=== PATIENT | female | born 1945 | race Caucasian/White ===

== ENCOUNTER 2019-06-17 14:27 | Outpatient (CLI) | payer MEDICARE, OTHER, SELFPAY ==
--- NOTE | 2019-06-17 14:38 | XR_ITS ---
WS: [id number] DEXA (DUAL ENERGY X-RAY ABSORPTIOMETRY) Bone mineral density was performed using a [employer] machine. HISTORY: POST MENOPAUSAL COMPARISON: None available. Lumbar spine BMD (L1-L4): 1.351 g/cm2 T score: 1.4 Z score: 2.5 Total hip BMD: Left: 0.869 g/cm2. T score: -1.1 Z score: 0.2 Right: 0.853 g/cm2. T score: -1.2 Z score: 0.1 10 year probability of a major osteoporotic fracture is 26%. XR/XR DEXA axial skeleton* 77702 IMPRESSION: OSTEOPENIA based upon the WHO classification for females. Patient is at increas ed risk for fracture.
== END 2019-06-17 14:28 | disposition home or self-care (01) ==
LOC: RADWPI 14:37
PROVIDERS: Family Provider Family Medicine; PCP Family Medicine; Visit Provider Nurse Practitioner Family
DX: Z78.0 Asymptomatic menopausal state (principal)
CPT/HCPCS: 77080

== ENCOUNTER 2019-11-08 08:41 | Outpatient (CLI) | payer MEDICARE, OTHER, SELFPAY ==
[2019-11-08 09:18] LABS: Basophils # 0.1 10^3/uL (0.0-0.1); Basophils % 0.5 %; Eosinophils # 0.3 10^3/uL (0.0-0.8); Eosinophils % 1.9 %; Hematocrit 34.4 % (37.0-47.0); Hemoglobin 10.4 g/dL (11.5-15.3); Lymphocytes # 9.3 10^3/uL (0.8-4.8); Lymphocytes % 53.8 %; Mean Corpuscular HGB Conc 30.2 g/dL (30.0-36.0); Mean Corpuscular Volume 92.7 fL (81-99); Mean Platelet Volume 10.5 fL (7.4-10.4); Monocytes # 1.1 10^3/uL (0.2-0.9); Monocytes % 6.3 %; Neutrophils # 6.4 10^3/uL (1.8-7.7); Neutrophils % 36.9 %; Nucleated Red Blood Cells % 0 %; Platelet Count 298 10^3/cmm (130-400); Red Blood Count 3.71 10^6/uL (4.1-5.3); Red Cell Distribution Width 13.9 % (12.1-15.1); White Blood Count 17.3 10^3/uL (4.0-10.0)
[2019-11-08 09:24] LABS: Alanine Aminotransferase < 5 U/L (0-33); Albumin Level 4.1 g/dL (3.5-5.2); Alkaline Phosphatase 60 IU/L (35-105); Aspartate Amino Transferase 11 U/L (0-32); Blood Urea Nitrogen 27 mg/dL (8-23); Carbon Dioxide 18 mmol/L (22-29); Chloride 111 mmol/L (98-107); Globulin 2.1 g/dL (1.3-4.6); Glucose 173 mg/dL (65-115); Lactate Dehydrogenase 173 U/L (135-214); Osmolality Calculated 291 mOsm/kg (285-295); Sodium 140 mmol/L (136-145); Total Bilirubin 0.2 mg/dL (0.15-1.2); Total Protein 6.2 g/dL (6.6-8.7)
[2019-11-08 10:08] LABS: Slide Review Slide Review Perform
--- NOTE | 2019-11-08 11:02 | ONC FU_ITS ---
Dr. Zayas follow up note Patient: Yanira Gao Unit #: [id number]: 1945 Dicatated By: Nuha Zayas M.D.Date of Visit:Nov 08, 2019 Onc Med Follow-up/Prog Note History of Present Illness: This is a 74-year-old woman with chronic leukocytic leukemia, Lawler stage 0. She was noted to have asymptomatic leukocytosis in September of 2011. Her WBC was 18.6 with diff showing predominantly lymphocytes at 65%. She had no evidence of anemia or thrombocytopenia. She had no fevers chills or night sweats. She was first evaluated on 01/25/12 and was found to have an iron deficiency and B12 deficiency. There was no organomegaly by examination. Peripheral blood flow cytometry revealed CD20, CD23, CD5 lambda restricted lymphocytes consistent with chronic lymphocytic leukemia. CD38 was not detected, indicating good prognosis. She was established on routine surveillance with expectant management alone. Her other medical illnesses include hypertension, hyperlipidemia, type II diabetes, and discoid lupus. She also has known left subclavian artery stenosis. Screening colonoscopy in June 2012 showed diverticulosis and melanosis coli. There was no evidence of malignancy. She continued on iron and B12 supplements. In March 2015 she was admitted with left pyelonephritis and left proximal ureter dilation. The illness resolved with antibiotics. She is a nonsmoker Came for follow-up, denies any specific complaints, no fever or chills, no nausea or vomiting, no night sweats, no weight loss, no peripheral lymphadenopathy, no recurrent fever, no abdominal fullness, no palpitation no shortness of breath, no jaundice Medications: Aspirin 1 Tablet (of 81 mg) Oral daily, DilTIAZem CD 1 Cartridge (of 240 mg) Capsule SR 24 HR Oral daily, GlipiZIDE 1 Tablet (of 5 mg) Oral daily, Labetalol HCl 1 (200 mg) Tablet Oral b.i.d., Ocuvite 1 Tablet Oral daily, PriLOSEC OTC 1 (20 mg) Tablet, enteric coated Oral daily PRN Allergies: No Known Allergies. Review of Systems: Constitutional - Appetite is good and weight is stable. No fever, chills, hot flashes, or night sweats. Energy level is poor, ENMT - No sinus congestion/drainage. No mouth sores. No sore throat or difficulty swallowing, Hematologic/Lymphatic - No abnormal bruising or bleeding, Respiratory - Shortness of breath with exertion. No cough. No pleuritic pain or hemoptysis, Cardiovascular - No angina pain. No palpitations, Gastrointestinal - No nausea or vomiting. No heartburn or acid reflux. Frequent diarrhea or constipation. No blood in the stool or black stools, Genitourinary (F) - No dysuria or hematuria. Patient reports urinary frequency. No urgency or incontinence, Musculoskeletal - No joint or bone pain, Neurologic - No headache or dizziness. No numbness/paresthesias or other focal neurologic symptoms, Psychiatric - No anxiety or depression. No insomnia. Vital Signs: Performed on Nov 08, 2019 10:31 Height - 66.00 in Weight - 195.2 lbs (HIGH) BSA - 1.98 sq.m BMI - 31.51 (HIGH) Temperature - 97.8 F (LOW) Pulse - 60 /min Respiration - 24 /min BP - 202/98 mm(hg) (HIGH) O2 Sat - 98 % Pain - 0 Performance Status: 0 - Fully active, able to carry on all predisease activities without restrictions. (ECOG) Physical Examination: ENMT - No mouth sores, no thrush, no lymphadenopathy, Respiratory - Lungs are clear to auscultation, Cardiovascular - Regular rate and rhythm of heart, Abdomen - Soft, bowel sounds present, nontender, Extremities - No visible edema or rash. Lab/Imaging: Most recent lab results are not available for this patient. Impression: 1. Patient with chronic lymphocytic leukemia, Lawler stage 0, initially diagnosed in December 2011. She has been followed on observation. Her other medical illnesses include: 3. Hypertension. 4. Hyperlipidemia. 5. Type II diabetes. 6. Discoid lupus. 7. Left subclavian artery stenosis .Anemia Etiology appears multifactoria lBasic anemia workup remained inconclusive,Could be due to underlying myelodysplasia or chronic renal insufficiency or bone marrow infiltration with CLL. . Plan: Discussed with patient regarding her labs white blood count 17.3 hemoglobin 10.4 hematocrit 34.4 platelets 298,000 CMP within normal limit except creatinine 1.5 and LDH is also within normal range Clinically, patient is doing well with no signs symptoms suggestive of disease progression, no B symptoms, no peripheral lymphadenopathy, no abdominal fullness. And her lab work-up is also stable with mild anemia and mild leukocytosis/lymphocytosis. Normal LDH. We will continue to monitor and she will return to clinic in 6 months with CBC CMP and LDH, patient was advised in case she has any B symptoms e.g. night sweats, recurrent fever, or unexplained weight loss or peripheral lymphadenopathy, she need to call us. Signed By: Nuha Zayas M.D. <<Signature on File>>
== END 2019-11-08 08:42 | disposition home or self-care (01) ==
LOC: ONCMED 08:45
PROVIDERS: PCP Family Medicine; Visit Provider Internal Medicine Hematology & Oncology
DX: C91.10 Chronic lymphocytic leukemia of B-cell type not having achieved remission (principal); E11.9 Type 2 diabetes mellitus without complications; L93.0 Discoid lupus erythematosus; E78.5 Hyperlipidemia, unspecified; I10 Essential (primary) hypertension; D50.9 Iron deficiency anemia, unspecified; I70.8 Atherosclerosis of other arteries
CPT/HCPCS: 36415; 80053; 83615; 85025; 99214; G0463

== ENCOUNTER 2019-11-08 13:11 | Outpatient (CLI) | payer MEDICARE, OTHER, SELFPAY ==
--- NOTE | 2019-11-08 15:00 | USCV_ITS ---
Yaniar Gao Age: 74 Gender: F : 1945 Exam Date: 11/08/2019 14:11 Ordering Phys: Kaushal Alonzo MD ([email or web address]) Technologist: Nadine Craig Exam Location: [facility] [place] Indication: CAROTID STENOSIS Risk Factors: Previous Vascular Surgery: None Right Brachial BP: / Left Brachial BP: / Right Left Velocity (cm/s) Spectral Plaque Velocity (cm/s) Spectral Plaque Syst/Diast Broadening Syst/Diast Broadening 76.20/ 13.60 Prox CCA 77.50 / 5.70 73.80/ 12.00 Mid CCA 91.50 / 11.00 79.80/ 10.30 Distal CCA 90.40 / 11.00 178.80/20.00 Prox ICA 107.80/ 14.50 178.80/21.70 Mid ICA 115.70/ 13.80 166.50/19.70 Distal ICA 129.50/ 17.20 52.50 ECA 118.10 2.42 ICA/CCA 1.42 Antegrade Vertebral Antegrade 46.90/ 5.70 cm/s 79.10/ 11.50 cm/s Bi Subclavian Bi 167.1 161.5 0 0 FINDINGS Moderate to heavy heterogeneous plaques at the right bifurcation and internal carotid artery. Moderate heterogeneous plaques at the left bifurcation and internal carotid artery. Mild diffuse plaques in the common carotid arteries bilaterally Antegrade flow in the vertebral arteries bilaterally CONCLUSIONS Moderate to heavy heterogeneous plaques at the right bifurcation and internal carotid artery with velocity elevation consistent with 50-79% stenosis. Moderate heterogeneous plaques at the left bifurcation and internal carotid arterywith velocity elevation consistent with 16-49% stenosis. Compared to the study from 12/06/2018, there may not be a significant change Dr Darlene Jones MD [facility] (Electronically Signed) Final Date: 08 November 2019 18:48 S
== END 2019-11-08 13:12 | disposition home or self-care (01) ==
LOC: RAD 13:15
PROVIDERS: PCP Family Medicine; Visit Provider Internal Medicine Cardiovascular Disease
DX: I65.23 Occlusion and stenosis of bilateral carotid arteries (principal)
CPT/HCPCS: 93880

== ENCOUNTER 2020-05-12 11:47 | Outpatient (CLI) | payer MEDICARE, OTHER, SELFPAY ==
[2020-05-12 12:10] LABS: Basophils # 0.1 10^3/uL (0.0-0.1); Basophils % 0.6 %; Eosinophils # 0.3 10^3/uL (0.0-0.8); Eosinophils % 2.1 %; Hematocrit 33.3 % (37.0-47.0); Hemoglobin 9.9 g/dL (11.5-15.3); Lymphocytes % 55.3 %; Mean Corpuscular HGB Conc 29.7 g/dL (30.0-36.0); Mean Corpuscular Volume 97.7 fL (81-99); Mean Platelet Volume 10.6 fL (7.4-10.4); Monocytes % 6.2 %; Neutrophils # 5.68 10^3/uL (1.8-7.7); Neutrophils % 35.1 %; Nucleated Red Blood Cells % 0 %; Platelet Count 229 10^3/cmm (130-400); Red Blood Count 3.41 10^6/uL (4.1-5.3); Red Cell Distribution Width 13.7 % (12.1-15.1); White Blood Count 16.2 10^3/uL (4.0-10.0)
[2020-05-12 14:10] LABS: Alanine Aminotransferase 10 U/L (0-33); Albumin Level 3.8 g/dL (3.5-5.2); Alkaline Phosphatase 59 IU/L (35-105); Anion Gap 15.9 (5-19); Aspartate Amino Transferase 12 U/L (0-32); Blood Urea Nitrogen 28 mg/dL (8-23); Calcium 8.5 mg/dL (8.5-10.5); Carbon Dioxide 17 mmol/L (22-29); Chloride 113 mmol/L (98-107); Globulin 2.2 g/dL (1.3-4.6); Glucose 131 mg/dL (65-115); Lactate Dehydrogenase 176 U/L (135-214); Osmolality Calculated 299 mOsm/kg (285-295); Potassium 4.9 mmol/L (3.5-5.1); Sodium 141 mmol/L (136-145); Total Bilirubin 0.2 mg/dL (0.15-1.2)
--- NOTE | 2020-05-12 16:33 | ONC FU_ITS ---
Dr. Zayas follow up note Patient: Yanira Gao Unit #: [id number]: 1945 Dicatated By: Nuha Zayas M.D.Date of Visit:May 12, 2020 Onc Med Follow-up/Prog Note History of Present Illness: This is a 75-year-old woman with chronic leukocytic leukemia, Lawler stage 0. She was noted to have asymptomatic leukocytosis in September of 2011. Her WBC was 18.6 with diff showing predominantly lymphocytes at 65%. She had no evidence of anemia or thrombocytopenia. She had no fevers chills or night sweats. She was first evaluated on 01/25/12 and was found to have an iron deficiency and B12 deficiency. There was no organomegaly by examination. Peripheral blood flow cytometry revealed CD20, CD23, CD5 lambda restricted lymphocytes consistent with chronic lymphocytic leukemia. CD38 was not detected, indicating good prognosis. She was established on routine surveillance with expectant management alone. Her other medical illnesses include hypertension, hyperlipidemia, type II diabetes, and discoid lupus. She also has known left subclavian artery stenosis. Screening colonoscopy in June 2012 showed diverticulosis and melanosis coli. There was no evidence of malignancy. She continued on iron and B12 supplements. In March 2015 she was admitted with left pyelonephritis and left proximal ureter dilation. The illness resolved with antibiotics. She is a nonsmoker Came for follow-up, denies any specific complaint except mild dyspnea on exertion but no shortness of breath or palpitation at rest, no melena or hematochezia, no jaundice, no nausea or vomiting, no hemoptysis or hematemesis, no night sweats, no weight loss, no recurrent fever, no peripheral lymphadenopathy or abdominal fullness Medications: Aspirin 1 Tablet (of 81 mg) Oral daily, DilTIAZem CD 1 Cartridge (of 240 mg) Capsule SR 24 HR Oral daily, GlipiZIDE 1 Tablet (of 5 mg) Oral daily, Labetalol HCl 1 (200 mg) Tablet Oral b.i.d., Ocuvite 1 Tablet Oral daily, PriLOSEC OTC 1 (20 mg) Tablet, enteric coated Oral daily PRN Allergies: No Known Allergies. Review of Systems: Constitutional - Appetite is good and weight is stable. No fever, chills, hot flashes, or night sweats. Energy level is poor, ENMT - No sinus congestion/drainage. No mouth sores. No sore throat or difficulty swallowing, Hematologic/Lymphatic - No abnormal bruising or bleeding, Respiratory - Shortness of breath with exertion. No cough. No pleuritic pain or hemoptysis, Cardiovascular - No angina pain. No palpitations, Gastrointestinal - No nausea or vomiting. No heartburn or acid reflux. No diarrhea or constipation. No blood in the stool or black stools, Genitourinary (F) - No dysuria or hematuria. Patient reports urinary frequency. No urgency or incontinence, Musculoskeletal - No joint or bone pain, Integumentary - , Neurologic - No headache or dizziness. No numbness/paresthesias or other focal neurologic symptoms, Psychiatric - No anxiety or depression. Positive for insomnia. Vital Signs: Performed on May 12, 2020 13:50 Height - 66.00 in Weight - 203.6 lbs (HIGH) BSA - 2.02 sq.m BMI - 32.86 (HIGH) Temperature - 97.2 F (LOW) Pulse - 73 /min Respiration - 20 /min BP - 200/63 mm(hg) (HIGH) O2 Sat - 96 % Pain - 0 Performance Status: 1 - No physically strenuous activity, but ambulatory and able to carry out light or sedentary work (e.g. office work, light house work). (ECOG) Physical Examination: ENMT - No mouth sores, no thrush, no jaundice, no peripheral lymphadenopathy, Respiratory - Lungs are clear to auscultation, Cardiovascular - Regular rate and rhythm of heart, Abdomen - Soft, bowel sounds present, Extremities - No visible edema or rash. Lab/Imaging: Most recent lab results are not available for this patient. Impression: 1. Patient with chronic lymphocytic leukemia, Lawler stage 0, initially diagnosed in December 2011. She has been followed on observation. Her other medical illnesses include: 3. Hypertension. 4. Hyperlipidemia. 5. Type II diabetes. 6. Discoid lupus. 7. Left subclavian artery stenosis .Anemia Etiology appears multifactoria lBasic anemia workup remained inconclusive,Could be due to underlying myelodysplasia or chronic renal insufficiency or bone marrow infiltration with CLL. . Plan: Discussed with patient regarding her labs white blood count 16.2 hemoglobin 9.9 hematocrit 33.3 platelets 229,000 MCV 97.7 and CMP within normal limits LDH 176 Clinically, patient doing well with no new signs symptoms except now with mild/moderate dyspnea on exertion and follow-up CBC shows progressive anemia, no evidence of hemolysis, no evidence of gross bleeding. At this point will consider anemia work-up iron studies B12 folic acid reticulocyte count and then she will return to clinic in 2 weeks if her anemia work-up remains inconclusive then will consider bone marrow evaluation to rule out underlying myelodysplasia versus bone infiltration with monotypic B lymphocytes. Signed By: Nuha Zayas M.D. <<Signature on File>>
[2020-05-12 18:29] LABS: Ferritin 99 ng/mL (15-150); Iron 60 ug/dL (37-145); Percent Saturation 22.9 % (20-50); Total Iron Binding Capacity 262 mcg/dl; Unsaturated Iron Binding 202 ug/dL (112-347)
[2020-05-12 18:46] LABS: Vitamin B12 199 pg/mL (232-1245)
== END 2020-05-12 11:48 | disposition home or self-care (01) ==
LOC: ONCMED 11:49
PROVIDERS: PCP Family Medicine; Visit Provider Internal Medicine Hematology & Oncology
DX: C91.10 Chronic lymphocytic leukemia of B-cell type not having achieved remission (principal); I10 Essential (primary) hypertension; E78.5 Hyperlipidemia, unspecified; E11.9 Type 2 diabetes mellitus without complications; L93.0 Discoid lupus erythematosus; I70.8 Atherosclerosis of other arteries; D50.9 Iron deficiency anemia, unspecified; D51.9 Vitamin B12 deficiency anemia, unspecified; Z79.899 Other long term (current) drug therapy
CPT/HCPCS: 80053; 82607; 82728; 83540; 83550; 83615; 85025; 99214

== ENCOUNTER 2020-05-14 10:01 | Outpatient (CLI) | payer MEDICARE, OTHER, SELFPAY ==
--- NOTE | 2020-05-14 10:15 | USCV_ITS ---
Dereckstepan Yanira Age: 75 Gender: F : 1945 Exam Date: 05/14/2020 10:17 Ordering Phys: Kaushal Alonzo MD ([email or web address]) Technologist: Camila Jeffries Exam Location: [facility] [place] Indication: STENOSIS Risk Factors: Previous Vascular Surgery: Right Brachial BP: / Left Brachial BP: / Right Left Velocity (cm/s) Spectral Plaque Velocity (cm/s) Spectral Plaque Syst/Diast Broadening Syst/Diast Broadening 90.40/ 13.20 Prox CCA 82.50 / 14.70 91.50/ 15.40 Mid CCA 94.30 / 20.60 83.80/ 11.00 Distal CCA 89.90 / 16.20 139.40/18.35 Prox ICA 106.60/ 22.10 139.80/20.70 Mid ICA 116.60/ 18.10 82.90/ 14.20 Distal ICA 118.60/ 16.10 159.10 ECA 144.80 2.04 ICA/CCA 1.26 Antegrade Vertebral Antegrade 29.10/ 1.10 cm/s 114.6/ 24.10 cm/s 0 Tri Subclavian Tri FINDINGS Moderate to heavy heterogeneous plaques at the right bifurcation and proximal right carotid artery Moderate plaques of the left bifurcation and proximal internal carotid artery Antegrade flow in the vertebral arteries bilaterally Elevated velocity in the left vertebral artery, may suggest hemodynamically significant stenosis CONCLUSIONS Moderate to heavy heterogeneous plaques at the right bifurcation and proximal right carotid arterywith velocity elevation consistent with 50-79% stenosis. Moderate plaques at the left bifurcation and proximal internal carotid arterywith velocity elevation consistent with 16 to 49% stenosis Compared to the study from 11/08/2019, there may not be a significant change Dr Darlene Jones MD [facility] (Electronically Signed) Final Date: 14 May 2020 19:15 Amended: 14 May 2020 19:21 C
== END 2020-05-14 10:02 | disposition home or self-care (01) ==
LOC: US 10:01
PROVIDERS: PCP Family Medicine; Visit Provider Internal Medicine Cardiovascular Disease
DX: I65.23 Occlusion and stenosis of bilateral carotid arteries (principal)
CPT/HCPCS: 93880

== ENCOUNTER 2020-06-01 08:10 | Outpatient (CLI) | payer MEDICARE, OTHER, SELFPAY ==
[2020-06-01] MEDS: cyanocobalamin 1,000 mcg/mL SDV 1000 MCG SUBCUT (08:33)
[2020-06-01 08:54] LABS: Basophils # 0.1 10^3/uL (0.0-0.1); Basophils % 0.7 %; Eosinophils # 0.3 10^3/uL (0.0-0.8); Eosinophils % 2.3 %; Hematocrit 33.9 % (37.0-47.0); Hemoglobin 10.3 g/dL (11.5-15.3); Lymphocytes # 7.4 10^3/uL (0.8-4.8); Lymphocytes % 49.8 %; Mean Corpuscular HGB Conc 30.4 g/dL (30.0-36.0); Mean Corpuscular Hemoglobin 29.8 pg (28.0-34.0); Mean Platelet Volume 10.4 fL (7.4-10.4); Monocytes # 1.2 10^3/uL (0.2-0.9); Monocytes % 7.8 %; Neutrophils # 5.75 10^3/uL (1.8-7.7); Neutrophils % 38.8 %; Nucleated Red Blood Cells % 0 %; Platelet Count 228 10^3/cmm (130-400); Red Blood Count 3.46 10^6/uL (4.1-5.3); Red Cell Distribution Width 13.5 % (12.1-15.1); White Blood Count 14.8 10^3/uL (4.0-10.0)
--- NOTE | 2020-06-02 10:40 | ONC FU_ITS ---
Dr. Zayas follow up note Patient: Yanira Gao Unit #: [id number]: 1945 Dicatated By: Nuha Zayas M.D.Date of Visit:Jun 01, 2020 Onc Med Follow-up/Prog Note History of Present Illness: This is a 75-year-old woman with chronic leukocytic leukemia, Lawler stage 0. She was noted to have asymptomatic leukocytosis in September of 2011. Her WBC was 18.6 with diff showing predominantly lymphocytes at 65%. She had no evidence of anemia or thrombocytopenia. She had no fevers chills or night sweats. She was first evaluated on 01/25/12 and was found to have an iron deficiency and B12 deficiency. There was no organomegaly by examination. Peripheral blood flow cytometry revealed CD20, CD23, CD5 lambda restricted lymphocytes consistent with chronic lymphocytic leukemia. CD38 was not detected, indicating good prognosis. She was established on routine surveillance with expectant management alone. Her other medical illnesses include hypertension, hyperlipidemia, type II diabetes, and discoid lupus. She also has known left subclavian artery stenosis. Screening colonoscopy in June 2012 showed diverticulosis and melanosis coli. There was no evidence of malignancy. She continued on iron and B12 supplements. In March 2015 she was admitted with left pyelonephritis and left proximal ureter dilation. The illness resolved with antibiotics. She is a nonsmoker Came for follow-up, denies any specific complaints except generalized weakness and fatigue but no nausea vomiting or diarrhea constipation, no melena or hematochezia, no peripheral numbness Medications: Aspirin 1 Tablet (of 81 mg) Oral daily, DilTIAZem CD 1 Cartridge (of 240 mg) Capsule SR 24 HR Oral daily, GlipiZIDE 1 Tablet (of 5 mg) Oral daily, hydrALAZINE HCl 1.5 Tablet (of 50 mg) Oral t.i.d., Labetalol HCl 1 (200 mg) Tablet Oral b.i.d., Ocuvite 1 Tablet Oral daily, PriLOSEC OTC 1 (20 mg) Tablet, enteric coated Oral daily PRN Allergies: No Known Allergies. Review of Systems: Constitutional - Appetite is good and weight is stable. No fever, chills, hot flashes, or night sweats. Energy level is poor, ENMT - No sinus congestion/drainage. No mouth sores. No sore throat or difficulty swallowing, Hematologic/Lymphatic - No abnormal bruising or bleeding, Respiratory - Shortness of breath with exertion. No cough. No pleuritic pain or hemoptysis, Cardiovascular - No angina pain. No palpitations, Gastrointestinal - No nausea or vomiting. No heartburn or acid reflux. No diarrhea or constipation. No blood in the stool or black stools, Genitourinary (F) - No dysuria or hematuria. Patient reports urinary frequency. No urgency or incontinence, Musculoskeletal - No joint or bone pain, Neurologic - No headache or dizziness. No numbness/paresthesias or other focal neurologic symptoms, Psychiatric - No anxiety or depression. Positive for insomnia. Vital Signs: Vitals are not available for this patient. Performance Status: 1 - No physically strenuous activity, but ambulatory and able to carry out light or sedentary work (e.g. office work, light house work). (ECOG) Physical Examination: ENMT - No mouth sores, no thrush, no jaundice, Respiratory - Poor air entry otherwise clear, Cardiovascular - Regular rate and rhythm of heart, Abdomen - Soft, bowel sounds present, Extremities - No visible edema. Lab/Imaging: Test performed on May 12, 2020 11:57 Ferritin 99 ng/mL Iron 60 mcg/dL LDH (Total) 176 U/L Sodium 141 mmol/L Vitamin B12 199 pg/mL Iron Binding Capacity (TIBC) 262 mcg/dl Potassium 4.9 mmol/L % Iron Saturation 22.9 % Chloride 113 mmol/L CO2 17 mmol/L UIBC 202 mcg/dL Anion Gap 15.9 BUN 28 mg/dL Creatinine 1.6 mg/dL Cr Clearance (Est) 42.9300 mL/min Glucose 131 mg/dL Osmolality - Calculated 299 mOsm/kg Calcium 8.5 mg/dL Protein, Total 6.0 g/dL Albumin 3.8 g/dL Globulin 2.2 g/dL Bilirubin, Total 0.2 mg/dL ALT (SGPT) 10 U/L AST (SGOT) 12 U/L Alkaline Phosphatase 59 IU/L WBC 16.2 10 3/uL RBC 3.41 10 6/uL HGB 9.9 g/dL HCT 33.3 % MCV 97.7 fL MCH 29.0 pg MCHC 29.7 g/dL RDW 13.7 % Platelet Count 229 10 3/cmm MPV 10.6 fL Neutrophils 5.68 10 3/uL Lymphocytes 9.0 10 3/uL Monocytes 1.0 10 3/uL Eosinophils 0.3 10 3/uL Basophils 0.1 10 3/uL Neutrophil % 35.1 % Lymphocyte % 55.3 % Monocyte % 6.2 % Eosinophil % 2.1 % Basophils % 0.6 % NRBC % 0 % Test performed on May 12, 2020 00:00 Manual Diff Cancelled via OM: Cancelled in Connected System Impression: 1. Patient with chronic lymphocytic leukemia, Lawler stage 0, initially diagnosed in December 2011. She has been followed on observation. Her other medical illnesses include: 3. Hypertension. 4. Hyperlipidemia. 5. Type II diabetes. 6. Discoid lupus. 7. Left subclavian artery stenosis .Anemia Etiology appears multifactoria lBasic anemia workup remained inconclusive,Could be due to underlying myelodysplasia or chronic renal insufficiency or bone marrow infiltration with CLL.Lab work done on May 12, 2020 confirmed severe B12 deficiency, started on B12 supplement on June 01, 2020 . Plan: Discussed with patient regarding her labs white blood count 14.8 hemoglobin 10.3 hematocrit 33.9 platelets 228,000 and her anemia work-up showed iron stores on the low side of normal range but B12 deficiency as B12 was 199, normal being 232-1245 Clinically, patient is doing reasonably well now symptomatic due to mild/moderate anemia and anemia work-up confirmed B12 deficiency, which could be solely reason for anemia but considering her age and with history of CLL other entities like myelodysplasia or overcrowding of bone marrow with lymphoproliferative disorder cannot be ruled out at this point, we will consider B12 supplements and she will start taking B12 1000 mcg IM weekly x4 loading dose then every month as maintenance therapy and if there is no improvement in her anemia with normalization of B12 supplement,, will consider further evaluation - Signed By: Nuha Zayas M.D. <<Signature on File>>
== END 2020-06-01 08:11 | disposition home or self-care (01) ==
LOC: ONCMED 08:13
PROVIDERS: PCP Family Medicine; Visit Provider Internal Medicine Hematology & Oncology
DX: C91.10 Chronic lymphocytic leukemia of B-cell type not having achieved remission (principal); D51.9 Vitamin B12 deficiency anemia, unspecified; I10 Essential (primary) hypertension; E78.5 Hyperlipidemia, unspecified; E11.9 Type 2 diabetes mellitus without complications; L93.0 Discoid lupus erythematosus; I70.8 Atherosclerosis of other arteries; Z79.899 Other long term (current) drug therapy
CPT/HCPCS: 36415; 85025; 96372; 99214; J3420

== ENCOUNTER 2020-06-08 05:59 | Outpatient (CLI) | payer MEDICARE, OTHER, SELFPAY ==
[2020-06-08] MEDS: cyanocobalamin 1,000 mcg/mL SDV 1000 MCG SUBCUT (10:45)
== END 2020-06-08 06:00 | disposition home or self-care (01) ==
LOC: ONCMED 06:03
PROVIDERS: PCP Family Medicine; Visit Provider Internal Medicine Medical Oncology
DX: C91.10 Chronic lymphocytic leukemia of B-cell type not having achieved remission (principal); D51.8 Other vitamin B12 deficiency anemias
CPT/HCPCS: 96372; J3420

== ENCOUNTER 2020-06-15 06:05 | Outpatient (CLI) | payer MEDICARE, OTHER, SELFPAY ==
[2020-06-15] MEDS: cyanocobalamin 1,000 mcg/mL SDV 1000 MCG SUBCUT (10:35)
== END 2020-06-15 06:06 | disposition home or self-care (01) ==
PROVIDERS: PCP Family Medicine; Visit Provider Internal Medicine Medical Oncology
DX: C91.10 Chronic lymphocytic leukemia of B-cell type not having achieved remission (principal); D51.9 Vitamin B12 deficiency anemia, unspecified
CPT/HCPCS: 96372; J3420

== ENCOUNTER 2020-06-22 06:14 | Outpatient (CLI) | payer MEDICARE, OTHER, SELFPAY ==
[2020-06-22] MEDS: cyanocobalamin 1,000 mcg/mL SDV 1000 MCG SUBCUT (09:50)
== END 2020-06-22 06:15 | disposition home or self-care (01) ==
LOC: ONCMED 06:16
PROVIDERS: PCP Family Medicine; Visit Provider Internal Medicine Medical Oncology
DX: D51.8 Other vitamin B12 deficiency anemias (principal); C91.10 Chronic lymphocytic leukemia of B-cell type not having achieved remission; E11.9 Type 2 diabetes mellitus without complications; E78.5 Hyperlipidemia, unspecified; L93.0 Discoid lupus erythematosus; I10 Essential (primary) hypertension
CPT/HCPCS: 96372; J3420

== ENCOUNTER 2020-07-02 05:59 | Outpatient (CLI) | payer MEDICARE, OTHER, SELFPAY ==
[2020-07-02 13:54] LABS: Basophils # 0.1 10^3/uL (0.0-0.1); Basophils % 0.5 %; Eosinophils # 0.4 10^3/uL (0.0-0.8); Hematocrit 33.5 % (37.0-47.0); Hemoglobin 10.3 g/dL (11.5-15.3); Lymphocytes # 10.3 10^3/uL (0.8-4.8); Lymphocytes % 55.3 %; Mean Corpuscular HGB Conc 30.7 g/dL (30.0-36.0); Mean Corpuscular Hemoglobin 29.2 pg (28.0-34.0); Mean Corpuscular Volume 94.9 fL (81-99); Mean Platelet Volume 10.9 fL (7.4-10.4); Monocytes # 1.1 10^3/uL (0.2-0.9); Monocytes % 5.7 %; Neutrophils # 6.68 10^3/uL (1.8-7.7); Neutrophils % 35.8 %; Nucleated Red Blood Cells % 0 %; Platelet Count 296 10^3/cmm (130-400); Red Blood Count 3.53 10^6/uL (4.1-5.3); Red Cell Distribution Width 13.6 % (12.1-15.1); White Blood Count 18.7 10^3/uL (4.0-10.0)
[2020-07-02 14:24] LABS: Vitamin B12 718 pg/mL (232-1245)
[2020-07-02 14:50] LABS: Slide Review Slide Review Perform
--- NOTE | 2020-07-02 16:14 | ONC FU_ITS ---
Dr. Zayas follow up note Patient: Yanira Gao Unit #: [id number]: 1945 Dicatated By: Nuha Zayas M.D.Date of Visit:Jul 02, 2020 Onc Med Follow-up/Prog Note History of Present Illness: This is a 75-year-old woman with chronic leukocytic leukemia, Lawler stage 0. She was noted to have asymptomatic leukocytosis in September of 2011. Her WBC was 18.6 with diff showing predominantly lymphocytes at 65%. She had no evidence of anemia or thrombocytopenia. She had no fevers chills or night sweats. She was first evaluated on 01/25/12 and was found to have an iron deficiency and B12 deficiency. There was no organomegaly by examination. Peripheral blood flow cytometry revealed CD20, CD23, CD5 lambda restricted lymphocytes consistent with chronic lymphocytic leukemia. CD38 was not detected, indicating good prognosis. She was established on routine surveillance with expectant management alone. Her other medical illnesses include hypertension, hyperlipidemia, type II diabetes, and discoid lupus. She also has known left subclavian artery stenosis. Screening colonoscopy in June 2012 showed diverticulosis and melanosis coli. There was no evidence of malignancy. She continued on iron and B12 supplements. In March 2015 she was admitted with left pyelonephritis and left proximal ureter dilation. The illness resolved with antibiotics. She is a nonsmoker Started on parenteral B12 weekly x4 on June 01, 2020,for hemoglobin 9.9 g and B12 level 199, Ferritin 99, iron saturation 22.9, iron 60, TIBC 262, LDH 176 followed by maintenance monthly Came for follow-up, denies any specific complaint except generalized weakness and fatigue but no nausea or vomiting no diarrhea constipation, no night sweats, no recurrent fever, no weight loss, no peripheral lymphadenopathy, no jaundice, no melena or hematochezia, no hemoptysis hematemesis, no dysuria or hematuria. No shortness of breath or palpitation at rest but mild dyspnea on exertion. Tolerating parenteral B12 supplement well Medications: Aspirin 1 Tablet (of 81 mg) Oral daily, DilTIAZem CD 1 Cartridge (of 240 mg) Capsule SR 24 HR Oral daily, GlipiZIDE 1 Tablet (of 5 mg) Oral daily, hydrALAZINE HCl 1.5 Tablet (of 50 mg) Oral t.i.d., Labetalol HCl 1 (200 mg) Tablet Oral b.i.d., Ocuvite 1 Tablet Oral daily, PriLOSEC OTC 1 (20 mg) Tablet, enteric coated Oral daily PRN Allergies: No Known Allergies. Review of Systems: Review of Systems is not available for this patient. Vital Signs: Performed on Jul 02, 2020 15:20 Height - 66.00 in Weight - 203.2 lbs (LOW) BSA - 2.01 sq.m BMI - 32.80 (HIGH) Temperature - 97.1 F (LOW) Pulse - 74 /min Respiration - 18 /min BP - 168/60 mm(hg) (HIGH) O2 Sat - 94 % (LOW) Pain - 0 Fatigue - 5 Performance Status: 1 - No physically strenuous activity, but ambulatory and able to carry out light or sedentary work (e.g. office work, light house work). (ECOG) Physical Examination: ENMT - No mouth sores, no thrush, no jaundice, No cervical or axillary lymphadenopathy, Respiratory - Lungs are clear to auscultation, Cardiovascular - Regular rate and rhythm of heart, Abdomen - Soft, bowel sounds present, Extremities - No visible edema. Lab/Imaging: Test performed on Jun 01, 2020 08:33 WBC 14.8 10 3/uL RBC 3.46 10 6/uL HGB 10.3 g/dL HCT 33.9 % MCV 98.0 fL MCH 29.8 pg MCHC 30.4 g/dL RDW 13.5 % Platelet Count 228 10 3/cmm MPV 10.4 fL Neutrophils 5.75 10 3/uL Lymphocytes 7.4 10 3/uL Monocytes 1.2 10 3/uL Eosinophils 0.3 10 3/uL Basophils 0.1 10 3/uL Neutrophil % 38.8 % Lymphocyte % 49.8 % Monocyte % 7.8 % Eosinophil % 2.3 % Basophils % 0.7 % NRBC % 0 % Test performed on May 12, 2020 11:57 Ferritin 99 ng/mL Iron 60 mcg/dL LDH (Total) 176 U/L Sodium 141 mmol/L Vitamin B12 199 pg/mL Iron Binding Capacity (TIBC) 262 mcg/dl Potassium 4.9 mmol/L % Iron Saturation 22.9 % Chloride 113 mmol/L CO2 17 mmol/L UIBC 202 mcg/dL Anion Gap 15.9 BUN 28 mg/dL Creatinine 1.6 mg/dL Cr Clearance (Est) 42.9300 mL/min Glucose 131 mg/dL Osmolality - Calculated 299 mOsm/kg Calcium 8.5 mg/dL Protein, Total 6.0 g/dL Albumin 3.8 g/dL Globulin 2.2 g/dL Bilirubin, Total 0.2 mg/dL ALT (SGPT) 10 U/L AST (SGOT) 12 U/L Alkaline Phosphatase 59 IU/L Test performed on May 12, 2020 00:00 Manual Diff Cancelled via OM: Cancelled in Connected System Impression: 1. Patient with chronic lymphocytic leukemia, Lawler stage 0, initially diagnosed in December 2011. She has been followed on observation. Her other medical illnesses include: 3. Hypertension. 4. Hyperlipidemia. 5. Type II diabetes. 6. Discoid lupus. 7. Left subclavian artery stenosis .Anemia Etiology appears multifactoria lBasic anemia workup remained inconclusive,Could be due to underlying myelodysplasia or chronic renal insufficiency or bone marrow infiltration with CLL. Lab work done on May 12, 2020 confirmed severe B12 deficiency, 199, ferritin 99, started on B12 supplement on June 01, 2020 . Plan: -Discussed with patient regarding her labs white blood count 18.7 hemoglobin 10.3 hematocrit 33.5 platelets 296,000 B12 718 Clinically, patient is doing well with no new signs symptom, follow-up labs shows mild lymphocytosis/leukocytosis and persistent mild/moderate anemia, her lab work-up done recently shows B12 deficiency so she was started on B12 supplement, patient received 4 weekly doses of parenteral B12 as a loading dose with that her B12 level has gone up to 718 from 199 prior to supplement but her hemoglobin remained same, etiology could be multifactorial including, considering her age underlying myelodysplasia cannot be ruled out other possibility could be due to CLL. At this point, will consider bone marrow evaluation. Patient return to clinic 2 weeks after bone marrow evaluation with CBC and B12 level in the meantime continue with maintenance B12 supplement Signed By: Nuha Zayas M.D. <<Signature on File>>
== END 2020-07-02 06:00 | disposition home or self-care (01) ==
LOC: ONCMED 06:00
PROVIDERS: PCP Family Medicine; Visit Provider Internal Medicine Hematology & Oncology
DX: Z08 Encounter for follow-up examination after completed treatment for malignant neoplasm (principal); Z85.6 Personal history of leukemia; I10 Essential (primary) hypertension; E78.5 Hyperlipidemia, unspecified; E11.9 Type 2 diabetes mellitus without complications; L93.0 Discoid lupus erythematosus; I70.8 Atherosclerosis of other arteries; D51.9 Vitamin B12 deficiency anemia, unspecified; Z79.899 Other long term (current) drug therapy
CPT/HCPCS: 36415; 82607; 85025; 99214

== ENCOUNTER → 2020-07-04 09:04 | Outpatient (BNVA) | payer MEDICARE, OTHER, SELFPAY | PROVIDERS: PCP Family Medicine; Visit Provider Internal Medicine Hematology & Oncology | DX: Z20.822 Contact with and (suspected) exposure to COVID-19 (principal) | CPT/HCPCS: 87635 ==

== ENCOUNTER 2020-07-09 10:54 | Day surgery (SDC) | payer MEDICARE, OTHER, SELFPAY ==
[2020-07-08 10:46] VITALS: BMI 33.7
[2020-07-09 11:57] LABS: Glucose Point of Care 109 mg/dL (70-110)
[2020-07-09] MEDS: sodium chloride 0.9% 1,000 ML 30 ML IV (12:07)
[2020-07-09 12:38] VITALS: RESP 18
[2020-07-09 12:42] VITALS: BP 155/53; PULSE 69; RESP 18; O2SAT 93
[2020-07-09 12:47] VITALS: BP 153/57; RESP 16; O2SAT 96
[2020-07-09 12:52] VITALS: BP 143/57; PULSE 67; RESP 14; TEMP 36.6; O2SAT 92
--- NOTE | 2020-07-09 12:59 | P.PCN_ITS ---
Bone Marrow Biopsy Bone Marrow Biopsy: I was consulted by [] office regarding bone marrow biopsy on [nuno soto]. Briefly, the patient is a [75] year old [female] with [chronic lymphocytic leukemia now with progressive anemia]. In the Outpatient Services Department, with nursing staff and laboratory technologists in attendance, the procedure was discussed with the patient. Appropriate consent form had been signed. Appropriate alternatives, benefits and risks of procedure were discussed with the patient and she was pre- operatively assessed with a history and physical by myself and cleared for the biopsy procedure. The patient did request IV sedation and that was provided by the Anesthesia Department. Under aseptic condition right posterior iliac area was cleaned and prepped, local anesthesia was given, about 15 cc of bone marrow aspirate and core biopsy was obtained, patient tolerated procedure well, hemostasis obtained, specimen was sent for routine histopathology, flow cytometry/cytogenetics and FISH for MDS. Postprocedure instructions were given to the nurses. Thank you for allowing me to participate in this patient's care and diagnosis. Coding Level of Care Code Acute Insurance Job Titles for Karthikeyan Peters
[2020-07-09 13:10] VITALS: BP 149/97; PULSE 65; RESP 16; O2SAT 95
--- NOTE | 2020-07-09 16:55 | ANE.PACU2 ---
Inpatient post-anesthesia follow up: Airway intact: Yes Vital signs: Temperature 97.9 F Pulse Rate 65 Respiratory Rate 16 Blood Pressure 149/97 Pulse Oximetry 95 Oxygen Delivery Me thod Room Air Oxygen Flow Rate Fraction of Inspir ed Oxygen Hydration adequate: Yes Nausea and vomiting: No Pain level: 1 Mental status: Baseline
[2020-07-13 08:52] LABS: Miscellaneous Test See Scanned Lab Rpt
[2020-07-20 06:21] LABS: Miscellaneous Test See Scanned Lab Rpt
== END 2020-07-09 14:00 | disposition home or self-care (01) ==
PROVIDERS: PCP Family Medicine; Visit Provider Internal Medicine Hematology & Oncology
PROC: 07DT3ZX Extraction of Bone Marrow, Percutaneous Approach, Diagnostic (ICD-10-PCS; CPT 38222; principal; 2020-07-09 12:30)
DX: C91.90 Lymphoid leukemia, unspecified not having achieved remission (principal); D64.9 Anemia, unspecified
CPT/HCPCS: 12345; 36416; 38222; 82962; 88184; 88185; 88237; 88264; 88305; J7030

== ENCOUNTER 2020-07-27 09:14 | Outpatient (CLI) | payer MEDICARE, OTHER, SELFPAY ==
[2020-07-27 10:01] LABS: Hematocrit 34.8 % (37.0-47.0); Hemoglobin 10.6 g/dL (11.5-15.3); Mean Corpuscular HGB Conc 30.5 g/dL (30.0-36.0); Mean Corpuscular Hemoglobin 28.5 pg (28.0-34.0); Mean Corpuscular Volume 93.5 fL (81-99); Mean Platelet Volume 10.6 fL (7.4-10.4); Platelet Count 264 10^3/cmm (130-400); Red Blood Count 3.72 10^6/uL (4.1-5.3); Red Cell Distribution Width 14.1 % (12.1-15.1); White Blood Count 13.7 10^3/uL (4.0-10.0)
[2020-07-27 11:07] LABS: Absolute Segmented Neutrophil 5.2 10/cmm (1.6-7.1); Segmented Neutrophils 38 %; Total Cells Counted 100 (0-100)
[2020-07-27 11:08] LABS: Absolute Eosinophils 0.2 10^3/cmm (0.0-0.7); Absolute Neutrophil 5.2 10^3/cmm (1.4-6.5); Eosinophils 2 %; Lymphocytes 54 %; Monocytes Absolute 0.5 10^3/cmm (0.1-0.6); Platelet Estimate Normal (Normal)
== END 2020-07-27 09:15 | disposition home or self-care (01) ==
PROVIDERS: PCP Family Medicine; Visit Provider Internal Medicine Hematology & Oncology
DX: C91.10 Chronic lymphocytic leukemia of B-cell type not having achieved remission (principal)
CPT/HCPCS: 85007; 85025

== ENCOUNTER 2020-07-28 05:31 | Outpatient (CLI) | payer MEDICARE, OTHER, SELFPAY ==
--- NOTE | 2020-07-29 17:12 | ONC FU_ITS ---
Dr. Zayas follow up note Patient: Yanira Gao Unit #: [id number]: 1945 Dicatated By: Nuha Zayas M.D.Date of Visit:Jul 28, 2020 Onc Med Follow-up/Prog Note History of Present Illness: This is a 75-year-old woman with chronic leukocytic leukemia, Lawler stage 0. She was noted to have asymptomatic leukocytosis in September of 2011. Her WBC was 18.6 with diff showing predominantly lymphocytes at 65%. She had no evidence of anemia or thrombocytopenia. She had no fevers chills or night sweats. She was first evaluated on 01/25/12 and was found to have an iron deficiency and B12 deficiency. There was no organomegaly by examination. Peripheral blood flow cytometry revealed CD20, CD23, CD5 lambda restricted lymphocytes consistent with chronic lymphocytic leukemia. CD38 was not detected, indicating good prognosis. She was established on routine surveillance with expectant management alone. Her other medical illnesses include hypertension, hyperlipidemia, type II diabetes, and discoid lupus. She also has known left subclavian artery stenosis. Screening colonoscopy in June 2012 showed diverticulosis and melanosis coli. There was no evidence of malignancy. She continued on iron and B12 supplements. In March 2015 she was admitted with left pyelonephritis and left proximal ureter dilation. The illness resolved with antibiotics. She is a nonsmoker Started on parenteral B12 weekly x4 on June 01, 2020,for hemoglobin 9.9 g and B12 level 199, Ferritin 99, iron saturation 22.9, iron 60, TIBC 262, LDH 176 followed by maintenance monthly Bone marrow evaluation done on July 09, 2020 showed FISH negative for myeloid neoplasm and MDS bone marrow shows approximately 60% bone marrow replacement by a small B-cell neoplasm and, very subtle dyspoietic features are noted in the form of binucleated erythroid precursors, very rare and hypolobated megakaryocytes forms. Iron stain shows decreased iron stores Came for follow-up, denies any specific complaint except persistent generalized weakness and fatigue but no nausea or vomiting no diarrhea constipation no fever or chills, no night sweats, no weight loss. Tolerated bone marrow procedure well, she is here to discuss about the findings.. Medications: Aspirin 1 Tablet (of 81 mg) Oral daily, DilTIAZem CD 1 Cartridge (of 240 mg) Capsule SR 24 HR Oral daily, Ferrous Sulfate 1 (325 (65 Fe) mg) Tablet Oral daily, GlipiZIDE 1 Tablet (of 5 mg) Oral daily, hydrALAZINE HCl 1.5 Tablet (of 50 mg) Oral t.i.d., Labetalol HCl 1 (200 mg) Tablet Oral b.i.d., Ocuvite 1 Tablet Oral daily, PriLOSEC OTC 1 (20 mg) Tablet, enteric coated Oral daily PRN Allergies: No Known Allergies. Review of Systems: Review of Systems is not available for this patient. Vital Signs: Performed on Jul 28, 2020 09:29 Height - 66.00 in Weight - 197.2 lbs (LOW) BSA - 1.99 sq.m BMI - 31.83 (HIGH) Temperature - 97.8 F (LOW) Pulse - 88 /min Respiration - 18 /min BP - 140/51 mm(hg) O2 Sat - 94 % (LOW) Pain - 0 Fatigue - 8 Performance Status: 2 - Ambulatory/capable of all self-care, unable to perform any work activities. Up and about more than 50% of waking hours. (ECOG) Physical Examination: ENMT - No mouth sores, no thrush, no jaundice no cervical lymphadenopathy, Respiratory - Lungs are clear to auscultation, Cardiovascular - Regular rate and rhythm of heart, Abdomen - Soft, bowel sounds present, Extremities - No visible edema. Lab/Imaging: Test performed on Jul 02, 2020 13:26 Vitamin B12 718 pg/mL WBC 18.7 10 3/uL RBC 3.53 10 6/uL HGB 10.3 g/dL HCT 33.5 % MCV 94.9 fL MCH 29.2 pg MCHC 30.7 g/dL RDW 13.6 % Platelet Count 296 10 3/cmm MPV 10.9 fL Neutrophils 6.68 10 3/uL Lymphocytes 10.3 10 3/uL Monocytes 1.1 10 3/uL Eosinophils 0.4 10 3/uL Basophils 0.1 10 3/uL Neutrophil % 35.8 % Lymphocyte % 55.3 % Monocyte % 5.7 % Eosinophil % 2.0 % Basophils % 0.5 % NRBC % 0 % CBC Slide Review Slide Review Perform SLIDE REVIEW AGREES WITH AUTOMATED RESULTS DKM Test performed on May 12, 2020 11:57 Ferritin 99 ng/mL Iron 60 mcg/dL LDH (Total) 176 U/L Sodium 141 mmol/L Iron Binding Capacity (TIBC) 262 mcg/dl Potassium 4.9 mmol/L % Iron Saturation 22.9 % Chloride 113 mmol/L CO2 17 mmol/L UIBC 202 mcg/dL Anion Gap 15.9 BUN 28 mg/dL Creatinine 1.6 mg/dL Cr Clearance (Est) 42.9300 mL/min Glucose 131 mg/dL Osmolality - Calculated 299 mOsm/kg Calcium 8.5 mg/dL Protein, Total 6.0 g/dL Albumin 3.8 g/dL Globulin 2.2 g/dL Bilirubin, Total 0.2 mg/dL ALT (SGPT) 10 U/L AST (SGOT) 12 U/L Alkaline Phosphatase 59 IU/L Test performed on May 12, 2020 00:00 Manual Diff Cancelled via OM: Cancelled in Connected System Impression: 1. Patient with chronic lymphocytic leukemia, Lawler stage 0, initially diagnosed in December 2011. She has been followed on observation. Her other medical illnesses include: 3. Hypertension. 4. Hyperlipidemia. 5. Type II diabetes. 6. Discoid lupus. 7. Left subclavian artery stenosis .Anemia Etiology appears multifactoria lBasic anemia workup remained inconclusive,Could be due to underlying myelodysplasia or chronic renal insufficiency or bone marrow infiltration with CLL. Lab work done on May 12, 2020 confirmed severe B12 deficiency, 199, ferritin 99, started on B12 supplement on June 01, 2020 . Plan: Guarding her labs white blood count 13.7 hemoglobin 10.6 g compared to 10.3 g on July 02, 2020 hematocrit 34.8 platelets 264,000 and bone marrow evaluation showed no evidence of MDS but low iron stores and about 60% of bone marrow replaced by mature B cells Clinically, patient is doing well with no B symptoms or peripheral lymphadenopathy but complaining of persistent generalized weakness and fatigue, at this point will consider CT scan of chest abdomen pelvis to rule out central lymphadenopathy or organomegaly due to CLL and then return to clinic in 1 month with CBC CMP and LDH, as bone marrow showed low iron stores, will try oral iron for 1 month and continue B12 every month and also do CLL prognostic molecular testing. Signed By: Nuha Zayas M.D. <<Signature on File>>
== END 2020-07-28 05:32 | disposition home or self-care (01) ==
LOC: ONCMED 05:36
PROVIDERS: PCP Family Medicine; Visit Provider Internal Medicine Hematology & Oncology
DX: C91.10 Chronic lymphocytic leukemia of B-cell type not having achieved remission (principal); I10 Essential (primary) hypertension; E78.5 Hyperlipidemia, unspecified; E11.9 Type 2 diabetes mellitus without complications; L93.0 Discoid lupus erythematosus; I70.8 Atherosclerosis of other arteries; D64.9 Anemia, unspecified
CPT/HCPCS: 99214

== ENCOUNTER 2020-07-30 13:13 | Outpatient (CLI) | payer MEDICARE, OTHER, SELFPAY ==
--- NOTE | 2020-07-30 13:30 | USCV_ITS ---
Yanira Gao Age: 75 Gender: F : 1945 Exam Date: 07/30/2020 13:42 Ordering Phys: Edilberto Baer M.D ([email or web address]) Technologist: Jovanna Garcia Exam Location: [facility] Indication: SHORTNESS OF BREATH BP: 137 / 46 HR: 59 Rhythm: Sinus Technical Quality: Adequate MEASUREMENTS (Male / Female) Normal Values 2D ECHO LV Diastolic Diameter PLAX 3.8 cm 4.2 - 5.9 / 3.9 - 5.3 cm LV Systolic Diameter PLAX 2.0 cm LV Chamber Size 3.7 cm IVS Diastolic Thickness 1.2 cm 0.6 - 1.0 / 0.6 - 0.9 cm IVS Systolic Thickness 2.4 cm LVPW Diastolic Thickness 2.2 cm 0.6 - 1.0 / 0.6 - 0.9 cm LVPW Systolic Thickness 2.0 cm RV Chamber Size 2.3 cm LVOT Diameter 2.0 cm LV Ejection Fraction 2D Teich 80.0 % LV Ejection Fraction MOD 2C 60.5 % LV Ejection Fraction 2C AL 60.2 % LA Diameter 4.2 cm LA Width 2.9 cm LA Height 4.7 cm RA Width 3.1 cm RA Height 3.7 cm Aorta at Sinotubular Diameter 1.8 cm M-MODE LV Diastolic Diameter MM 4.9 cm 4.2 - 5.9 / 3.9 - 5.3 cm LV Systolic Diameter MM 2.6 cm LV Ejection Fraction MM Teich 77.6 % IVS Diastolic Thickness MM 1.1 cm 0.6 - 1.0 / 0.6 - 0.9 cm IVS Systolic Thickness MM 1.4 cm LVPW Diastolic Thickness MM 1.3 cm 0.6 - 1.0 / 0.6 - 0.9 cm LVPW Systolic Thickness MM 1.7 cm Aortic Annulus Diameter 2.5 cm LA Ao Ratio MM 1.7 MV E Point Septal Separation 0.7 cm DOPPLER AV Peak Velocity 185.0 cm/s LVOT Peak Velocity 135.3 cm/s AV Area Cont Eq vti 2.3 cm squared AV Area Cont Eq pk 2.4 cm squared MV Area PHT 3.7 cm squared Mitral E to A Ratio 2.0 MV E' Velocity 80.5 cm/s Mitral E to MV E' Ratio 12.8 Mitral E to LV E' Lateral Ratio 14.5 Mitral E to LV E' Septal Ratio 11.4 TR Peak Velocity 308.7 cm/s TR Peak Gradient 38.1 mmHg TV Peak E Velocity 63.0 cm/s Right Atrial Pressure 3.0 mmHg Pulmonary Artery Systolic Pressu 41.1 mmHg PV Peak Velocity 100.0 cm/s RV Acceleration Time 0.1 s RV Ejection Time 0.4 s RV AcT/ET 0.2 FINDINGS Left Ventricle Normal left ventricular size. LV systolic function is normal with EF of 55-60%. No regional wall motion abnormalities.Diastolic function is abnormal Right Ventricle The right ventricle is normal in size and function. Right Atrium The right atrium is normal in size. Left Atrium The left atrium is enlarged Mitral Valve Structurally normal mitral valve without significant stenosis or prolapse. There is mild to moderate mitral regurgitation. Aortic Valve Structurally normal aortic valve without significant sclerosis or stenosis. There is trace aortic regurgitation. Tricuspid Valve Structurally normal tricuspid valve without significant stenosis or regurgitation. Insufficient TR jet to calculate RVSP Pulmonic Valve Not well visualized Pericardium Normal pericardium without effusion. Aorta Normal ascending aorta dimension. CONCLUSIONS LV systolic function is normal with EF of 55-60% Diastolic function is abnormal Mild to moderate mitral regurgitation Compared to prior echocardiogram from 04/30/2019, mild to moderate mitral regurgitation is now present Edilberto Baer MD (Electronically Signed) Final Date: 04 August 2020 19:40 S
== END 2020-07-30 13:14 | disposition home or self-care (01) ==
LOC: US 13:13
PROVIDERS: PCP Family Medicine; Visit Provider Internal Medicine
DX: R06.02 Shortness of breath (principal); I34.0 Nonrheumatic mitral (valve) insufficiency
CPT/HCPCS: 93306

== ENCOUNTER 2020-08-03 12:40 | Outpatient (CLI) | payer MEDICARE, OTHER, SELFPAY ==
--- NOTE | 2020-08-03 13:02 | MM_ITS ---
WS: [id number] BILATERAL DIGITAL SCREENING MAMMOGRAPHY WITH CAD CLINICAL INFORMATION: SCREENING HISTORY: Screening mammogram. No current complaints. COMPARISON: TECHNIQUE: Bilateral CC and MLO views. FINDINGS: Scattered fibroglandular densities bilaterally. No suspicious focal mass, asymmetry, calcifications, or architectural distortion. No evidence of malignancy. Punctate and lucent centered calcifications. Vascular calcifications. MM/[id number] IMPRESSION: BI-RADS: 2-Benign FOLLOW UP: 1 Year Follow-up Recommend return to annual screening mammography.
== END 2020-08-03 12:41 | disposition home or self-care (01) ==
PROVIDERS: PCP Family Medicine; Visit Provider Family Medicine
DX: Z12.31 Encounter for screening mammogram for malignant neoplasm of breast (principal)
CPT/HCPCS: 77067

== ENCOUNTER 2020-09-07 08:24 | Outpatient (CLI) | payer MEDICARE, OTHER, SELFPAY ==
--- NOTE | 2020-09-07 09:08 | CT_ITS ---
WS: [id number] CT CHEST, ABDOMEN AND PELVIS WITH CONTRAST. HISTORY: CLL/LOW GRADE LYMPHOMA TECHNIQUE: Contiguous 5 mm axial imaging performed through the chest, abdomen and pelvis with IV cont rast, oral contrast has been provided. Coronal and sagittal reformats chest. Coronal and sagittal ref ormats through the abdomen and pelvis. All CT scans at [facility] use at least one of the se dose optimization techniques: automated exposure control; mA and/or kV adjustment per patient size (includes targeted exams where dose is matched to clinical indication); or iterative reconstruction. CONTRAST: Omnipaque 300; 95 mL IV. DLP: 2161.13 mGy.cm COMPARISON: 03/30/[address]: Small bilateral pleural effusions. There is diffuse interstitial thickening probably from e lizzette superimposed on centrilobular emphysema. There are numerous small subcentimeter lymph nodes in t he lower lung marsh bilaterally. The largest measures 6 mm. One of these nodules was present on the prior study from 2014 and the RIGHT lower lung field. Heart is moderately enlarged. No pericardial ef fusion. Numerous but small bilateral axillary lymph nodes. Largest lymph node is 8 mm on the RIGHT. No suprac lavicular lymph node identified. Small bilateral hilar lymph nodes. Largest RIGHT hilar lymph node 10 mm. Subcarinal lymph node measures 11 mm. Moderate atherosclerosis of aorta and proximal great vesse ls. Small hiatal hernia. Abdomen CT: Normal size liver. No bile duct dilatation or mass. The spleen is normal size and contain s 11 mm area of decreased density. This area was also present in 2014 but decreased in size from 26 m m. Negative gallbladder and pancreas. No adrenal mass. Mild cortical thinning of each kidney. There i s no obstruction or mass. Moderate to severe atherosclerosis within the aorta. Extensive atherosclero sis continues into the mesenteric arteries. Mid to distal aorta demonstrates is at least moderate carlo nosis. Calcifications continue into the common iliac arteries. There are small retrocrural lymph nodes at the level of the GE junction. Largest measures 8 mm. Chichi c axis and portacaval lymph nodes are subcentimeter. Numerous small mesenteric and retroperitoneal ly mph nodes. The largest lymph node in the retroperitoneum measures 10 mm on the LEFT. There are rachana us lymph nodes which are subcentimeter scattered throughout the mesentery greatest extending into the RIGHT lower quadrant. Small lymph nodes along the iliac chains. RIGHT obturator and inguinal lymph n odes measure up to 11 mm. No GI tract obstruction. Numerous diverticula in the descending and sigmoid colon. No acute diverticu litis. Pelvic CT: No free fluid in the pelvis. Urinary bladder contains air which may be from a recent jeanette terization, infection or fistula. Increase in thoracic kyphosis in the lumbar lordosis. T12 50% anterior compression fracture. Bones ar e osteopenic. CT/CT chest abd pel w con* IMPRESSION: 1. Lymphadenopathy throughout the chest, abdomen and pelvis. Numerous lymph no danny within multiple groups with only mild enlargement of the short axis diamete r. 2. Bilateral axillary , RIGHT hilar, RIGHT subcarinal, retrocrural, celiac axi s, mesenteric, retroperitoneal, obturator and iliac chain lymphadenopathy. Nume josafat lymph nodes at all groups. The largest lymph nodes near the 10 to 11 mm si ze. 3. Normal size spleen. Lesion in the spleen measures 11 mm but decreased from 26 mm seen on 03/30/2015. May be a cyst. 4. Small bilateral pleural effusions. 5. Numerous small, subcentimeter nodules at the lung bases are new since 2015. 6. Chronic emphysema and suspect mild interstitial fluid overload. 7. Moderate cardiomegaly. 8. Sigmoid diverticulosis without acute diverticulitis. 9. Significant atherosclerosis within the aorta with at least a moderate steno sis in the mid to distal abdominal aorta. 10. Air within urinary bladder. May be from recent catheterization. Other etio logies to consider are infection or fistula.
[2020-09-07 09:23] LABS: Basophils # 0.1 10^3/uL (0.0-0.1); Basophils % 0.6 %; Eosinophils # 0.3 10^3/uL (0.0-0.8); Eosinophils % 1.9 %; Hematocrit 35.9 % (37.0-47.0); Hemoglobin 10.9 g/dL (11.5-15.3); Lymphocytes # 8.6 10^3/uL (0.8-4.8); Lymphocytes % 53.7 %; Mean Corpuscular HGB Conc 30.4 g/dL (30.0-36.0); Mean Corpuscular Hemoglobin 28.2 pg (28.0-34.0); Mean Corpuscular Volume 92.8 fL (81-99); Mean Platelet Volume 10.9 fL (7.4-10.4); Monocytes # 1.2 10^3/uL (0.2-0.9); Monocytes % 7.2 %; Neutrophils # 5.75 10^3/uL (1.8-7.7); Neutrophils % 36.1 %; Nucleated Red Blood Cells % 0 %; Platelet Count 258 10^3/cmm (130-400); Red Blood Count 3.87 10^6/uL (4.1-5.3); Red Cell Distribution Width 14.2 % (12.1-15.1); White Blood Count 15.9 10^3/uL (4.0-10.0)
[2020-09-07 09:48] LABS: Alanine Aminotransferase 8 U/L (0-33); Albumin Level 3.5 g/dL (3.5-5.2); Alkaline Phosphatase 64 IU/L (35-105); Anion Gap 14.6 (5-19); Aspartate Amino Transferase 14 U/L (0-32); Blood Urea Nitrogen 17 mg/dL (8-23); Calcium 7.8 mg/dL (8.5-10.5); Carbon Dioxide 21 mmol/L (22-29); Chloride 110 mmol/L (98-107); Globulin 2.1 g/dL (1.3-4.6); Glucose 171 mg/dL (65-115); Lactate Dehydrogenase 211 U/L (135-214); Osmolality Calculated 300 mOsm/kg (285-295); Potassium 3.6 mmol/L (3.5-5.1); Sodium 142 mmol/L (136-145); Total Bilirubin 0.3 mg/dL (0.15-1.2); Total Protein 5.6 g/dL (6.6-8.7)
[2020-09-07] MEDS: iohexol 300 mg/mL 50 mL Btl IV (10:50)
[2020-09-07] MEDS: iohexol 300 mg/mL 100 mL Btl IV (10:55)
== END 2020-09-07 08:25 | disposition home or self-care (01) ==
PROVIDERS: PCP Family Medicine; Visit Provider Internal Medicine Hematology & Oncology
DX: C91.10 Chronic lymphocytic leukemia of B-cell type not having achieved remission (principal); C85.90 Non-Hodgkin lymphoma, unspecified, unspecified site; J90 Pleural effusion, not elsewhere classified; J43.9 Emphysema, unspecified; R91.8 Other nonspecific abnormal finding of lung field; I51.7 Cardiomegaly; K57.30 Diverticulosis of large intestine without perforation or abscess without bleeding; I70.0 Atherosclerosis of aorta
CPT/HCPCS: 71260; 74177; 80053; 83615; 85025; Q9967

== ENCOUNTER 2020-09-10 05:54 | Outpatient (CLI) | payer MEDICARE, OTHER, SELFPAY ==
--- NOTE | 2020-09-10 13:58 | ONC FU_ITS ---
Dr. Zayas follow up note Patient: Yanira Gao Unit #: [id number]: 1945 Dicatated By: Nuha Zayas M.D.Date of Visit:Sep 10, 2020 Onc Med Follow-up/Prog Note History of Present Illness: This is a 75-year-old woman with chronic leukocytic leukemia, Lawler stage 0. She was noted to have asymptomatic leukocytosis in September of 2011. Her WBC was 18.6 with diff showing predominantly lymphocytes at 65%. She had no evidence of anemia or thrombocytopenia. She had no fevers chills or night sweats. She was first evaluated on 01/25/12 and was found to have an iron deficiency and B12 deficiency. There was no organomegaly by examination. Peripheral blood flow cytometry revealed CD20, CD23, CD5 lambda restricted lymphocytes consistent with chronic lymphocytic leukemia. CD38 was not detected, indicating good prognosis. She was established on routine surveillance with expectant management alone. Her other medical illnesses include hypertension, hyperlipidemia, type II diabetes, and discoid lupus. She also has known left subclavian artery stenosis. Screening colonoscopy in June 2012 showed diverticulosis and melanosis coli. There was no evidence of malignancy. She continued on iron and B12 supplements. In March 2015 she was admitted with left pyelonephritis and left proximal ureter dilation. The illness resolved with antibiotics. She is a nonsmoker Started on parenteral B12 weekly x4 on June 01, 2020,for hemoglobin 9.9 g and B12 level 199, Ferritin 99, iron saturation 22.9, iron 60, TIBC 262, LDH 176 followed by maintenance monthly Bone marrow evaluation done on July 09, 2020 showed FISH negative for myeloid neoplasm and MDS bone marrow shows approximately 60% bone marrow replacement by a small B-cell neoplasm and, very subtle dyspoietic features are noted in the form of binucleated erythroid precursors, very rare and hypolobated megakaryocytes forms. Iron stain shows decreased iron stores f/u CT scan of chest abdomen pelvis done on September 07, 2020 showed subcentimeter lymphadenopathy throughout the chest abdomen pelvis, bilateral axillary, Normal-sized spleen, lesion in the spleen measured 11 mm but decreased from 26 mm seen previously in 2015. Small bilateral pleural effusion, numerous small, subcentimeter nodules at the lung bases are new since 2015, chronic emphysema, moderate cardiomegaly Came for follow-up, complaining of generalized weakness and fatigue but no night sweats, no recurrent fever, no weight loss also complaining of dyspnea on exertion which is a chronic problem now with mild worsening now being managed by PMD. No hemoptysis or hematemesis, no jaundice, no melena or hematochezia, on oral iron tolerating well Medications: Aspirin 1 Tablet (of 81 mg) Oral daily, DilTIAZem CD 1 Cartridge (of 240 mg) Capsule SR 24 HR Oral daily, Ferrous Sulfate 1 (325 (65 Fe) mg) Tablet Oral daily, GlipiZIDE 1 Tablet (of 5 mg) Oral daily, hydrALAZINE HCl 1.5 Tablet (of 50 mg) Oral t.i.d., Labetalol HCl 1 (200 mg) Tablet Oral b.i.d., Ocuvite 1 Tablet Oral daily, PriLOSEC OTC 1 (20 mg) Tablet, enteric coated Oral daily PRN Allergies: No Known Allergies. Review of Systems: Review of Systems is not available for this patient. Vital Signs: Performed on Sep 10, 2020 13:04 Height - 66.00 in Weight - 192.4 lbs (LOW) BSA - 1.97 sq.m BMI - 31.05 (HIGH) Temperature - 98.3 F (LOW) Pulse - 77 /min Respiration - 18 /min BP - 193/100 mm(hg) (HIGH) O2 Sat - 92 % (LOW) Pain - 0 Performance Status: 2 - Ambulatory/capable of all self-care, unable to perform any work activities. Up and about more than 50% of waking hours. (ECOG) Physical Examination: ENMT - No mouth sores, no thrush, no lymphadenopathy, Respiratory - Poor air entry with mild basilar rales, Cardiovascular - Regular rate and rhythm of heart, Abdomen - Soft, bowel sounds present, Extremities - Trace edema bilaterally. Lab/Imaging: Test performed on Jul 02, 2020 13:26 Vitamin B12 718 pg/mL WBC 18.7 10 3/uL RBC 3.53 10 6/uL HGB 10.3 g/dL HCT 33.5 % MCV 94.9 fL MCH 29.2 pg MCHC 30.7 g/dL RDW 13.6 % Platelet Count 296 10 3/cmm MPV 10.9 fL Neutrophils 6.68 10 3/uL Lymphocytes 10.3 10 3/uL Monocytes 1.1 10 3/uL Eosinophils 0.4 10 3/uL Basophils 0.1 10 3/uL Neutrophil % 35.8 % Lymphocyte % 55.3 % Monocyte % 5.7 % Eosinophil % 2.0 % Basophils % 0.5 % NRBC % 0 % CBC Slide Review Slide Review Perform SLIDE REVIEW AGREES WITH AUTOMATED RESULTS DKM Test performed on May 12, 2020 11:57 Ferritin 99 ng/mL Iron 60 mcg/dL LDH (Total) 176 U/L Sodium 141 mmol/L Iron Binding Capacity (TIBC) 262 mcg/dl Potassium 4.9 mmol/L % Iron Saturation 22.9 % Chloride 113 mmol/L CO2 17 mmol/L UIBC 202 mcg/dL Anion Gap 15.9 BUN 28 mg/dL Creatinine 1.6 mg/dL Cr Clearance (Est) 42.9300 mL/min Glucose 131 mg/dL Osmolality - Calculated 299 mOsm/kg Calcium 8.5 mg/dL Protein, Total 6.0 g/dL Albumin 3.8 g/dL Globulin 2.2 g/dL Bilirubin, Total 0.2 mg/dL ALT (SGPT) 10 U/L AST (SGOT) 12 U/L Alkaline Phosphatase 59 IU/L Test performed on May 12, 2020 00:00 Manual Diff Cancelled via OM: Cancelled in Connected System Impression: 1. Patient with chronic lymphocytic leukemia, Lawler stage 0, initially diagnosed in December 2011. She has been followed on observation. Her other medical illnesses include: 3. Hypertension. 4. Hyperlipidemia. 5. Type II diabetes. 6. Discoid lupus. 7. Left subclavian artery stenosis .Anemia Etiology appears multifactoria lBasic anemia workup remained inconclusive,Could be due to underlying myelodysplasia or chronic renal insufficiency or bone marrow infiltration with CLL., Bone marrow evaluation done on 07/09/2020, showed approximately 60% bone marrow replaced by mature bone small B cells, very subtle dyspoietic features are noted in the form of binucleated erythroid precursors, hypolobated megakaryocytes. Iron stain shows decreased storage iron and no ring sideroblasts. Follow-up CT scan of chest abdomen pelvis done on September 07, 2020 showed numerous but small bilateral axillary lymph nodes, largest being 8 mm on the right side. Subcentimeter lymphadenopathy in the chest abdomen pelvis. Spleen normal size, Bilateral small pleural effusion, diffuse interstitial thickening probably due to edema superimposed on centrilobular emphysema. Numerous small, subcentimeter nodules at the lung bases are new since 2015 Moderate cardiomegaly Lab work done on May 12, 2020 confirmed severe B12 deficiency, 199, ferritin 99, started on B12 supplement on June 01, 2020 . Plan: Discussed with patient regarding her labs white blood count 15.9, hemoglobin 10.9 hematocrit 35.9 platelets 258,000 absolute lymphocyte count 8600 CMP within normal limits except creatinine 1.3 compared to 1.6 in April 2020 LDH 211 Clinically, patient doing reasonably well with a persistent mild anemia which appears multifactorial including iron deficiency as bone marrow evaluation showed decreased iron stores and patient is on oral iron, she may have malabsorption or chronic blood loss, at this point we will stop oral iron and consider Injectafer 750 mg IV x1 to replenish iron stores in the bone marrow, may in the return improve her mild anemia. Other possibility for more mild anemia could be concurrent early myelodysplasia or bone marrow infiltration with mature small B lymphocytes. Patient return to clinic 1 month after Injectafer infusion with CBC. As far as dyspnea exertion,, could be due to congestive heart failure or emphysema, there is a concern but bilateral basilar subcentimeter nodules and mild pleural effusion which could be due to fluid overload, as per patient PMD is following her if there is no improvement in her symptoms, we may refer her to pulmonology for evaluation. Signed By: Nuha Zayas M.D. <<Signature on File>>
== END 2020-09-10 05:55 | disposition home or self-care (01) ==
LOC: ONCMED 05:56
PROVIDERS: PCP Family Medicine; Visit Provider Internal Medicine Hematology & Oncology
DX: C91.10 Chronic lymphocytic leukemia of B-cell type not having achieved remission (principal); D50.9 Iron deficiency anemia, unspecified; D63.0 Anemia in neoplastic disease; R06.00 Dyspnea, unspecified
CPT/HCPCS: 99214

== ENCOUNTER 2020-09-17 06:28 | Outpatient (CLI) | payer MEDICARE, OTHER, SELFPAY ==
[2020-09-17] MEDS: ferric carboxy (IVPB) 750 MG in sodium chloride 0.9% (100 ml) 100 ML 345 MG IV (14:38)
[2020-09-17] MEDS: sodium chloride 0.9% (100 ml) 100 ML 400 ML (14:38)
== END 2020-09-17 06:29 | disposition home or self-care (01) ==
PROVIDERS: PCP Family Medicine; Visit Provider Internal Medicine Medical Oncology
DX: D50.9 Iron deficiency anemia, unspecified (principal)
CPT/HCPCS: 96365; J1439

== ENCOUNTER 2020-10-28 12:47 | Outpatient (CLI) | payer MEDICARE, OTHER, SELFPAY ==
[2020-10-28 13:39] LABS: Basophils # 0.1 10^3/uL (0.0-0.1); Basophils % 0.5 %; Eosinophils # 0.3 10^3/uL (0.0-0.8); Eosinophils % 1.8 %; Hematocrit 37.9 % (37.0-47.0); Lymphocytes # 7.9 10^3/uL (0.8-4.8); Lymphocytes % 51.7 %; Mean Corpuscular HGB Conc 31.7 g/dL (30.0-36.0); Mean Corpuscular Hemoglobin 29.6 pg (28.0-34.0); Mean Corpuscular Volume 93.6 fL (81-99); Mean Platelet Volume 11.1 fL (7.4-10.4); Monocytes # 1.1 10^3/uL (0.2-0.9); Neutrophils # 5.79 10^3/uL (1.8-7.7); Neutrophils % 38.1 %; Nucleated Red Blood Cells % 0 %; Platelet Count 241 10^3/cmm (130-400); Red Blood Count 4.05 10^6/uL (4.1-5.3); Red Cell Distribution Width 14.5 % (12.1-15.1); White Blood Count 15.2 10^3/uL (4.0-10.0)
[2020-10-28 14:02] LABS: Iron 61 ug/dL (37-145); Total Iron Binding Capacity 210 mcg/dl; Unsaturated Iron Binding 149 ug/dL (112-347)
[2020-10-28 14:09] LABS: Slide Review Slide Review Perform
== END 2020-10-28 12:48 | disposition home or self-care (01) ==
PROVIDERS: PCP Family Medicine; Visit Provider Internal Medicine Hematology & Oncology
DX: C91.10 Chronic lymphocytic leukemia of B-cell type not having achieved remission (principal); D50.9 Iron deficiency anemia, unspecified; Z79.899 Other long term (current) drug therapy
CPT/HCPCS: 36415; 83540; 83550; 85025

== ENCOUNTER 2020-10-30 05:51 | Outpatient (CLI) | payer MEDICARE, OTHER, SELFPAY ==
--- NOTE | 2020-10-30 10:22 | ONC FU_ITS ---
Dr. Zayas follow up note Patient: Yanira Gao Unit #: [id number]: 1945 Dicatated By: Nuha Zayas M.D.Date of Visit:Oct 30, 2020 Onc Med Follow-up/Prog Note History of Present Illness: This is a 75-year-old woman with chronic leukocytic leukemia, Lawler stage 0. She was noted to have asymptomatic leukocytosis in September of 2011. Her WBC was 18.6 with diff showing predominantly lymphocytes at 65%. She had no evidence of anemia or thrombocytopenia. She had no fevers chills or night sweats. She was first evaluated on 01/25/12 and was found to have an iron deficiency and B12 deficiency. There was no organomegaly by examination. Peripheral blood flow cytometry revealed CD20, CD23, CD5 lambda restricted lymphocytes consistent with chronic lymphocytic leukemia. CD38 was not detected, indicating good prognosis. She was established on routine surveillance with expectant management alone. Her other medical illnesses include hypertension, hyperlipidemia, type II diabetes, and discoid lupus. She also has known left subclavian artery stenosis. Screening colonoscopy in June 2012 showed diverticulosis and melanosis coli. There was no evidence of malignancy. She continued on iron and B12 supplements. In March 2015 she was admitted with left pyelonephritis and left proximal ureter dilation. The illness resolved with antibiotics. She is a nonsmoker Started on parenteral B12 weekly x4 on June 01, 2020,for hemoglobin 9.9 g and B12 level 199, Ferritin 99, iron saturation 22.9, iron 60, TIBC 262, LDH 176 followed by maintenance monthly Bone marrow evaluation done on July 09, 2020 showed FISH negative for myeloid neoplasm and MDS bone marrow shows approximately 60% bone marrow replacement by a small B-cell neoplasm and, very subtle dyspoietic features are noted in the form of binucleated erythroid precursors, very rare and hypolobated megakaryocytes forms. Iron stain shows decreased iron stores f/u CT scan of chest abdomen pelvis done on September 07, 2020 showed subcentimeter lymphadenopathy throughout the chest abdomen pelvis, bilateral axillary, Normal-sized spleen, lesion in the spleen measured 11 mm but decreased from 26 mm seen previously in 2015. Small bilateral pleural effusion, numerous small, subcentimeter nodules at the lung bases are new since 2015, chronic emphysema, moderate cardiomegaly Came for follow-up, denies any specific complaints of generalized weakness and fatigue, no fever chills, no nausea or vomiting, no diarrhea constipation, no night sweats, no weight loss, no recurrent fever, no peripheral lymphadenopathy, no abdominal fullness, patient is used 2 pillows and sleep on her side, most of the time do not get restful sleep and feels sleepy during daytime. Denies any melena or hematochezia denies any jaundice denies any hemoptysis hematemesis denies any chest pain or shortness of breath. Medications: Aspirin 1 Tablet (of 81 mg) Oral daily, Bumetanide (1 mg) Tablet Oral b.i.d., DilTIAZem CD 1 Cartridge (of 240 mg) Capsule SR 24 HR Oral daily, Ferrous Sulfate 1 (325 (65 Fe) mg) Tablet Oral daily, GlipiZIDE 1 Tablet (of 5 mg) Oral daily, hydrALAZINE HCl 1.5 Tablet (of 50 mg) Oral t.i.d., Labetalol HCl 1 (200 mg) Tablet Oral b.i.d., Ocuvite 1 Tablet Oral daily, PriLOSEC OTC 1 (20 mg) Tablet, enteric coated Oral daily PRN Allergies: No Known Allergies. Review of Systems: Review of Systems is not available for this patient. Vital Signs: Performed on Oct 30, 2020 08:56 Height - 66.00 in Weight - 189.4 lbs (LOW) BSA - 1.95 sq.m BMI - 30.57 (HIGH) Temperature - 97.6 F (LOW) Pulse - 62 /min Respiration - 18 /min BP - 167/62 mm(hg) (HIGH) O2 Sat - 96 % Pain - 0 Fatigue - 6 Performance Status: 0 - Fully active, able to carry on all predisease activities without restrictions. (ECOG) Physical Examination: ENMT - No mouth sores, no thrush, no jaundice, no obvious cervical lymphadenopathy, Respiratory - Lungs are clear to auscultation, Cardiovascular - Regular rate and rhythm of heart, Abdomen - Soft, bowel sounds present, Extremities - No visible edema or rash. Lab/Imaging: Test performed on Jul 02, 2020 13:26 Vitamin B12 718 pg/mL WBC 18.7 10 3/uL RBC 3.53 10 6/uL HGB 10.3 g/dL HCT 33.5 % MCV 94.9 fL MCH 29.2 pg MCHC 30.7 g/dL RDW 13.6 % Platelet Count 296 10 3/cmm MPV 10.9 fL Neutrophils 6.68 10 3/uL Lymphocytes 10.3 10 3/uL Monocytes 1.1 10 3/uL Eosinophils 0.4 10 3/uL Basophils 0.1 10 3/uL Neutrophil % 35.8 % Lymphocyte % 55.3 % Monocyte % 5.7 % Eosinophil % 2.0 % Basophils % 0.5 % NRBC % 0 % CBC Slide Review Slide Review Perform SLIDE REVIEW AGREES WITH AUTOMATED RESULTS DKM Test performed on May 12, 2020 11:57 Ferritin 99 ng/mL Iron 60 mcg/dL LDH (Total) 176 U/L Sodium 141 mmol/L Iron Binding Capacity (TIBC) 262 mcg/dl Potassium 4.9 mmol/L % Iron Saturation 22.9 % Chloride 113 mmol/L CO2 17 mmol/L UIBC 202 mcg/dL Anion Gap 15.9 BUN 28 mg/dL Creatinine 1.6 mg/dL Cr Clearance (Est) 42.9300 mL/min Glucose 131 mg/dL Osmolality - Calculated 299 mOsm/kg Calcium 8.5 mg/dL Protein, Total 6.0 g/dL Albumin 3.8 g/dL Globulin 2.2 g/dL Bilirubin, Total 0.2 mg/dL ALT (SGPT) 10 U/L AST (SGOT) 12 U/L Alkaline Phosphatase 59 IU/L Test performed on May 12, 2020 00:00 Manual Diff Cancelled via OM: Cancelled in Connected System Impression: 1. Patient with chronic lymphocytic leukemia, Lawler stage 0, initially diagnosed in December 2011. She has been followed on observation. Her other medical illnesses include: 3. Hypertension. 4. Hyperlipidemia. 5. Type II diabetes. 6. Discoid lupus. 7. Left subclavian artery stenosis .Anemia Etiology appears multifactoria lBasic anemia workup remained inconclusive,Could be due to underlying myelodysplasia or chronic renal insufficiency or bone marrow infiltration with CLL., Bone marrow evaluation done on 07/09/2020, showed approximately 60% bone marrow replaced by mature bone small B cells, very subtle dyspoietic features are noted in the form of binucleated erythroid precursors, hypolobated megakaryocytes. Iron stain shows decreased storage iron and no ring sideroblasts. Follow-up CT scan of chest abdomen pelvis done on September 07, 2020 showed numerous but small bilateral axillary lymph nodes, largest being 8 mm on the right side. Subcentimeter lymphadenopathy in the chest abdomen pelvis. Spleen normal size, Bilateral small pleural effusion, diffuse interstitial thickening probably due to edema superimposed on centrilobular emphysema. Numerous small, subcentimeter nodules at the lung bases are new since 2015 Moderate cardiomegaly Lab work done on May 12, 2020 confirmed severe B12 deficiency, 199, ferritin 99, started on B12 supplement on June 01, 2020 Iron deficiency, responded well to Injectafer given on September 17, 2020, with normalization of hemoglobin . Plan: Discussed with patient regarding her labs white blood count 15.2 hemoglobin 12 hematocrit 37.9 compared to 10.9 previously, prior to Injectafer infusion, platelets 241,000, absolute lymphocyte count 7900 Clinically, patient doing well with no B symptoms or new symptoms except persistent generalized weakness and fatigue, her follow-up labs shows hemoglobin is normalized after dose of Injectafer which was given on September 17, 2020, iron studies within normal range. But patient still complaining of generalized weakness and fatigue, considering her weight and abdominal girth, there is a possibility she may have underlying sleep apnea, we will suggest PMD to consider sleep study to confirm it and if it does, CPAP may improve her symptoms. She will return to clinic in 3 months with CBC CMP and LDH Signed By: Nuha Zayas M.D. <<Signature on File>>
== END 2020-10-30 05:52 | disposition home or self-care (01) ==
LOC: ONCMED 05:54
PROVIDERS: PCP Family Medicine; Visit Provider Internal Medicine Hematology & Oncology
DX: C91.10 Chronic lymphocytic leukemia of B-cell type not having achieved remission (principal); E78.5 Hyperlipidemia, unspecified; I10 Essential (primary) hypertension; E11.9 Type 2 diabetes mellitus without complications; L93.0 Discoid lupus erythematosus; I77.1 Stricture of artery; Z79.899 Other long term (current) drug therapy; E53.8 Deficiency of other specified B group vitamins; E61.1 Iron deficiency
CPT/HCPCS: 99214

== ENCOUNTER 2020-10-30 12:34 | Outpatient (CLI) | payer MEDICARE, OTHER, SELFPAY ==
--- NOTE | 2020-10-30 13:00 | MR_ITS ---
WS: [id number] MRI LUMBAR SPINE NONCONTRAST HISTORY: SPINAL STENOSIS, LUMBAR W/OUT NEUROGENIC CLAUDICATION COMPARISON: CT lumbar spine 03/17/2014. 09/07/2020. TECHNIQUE: Sagittal and axial multisequence imaging is submitted. T12 compression fracture by 50% with minimal posterior bulging of the posterior superior endplate. No marrow edema to suggest this is acute or subacute fracture. Retropulsion by 2 mm. Moderate increase in the lumbar lordosis with L1-L4 retrolisthesis by 2 mm. No acute fractures or mar row edema. Mild disc space narrowing and desiccation throughout the lumbar spine. Conus terminates normally at L1. T11-12: 2 mm retropulsion of the posterior endplate of T12 with mild contact on the ventral thecal sa c. There is no significant central stenosis or contact on the conus. Mild facet joint arthritis. L1-L2: Mild annular disc bulging. Mild bilateral facet joint arthritis and ligamentum flavum arthriti s. L2-L3: Mild annular disc bulging with moderate ligamentum flavum arthritis and facet arthritis. No si gnificant stenosis. There is very mild narrowing of the subarticular recesses LEFT greater than RIGHT . L3-L4: Diffuse annular disc bulging with mild ligamentum flavum hypertrophy and facet arthritis. Mode rate encroachment into the subarticular recesses bilaterally. L4-L5: Diffuse annular disc bulging with moderate ligamentum flavum hypertrophy. Hypertrophy is asymm etric to the LEFT. Moderate central and bilateral subarticular recess stenosis and mild foraminal carlo nosis. L5-S1: Shallow central disc protrusion and annular disc bulging. Bilateral facet joint arthritis with fluid in the facet joints. Mild narrowing of the lateral recesses. Mild atherosclerotic changes within the aorta. MR/MR lumbar spine wo con* [id number] IMPRESSION: 1. Chronic T12 compression fracture by 50%. 2 mm retropulsion posterior superi or endplate without contact on the conus. 2. Moderate central with bilateral subarticular recess and foraminal stenosis at L4-5. 3. Mild narrowing of the subarticular recesses at L2-3, LEFT greater than RIGH T. 4. Mild foraminal narrowing at L5-S1. 5. Moderate increase in the lumbar lordosis.
== END 2020-10-30 12:35 | disposition home or self-care (01) ==
LOC: RADWPI 12:36
PROVIDERS: PCP Family Medicine; Visit Provider Family Medicine
DX: M48.061 Spinal stenosis, lumbar region without neurogenic claudication (principal); M54.5 Low back pain; S22.080A Wedge compression fracture of T11-T12 vertebra, initial encounter for closed fracture; X58.XXXA Exposure to other specified factors, initial encounter; M40.56 Lordosis, unspecified, lumbar region
CPT/HCPCS: 72148

== ENCOUNTER → 2020-11-11 08:39 | Outpatient (BNVA) | payer MEDICARE, OTHER, SELFPAY | PROVIDERS: PCP Family Medicine; Referring Provider Family Medicine; Visit Provider Anesthesiology Pain Medicine | DX: M51.17 Intervertebral disc disorders with radiculopathy, lumbosacral region (principal); M54.9 Dorsalgia, unspecified; M47.816 Spondylosis without myelopathy or radiculopathy, lumbar region; M46.00 Spinal enthesopathy, site unspecified; M51.36 Other intervertebral disc degeneration, lumbar region; Z79.899 Other long term (current) drug therapy; Z87.891 Personal history of nicotine dependence | CPT/HCPCS: 99205 ==

== ENCOUNTER → 2020-11-23 13:39 | Outpatient (BNVA) | payer MEDICARE, OTHER, SELFPAY | PROVIDERS: PCP Family Medicine; Visit Provider Anesthesiology Pain Medicine | DX: Z01.812 Encounter for preprocedural laboratory examination (principal); E11.9 Type 2 diabetes mellitus without complications; M54.16 Radiculopathy, lumbar region; M54.9 Dorsalgia, unspecified | CPT/HCPCS: 64483; 64484; J1100; J3490 ==

== ENCOUNTER 2020-12-01 16:40 | Inpatient (IN) | payer MEDICARE, OTHER, SELFPAY ==
--- NOTE | 2020-12-01 16:53 | ECG_ITS ---
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1945 Requested By: Mike Romero Order Number: [id number] Reading MD: AR AL Measurements Intervals [place] Rate: 76 P: 56 GA: 181 QRS: 79 QRSD: 93 T: -7 QT: 400 QTc: 450 Interpretive Statements SINUS RHYTHM WITH OCCASIONAL SUPRAVENTRICULAR PREMATURE COMPLEXES ANTEROSEPTAL MYOCARDIAL INFARCTION [40+ ms Q WAVE IN V1-V4], PROBABLY OLD WARNING: DATA QUALITY MAY AFFECT INTERPRETATION No previous ECG available for comparison Electronically Signed On 12-01-2020 20:11:03 CDT by AR AL [id number]
--- NOTE | 2020-12-01 16:53 | XRR_ITS ---
PROCEDURE INFORMATION: Exam: XR Chest Exam date and time: 12/01/2020 4:53 PM Age: 75 years old Clinical indication: Cough and shortness of breath TECHNIQUE: Imaging protocol: XR of the chest. Views: 1 view. COMPARISON: CT chest abd pel w con* 09/07/2020 11:06 AM FINDINGS: Lungs: There is partial atelectasis or infiltrate at both lung bases. There is mild pulmonary venous congestion. Pleural spaces: There are small to moderate bilateral pleural effusions. Heart/Mediastinum: Heart is upper limits normal in size. Bones/joints: Unremarkable. XR/XR chest 1V portable [id number] IMPRESSION: 1. Mild congestive failure. 2. Bilateral pleural effusions. 3. Basilar atelectasis or infiltrates.
[2020-12-01 17:24] VITALS: BP 182/82; PULSE 79; RESP 22; TEMP 36.9; O2SAT 93; BMI 32.9
[2020-12-01 18:22] LABS: Add Urine Microscopic? YES; Bilirubin Urine Neg (Negative); Blood Urine 2+ (Negative); Glucose Urine UA Norm (Normal); Ketones Urine Negative (Negative); Leukocyte Esterase Urine 2+ (Negative); Nitrate Urine Negative (Negative); Protein Urine 3+ (Negative); Specific Gravity, Urine 1.015 (1.005-1.030); Urine Appearance Hazy (CLEAR); Urine Color Yellow (Yellow); Urobilinogen Urine Norm (Negative); pH Urine 5 (5-7)
[2020-12-01 18:23] LABS: Add Urine Culture? Yes; Bacteria Urine 2+ /hpf; Mucus Urine 1+ /hpf; RBC Urine 0-4 /hpf (0-2); Squamous Epithelial Cell Urine 0-4 /hpf (0-5)
--- NOTE | 2020-12-01 18:53 | ECG_ITS ---
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1945 Requested By: Mike Romero Order Number: [id number] Reading MD: AR AL Measurements Intervals [place] Rate: 77 P: 41 IL: 188 QRS: 61 QRSD: 85 T: -11 QT: 383 QTc: 433 Interpretive Statements SINUS RHYTHM WITH OCCASIONAL SUPRAVENTRICULAR PREMATURE COMPLEXES ANTEROSEPTAL MYOCARDIAL INFARCTION [40+ ms Q WAVE IN V1-V4], OF INDETERMINATE AGE Compared to ECG 12/01/2020 17:33:11 No significant changes Electronically Signed On 12-01-2020 20:13:25 CDT by AR AL [id number]
[2020-12-01 19:54] LABS: Basophils # 0.1 10^3/uL (0.0-0.1); Basophils % 0.4 %; Eosinophils # 0.3 10^3/uL (0.0-0.8); Eosinophils % 1.5 %; Hematocrit 38.7 % (37.0-47.0); Hemoglobin 12.2 g/dL (11.5-15.3); Lymphocytes % 54.7 %; Mean Corpuscular HGB Conc 31.5 g/dL (30.0-36.0); Mean Corpuscular Hemoglobin 29.8 pg (28.0-34.0); Mean Corpuscular Volume 94.4 fL (81-99); Mean Platelet Volume 10.5 fL (7.4-10.4); Monocytes # 1.5 10^3/uL (0.2-0.9); Monocytes % 7.3 %; Neutrophils # 7.05 10^3/uL (1.8-7.7); Neutrophils % 35.3 %; Nucleated Red Blood Cells % 0 %; Platelet Count 254 10^3/cmm (130-400); Red Cell Distribution Width 14.6 % (12.1-15.1); White Blood Count 20.1 10^3/uL (4.0-10.0)
--- NOTE | 2020-12-01 20:04 | ED_ITS ---
HPI - SOB/Dyspnea General: Chief Complaint: Shortness of Breath/Dyspnea Stated Complaint: SENT BY CARDIOLOGY/BRISSA HTN Time Seen by Provider: 12/01/20 20:03 History of Present Illness: HPI Narrative: This patient is a 75-year-old female with a long history of congestive heart failure presents to the emergency department for shortness of breath and weight gain of 4 to 5 pounds since Monday for the past 3 days. Patient states that she just increasing shortness of breath especially at night laying flat. Patient was seen by Dr. Jay her systems management consultant. Who sent her to the emergency department for concerns of exacerbation of CHF. Patient states she is prescribed Lasix but admits she has not taken it today. We will do medical evaluation treat as needed MD elicited complaint: shortness of breath Pertinent past history: congestive heart failure Timing: progressively worsening Severity: moderate Exacerbating factors: lying flat Relieving factors: nothing Associated symptoms: Deny abdominal pain, chest pain, extremity pain, fever(s), lightheadedness, nausea, palpitations or vomiting Review of Systems General: Reports: 10 or more systems reviewed and unremarkable except in HPI and below Const: Denies: fever(s), chills, body aches or fatigue Eyes: Denies: change in vision or blurry vision ENMT: Denies: throat pain, hoarseness or mouth pain Card: Denies: chest pain, palpitations, irregular heart rhythm, edema, swelling of feet/ankles or lightheadedness Resp: Reports: dyspnea; Denies: productive cough, non-productive cough, wheezing or pain on inspiration GI: Denies: abdominal pain, nausea or vomiting : Denies: flank pain, difficulty voiding, dysuria, urinary frequency, urinary urgency or urinary hesitancy Musc: Denies: neck pain, back pain, extremity pain, extremity swelling, joint pain, joint swelling, joint redness, joint warmth or limited range of motion Skin/Breast: Denies: rash, pruritus, erythema or skin tenderness Neuro: Denies: headache(s), numbness in extremities or weakness in extremities Psych: Denies: anxiety or depression PFS ED PFSH: Medical History Aortic stenosis Carotid stenosis, bilateral CKD (chronic kidney disease) CLL (chronic lymphocytic leukemia) Diabetes Discoid lupus Dyslipidemia Family History Mother , AGE 89 Diabetes Stroke CAD (coronary artery disease) Dementia Father , AGE 92 Stroke CAD (coronary artery disease) Dementia Sister CAD (coronary artery disease) Lung disease Myocardial infarction Cancer Brother CAD (coronary artery disease) Family/Other Cancer Denies family history of Clotting disorder Chronic kidney disease (CKD) Suicide Anesthesia complication Bleeding disorder Social History Smoking and tobacco status: former smoker Quit status (tobacco): has quit using tobacco Alcohol intake: never Lives independently: Yes Marital status: / Current occupational status: retired Physical Exam Const: COMMON NORMALS: no acute distress, average body habitus, patient oriented x3, no limitations, healthy appearing, alert and well nourished HENMT: COMMON NORMALS: normocephalic, atraumatic, hearing grossly normal bilaterally, external ears normal, EAC's normal, TM's normal bilaterally, Normal external nose present, Normal nasal mucous membranes and turbinates present, moist oral mucous membranes, oropharynx normal, dentition normal and gingiva normal HEAD & SCALP: normocephalic and atraumatic NOSE: Normal external nose present and Normal nasal mucous membranes and turbinates present EXTERNAL EAR: Yes external ears normal EXTERNAL AUDITORY CANAL: EAC's normal TYMPANIC MEMBRANE: TM's normal bilaterally Neck/C-Spine: COMMON NORMALS: full ROM, no lymphadenopathy, supple, no meningeal signs, no JVD, Thyroid normal and No carotid bruits THYROID: Thyroid normal Chest: COMMONS NORMALS: normal inspection of the chest, normal palpation of entire chest wall, normal inspection of the breasts and normal palpation of the breasts Breast/axilla inspection: Yes normal inspection of the breasts BREAST/AXILLA PALPATION: Yes normal palpation of the breasts Resp: COMMON NORMALS: normal respiratory effort, No retractions, No use of accessory muscles, clear to auscultation bilaterally and percussion normal AUSCULTATION: clear to auscultation bilaterally PERCUSSION: percussion normal Cardio: COMMON NORMALS: no JVD, regular rate, regular rhythm, S1 normal heart sound present, S2 normal heart sound present, No gallops present (Cardio), No clicks present (Cardio), No murmurs present (Cardio), No rub (Cardio) and Peripheral pulses 2+ throughout RATE: regular rate RHYTHM: regular rhythm HEART SOUNDS: S1 normal heart sound present and S2 normal heart sound present PERIPHERAL PULSES: Peripheral pulses 2+ throughout GI: COMMON NORMALS: Normal to inspection, nondistended, normoactive bowel sounds present, Soft to palpation, non-tender, No hepatosplenomegaly present, no masses and no bruits PALPATION: Yes Soft to palpation and Yes No hepatosplenomegaly present : COMMON NORMALS: Yes no CVA tenderness, Yes normal external appearance, Yes normal appearance of the vagina, Yes normal appearance of the cervix, Yes normal bimanual exam, Yes No adnexal tenderness and Yes no masses BLADDER/KIDNEY EXAM: Yes no CVA tenderness BIMANUAL EXAM - VAGINA & UTERUS: Yes normal bimanual exam Back/Pelvis: COMMON NORMALS: no CVA tenderness, thoracic and lumbar spine normal to inspection, no thoracic nor lumbar tenderness, thoraco-lumbar ROM normal and straight leg raise negative bilaterally Extremity: COMMON NORMALS: normal to inspection, full ROM, capillary refill normal, no joint enlargement, no clubbing, cyanosis or edema, no calf tenderness and no pedal edema Neuro: COMMON NORMALS: patient oriented x3 SENSORIUM/ORIENTATION: Yes alert MENINGEAL SIGNS: Yes no meningeal signs Course Reevaluation(s): Reevaluation #1: Discussed at length with patient about findings. Patient has acute congestive heart failure. This is a new diagnosis. Patient is agreeable to be admitted to the hospital. Patient has received 80 of Lasix IV. Patient requiring 2 to 3 L by nasal cannula with pulse ox of 92% at this time. Time: 21:58 Consultations: Consultation #1: I discussed at length with Dr. Nuñez hospitalist. She is agreed to send the patient to [facility] she was right see patient write additional orders Time: 21:59 Vital Signs: Vital signs: Vital Signs Temperature 98.5 F 12/01/20 17:24 Pulse Rate 94 12/01/20 21:00 Respiratory Rate 22 H 12/01/20 21:00 Blood Pressure 171/54 12/01/20 21:00 Pulse Oximetry 89 L 12/01/20 21:00 MDM - SOB/Dyspnea MDM Narrative: Medical decision making narrative: This patient is a 75-year-old female with a long history of congestive heart failure presents to the emergency department for shortness of breath and weight gain of 4 to 5 pounds since Monday for the past 3 days. Patient states that she just increasing shortness of breath especially at night laying flat. Patient was seen by Dr. Jay her systems management consultant. Who sent her to the emergency department for concerns of exacerbation of CHF. Patient states she is prescribed Lasix but admits she has not taken it today. Discussed at length with patient about findings. Patient has acute congestive h eart failure. This is a new diagnosis. Patient is agreeable to be admitted to the hospital. Patient has received 80 of Lasix IV. Patient requiring 2 to 3 L by nasal cannula with pulse ox of 92% at this time. I discussed at length with Dr. Nuñez hospitalist. She is agreed to send the patient to [facility] she was right see patient write additional orders Medical Records: Attestation: I reviewed the patient's medical records. Lab Data: Attestation: I reviewed the patient's lab results. Labs: Lab Results 12/01/20 12/01/20 12/01/20 Range/Units 17:49 19:45 19:45 WBC 20.1 H (4.0-10.0) 10^3/ uL RBC 4.10 (4.1-5.3) 10^6/u L Hgb 12.2 (11.5-15.3) g/dL Hct 38.7 (37.0-47.0) % MCV 94.4 (81-99) fL MCH 29.8 (28.0-34.0) pg MCHC 31.5 (30.0-36.0) g/dL RDW 14.6 (12.1-15.1) % Plt Count 254 (130-400) 10^3/c mm MPV 10.5 H (7.4-10.4) fL Neut % (Auto) 35.3 % Lymph % (Auto) 54.7 % Ross % (Auto) 7.3 % Eos % (Auto) 1.5 % Baso % (Auto) 0.4 % Neut # (Auto) 7.05 (1.8-7.7) 10^3/u L Lymph # (Auto) 11.0 H (0.8-4.8) 10^3/u L Ross # (Auto) 1.5 H (0.2-0.9) 10^3/u L Eos # (Auto) 0.3 (0.0-0.8) 10^3/u L Baso # (Auto) 0.1 (0.0-0.1) 10^3/u L Nucleated RBC % (a uto) 0 % Nucleated RBCs # 0.0 /100WBC PT 14.00 (12.1-14.9) SECO NDS INR 1.04 (0.8-1.2) APTT 27.2 (23.9-36.7) SECO NDS Sodium (136-145) mmol/L Potassium (3.5-5.1) mmol/L Chloride (98-107) mmol/L Carbon Dioxide (22-29) mmol/L Anion Gap (5-19) BUN (8-23) mg/dL Creatinine (0.5-0.9) mg/dL GFR Calculation Glucose (65-115) mg/dL Calculated Osmolal ity (285-295) mOsm/k g Calcium (8.5-10.5) mg/dL Total Bilirubin (0.15-1.2) mg/dL AST (0-32) U/L ALT (0-33) U/L Alkaline Phosphata se (35-105) IU/L Troponin T Baselin e (0-10) ng/L NT-Pro-B Natriuret Pep (0-450) pg/mL Total Protein (6.6-8.7) g/dL Albumin (3.5-5.2) g/dL Globulin (1.3-4.6) g/dL Urine Color Yellow (Yellow) Urine Appearance Hazy A (CLEAR) Urine pH 5 (5-7) Ur Specific Gravit y 1.015 (1.005-1.030) Urine Protein 3+ H (Negative) Urine Glucose (UA) Norm (Normal) Urine Ketones Negative (Negative) Urine Blood 2+ H (Negative) Urine Nitrate Negative (Negative) Urine Bilirubin Neg (Negative) Urine Urobilinogen Norm (Negative) mg/dL Ur Leukocyte Geena ase 2+ H (Negative) Urine RBC 0-4 H (0-2) /hpf Urine WBC 5-10 H (0-5) /hpf Ur Squamous Epith Cells 0-4 H (0-5) /hpf Amorphous Sediment Not Reportable Urine Bacteria 2+ H (NONE) /hpf Urine Mucus 1+ /hpf SARS-CoV-2 Ag (Rap id) (Negative) 12/01/20 12/01/20 12/01/20 Range/Units 19:45 19:45 21:15 WBC (4.0-10.0) 10^3/ uL RBC (4.1-5.3) 10^6/u L Hgb (11.5-15.3) g/dL Hct (37.0-47.0) % MCV (81-99) fL MCH (28.0-34.0) pg MCHC (30.0-36.0) g/dL RDW (12.1-15.1) % Plt Count (130-400) 10^3/c mm MPV (7.4-10.4) fL Neut % (Auto) % Lymph % (Auto) % Ross % (Auto) % Eos % (Auto) % Baso % (Auto) % Neut # (Auto) (1.8-7.7) 10^3/u L Lymph # (Auto) (0.8-4.8) 10^3/u L Ross # (Auto) (0.2-0.9) 10^3/u L Eos # (Auto) (0.0-0.8) 10^3/u L Baso # (Auto) (0.0-0.1) 10^3/u L Nucleated RBC % (a uto) % Nucleated RBCs # /100WBC PT (12.1-14.9) SECO NDS INR (0.8-1.2) APTT (23.9-36.7) SECO NDS Sodium 143 (136-145) mmol/L Potassium 4.0 (3.5-5.1) mmol/L Chloride 111 H (98-107) mmol/L Carbon Dioxide 18 L (22-29) mmol/L Anion Gap 18.0 (5-19) BUN 15 (8-23) mg/dL Creatinine 1.2 H (0.5-0.9) mg/dL GFR Calculation Not Reportable Glucose 105 (65-115) mg/dL Calculated Osmolal ity 297 H (285-295) mOsm/k g Calcium 8.0 L (8.5-10.5) mg/dL Total Bilirubin 0.5 (0.15-1.2) mg/dL AST 10 (0-32) U/L ALT 8 (0-33) U/L Alkaline Phosphata se 79 (35-105) IU/L Troponin T Baselin e 28 H (0-10) ng/L NT-Pro-B Natriuret Pep 3872 H (0-450) pg/mL Total Protein 5.7 L (6.6-8.7) g/dL Albumin 3.8 (3.5-5.2) g/dL Globulin 1.9 (1.3-4.6) g/dL Urine Color (Yellow) Urine Appearance (CLEAR) Urine pH (5-7) Ur Specific Gravit y (1.005-1.030) Urine Protein (Negative) Urine Glucose (UA) (Normal) Urine Ketones (Negative) Urine Blood (Negative) Urine Nitrate (Negative) Urine Bilirubin (Negative) Urine Urobilinogen (Negative) mg/dL Ur Leukocyte Geena ase (Negative) Urine RBC (0-2) /hpf Urine WBC (0-5) /hpf Ur Squamous Epith Cells (0-5) /hpf Amorphous Sediment Urine Bacteria (NONE) /hpf Urine Mucus /hpf SARS-CoV-2 Ag (Rap id) Negative (Negative) Imaging Data^: CXR: Attestation: I personally reviewed and interpreted this imaging study as follows: Radiologist's impression: IMPRESSION: 1. Mild congestive failure. 2. Bilateral pleural effusions. 3. Basilar atelectasis or infiltrates. EKG Data^: EKG 1: Attestation: I personally reviewed and interpreted this EKG as follows: EKG Interpretation Date: 12/01/20 EKG interpretation time: 17:33 Prior EKG tracings: available for review Interpretation: Sinus rhythm with occasional PVC. Nonspecific EKG changes heart rate 77 EKG 2: Attestation: I personally reviewed and interpreted this EKG as follows: EKG Interpretation Date: 12/01/20 EKG interpretation time: 20:35 Prior EKG tracings: available for review Interpretation: Sinus rhythm heart rate 76 nonspecific EKG changes. Discharge Plan Discharge Patient Disposition: Admitted As Inpatient Clinical Impression: Acute congestive heart failure, Breath shortness, Urinary tract infection Condition: Stable Coding Level of Care Code ED Mortgage Loan Reviewer for Chg Fwd Exam Comprehensive
[2020-12-01 20:13] LABS: INR 1.04 (0.8-1.2)
[2020-12-01 20:14] LABS: Partial Thromboplastin Time 27.2 SECONDS (23.9-36.7)
[2020-12-01 20:19] LABS: Troponin(5th) Baseline 28 ng/L (0-10)
[2020-12-01 20:28] LABS: Alanine Aminotransferase 8 U/L (0-33); Albumin Level 3.8 g/dL (3.5-5.2); Alkaline Phosphatase 79 IU/L (35-105); Aspartate Amino Transferase 10 U/L (0-32); Blood Urea Nitrogen 15 mg/dL (8-23); Carbon Dioxide 18 mmol/L (22-29); Chloride 111 mmol/L (98-107); Globulin 1.9 g/dL (1.3-4.6); Glucose 105 mg/dL (65-115); NT Pro B Type Natriuretic Pept 3872 pg/mL (0-450); Osmolality Calculated 297 mOsm/kg (285-295); Sodium 143 mmol/L (136-145); Total Bilirubin 0.5 mg/dL (0.15-1.2); Total Protein 5.7 g/dL (6.6-8.7)
[2020-12-01 21:00] VITALS: BP 171/54; PULSE 94; RESP 22; O2SAT 89
[2020-12-01] MEDS: cefTRIAXone 1,000 MG in sodium chloride 0.9% (plus) 50 ML 100 MG IV (21:35)
[2020-12-01] MEDS: FUROsemide 10 mg/mL SDV 10mL 80 MG IVP (21:36)
[2020-12-01 21:56] LABS: SARS Covid-2 Antigen Negative (Negative)
[2020-12-01 22:19] LABS: Troponin 5 2HR 25.48 ng/L (0-10)
[2020-12-01 22:20] LABS: Troponin 5 2HR Delta -2.52 ABS# (0-10)
--- NOTE | 2020-12-01 22:53 | ECG_ITS ---
[facility] Test Date: 2020-12-01 Pat Name: Yanira Gao Department: Room: Gender: Female Digester Hand: : 1945 Requested By: Mike Romero Order Number: [id number] Anabella MD: Darlene Jones M.D. Measurements Intervals [place] Rate: 76 P: 53 NH: 177 QRS: 74 QRSD: 90 T: -22 QT: 403 QTc: 454 Interpretive Statements SINUS RHYTHM ANTEROSEPTAL MYOCARDIAL INFARCTION [40+ ms Q WAVE IN V1-V4], OF INDETERMINATE AGE Nonspecific ST-T changes in inferolateral Compared to ECG 12/01/2020 17:33:59 No significant changes Electronically Signed On 12-02-2020 22:56:48 CDT by Dalrene Jones M.D. [email or web address] Groupgreene county [email or web address] Islands Technologiesgreen [email or web address]/[id number] f
--- NOTE | 2020-12-01 23:06 | P.HP_ITS ---
Providers/Chief Complaint Admitting Physician: Brigitte Nuñez MD Primary Care Provider: Teena Connelly MD Chief Complaint: SENT BY CARDIOLOGY/SOB, HTN History of Present Illness Yanira Gao is a 75 year old female who presented to the emergency room with chief complaint of increasing shortness of breath. She has a history of aortic stenosis and mitral regurgitation, hypertension and is followed by cardiology on an outpatient basis. She was seen today at the clinic and sent to the emergency room for evaluation due to worsening symptoms. In talking with her her increa sing difficulty breathing has been progressing over the last few months. This past weekend it became acutely worse to the point on Monday night that she was unable to lie flat and had to sit up on the edge of the bed. She is not been able to sleep well since then due to orthopnea. She has had increased swelling in her feet and ankles as well as lower legs and a weight gain of several pounds over the last week or 2. She is chronically on bumetanide 1 mg twice daily in addition to multiple antihypertensive agents. She admits that she did not take them at least once over the past couple of days. On arrival to the emergency room she was hypoxic with oxygen saturation is in the upper 80s. She is not normally on oxygen. Saturations improved with 2 L by nasal cannula. X-ray showed mild congestive heart failure with some bilateral pleural effusions and bibasilar atelectasis versus infiltrates on radiology interpretation. BNP was greater than 3000. She received 80 mg of IV Lasix and is being admitted for further evaluation and treatment. She herself denies a history of heart isiah lure. She does have chronic kidney disease stage III for which she follows with Dr. Gonzalez. She also has CLL and is followed at oncology. She received a dose of antibiotics in the emergency room I am assuming for empiric coverage she denies any fever or chills. Has not really had much in the way of a cough. No GI or urinary symptoms to speak of. She does have chronic back pain with a lumbar radiculopathy including some paresthesias in her lower extremities. She did receive her first steroid injection at the pain clinic recently. No other new medications reported. No complaints of chest pain. Denies change in dietary sodium intake. She follows with Dr. Dash Maria for back pain, Dr. Zayas for CLL, Dr. Gonzalez for CKD and Dr. Gilbert for cardiac issues in addition to following with her primary care provider Dr. Teena Connelly. Review of Systems Const: Denies: fever(s), chills or change in weight Eyes: Denies: change in vision ENMT: Denies: throat pain or nasal congestion Card: Denies: chest pain, palpitations or edema Resp: Denies: dyspnea, productive cough or non-productive cough GI: Denies: abdominal pain, nausea, vomiting, diarrhea, constipation, hematochezia or melena : Denies: difficulty voiding or hematuria Musc: Reports: back pain and extremity pain Skin/Breast: Denies: rash, pruritus or sores Neuro: Reports: numbness in extremities (and tingling in legs from back issues, not new); Denies: headache(s), weakness in extremities or difficulty walking Psych: Denies: anxiety or depression Marcio/Lymph: Denies: easy bruising or easy bleeding Medications/Allergies Home Medications Medication Instructions Recorded Confirmed Last Taken Type diltiazem HCl 240 mg 240 mg PO DAILY 10/22/19 12/01/20 11/30/20 History capsule,extended release 24 hr glipizide 5 mg tablet 5 mg PO DAILY 10/22/19 12/01/20 11/30/20 History atorvastatin 10 mg tablet 5 mg PO DAILY tab 10/23/19 12/01/20 11/30/20 History amlodipine 10 mg tablet 10 mg PO DAILY #90 tab 06/16/20 12/01/20 11/30/20 Rx labetalol 200 mg PO BID 07/08/20 12/01/20 11/30/20 History acetaminophen 650 mg 650 mg PO Q12H 11/11/20 12/01/20 11/30/20 History tablet,extended release vit C,E,zinc,copper-gruce3p 250 1 cap PO DAILY 11/11/20 12/01/20 11/30/20 History mg-lutein 5 mg-zeaxanthin 1 mg capsule Aspir-81 81 mg PO DAILY 12/01/20 12/01/20 11/30/20 History bumetanide 2 mg tablet 1 mg PO BID tab 12/01/20 12/01/20 Unknown History hydralazine 50 mg tablet 75 mg PO BID tab 12/01/20 12/01/20 11/30/20 History Allergies Allergy/AdvReac Type Severity Reaction Status Date / Time No Known Allergies Allergy Verified 11/23/20 14:12 PFSH Acute PFSH: Medical History (Updated 12/02/20 @ 03:02 by Brigitte Nuñez MD) Aortic stenosis Not apparent on echocardiogram 08/04/2020 Carotid stenosis, bilateral CKD (chronic kidney disease) CLL (chronic lymphocytic leukemia) Compression fracture COVID-19 vaccine administered Degenerative lumbar disc Diabetes Discoid lupus Dyslipidemia Hypertension Lumbar radiculopathy Mitral regurgitation Surgical History No significant past surgical history Family History Mother , AGE 89 Diabetes Stroke CAD (coronary artery disease) Dementia Father , AGE 92 Stroke CAD (coronary artery disease) Dementia Sister CAD (coronary artery disease) Lung disease Myocardial infarction Cancer Brother CAD (coronary artery disease) Family/Other Cancer Denies family history of Clotting disorder Chronic kidney disease (CKD) Suicide Anesthesia complication Bleeding disorder Social History Smoking and tobacco status: former smoker Quit status (tobacco): has quit using tobacco Alcohol intake: never Lives independently: Yes Marital status: / Current occupational status: retired Vitals/I&O/Wt Last Vital Signs Temp 98.5 F 12/01/20 17:24 Pulse 94 12/01/20 21:00 Resp 22 H 12/01/20 21:00 BP 171/54 12/01/20 21:00 Pulse Ox 89 L 12/01/20 21:00 Weight last 48 hrs Weight 87.09 kg Physical Exam Narrative: EXAM NARRATIVE: Constitutional: Awake and alert, cooperative HEENT: Pupils are equal reactive, oropharynx is clear with moist mucous membranes, normocephalic Neck: Supple Respiratory: Bibasilar rales, no wheezes, no accessory muscle use Cardiovascular: Regular rate and rhythm, heart sounds are distant, unable to position appropriately for JVD evaluation at the moment, no audible murmurs on my examination Abdomen: Soft, nontender, positive bowel sounds Extremities: 2-3+ edema Skin: Chronic skin changes, stasis Neuro: Speech clear, face symmetric, moves all extremities, handgrip equal, gait normal Psych: Normal affect Data : 12/01/20 19:45 12/01/20 19:45 A&P Assessment and plan (1) Acute congestive heart failure: Most likely diastolic. Patient herself denies a history of heart failure. Echocardiogram from earlier this year revealed normal systolic function with ejection fraction at 55 to 60%. Was noted to have abnormal diastolic dysfunction with mild mitral regurgitation. Status: Acute Qualifiers: Heart failure type: unspecified Qualified Code(s): I50.9 - Heart failure, unspecified (2) Hypertension: Difficult to control on multiple medications chronically Status: Chronic Qualifiers: Hypertension type: renovascular hypertension Qualified Code(s): I15.0 - Renovascular hypertension (3) Aortic stenosis: Historical diagnosis although last echocardiogram in July of this year did not indicate significant sclerosis or stenosis Status: Chronic Qualifiers: Cardiac valve disease etiology: etiology unspecified Qualified Code(s): I35.0 - Nonrheumatic aortic (valve) stenosis (4) Diabetes: Status: Chronic Qualifiers: Diabetes mellitus type: type 2 Diabetes mellitus skilled nursing insulin use: without termite renewal inspector use Diabetes mellitus complication status: with kidney complications Diabetes mellitus complication detail: with chronic kidney disease Chronic kidney disease stage: stage 3 (moderate) Chronic kidney disease stage 3 subtype: stage 3a (GFR 45-59) Qualified Code(s): E11.22 - Type 2 diabetes mellitus with diabetic chronic kidney disease; N18.31 - Chronic kidney disease, stage 3a (5) CKD (chronic kidney disease): Status: Chronic Qualifiers: Chronic kidney disease stage: stage 3 (moderate) Chronic kidney disease stage 3 subtype: stage 3a (GFR 45-59) Qualified Code(s): N18.31 - Chronic kidney disease, stage 3a (6) CLL (chronic lymphocytic leukemia): White count near baseline Status: Chronic (7) Lumbar radiculopathy: with recent steroid injection Status: Chronic Additional A&P Information Abnormal urinalysis without any urinary symptoms reported Inpatient admission IV diuresis Monitor I's and O's closely Fluid restriction Monitor renal function closely Serial laboratory studies Replace electrolytes as needed Limited echocardiogram to reevaluate ejection fraction compared to echo from July of this year Continue home amlodipine, diltiazem, hydralazine and labetalol monitoring blood pressures closely Continue home statin therapy Status post 1 dose of Rocephin in the emergency room for believe empiric treatment of abnormal urinalysis. Patient denied any urinary symptoms and was not entirely clean specimen. I have not continued further antibiotics Check TSH Hold glipizide, sliding scale insulin presently for diabetes Serial cardiac enzymes Wean oxygen therapy as able Supportive care otherwise Lovenox for DVT prophylaxis Anticipate discharge home with outpatient follow-up, lives alone Findings, concerns and plans discussed with patient and she was given an opportunity to ask questions Full code Attestations Medical Necessity Statement*: Anticipated stay greater than two midnights in this patient with progressively worsening shortness of breath every time that is acutely worsened in the last few days prompting visit to the emergency room. She received IV diuresis with good response. Denies any history of CHF though has historically difficult to control blood pressure, diabetes and chronic kidney disease. Plans are as indicated. She lives alone and at high risk of rapid clinical decline without appropriate intervention. Coding Level of Care Code Acute Stick Welder for [facility] Fwd Diagnoses Acute congestive heart failure I50.9 Heart failure type: unspecified Hypertension I15.0 Hypertension type: renovascular hypertension Aortic stenosis I35.0 Cardiac valve disease etiology: etiology unspecified Diabetes E11.22; N18.31 Diabetes mellitus type: type 2 Diabetes mellitus termite renewal inspector insulin use: without termite renewal inspector use Diabetes mellitus complication status: with kidney complications Diabetes mellitus complication detail: with chronic kidney disease Chronic kidney disease stage: stage 3 (moderate) Chronic kidney disease stage 3 subtype: stage 3a (GFR 45-59) CKD (chronic kidney disease) N18.31 Chronic kidney disease stage: stage 3 (moderate) Chronic kidney disease stage 3 subtype: stage 3a (GFR 45-59) CLL (chronic lymphocytic leukemia) C91.10 Lumbar radiculopathy M54.16
[2020-12-02] VITALS (10 sets, daily range): BP systolic 155–186; BP diastolic 50–84; PULSE 77–90; RESP 16–20; TEMP 36.7–37.1; O2SAT 90–97
[2020-12-02 02:15] LABS: Troponin 5 6HR 29.19 ng/L (0-10); Troponin 5 6HR Delta 1.19 ng/L (0-12)
[2020-12-02 04:08] LABS: Basophils # 0.1 10^3/uL (0.0-0.1); Basophils % 0.5 %; Eosinophils # 0.2 10^3/uL (0.0-0.8); Eosinophils % 1.5 %; Hematocrit 37.8 % (37.0-47.0); Hemoglobin 11.7 g/dL (11.5-15.3); Lymphocytes # 7.9 10^3/uL (0.8-4.8); Lymphocytes % 50.2 %; Mean Corpuscular Hemoglobin 29.5 pg (28.0-34.0); Mean Corpuscular Volume 95.2 fL (81-99); Mean Platelet Volume 11.1 fL (7.4-10.4); Monocytes # 1.2 10^3/uL (0.2-0.9); Monocytes % 7.7 %; Neutrophils # 6.19 10^3/uL (1.8-7.7); Neutrophils % 39.4 %; Nucleated Red Blood Cells % 0 %; Platelet Count 240 10^3/cmm (130-400); Red Blood Count 3.97 10^6/uL (4.1-5.3); Red Cell Distribution Width 14.4 % (12.1-15.1); White Blood Count 15.7 10^3/uL (4.0-10.0)
[2020-12-02] MEDS: potassium chloride ER 20 mEq Tablet PO ×2 (04:11→16:37)
[2020-12-02] MEDS: FUROsemide 10 mg/mL SDV 10mL 60 MG IVP ×2 (04:12→16:37)
[2020-12-02 04:18] LABS: Anion Gap 16.6 (5-19); Blood Urea Nitrogen 15 mg/dL (8-23); Calcium 8.3 mg/dL (8.5-10.5); Carbon Dioxide 20 mmol/L (22-29); Chloride 111 mmol/L (98-107); Glucose 119 mg/dL (65-115); Magnesium 2.2 mg/dL (1.7-2.3); Osmolality Calculated 300 mOsm/kg (285-295); Potassium 3.6 mmol/L (3.5-5.1); Sodium 144 mmol/L (136-145)
[2020-12-02 04:25] LABS: Thyroid Stimulating Hormone 3.19 uIU/mL (0.27-4.20)
[2020-12-02 04:33] LABS: Slide Review Slide Review Perform
--- NOTE | 2020-12-02 06:39 | USCV_ITS ---
Yanira Gao Age: 75 Gender: F : 1945 Exam Date: 12/02/2020 09:01 Ordering Phys: Brigitte Nuñez MD Technologist: Exam [place] [facility] [place]ication: Assess left ventricular function BP: 186 / 56 HR: 77 Rhythm: Sinus Technical Quality: Adequate MEASUREMENTS (Male / Female) Normal Values 2D ECHO LV Diastolic Diameter PLAX 4.4 cm 4.2 - 5.9 / 3.9 - 5.3 cm LV Systolic Diameter PLAX 3.0 cm IVS Diastolic Thickness 1.6 cm 0.6 - 1.0 / 0.6 - 0.9 cm IVS Systolic Thickness 1.8 cm LVPW Diastolic Thickness 1.8 cm 0.6 - 1.0 / 0.6 - 0.9 cm LVPW Systolic Thickness 1.5 cm LVOT Diameter 2.1 cm LV Ejection Fraction 2D Teich 61.6 % LV Ejection Fraction MOD 2C 75.7 % LV Ejection Fraction 2C AL 75.5 % LA Diameter 4.9 cm LA Width 5.2 cm LA Height 7.2 cm RA Width 3.6 cm RA Height 5.0 cm DOPPLER MV Area PHT 5.0 cm squared Mitral E to A Ratio 1.2 MV E' Velocity 78.5 cm/s Mitral E to MV E' Ratio 17.8 Mitral E to LV E' Lateral Ratio 18.0 Mitral E to LV E' Septal Ratio 17.6 FINDINGS Left Ventricle Normal left ventricular cavity size. Increased left ventricular wall thickness. Normal left ventricular systolic function. Left ventricular ejection fraction is estimated at 75 %. Grade 2 diastolic dysfunction with elevated left atrial pressure. Right Ventricle Normal right ventricular size and systolic function. Right Atrium Normal right atrial size. Left Atrium Mildly to moderately increased left atrial size. Mitral Valve Moderate mitral annular calcification. Thickened mitral valve. No mitral valve stenosis. Trace mitral valve regurgitation. Aortic Valve Structurally normal trileaflet aortic valve. Tricuspid Valve Structurally normal tricuspid valve. Trace to mild tricuspid valve regurgitation. Pulmonic Valve Structurally normal pulmonic valve. Pericardium No pericardial effusion. Aorta Normal-sized aortic root. CONCLUSIONS 1. This is a limited echocardiogram. 2. Normal left ventricular cavity size. Increased left ventricular wall thickness. Normal left ventricular systolic function. Left ventricular ejection fraction is estimated at 75 %. Grade 2 diastolic dysfunction with elevated left atrial pressure. 3. There may not have been any significant change when compared to echocardiogram dated 07/30/2020. Debbi Quiroga MD (Electronically Signed) Final Date: 02 December 2020 17:03 S
[2020-12-02 07:13] LABS: Glucose Point of Care 120 mg/dL (70-110)
[2020-12-02] MEDS: dilTIAZem ER (24HR) 240 mg Capsule PO (09:13)
[2020-12-02] MEDS: hyDRALAzine 50 mg Tablet 75 MG PO ×2 (09:13→16:37)
[2020-12-02] MEDS: docusate sodium 100 mg Capsule PO (09:14)
[2020-12-02] MEDS: enoxaparin 40 mg/0.4 mL Syringe SUBCUT (09:14)
[2020-12-02] MEDS: labetalol 200 mg Tablet PO ×2 (09:14→16:36)
[2020-12-02] MEDS: atorvastatin 40 mg Tablet 10 MG PO (09:14)
[2020-12-02] MEDS: pantoprazole DR 40 mg Tablet PO (09:14)
[2020-12-02] MEDS: aspirin 81 mg EC Tablet PO (09:14)
[2020-12-02] MEDS: amlodipine 10 mg Tablet PO (09:14)
--- NOTE | 2020-12-02 10:43 | PC.CHAP ---
Pastoral Care Encounter/Spiritual Assessment Type of Contact [] Declined senior ecologist visit [] Patient/Family/Request visit [] Outpatient visit [] Follow-up visit [] Physician referral [] Code/Alert [x] Routine visit [] Staff referral [] Actively dying [] Patient sleeping [] Family support [] [] Out of room [] Palliative care [] [] Receiving care in room [] Pre-surgical visit [] Trauma [] Long length of stay [] ICU visit [] Other: Relational/Emotional Strength [x] Patient feels connected with others/family/visitors/staff [] Distress [] Loneliness/isolation [] Abandonment Spirituality of Patient [x] Person of Priscilla [] Attends Restorationism of their Priscilla [x] Believes in Prayer [] Reads Bible or Islam materials [] There are Spiritual issues to be addressed Promotions Producer Interventions [x] Prayer [] Active listening [] Non-anxious presence [] Spiritual/emotional support [] Crisis/trauma care [] Spiritual counseling [] Bereavement support [] Provided bereavement packet [] Provided Bible/devotional materials [] Provided toy/stuffed animal, coloring book to patient or family member [] Provided Communion [] Anointing/[place] [] Salvation [x] Completed spiritual assessment [] Other: Impact on Illness or Injury [] Angry [] Fearful [] Anxious [] Often cries [] Exhaustion [] Unable to work [] Unable to attend restoration [] Unable to walk/stand [] Unable to read [] Unable to drive [] Unable to eat/drink [] Unable to sleep [] Unable to be with family [] Patient intubated [] Other: Summary Time spent with patient 10 min
[2020-12-02 10:51] LABS: Glucose Point of Care 97 mg/dL (70-110)
[2020-12-02 17:37] LABS: Glucose Point of Care 118 mg/dL (70-110)
--- NOTE | 2020-12-02 17:56 | PM.DCS ---
Discharge Providers Date of Admission: 12/02/20 05:01 Date of Discharge: December 02, 2020 Attending Provider at Admission: Brigitte Nuñez MD Attending Provider at Discharge: Luis Miguel Harris Primary Care Provider: Teena Connelly MD Diagnoses at Discharge Discharge Diagnosis (1) Acute congestive heart failure: Status: Acute Qualifiers: Heart failure type: unspecified Qualified Code(s): I50.9 - Heart failure, unspecified (2) Hypertension: Status: Chronic Qualifiers: Hypertension type: renovascular hypertension Qualified Code(s): I15.0 - Renovascular hypertension (3) Aortic stenosis: Status: Chronic Permanent problem details: Not apparent on echocardiogram 08/04/2020 Qualifiers: Cardiac valve disease etiology: etiology unspecified Qualified Code(s): I35.0 - Nonrheumatic aortic (valve) stenosis (4) Diabetes: Status: Chronic Qualifiers: Diabetes mellitus type: type 2 Diabetes mellitus nursing home insulin use: without keno terminal operator use Diabetes mellitus complication status: with kidney complications Diabetes mellitus complication detail: with chronic kidney disease Chronic kidney disease stage: stage 3 (moderate) Chronic kidney disease stage 3 subtype: stage 3a (GFR 45-59) Qualified Code(s): E11.22 - Type 2 diabetes mellitus with diabetic chronic kidney disease; N18.31 - Chronic kidney disease, stage 3a (5) CKD (chronic kidney disease): Status: Chronic Qualifiers: Chronic kidney disease stage: stage 3 (moderate) Chronic kidney disease stage 3 subtype: stage 3a (GFR 45-59) Qualified Code(s): N18.31 - Chronic kidney disease, stage 3a (6) CLL (chronic lymphocytic leukemia): Status: Chronic (7) Lumbar radiculopathy: Status: Chronic Reason for Visit Reason for Visit: SENT BY CARDIOLOGY/SOB, HTN Hospital Course Hospital Course Very pleasant 75-year-old lady with history of chronic kidney disease, DM 2, HTN, HLD, carotid stenosis, prior tobacco abuse, mild aortic stenosis was referred to emergency department by her space systems operations craftsman for assessment due to worsening shortness of breath while walking, orthopnea with shortness of breath while lying down, lower extremity edema, with noted acute diastolic congestive heart failure on presentation, was treated with IV diuresis with Lasix in lieu of of the usual chronic oral 1 mg twice daily bumetanide. Chest x-ray on presentation with mild congestive failure, bilateral pleural effusions, small to moderate, bibasilar atelectasis or infiltrates. Noted leukocytosis, but with CLL appears to be at her baseline. Lymphocytic predominance as usual, no neutrophilia. Limited echocardiogram with assessed, with finding of normal ejection fraction, grade 2 diastolic dysfunction. Troponin series with moderate elevation, in the setting of acute congestive heart failure, but also with chronic kidney disease. Not suggestive of acute ischemia 28-25.48-29.19. She remained chest pain-free. NT proBNP 3872. Q waves noted in anteroseptal distribution, possibility of prior VT could not be excluded. No acute ischemic changes. Her symptoms improved/resolved quite rapidly with IV diuresis. She weaned off nasal cannula, and doing well on room air. She is wanting to return home. She is continued on usual diuretic dose. She is asked to maintain fluid restriction of 1000 mill per day. Please follow-up regarding volume status, congestive heart failure. She is asked to follow-up with cardiology. Consider additional follow-up with stress testing. She lives alone, but son reports she has had some snoring at night, with congestive heart failure, hypertension, discussed with her LAURA can on occasion trigger acute pulmonary edema/CHF. She is agreeable to follow-up with sleep study. Please follow results. Due to noted hypertension in the hospital, blood pressure as high as 194/50 on presentation, ranging between 150s and 170s systolic, with underlying diabetes she is started on ARB. Please follow-up blood pressure control and metabolic panel/renal function. UA in ER with mild abnormality, 5-10 WBC, 2+ leukocyte esterase, 0-4 RBC, 0-4 squamous epithelial cells, negative nitrate, 2+ bacteria. Received 1 dose of Rocephin. Antibiotics were not continued due to lack of urinary symptoms. Urine culture was sent out, however, and is pending. Will need follow-up in case of significant growth. Physical Exam Const: COMMON NORMALS: no acute distress and patient oriented x3 NUTRITIONAL APPEARANCE: overweight OTHER: Awake, alert, pleasant, conversant. In good spirits. Visited both both sons. She is feeling much better. Orthopnea resolved. Shortness of breath resolved. Not requiring oxygen. HENMT: COMMON NORMALS: oropharynx normal Neck/C-Spine: COMMON NORMALS: no JVD Resp: COMMON NORMALS: normal respiratory effort and clear to auscultation bilaterally AUSCULTATION: clear to auscultation bilaterally Cardio: COMMON NORMALS: no JVD, regular rhythm, S1 normal heart sound present, S2 normal heart sound present and No murmurs present (Cardio) RHYTHM: regular rhythm HEART SOUNDS: S1 normal heart sound present and S2 normal heart sound present GI: COMMON NORMALS: Normal to inspection, nondistended, normoactive bowel sounds present, Soft to palpation and non-tender PALPATION: Yes Soft to palpation Extremity: COMMON NORMALS: no joint enlargement GENERAL: Yes edema (trace pitting) Neuro: COMMON NORMALS: patient oriented x3 and moves all extremities Skin: COMMON NORMALS: no rashes or lesions noted GENERAL SKIN EXAM: no rashes or lesions noted Discharge Data Data Completed and Pending: Completed Studies During Hospitalization Category Date Time Status XR chest 1V yogesh ble [id number] Stat Exams 12/01/20 16:53 Completed CV. echo limited [id number] Routine Ultrasound 12/02/20 06:39 Completed Pending at discharge Category Date Time Status Urine Culture Sta t Lab 12/01/20 17:49 Received Labs from last 24 hours 12/02/20 12/02/20 12/02/20 17:31 10:39 07:07 WBC RBC Hgb Hct MCV MCH MCHC RDW Plt Count MPV Neut % (Auto) Lymph % (Auto) Esmeralda % (Auto) Eos % (Auto) Baso % (Auto) Neut # (Auto) Lymph # (Auto) Esmeralda # (Auto) Eos # (Auto) Baso # (Auto) Nucleated RBC % (a uto) Nucleated RBCs # PT INR APTT Sodium Potassium Chloride Carbon Dioxide Anion Gap BUN Creatinine GFR Calculation Glucose POC Glucose 118 H 97 120 H Calculated Osmolal ity Calcium Phosphorus Magnesium Total Bilirubin AST ALT Alkaline Phosphata se Troponin T Baselin e Troponin T 120 Min nightmute Delta Troponin T Troponin T Hi Sens 6Hr Troponin T Hi Sens 6Hr Delta NT-Pro-B Natriuret Pep Total Protein Albumin Globulin TSH Urine Color Urine Appearance Urine pH Ur Specific Gravit y Urine Protein Urine Glucose (UA) Urine Ketones Urine Blood Urine Nitrate Urine Bilirubin Urine Urobilinogen Ur Leukocyte Geena ase Urine RBC Urine WBC Ur Squamous Epith Cells Amorphous Sediment Urine Bacteria Urine Mucus SARS-CoV-2 Ag (Rap id) 12/02/20 12/02/20 12/02/20 01:47 01:47 01:47 WBC 15.7 H RBC 3.97 L Hgb 11.7 Hct 37.8 MCV 95.2 MCH 29.5 MCHC 31.0 RDW 14.4 Plt Count 240 MPV 11.1 H Neut % (Auto) 39.4 Lymph % (Auto) 50.2 Esmeralda % (Auto) 7.7 Eos % (Auto) 1.5 Baso % (Auto) 0.5 Neut # (Auto) 6.19 Lymph # (Auto) 7.9 H Esmeralda # (Auto) 1.2 H Eos # (Auto) 0.2 Baso # (Auto) 0.1 Nucleated RBC % (a uto) 0 Nucleated RBCs # 0.0 PT INR APTT Sodium 144 Potassium 3.6 Chloride 111 H Carbon Dioxide 20 L Anion Gap 16.6 BUN 15 Creatinine 1.2 H GFR Calculation Not Reportable Glucose 119 H POC Glucose Calculated Osmolal ity 300 H Calcium 8.3 L Phosphorus 3.0 Magnesium 2.2 Total Bilirubin AST ALT Alkaline Phosphata se Troponin T Baselin e Troponin T 120 Min [place] Delta Troponin T Troponin T Hi Sens 6Hr Troponin T Hi Sens 6Hr Delta NT-Pro-B Natriuret Pep Total Protein Albumin Globulin TSH 3.19 Urine Color Urine Appearance Urine pH Ur Specific Gravit y Urine Protein Urine Glucose (UA) Urine Ketones Urine Blood Urine Nitrate Urine Bilirubin Urine Urobilinogen Ur Leukocyte Geena ase Urine RBC Urine WBC Ur Squamous Epith Cells Amorphous Sediment Urine Bacteria Urine Mucus SARS-CoV-2 Ag (Rap id) 12/02/20 12/01/20 12/01/20 01:47 21:56 21:15 WBC RBC Hgb Hct MCV MCH MCHC RDW Plt Count MPV Neut % (Auto) Lymph % (Auto) Esmeralda % (Auto) Eos % (Auto) Baso % (Auto) Neut # (Auto) Lymph # (Auto) Esmeralda # (Auto) Eos # (Auto) Baso # (Auto) Nucleated RBC % (a uto) Nucleated RBCs # PT INR APTT Sodium Potassium Chloride Carbon Dioxide Anion Gap BUN Creatinine GFR Calculation Glucose POC Glucose Calculated Osmolal ity Calcium Phosphorus Magnesium Total Bilirubin AST ALT Alkaline Phosphata se Troponin T Baselin e Troponin T 120 Min [place] 25.48 H Delta Troponin T -2.52 L Troponin T Hi Sens 6Hr 29.19 H Troponin T Hi Sens 6Hr Delta 1.19 NT-Pro-B Natriuret Pep Total Protein Albumin Globulin TSH Urine Color Urine Appearance Urine pH Ur Specific Gravit y Urine Protein Urine Glucose (UA) Urine Ketones Urine Blood Urine Nitrate Urine Bilirubin Urine Urobilinogen Ur Leukocyte Geena ase Urine RBC Urine WBC Ur Squamous Epith Cells Amorphous Sediment Urine Bacteria Urine Mucus SARS-CoV-2 Ag (Rap id) Negative 12/01/20 12/01/20 12/01/20 19:45 19:45 19:45 WBC RBC Hgb Hct MCV MCH MCHC RDW Plt Count MPV Neut % (Auto) Lymph % (Auto) Esmeralda % (Auto) Eos % (Auto) Baso % (Auto) Neut # (Auto) Lymph # (Auto) Esmeralda # (Auto) Eos # (Auto) Baso # (Auto) Nucleated RBC % (a uto) Nucleated RBCs # PT 14.00 INR 1.04 APTT 27.2 Sodium 143 Potassium 4.0 Chloride 111 H Carbon Dioxide 18 L Anion Gap 18.0 BUN 15 Creatinine 1.2 H GFR Calculation Not Reportable Glucose 105 POC Glucose Calculated Osmolal ity 297 H Calcium 8.0 L Phosphorus Magnesium Total Bilirubin 0.5 AST 10 ALT 8 Alkaline Phosphata se 79 Troponin T Baselin e 28 H Troponin T 120 Min [place] Delta Troponin T Troponin T Hi Sens 6Hr Troponin T Hi Sens 6Hr Delta NT-Pro-B Natriuret Pep 3872 H Total Protein 5.7 L Albumin 3.8 Globulin 1.9 TSH Urine Color Urine Appearance Urine pH Ur Specific Gravit y Urine Protein Urine Glucose (UA) Urine Ketones Urine Blood Urine Nitrate Urine Bilirubin Urine Urobilinogen Ur Leukocyte Geena ase Urine RBC Urine WBC Ur Squamous Epith Cells Amorphous Sediment Urine Bacteria Urine Mucus SARS-CoV-2 Ag (Rap id) 12/01/20 12/01/20 19:45 17:49 WBC 20.1 H RBC 4.10 Hgb 12.2 Hct 38.7 MCV 94.4 MCH 29.8 MCHC 31.5 RDW 14.6 Plt Count 254 MPV 10.5 H Neut % (Auto) 35.3 Lymph % (Auto) 54.7 Esmeralda % (Auto) 7.3 Eos % (Auto) 1.5 Baso % (Auto) 0.4 Neut # (Auto) 7.05 Lymph # (Auto) 11.0 H Esmeralda # (Auto) 1.5 H Eos # (Auto) 0.3 Baso # (Auto) 0.1 Nucleated RBC % (a uto) 0 Nucleated RBCs # 0.0 PT INR APTT Sodium Potassium Chloride Carbon Dioxide Anion Gap BUN Creatinine GFR Calculation Glucose POC Glucose Calculated Osmolal ity Calcium Phosphorus Magnesium Total Bilirubin AST ALT Alkaline Phosphata se Troponin T Baselin e Troponin T 120 Min [place] Delta Troponin T Troponin T Hi Sens 6Hr Troponin T Hi Sens 6Hr Delta NT-Pro-B Natriuret Pep Total Protein Albumin Globulin TSH Urine Color Yellow Urine Appearance Hazy A Urine pH 5 Ur Specific Gravit y 1.015 Urine Protein 3+ H Urine Glucose (UA) Norm Urine Ketones Negative Urine Blood 2+ H Urine Nitrate Negative Urine Bilirubin Neg Urine Urobilinogen Norm Ur Leukocyte Geena ase 2+ H Urine RBC 0-4 H Urine WBC 5-10 H Ur Squamous Epith Cells 0-4 H Amorphous Sediment Not Reportable Urine Bacteria 2+ H Urine Mucus 1+ SARS-CoV-2 Ag (Rap id) Vitals: Last Vital Signs Temp 98.7 F 12/02/20 15:46 Pulse 77 12/02/20 15:46 Resp 18 12/02/20 15:46 BP 174/50 12/02/20 15:46 Pulse Ox 90 12/02/20 15:46 Discharge Plan Discharge Patient Disposition: Home Condition: Stable Prescriptions: New losartan 25 mg tablet 25 mg PO DAILY Qty: 30 RF: 0 Continued atorvastatin 10 mg tablet 5 mg PO DAILY RF: 0 diltiazem HCl [Cardizem CD] 240 mg capsule,extended release 24hr 240 mg PO DAILY RF: 0 glipizide 5 mg tablet 5 mg PO DAILY RF: 0 amlodipine 10 mg tablet 10 mg PO DAILY Qty: 90 RF: 3 acetaminophen 650 mg tablet extended release 650 mg PO Q12H RF: 0 Ocuvite Adult 50 Plus 250-5-1 mg capsule 1 cap PO DAILY RF: 0 bumetanide 2 mg tablet 1 mg PO BID RF: 0 sodium chloride 0.9 % Solution 7 ml epidural ONCE Qty: 1 RF: 0 bupivacaine (PF) 0.25 % (2.5 mg/mL) solution 2 ml epidural ONCE Qty: 1 RF: 0 lidocaine (PF) 10 mg/mL (1 %) solution 10 mg SUBCUT ONCE Qty: 1 RF: 0 dexamethasone sodium phos (PF) 10 mg/mL solution 8 mg Infiltration ONCE Qty: 2 RF: 0 Aspir-81 81 mg PO DAILY RF: 0 labetalol 200 mg tablet 200 mg PO BID RF: 0 hydralazine 50 mg tablet 75 mg PO BID RF: 0 Discharge Orders: Discharge Order (Routine); Ordered 12/02/20 Ordered By: Luis Miguel Harris Other Ambulatory Orders: Sleep Study/Titration (Routine) Timeframe: 1 Week Location: None Selected Ordered By: Luis Miguel Harris Referrals: Teena Connelly MD [Primary Care Provider] - 4-7 days (Please call to schedule a follow up appointment. ) Edilberto Baer M.D [Physician] - (Please call to schedule a follow up appointment.) Discharge Diet: Cardiac and Diabetic Patient Instructions: Losartan (By mouth), Heart Failure (DC), Diabetes Mellitus Type 2 in Adults (DC), Chronic Hypertension (GEN), Low Sodium Diet (GEN), CHF Stoplight, Opioid Safety Activity Restrictions/Additional Instructions: Please continue diuretics as prescribed. Please restrict fluid intake to 1000 mill per day (slightly more than a quart). Limited echocardiogram is showing normal ejection fraction, grade 2 diastolic dysfunction. Please discuss with your primary provider and space systems operations craftsman. Please continue to monitor for worsening swelling, worsening shortness of breath when laying flat. Contact your heart doctors office or primary care doctor's office immediately in case you notice changes in symptoms so they may adjust your medications proactively. Please follow-up with sleep study, as sleep apnea in some cases may cause episodes of pulmonary edema/heart failure. Please note that urinalysis was noted abnormal, as you did not have urinary symptoms antibiotics were not continued, however, in case there is significant bacterial growth on urine culture which is pending and may take several days, he may be contacted in case antibiotic treatment may be recommended. Please continue to monitor blood pressure at home closely, measure at least 3 times a day, write down values since your blood pressure could benefit from better control. Losartan is added to help you manage blood pressure better and protect your kidneys in the setting of diabetes. Please have your primary provider follow-up your kidney function to make sure this medication is not affecting your kidneys adversely. Continue to work with your primary provider and space systems operations craftsman with regards to optimization of chronic conditions including hypertension, diabetes, chronic kidney disease and CLL. Discharge Attestations Time Spent in Discharge Care*: greater than 30 min Quality Metrics Clinical Quality Measures During this hospital stay, did patient experience: None Coding Level of Care Code Acute Chg FW DC note Diagnoses Acute congestive heart failure I50.9 Heart failure type: unspecified Hypertension I15.0 Hypertension type: renovascular hypertension Aortic stenosis I35.0 Cardiac valve disease etiology: etiology unspecified Diabetes E11.22; N18.31 Diabetes mellitus type: type 2 Diabetes mellitus nursing home insulin use: without nursing home use Diabetes mellitus complication status: with kidney complications Diabetes mellitus complication detail: with chronic kidney disease Chronic kidney disease stage: stage 3 (moderate) Chronic kidney disease stage 3 subtype: stage 3a (GFR 45-59) CKD (chronic kidney disease) N18.31 Chronic kidney disease stage: stage 3 (moderate) Chronic kidney disease stage 3 subtype: stage 3a (GFR 45-59) CLL (chronic lymphocytic leukemia) C91.10 Lumbar radiculopathy M54.16
--- NOTE | 2020-12-02 18:18 | PC.NURSE ---
Pt educated on CHF stoplight, weight gain, sodium intake, edema and restricting fluids. All questions were answered, information was provided upon discharge. Patient verbalized understanding.
== END 2020-12-02 18:20 | disposition home or self-care (01) | DRG 291 ==
LOC: ER 22:00 → MEDSURG 12-02 05:04
PROVIDERS: Admitting Provider Hospitalist; Emergency Provider Emergency Medicine; PCP Family Medicine; Visit Provider Internal Medicine
DX: I13.0 Hypertensive heart and chronic kidney disease with heart failure and stage 1 through stage 4 chronic kidney disease, or unspecified chronic kidney disease (principal); I50.31 Acute diastolic (congestive) heart failure; C91.10 Chronic lymphocytic leukemia of B-cell type not having achieved remission; J98.11 Atelectasis; N18.31 Chronic kidney disease, stage 3a; E11.22 Type 2 diabetes mellitus with diabetic chronic kidney disease; I08.0 Rheumatic disorders of both mitral and aortic valves; I15.0 Renovascular hypertension; G89.29 Other chronic pain; M51.16 Intervertebral disc disorders with radiculopathy, lumbar region; I65.23 Occlusion and stenosis of bilateral carotid arteries; H01.129 Discoid lupus erythematosus of unspecified eye, unspecified eyelid; E78.5 Hyperlipidemia, unspecified; Z87.891 Personal history of nicotine dependence; Z79.84 Long term (current) use of oral hypoglycemic drugs; Z79.82 Long term (current) use of aspirin
CPT/HCPCS: 36415; 36416; 71045; 80048; 80053; 81001; 82962; 83735; 83880; 84100; 84443; 84484; 85025; 85610; 85730; 87077; 87086; 87186; 87426; 93005; 93308; 96365; 96372; 96375; 96376; 99285; J0696; J1650; J1940

== ENCOUNTER → 2020-12-07 12:46 | Outpatient (BNVA) | payer MEDICARE, OTHER, SELFPAY | PROVIDERS: PCP Family Medicine; Visit Provider Anesthesiology Pain Medicine | DX: M54.16 Radiculopathy, lumbar region (principal); M54.9 Dorsalgia, unspecified; E11.9 Type 2 diabetes mellitus without complications | CPT/HCPCS: 64483; 64484; J1100; J3490 ==

== ENCOUNTER → 2020-12-21 10:14 | Outpatient (BNVA) | payer MEDICARE, OTHER, SELFPAY | PROVIDERS: PCP Family Medicine; Visit Provider Anesthesiology Pain Medicine | DX: M47.816 Spondylosis without myelopathy or radiculopathy, lumbar region (principal); M54.16 Radiculopathy, lumbar region; M51.36 Other intervertebral disc degeneration, lumbar region; M46.00 Spinal enthesopathy, site unspecified; M79.604 Pain in right leg; M79.605 Pain in left leg; Z87.891 Personal history of nicotine dependence | CPT/HCPCS: 99214 ==

== ENCOUNTER → 2021-01-05 14:14 | Outpatient (BNVA) | payer MEDICARE, OTHER, SELFPAY | PROVIDERS: PCP Family Medicine; Visit Provider Anesthesiology Pain Medicine | DX: M47.816 Spondylosis without myelopathy or radiculopathy, lumbar region (principal) | CPT/HCPCS: 64493; 64494; 64495; J3490 ==

== ENCOUNTER → 2021-01-20 10:52 | Outpatient (BNVA) | payer MEDICARE, OTHER, SELFPAY | PROVIDERS: PCP Family Medicine; Visit Provider Anesthesiology Pain Medicine | DX: M47.816 Spondylosis without myelopathy or radiculopathy, lumbar region (principal); M54.16 Radiculopathy, lumbar region; M51.36 Other intervertebral disc degeneration, lumbar region; M46.00 Spinal enthesopathy, site unspecified | CPT/HCPCS: 99214 ==

== ENCOUNTER 2021-02-02 11:29 | Outpatient (CLI) | payer MEDICARE, OTHER, SELFPAY ==
[2021-02-02 12:38] LABS: Basophils # 0.1 10^3/uL (0.0-0.1); Basophils % 0.6 %; Eosinophils # 0.3 10^3/uL (0.0-0.8); Eosinophils % 1.7 %; Hematocrit 33.3 % (37.0-47.0); Hemoglobin 10.7 g/dL (11.5-15.3); Lymphocytes # 7.5 10^3/uL (0.8-4.8); Lymphocytes % 51.6 %; Mean Corpuscular HGB Conc 32.1 g/dL (30.0-36.0); Mean Corpuscular Hemoglobin 30.2 pg (28.0-34.0); Mean Corpuscular Volume 94.1 fl (81-99); Mean Platelet Volume 11.4 fL (7.4-10.4); Monocytes # 0.9 10^3/uL (0.2-0.9); Monocytes % 6.2 %; Neutrophils # 5.71 10^3/uL (1.8-7.7); Neutrophils % 39.6 %; Nucleated Red Blood Cells % 0 %; Platelet Count 194 10^3/cmm (130-400); Red Blood Count 3.54 10^6/uL (4.1-5.3); Red Cell Distribution Width 13.1 % (12.1-15.1); White Blood Count 14.4 10^3/uL (4.0-10.0)
[2021-02-02 13:10] LABS: Alanine Aminotransferase 7 U/L (0-33); Albumin Level 3.9 g/dL (3.5-5.2); Alkaline Phosphatase 63 IU/L (35-105); Aspartate Amino Transferase 10 U/L (0-32); Blood Urea Nitrogen 42 mg/dL (8-23); Calcium 8.5 mg/dL (8.5-10.5); Carbon Dioxide 16 mmol/L (22-29); Chloride 109 mmol/L (98-107); Globulin 2.3 g/dL (1.3-4.6); Glucose 112 mg/dL (65-115); Lactate Dehydrogenase 160 U/L (135-214); Osmolality Calculated 303 mOsm/kg (285-295); Sodium 141 mmol/L (136-145); Total Bilirubin 0.2 mg/dL (0.15-1.2); Total Protein 6.2 g/dL (6.6-8.7)
[2021-02-02 13:43] LABS: Slide Review Slide Review Perform
--- NOTE | 2021-02-02 15:52 | ONC FU_ITS ---
Dr. Zayas follow up note Patient: Yanira Gao Unit #: [id number]: 1945 Dicatated By: Nuha Zayas M.D.Date of Visit:Feb 02, 2021 Onc Med Follow-up/Prog Note History of Present Illness: This is a 76-year-old woman with chronic leukocytic leukemia, Lawler stage 0. She was noted to have asymptomatic leukocytosis in September of 2011. Her WBC was 18.6 with diff showing predominantly lymphocytes at 65%. She had no evidence of anemia or thrombocytopenia. She had no fevers chills or night sweats. She was first evaluated on 01/25/12 and was found to have an iron deficiency and B12 deficiency. There was no organomegaly by examination. Peripheral blood flow cytometry revealed CD20, CD23, CD5 lambda restricted lymphocytes consistent with chronic lymphocytic leukemia. CD38 was not detected, indicating good prognosis. She was established on routine surveillance with expectant management alone. Her other medical illnesses include hypertension, hyperlipidemia, type II diabetes, and discoid lupus. She also has known left subclavian artery stenosis. Screening colonoscopy in June 2012 showed diverticulosis and melanosis coli. There was no evidence of malignancy. She continued on iron and B12 supplements. In March 2015 she was admitted with left pyelonephritis and left proximal ureter dilation. The illness resolved with antibiotics. She is a nonsmoker Started on parenteral B12 weekly x4 on June 01, 2020,for hemoglobin 9.9 g and B12 level 199, Ferritin 99, iron saturation 22.9, iron 60, TIBC 262, LDH 176 followed by maintenance monthly Bone marrow evaluation done on July 09, 2020 showed FISH negative for myeloid neoplasm and MDS bone marrow shows approximately 60% bone marrow replacement by a small B-cell neoplasm and, very subtle dyspoietic features are noted in the form of binucleated erythroid precursors, very rare and hypolobated megakaryocytes forms. Iron stain shows decreased iron stores f/u CT scan of chest abdomen pelvis done on September 07, 2020 showed subcentimeter lymphadenopathy throughout the chest abdomen pelvis, bilateral axillary, Normal-sized spleen, lesion in the spleen measured 11 mm but decreased from 26 mm seen previously in 2014. Small bilateral pleural effusion, numerous small, subcentimeter nodules at the lung bases are new since 2015, chronic emphysema, moderate cardiomegaly Came for follow-up, as per patient since her last admission, on December 01, 2020 she was admitted to hospital with progressive shortness of breath and was diagnosed with CHF when she was treated with diuretics and was discharged home on diuretics which now, is taking diligently. Denies any melena or hematochezia denies any hemoptysis or hematemesis denies any night sweats denies any peripheral lymphadenopathy denies any recurrent fever, denies any jaundice denies any hematuria or dysuria. Medications: Aspirin 1 Tablet (of 81 mg) Oral daily, Bumetanide (1 mg) Tablet Oral b.i.d., DilTIAZem CD 1 Cartridge (of 240 mg) Capsule SR 24 HR Oral daily, Ferrous Sulfate 1 (325 (65 Fe) mg) Tablet Oral daily, GlipiZIDE 1 Tablet (of 5 mg) Oral daily, hydrALAZINE HCl 1.5 Tablet (of 50 mg) Oral t.i.d., Labetalol HCl 1 (200 mg) Tablet Oral b.i.d., Ocuvite 1 Tablet Oral daily, PriLOSEC OTC 1 (20 mg) Tablet, enteric coated Oral daily PRN Allergies: No Known Allergies. Review of Systems: Review of Systems is not available for this patient. Vital Signs: Performed on Feb 02, 2021 15:22 Height - 66.00 in Temperature - 97.0 F (LOW) Pulse - 64 /min Respiration - 18 /min BP - 141/67 mm(hg) (HIGH) O2 Sat - 97 % Pain - 4 Performance Status: 0 - Fully active, able to carry on all predisease activities without restrictions. (ECOG) Physical Examination: ENMT - No mouth sores, no thrush, no jaundice, Respiratory - Lungs are clear to auscultation, Cardiovascular - Regular rate and rhythm of heart, Abdomen - Soft, bowel sounds present, Extremities - No visible edema. Lab/Imaging: Most recent lab results are not available for this patient. Impression: 1. Patient with chronic lymphocytic leukemia, Lawler stage 0, initially diagnosed in December 2011. She has been followed on observation. Her other medical illnesses include: 3. Hypertension. 4. Hyperlipidemia. 5. Type II diabetes. 6. Discoid lupus. 7. Left subclavian artery stenosis .Anemia Etiology appears multifactoria lBasic anemia workup remained inconclusive,Could be due to underlying myelodysplasia or chronic renal insufficiency or bone marrow infiltration with CLL., Bone marrow evaluation done on 07/09/2020, showed approximately 60% bone marrow replaced by mature bone small B cells, very subtle dyspoietic features are noted in the form of binucleated erythroid precursors, hypolobated megakaryocytes. Iron stain shows decreased storage iron and no ring sideroblasts. Follow-up CT scan of chest abdomen pelvis done on September 07, 2020 showed numerous but small bilateral axillary lymph nodes, largest being 8 mm on the right side. Subcentimeter lymphadenopathy in the chest abdomen pelvis. Spleen normal size, Bilateral small pleural effusion, diffuse interstitial thickening probably due to edema superimposed on centrilobular emphysema. Numerous small, subcentimeter nodules at the lung bases are new since 2015 Moderate cardiomegaly Lab work done on May 12, 2020 confirmed severe B12 deficiency, 199, ferritin 99, started on B12 supplement on June 01, 2020 Iron deficiency, responded well to Injectafer given on September 17, 2020, with normalization of hemoglobin . Plan: Discussed with patient regarding her labs white blood count 14.4 hemoglobin 10.7 g compared to 12 g in October 2020 hematocrit 33.3 platelets 194,000 absolute lymphocyte count 7500 Clinically, patient doing well with no new signs symptoms or follow-up lab work-up shows progressive anemia, etiology unclear could be iron deficiency, will check her iron studies today if it shows iron deficiency, will consider repeating parenteral iron, as, she was given Injectafer in August 2020 with excellent response. On the other hand if iron studies shows normal iron, will monitor and have her come back in a month with CBC. As far as CLL is concerned, it is stable, her absolute lymphocyte count/total white blood cell is stable and LDH is within normal range and no evidence of peripheral lymphadenopathy or organomegaly.. We will continue to monitor Signed By: Nuha Zayas M.D. <<Signature on File>>
[2021-02-02 20:05] LABS: Ferritin 191 ng/mL (15-150); Iron 74 ug/dL (37-145); Percent Saturation 30.7 % (20-50); Total Iron Binding Capacity 241 mcg/dl; Unsaturated Iron Binding 167 ug/dL (112-347)
== END 2021-02-02 11:30 | disposition home or self-care (01) ==
LOC: ONCMED 11:33
PROVIDERS: PCP Family Medicine; Visit Provider Internal Medicine Hematology & Oncology
DX: Z08 Encounter for follow-up examination after completed treatment for malignant neoplasm (principal); Z85.6 Personal history of leukemia; I10 Essential (primary) hypertension; E78.5 Hyperlipidemia, unspecified; E11.9 Type 2 diabetes mellitus without complications; L93.0 Discoid lupus erythematosus; I70.8 Atherosclerosis of other arteries; D50.9 Iron deficiency anemia, unspecified; J90 Pleural effusion, not elsewhere classified; I51.7 Cardiomegaly; M47.816 Spondylosis without myelopathy or radiculopathy, lumbar region; Z01.812 Encounter for preprocedural laboratory examination; Z79.899 Other long term (current) drug therapy
CPT/HCPCS: 36415; 36416; 64635; 64636; 80053; 82728; 82962; 83540; 83550; 83615; 85025; 99214; J1030

== ENCOUNTER 2021-02-14 16:57 | Inpatient (IN) | payer MEDICARE, OTHER, SELFPAY ==
[2021-02-14] VITALS (25 sets, daily range): BP systolic 121–175; BP diastolic 45–84; PULSE 63–75; RESP 14–28; TEMP 36.6–37; O2SAT 87–96; BMI 30.4
--- NOTE | 2021-02-14 17:07 | XRR_ITS ---
PROCEDURE INFORMATION: Exam: XR Chest Exam date and time: 02/14/2021 5:07 PM Age: 76 years old Clinical indication: Cough TECHNIQUE: Imaging protocol: XR of the chest. Views: 1 view. COMPARISON: CR XR chest 1V portable [id number] 12/01/2020 5:00 PM FINDINGS: Lungs: There are scattered bilateral pulmonary opacities most prominent at the left lung base. Left costophrenic angle is obscured and a pleural effusion cannot be excluded. Pleural spaces: See Lungs finding. Heart/Mediastinum: Unremarkable. No cardiomegaly. Vasculature: There is calcified plaque in the aorta. Bones/joints: Unremarkable. XR/XR chest 1V portable [id number] IMPRESSION: Scattered bilateral pulmonary opacities most prominent at the left lung base raise concern for pneumonia. Consider CT scan of the thorax for further evaluation as clinically warranted.
--- NOTE | 2021-02-14 17:08 | ECG_ITS ---
[facility] Test Date: 2021-02-14 Pat Name: Yanira Gao Department: Room: Gender: Female Advanced Practice Professional: : 1945 Requested By: Mike Romero Order Number: [id number] Anabella MD: Darlene Jones M.D. Measurements Intervals [place] Rate: 69 P: 61 AR: 145 QRS: 68 QRSD: 94 T: 90 QT: 406 QTc: 436 Interpretive Statements SINUS RHYTHM POSSIBLE LEFT ATRIAL ENLARGEMENT [-0.1mV P-WAVE IN V1/V2] ANTEROSEPTAL MYOCARDIAL INFARCTION , OF INDETERMINATE AGE [40+ ms Q WAVE IN V1-V4] Compared to ECG 12/01/2020 20:35:32 ST (T wave) deviation no longer present Myocardial infarct finding still present Electronically Signed On 02-14-2021 18:08:02 CDT by Darlene Jones M.D. [id number]
--- NOTE | 2021-02-14 17:11 | W.ED.SOB ---
HPI - SOB/Dyspnea General: Chief Complaint: COVID symptoms Stated Complaint: COVID +; RESP DISTRESS Time Seen by Provider: 02/14/21 17:07 History of Present Illness: HPI Narrative: This patient is a 76-year-old female who presents to the emergency department for acute shortness of breath. Patient states that she was diagnosed on with Covid pneumonia and started having symptoms 1 week ago on Monday. Patient states she is gradually getting worse. Patient states she did get the vaccine back in the spring and figure that this would not be much of an infection. Patient presented with O2 sat of 70% with a respiratory rate of 28. Patient is now on a 13 L high flow simple mask. O2 sat is 92%. Will do medical evaluation treat as needed MD elicited complaint: shortness of breath Pertinent past history: pneumonia Onset (ago): day(s) Timing: constant Severity: severe Exacerbating factors: nothing Relieving factors: nothing and oxygen Associated symptoms: Deny abdominal pain, chest pain, extremity pain, fever(s), lightheadedness, nausea, palpitations or vomiting Review of Systems General: Reports: 10 or more systems reviewed and unremarkable except in HPI and below Const: Denies: fever(s), chills, body aches or fatigue Eyes: Denies: change in vision or blurry vision ENMT: Denies: throat pain, hoarseness or mouth pain Card: Denies: chest pain, palpitations, irregular heart rhythm, edema, swelling of feet/ankles or lightheadedness Resp: Reports: dyspnea; Denies: productive cough, non-productive cough, wheezing or pain on inspiration GI: Denies: abdominal pain, nausea or vomiting : Denies: flank pain, difficulty voiding, dysuria, urinary frequency, urinary urgency or urinary hesitancy Musc: Denies: neck pain, back pain, extremity pain, extremity swelling, joint pain, joint swelling, joint redness, joint warmth or limited range of motion Skin/Breast: Denies: rash, pruritus, erythema or skin tenderness Neuro: Denies: headache(s), numbness in extremities or weakness in extremities Psych: Denies: anxiety or depression PFS ED PFSH: Medical History Aortic stenosis Not apparent on echocardiogram 08/04/2020 Carotid stenosis, bilateral CKD (chronic kidney disease) CLL (chronic lymphocytic leukemia) Compression fracture COVID-19 vaccine administered Degenerative lumbar disc Diabetes Discoid lupus Dyslipidemia Hypertension Lumbar radiculopathy Mitral regurgitation Surgical History No significant past surgical history Family History Mother , AGE 89 Diabetes Stroke CAD (coronary artery disease) Dementia Father , AGE 92 Stroke CAD (coronary artery disease) Dementia Sister CAD (coronary artery disease) Lung disease Myocardial infarction Cancer Brother CAD (coronary artery disease) Family/Other Cancer Denies family history of Clotting disorder Chronic kidney disease (CKD) Suicide Anesthesia complication Bleeding disorder Social History Second hand smoke exposure: No Alcohol intake: never Lives independently: Yes Marital status: / Current occupational status: retired History of recent travel: No Physical Exam Const: COMMON NORMALS: no acute distress, average body habitus, patient oriented x3, no limitations, healthy appearing, alert and well nourished HENMT: COMMON NORMALS: normocephalic, atraumatic, hearing grossly normal bilaterally, external ears normal, EAC's normal, TM's normal bilaterally, Normal external nose present, Normal nasal mucous membranes and turbinates present, moist oral mucous membranes, oropharynx normal, dentition normal and gingiva normal HEAD & SCALP: normocephalic and atraumatic NOSE: Normal external nose present and Normal nasal mucous membranes and turbinates present EXTERNAL EAR: Yes external ears normal EXTERNAL AUDITORY CANAL: EAC's normal TYMPANIC MEMBRANE: TM's normal bilaterally Neck/C-Spine: COMMON NORMALS: full ROM, no lymphadenopathy, supple, no meningeal signs, no JVD, Thyroid normal and No carotid bruits THYROID: Thyroid normal Chest: COMMONS NORMALS: normal inspection of the chest, normal palpation of entire chest wall, normal inspection of the breasts and normal palpation of the breasts Breast/axilla inspection: Yes normal inspection of the breasts BREAST/AXILLA PALPATION: Yes normal palpation of the breasts Resp: COMMON NORMALS: clear to auscultation bilaterally and percussion normal EFFORT & INSPECTION: Yes tachypneic and Yes respiratory distress AUSCULTATION: clear to auscultation bilaterally PERCUSSION: percussion normal Cardio: COMMON NORMALS: no JVD, regular rate, regular rhythm, S1 normal heart sound present, S2 normal heart sound present, No gallops present (Cardio), No clicks present (Cardio), No murmurs present (Cardio), No rub (Cardio) and Peripheral pulses 2+ throughout RATE: regular rate RHYTHM: regular rhythm HEART SOUNDS: S1 normal heart sound present and S2 normal heart sound present PERIPHERAL PULSES: Peripheral pulses 2+ throughout GI: COMMON NORMALS: Normal to inspection, nondistended, normoactive bowel sounds present, Soft to palpation, non-tender, No hepatosplenomegaly present, no masses and no bruits PALPATION: Yes Soft to palpation and Yes No hepatosplenomegaly present Back/Pelvis: COMMON NORMALS: thoracic and lumbar spine normal to inspection, no thoracic nor lumbar tenderness, thoraco-lumbar ROM normal and straight leg raise negative bilaterally Extremity: COMMON NORMALS: normal to inspection, full ROM, capillary refill normal, no joint enlargement, no clubbing, cyanosis or edema, no calf tenderness and no pedal edema Neuro: COMMON NORMALS: patient oriented x3 SENSORIUM/ORIENTATION: Yes alert MENINGEAL SIGNS: Yes no meningeal signs Course Reevaluation(s): Reevaluation #1: I did discuss at length with patient about findings. Patient is agreeable to admission to the hospital. Patient is much improved. O2 sat 93%. Time: 19:45 Consultations: Consultation #1: Patient be seen and evaluated by Dr. Evans for admission Time: 19:43 Vital Signs: Vital signs: Vital Signs Temperature 98.6 F 02/14/21 17:47 Pulse Rate 68 02/14/21 19:47 Respiratory Rate 22 H 02/14/21 19:47 Blood Pressure 140/53 02/14/21 19:47 Pulse Oximetry 96 02/14/21 19:47 MDM - SOB/Dyspnea Medical Records: Attestation: I reviewed the patient's medical records. Lab Data: Attestation: I reviewed the patient's lab results. Labs: Lab Results 02/14/21 02/14/21 02/14/21 Range/Units 17:07 18:06 18:08 WBC 9.0 (4.0-10.0) 10^3/ uL RBC 4.04 L (4.1-5.3) 10^6/u L Hgb 12.1 (11.5-15.3) g/dL Hct 38.2 (37.0-47.0) % MCV 94.6 (81-99) fl MCH 30.0 (28.0-34.0) pg MCHC 31.7 (30.0-36.0) g/dL RDW 14.0 (12.1-15.1) % Plt Count 130 (130-400) 10^3/c mm MPV 11.9 H (7.4-10.4) fL Neut % (Auto) 50.6 % Lymph % (Auto) 43.0 % [place] % (Auto) 5.9 % Eos % (Auto) 0.0 % Baso % (Auto) 0.1 % Neut # (Auto) 4.53 (1.8-7.7) 10^3/u L Lymph # (Auto) 3.9 (0.8-4.8) 10^3/u L [place] # (Auto) 0.5 (0.2-0.9) 10^3/u L Eos # (Auto) 0.0 (0.0-0.8) 10^3/u L Baso # (Auto) 0.0 (0.0-0.1) 10^3/u L Nucleated RBC % (a uto) 0 % Nucleated RBCs # 0.0 /100WBC PT (12.1-14.9) SECO NDS INR (0.8-1.2) APTT (23.9-36.7) SECO NDS D-Dimer (0-0.59) ug/mIFE U Specimen Type Arterial Sample Site Radial, right ABG pH 7.31 L (7.35-7.45) ABG pCO2 24.6 L (35-45) mmHg ABG pO2 65.7 L (80.0-100.0) mmH g ABG HCO3 12.3 L (22-26) mmol/L ABG O2 Saturation 92.2 ABG Base Excess -12.2 L (-2.0-2.0) mmol/ L Marlo Test Pos A-a O2 Gradient 6.8 (5-10) mmHg Hematocrit 40.1 (37-47) % Hgb O2 Saturation 90.6 L (95-100) % Carboxyhemoglobin 0.9 (0.4-20.1) %THgb Methemoglobin 0.8 (0.4-1.5) % Total Hemoglobin 13.1 (12-16) g/dL Sodium 144.0 H 144 (131-143) mmol/L Potassium 4.7 5.0 (3.5-5.0) mmol/L Glucose 181.0 H 164 H (70-115) mg/dL Ionized Calcium 1.1 (1.1-1.4) mmol/L O2 Delivery Device Oxy mask O2 Liters/Min 14.0 % Oil Well Pumper ID jmn Chloride 117 H (98-107) mmol/L Carbon Dioxide 15 L (22-29) mmol/L Anion Gap 17.0 (5-19) BUN 46 H (8-23) mg/dL Creatinine 2.1 H (0.5-0.9) mg/dL GFR Calculation Not Reportable Calculated Osmolal ity 314 H (285-295) mOsm/k g Lactic Acid (0.5-2.2) mmol/L Calcium 7.8 L (8.5-10.5) mg/dL Total Bilirubin 0.4 (0.15-1.2) mg/dL AST 26 (0-32) U/L ALT 26 (0-33) U/L Alkaline Phosphata se 71 (35-105) IU/L Troponin T Baselin e (0-10) ng/L NT-Pro-B Natriuret Pep 9498 H (0-450) pg/mL Total Protein 5.1 L (6.6-8.7) g/dL Albumin 3.2 L (3.5-5.2) g/dL Globulin 1.9 (1.3-4.6) g/dL 02/14/21 02/14/21 02/14/21 Range/Units 18:08 18:08 18:08 WBC (4.0-10.0) 10^3/ uL RBC (4.1-5.3) 10^6/u L Hgb (11.5-15.3) g/dL Hct (37.0-47.0) % MCV (81-99) fl MCH (28.0-34.0) pg MCHC (30.0-36.0) g/dL RDW (12.1-15.1) % Plt Count (130-400) 10^3/c mm MPV (7.4-10.4) fL Neut % (Auto) % Lymph % (Auto) % [place] % (Auto) % Eos % (Auto) % Baso % (Auto) % Neut # (Auto) (1.8-7.7) 10^3/u L Lymph # (Auto) (0.8-4.8) 10^3/u L [place] # (Auto) (0.2-0.9) 10^3/u L Eos # (Auto) (0.0-0.8) 10^3/u L Baso # (Auto) (0.0-0.1) 10^3/u L Nucleated RBC % (a uto) % Nucleated RBCs # /100WBC PT 14.30 (12.1-14.9) SECO NDS INR 1.08 (0.8-1.2) APTT 26.5 (23.9-36.7) SECO NDS D-Dimer 1.35 H (0-0.59) ug/mIFE U Specimen Type Sample Site ABG pH (7.35-7.45) ABG pCO2 (35-45) mmHg ABG pO2 (80.0-100.0) mmH g ABG HCO3 (22-26) mmol/L ABG O2 Saturation ABG Base Excess (-2.0-2.0) mmol/ L Marlo Test A-a O2 Gradient (5-10) mmHg Hematocrit (37-47) % Hgb O2 Saturation (95-100) % Carboxyhemoglobin (0.4-20.1) %THgb Methemoglobin (0.4-1.5) % Total Hemoglobin (12-16) g/dL Sodium (131-143) mmol/L Potassium (3.5-5.0) mmol/L Glucose (70-115) mg/dL Ionized Calcium (1.1-1.4) mmol/L O2 Delivery Device O2 Liters/Min % Oil Well Pumper ID Chloride (98-107) mmol/L Carbon Dioxide (22-29) mmol/L Anion Gap (5-19) BUN (8-23) mg/dL Creatinine (0.5-0.9) mg/dL GFR Calculation Calculated Osmolal ity (285-295) mOsm/k g Lactic Acid 1.2 (0.5-2.2) mmol/L Calcium (8.5-10.5) mg/dL Total Bilirubin (0.15-1.2) mg/dL AST (0-32) U/L ALT (0-33) U/L Alkaline Phosphata se (35-105) IU/L Troponin T Baselin e 36 H (0-10) ng/L NT-Pro-B Natriuret Pep (0-450) pg/mL Total Protein (6.6-8.7) g/dL Albumin (3.5-5.2) g/dL Globulin (1.3-4.6) g/dL Imaging Data^: CT Chest: Attestation: I personally reviewed and interpreted this imaging study as follows: Radiologist's impression: MPRESSION: 1. Multifocal patchy bilateral pulmonary ground-glass opacities are nonspecific. Differential includes pneumonia and/or pulmonary edema.Imaging features can be seen with COVID-19 pneumonia, though are nonspecific and can occur with a variety of infectious and noninfectious processes. (Reference: Todd) 2. There are centrilobular emphysematous changes in the bilateral lungs. 3. Multivessel atherosclerotic disease which involves the coronary arteries. 4. Multiple lymph nodes are visualized in the upper abdomen some of which appear to be abnormal in morphology/rounded. Consider CT scan of the abdomen/pelvis with IV contrast for further evaluation as clinically warranted. EKG Data^: EKG 1: Attestation: I personally reviewed and interpreted this EKG as follows: EKG Interpretation Date: 02/14/21 EKG interpretation time: 17:24 Prior EKG tracings: available for review Interpretation: Sinus rhythm possible left atrial enlargement. Heart rate 69 nonspecific EKG changes. ABG Data^: ABG Interpretation 1: ABG results: pH is 7.30 PCO2 24.6 PO2 65.7. This was taken with patient on high flow oxygen. Attestation: I personally reviewed and interpreted this ABG as follows: Interpretation: Hypoxia Discharge Plan Discharge Patient Disposition: Admitted As Inpatient Clinical Impression: Acute respiratory distress syndrome (ARDS) due to COVID-19 virus, Hypoxia, Acute on chronic renal failure, Elevated d-dimer, CHF (congestive heart failure) Condition: Stable Prescriptions: No Action atorvastatin 10 mg tablet 5 mg PO DAILY RF: 0 diltiazem HCl [Cardizem CD] 240 mg capsule,extended release 24hr 240 mg PO DAILY RF: 0 glipizide 5 mg tablet 5 mg PO DAILY RF: 0 amlodipine 10 mg tablet 10 mg PO DAILY Qty: 90 RF: 3 acetaminophen 650 mg tablet extended release 650 mg PO Q12H RF: 0 Ocuvite Adult 50 Plus 250-5-1 mg capsule 1 cap PO DAILY RF: 0 bumetanide 2 mg tablet 1 mg PO BID RF: 0 losartan 50 mg tablet 75 mg PO DAILY Qty: 135 RF: 3 Aspir-81 81 mg PO DAILY RF: 0 labetalol 200 mg tablet 200 mg PO BID RF: 0 hydralazine 50 mg tablet 75 mg PO BID RF: 0 Referrals: Teena Connelly MD [Primary Care Provider] - Coding Level of Care Code ED Rotational Moulding Operator for Chg Fwd Exam Comprehensive
[2021-02-14 17:19] LABS: ABG PCO2 24.6 mmHg (35-45); ABG PH Result 7.31 (7.35-7.45); Alveolar-Arterial Oxygen Gradi 6.8 mmHg (5-10); Arterial Blood Gas Hematocrit 40.1 % (37-47); Base Excess ABG -12.2 mmol/L (-2.0-2.0); Blood Gas Allen Test Pos; Blood Gas Sample Site Radial, right; Blood Gas Sample Type Arterial; Carboxyhemoglobin 0.9 %THgb (0.4-20.1); HCO3 ABG 12.3 mmol/L (22-26); HGB O2 Sat 90.6 % (95-100); Ionized Calcium Level - ABG 1.1 mmol/L (1.1-1.4); Methemoglobin 0.8 % (0.4-1.5); Oxygen Device OXY MASK; Oxygen Saturation ABG 92.2; PO2 ABG 65.7 mmHg (80.0-100.0); Potassium Level - ABG 4.7 mmol/L (3.5-5.0); Total Hemoglobin 13.1 g/dL (12-16)
[2021-02-14 18:18] LABS: Basophils % 0.1 %; Hematocrit 38.2 % (37.0-47.0); Hemoglobin 12.1 g/dL (11.5-15.3); Lymphocytes # 3.9 10^3/uL (0.8-4.8); Mean Corpuscular HGB Conc 31.7 g/dL (30.0-36.0); Mean Corpuscular Volume 94.6 fl (81-99); Mean Platelet Volume 11.9 fL (7.4-10.4); Monocytes # 0.5 10^3/uL (0.2-0.9); Monocytes % 5.9 %; Neutrophils # 4.53 10^3/uL (1.8-7.7); Neutrophils % 50.6 %; Nucleated Red Blood Cells % 0 %; Platelet Count 130 10^3/cmm (130-400); Red Blood Count 4.04 10^6/uL (4.1-5.3)
[2021-02-14 18:26] LABS: INR 1.08 (0.8-1.2)
[2021-02-14 18:27] LABS: Partial Thromboplastin Time 26.5 SECONDS (23.9-36.7)
[2021-02-14 18:29] LABS: D Dimer 1.35 ug/mIFEU (0-0.59)
[2021-02-14 18:31] LABS: Lactic Sepsis W/Reflex 1.2 mmol/L (0.5-2.2)
[2021-02-14] MEDS: dexamethasone 10 mg/mL INJ IV (18:33)
[2021-02-14 18:34] LABS: Troponin(5th) Baseline 36 ng/L (0-10)
--- NOTE | 2021-02-14 18:36 | CTR_ITS ---
PROCEDURE INFORMATION: Exam: CT Chest Without Contrast; Diagnostic Exam date and time: 02/14/2021 6:36 PM Age: 76 years old Clinical indication: Shortness of breath; Patient HX: HX of cll - covid + w worsening SOB; Additional info: SOB with elevated ddimer TECHNIQUE: Imaging protocol: Diagnostic computed tomography of the chest without contrast. Radiation optimization: All CT scans at this facility use at least one of these dose optimization techniques: automated exposure control; mA and/or kV adjustment per patient size (includes targeted exams where dose is matched to clinical indication); or iterative reconstruction. COMPARISON: CT chest abd pel w con* 09/07/2020 11:06 AM RADIATION DOSE METRICS: Total DLP (mGy-cm): 692.4 FINDINGS: Lungs: Multifocal patchy bilateral pulmonary ground-glass opacities. There are centrilobular emphysematous changes in the bilateral lungs. Prominent interstitial markings. Pleural spaces: Unremarkable. No pneumothorax. No pleural effusion. Heart: Mild cardiomegaly. Multivessel atherosclerotic disease which involves the coronary arteries. Aorta: Unremarkable. No aortic aneurysm. Lymph nodes: There are multiple lymph nodes in the upper abdomen some of which are partially visualized. Some of these lymph nodes appear to be abnormal in morphology/rounded. There are multiple perihilar and mediastinal lymph nodes not optimally visualized without IV contrast. Spleen: 9 mm cystic lesion in the spleen cannot be further evaluated without IV contrast. Bones/joints: Unremarkable. No acute fracture. Soft tissues: Unremarkable. CT/CT chest wo con [id number] IMPRESSION: 1. Multifocal patchy bilateral pulmonary ground-glass opacities are nonspecific. Differential includes pneumonia and/or pulmonary edema.Imaging features can be seen with COVID-19 pneumonia, though are nonspecific and can occur with a variety of infectious and noninfectious processes. (Reference: Todd) 2. There are centrilobular emphysematous changes in the bilateral lungs. 3. Multivessel atherosclerotic disease which involves the coronary arteries. 4. Multiple lymph nodes are visualized in the upper abdomen some of which appear to be abnormal in morphology/rounded. Consider CT scan of the abdomen/pelvis with IV contrast for further evaluation as clinically warranted. REFERENCES: Todd Dill et al., Radiological Society of [place] Expert Consensus Statement on Reporting Chest CT Findings Related to COVID-19. Endorsed by the Society of Thoracic Radiology, the [place] [employer], and RSNA. Published August 21, 2019. Radiation Dose CTDIVOL = (mGy): DLP = 692.4 (mGy-cm)
[2021-02-14 18:43] LABS: Alanine Aminotransferase 26 U/L (0-33); Albumin Level 3.2 g/dL (3.5-5.2); Alkaline Phosphatase 71 IU/L (35-105); Aspartate Amino Transferase 26 U/L (0-32); Blood Urea Nitrogen 46 mg/dL (8-23); Calcium 7.8 mg/dL (8.5-10.5); Carbon Dioxide 15 mmol/L (22-29); Chloride 117 mmol/L (98-107); Globulin 1.9 g/dL (1.3-4.6); Glucose 164 mg/dL (65-115); NT Pro B Type Natriuretic Pept 9498 pg/mL (0-450); Osmolality Calculated 314 mOsm/kg (285-295); Sodium 144 mmol/L (136-145); Total Bilirubin 0.4 mg/dL (0.15-1.2); Total Protein 5.1 g/dL (6.6-8.7)
--- NOTE | 2021-02-14 19:08 | ECG_ITS ---
[facility] Test Date: 2021-02-14 Pat Name: Yanira Gao Department: Room: Gender: Female Scow Derrick Operator: : 1945 Requested By: Mike Romero Order Number: [id number] Reading MD: Measurements Intervals [place] Rate: 66 P: 41 SD: 148 QRS: 39 QRSD: 94 T: 45 QT: 420 QTc: 443 Interpretive Statements SINUS RHYTHM ANTEROSEPTAL MYOCARDIAL INFARCTION , OF INDETERMINATE AGE [40+ ms Q WAVE IN V1-V4] Compared to ECG 02/14/2021 17:24:22 No significant changes [id number]
[2021-02-14] MEDS: FUROsemide 10 mg/mL SDV 10mL 40 MG IVP (19:17)
[2021-02-14] MEDS: enoxaparin 80 mg/0.8 mL Syringe SUBCUT (19:18)
--- NOTE | 2021-02-14 20:24 | PC.NURSE ---
tried to call report. nurse to call back
--- NOTE | 2021-02-14 20:45 | P.HP_ITS ---
Providers/Chief Complaint Admitting Physician: Oh Brennan MD Primary Care Provider: Teena Connelly MD Chief Complaint: COVID +; RESP DISTRESS History of Present Illness Yanira Gao is a 76 year old female with a past medical history of chronic lymphocytic leukemia, hypertension, noninsulin-dependent type 2 diabetes mellitus, discoid lupus, left subclavian artery stenosis, history of COVID-19 vaccination back in May 2019, aortic stenosis, CKD, diastolic CHF with hi story of bilateral pleural effusions, hypertension, who was diagnosed with COVID-19 positive on last week, who presents to [facility] due to complaints of fatigue, malaise, shortness of breath, fevers, chills, poor appetite. Patient tells me that she tested positive for Covid on , at that time she was having symptoms of fatigue, malaise, diarrhea, poor appetite, and fevers. Now she has developed increased shortness of breath, shortness of breath with exertion, no chest pain, no palpitations, no lightheadedness, no dizziness. She tells me that her bilateral extremity edema is very minimal. Denies any hemoptysis. No calf pain. No calf swelling. No recent travel. She has received both doses of COVID-19. In the emergency room she was found to have a creatinine of 2.1, was given 40 of Lasix, 15 L, saturating in the mid 90s, CT of the chest shows diffuse groundglass opacities, D-dimer elevated 1.35, was given Lovenox, given Decadron, ABG shows pH of 7.31, PCO2 65.7. Review of Systems Const: Reports: fever(s), chills, body aches, fatigue and malaise Eyes: Denies: change in vision or blurry vision ENMT: Denies: nasal congestion Card: Reports: dyspnea on exertion and orthopnea; Denies: chest pain, palpitations, edema or lightheadedness Resp: Reports: dyspnea and non-productive cough; Denies: productive cough or wheezing GI: Reports: diarrhea; Denies: abdominal pain, nausea, vomiting, hematemesis, constipation, hematochezia or melena : Denies: flank pain, dysuria or urinary frequency Musc: Denies: neck pain or back pain Skin/Breast: Denies: rash Neuro: Denies: headache(s), dizziness or vertigo Psych: Denies: anxiety or depression Endo: Denies: polyuria or polydipsia Medications/Allergies Home Medications Medication Instructions Recorded Confirmed Last Taken Type diltiazem HCl 240 mg 240 mg PO DAILY 10/22/19 02/02/21 11/30/20 History capsule,extended release 24 hr glipizide 5 mg tablet 5 mg PO DAILY 10/22/19 02/02/21 11/30/20 History atorvastatin 10 mg tablet 5 mg PO DAILY tab 10/23/19 02/02/21 11/30/20 History amlodipine 10 mg tablet 10 mg PO DAILY #90 tab 06/16/20 02/02/21 11/30/20 Rx labetalol 200 mg PO BID 07/08/20 02/02/21 11/30/20 History acetaminophen 650 mg 650 mg PO Q12H 11/11/20 02/02/21 11/30/20 History tablet,extended release vit C,E,zinc,copper-ypykf5d 250 1 cap PO DAILY 11/11/20 02/02/21 11/30/20 History mg-lutein 5 mg-zeaxanthin 1 mg capsule Aspir-81 81 mg PO DAILY 12/01/20 02/02/21 11/30/20 History bumetanide 2 mg tablet 1 mg PO BID tab 12/01/20 02/02/21 Unknown History hydralazine 50 mg tablet 75 mg PO BID tab 12/01/20 02/02/21 11/30/20 History losartan 50 mg tablet 75 mg PO DAILY #135 tab 12/14/20 02/02/21 Unknown Rx Allergies Allergy/AdvReac Type Severity Reaction Status Date / Time No Known Allergies Allergy Verified 02/02/21 14:23 PFSH Acute PFSH: Medical History (Updated 02/14/21 @ 20:59 by Oh Brennan MD) Aortic stenosis Not apparent on echocardiogram 08/04/2020 Carotid stenosis, bilateral CKD (chronic kidney disease) CLL (chronic lymphocytic leukemia) Compression fracture COVID-19 vaccine administered Degenerative lumbar disc Diabetes Discoid lupus Dyslipidemia Hypertension Lumbar radiculopathy Mitral regurgitation Surgical History No significant past surgical history Family History Mother , AGE 89 Diabetes Stroke CAD (coronary artery disease) Dementia Father , AGE 92 Stroke CAD (coronary artery disease) Dementia Sister CAD (coronary artery disease) Lung disease Myocardial infarction Cancer Brother CAD (coronary artery disease) Family/Other Cancer Denies family history of Clotting disorder Chronic kidney disease (CKD) Suicide Anesthesia complication Bleeding disorder Social History Second hand smoke exposure: No Alcohol intake: never Lives independently: Yes Marital status: / Current occupational status: retired History of recent travel: No Vitals/I&O/Wt Last Vital Signs Temp 98.1 F 02/14/21 20:35 Pulse 66 02/14/21 20:35 Resp 16 02/14/21 20:35 BP 153/64 02/14/21 20:35 Pulse Ox 94 02/14/21 20:35 Weight last 48 hrs Weight 80.286 kg Physical Exam Const: COMMON NORMALS: no acute distress and patient oriented x3 GENERAL APPEARANCE: cooperative and comfortable HENMT: COMMON NORMALS: normocephalic HEAD & SCALP: normocephalic Eye: COMMON NORMALS: Equal, round and reactive pupils present and EOMs intact bilaterally GENERAL EYE: appearance normal, both eyes and all related structures PUPIL: Yes Equal, round and reactive pupils present Neck/C-Spine: COMMON NORMALS: full ROM and Thyroid normal Resp: COMMON NORMALS: normal respiratory effort, No retractions and No use of accessory muscles AUSCULTATION: crackles and wheezes Cardio: COMMON NORMALS: regular rate, regular rhythm, S1 normal heart sound present, S2 normal heart sound present, No gallops present (Cardio), No clicks present (Cardio) and No murmurs present (Cardio) RATE: regular rate RHYTHM: regular rhythm HEART SOUNDS: S1 normal heart sound present and S2 normal heart sound present GI: COMMON NORMALS: Normal to inspection, nondistended, normoactive bowel sounds present, Soft to palpation and non-tender Extremity: COMMON NORMALS: normal to inspection, full ROM and no pedal edema Neuro: COMMON NORMALS: patient oriented x3, CN's II-XII intact bilaterally, moves all extremities and no focal motor deficits Psych: COMMON NORMALS: mental status grossly normal, Normal thought process present and cooperative THOUGHT PROCESS: Normal thought process present Urinary Catheter Management^: Ontiveros: Cath Placed During This Visit: yes Urinary Catheter Date of Insertion: 02/14/21 Urinary Catheter Time of Insertion: 19:48 Data : 02/14/21 18:08 02/14/21 18:06 Micro: Microbiology 02/14/21 18:08 Blood Culture - Preliminary Blood SPECIMEN COLLECTED A&P Assessment and plan (1) Acute respiratory failure with hypoxia: Acute hypoxic respiratory failure -secondary to COVID-19 pneumonia, breakthrough infection, has received both Covid vaccines in May 2019, no history of booster -Some component of acute on chronic diastolic CHF exacerbation Plan: -Admit to general medical floors -Obtain blood cultures, sputum cultures, urine bacterial antigens, stool cultures -Currently on high flow nasal cannula, wean oxygen as tolerated -Start Decadron 6 mg IV push daily -Start remdesivir, however we will have to monitor GFR closely, if creatinine continues to elevate we will have to possibly hold due to increased risk of side effects, in addition she has a history of CLL, might consider talking to hemato logy oncology -Start broad-spectrum antibiotic therapy Rocephin azithromycin -Vitamin C, zinc -Incentive spirometer, flutter valve -Albuterol, budesonide -Elevated D-dimer 1.35, and complaints of worsening shortness of breath, cannot perform a CT angiogram of the chest given elevated creatinine, will start on therapeutic Lovenox, for possible pulmonary emboli, bilateral extremity ultrasound for DVT, follow D-dimer -For CHF, patient does not look fluid overloaded, BNP is over 8000, reduce Bumex dose to 1 mg every 24 hours, monitor urine output, monitor creatinine, monitor potassium, cardiac echo ordered -Full code -Lovenox for DVT prophylaxis YENNY on CKD, secondary to COVID-19 pneumonia, possible cardiorenal syndrome, avoid nephrotoxic agents -Monitor creatinine, monitor urine output -We will obtain a UA Acute on chronic diastolic CHF exacerbation, as above Hypertension, continue Norvasc, continue labetalol Chronic lymphocytic leukemia, continue to monitor Elevated troponins, likely secondary respiratory failure, serial troponins, serial EKGs, continue aspirin, hold statin until CPK [id number] type 2 diabetes mellitus, low-dose sliding scale Status: Acute (2) Pneumonia due to COVID-19 virus: Status: Acute (3) Acute kidney injury superimposed on CKD: Status: Acute (4) CHF exacerbation: Status: Acute (5) Hypertension: Status: Chronic Qualifiers: Hypertension type: renovascular hypertension Qualified Code(s): I15.0 - Renovascular hypertension (6) Dyslipidemia: Status: Chronic (7) Carotid stenosis, bilateral: Status: Chronic (8) CLL (chronic lymphocytic leukemia): Status: Acute Attestations Medical Necessity Statement*: Patient requires hospitalization, inpatient, greater than 2 midnights, for acute respiratory failure with hypoxia secondary COVID-19 pneumonia Coding Level of Care Code 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
--- NOTE | 2021-02-14 21:10 | PC.NURSE ---
Arrival on unit Patient arrived in ICU at 2109 via stretcher. All belongings on patient put bedside. 20 gauge IV in left antecubital space. Patient on 30 L heated high flow at 50% FIO2. Patient tolerated bed transfer fair. Alert and oriented, vital signs stable.
[2021-02-14 21:24] LABS: Troponin 5 2HR 38.17 ng/L (0-10); Troponin 5 2HR Delta 2.17 ABS# (0-10)
[2021-02-14 21:27] LABS: Creatine Phosphokinase 87 U/L (26-192)
[2021-02-14] MEDS: remdesivir 200 MG in sodium chloride 0.9% (100 ml) 60 ML 100 MG IV (22:01)
[2021-02-14 22:29] LABS: Add Urine Microscopic? YES; Bilirubin Urine Neg (Negative); Blood Urine 2+ (Negative); Glucose Urine UA Norm (Normal); Ketones Urine Negative (Negative); Leukocyte Esterase Urine 2+ (Negative); Nitrate Urine Negative (Negative); Protein Urine 1+ (Negative); Urine Color Yellow (Yellow); Urobilinogen Urine Norm (Negative); pH Urine 5 (5-7)
[2021-02-14 22:31] LABS: Add Urine Culture? Yes; Bacteria Urine 4+ /hpf; Squamous Epithelial Cell Urine 0-4 /hpf (0-5); WBC Urine >100 /hpf (0-5)
--- NOTE | 2021-02-14 22:55 | PC.NURSE ---
MAR/IV IV Medications administered late due to lack of medication compatibility and IV access.
[2021-02-14] MEDS: bumetanide 0.25 mg/mL SDV 4 mL 1 MG IVP (23:00)
[2021-02-14] MEDS: cefTRIAXone 1,000 MG in sodium chloride 0.9% (plus) 50 ML 100 MG IV (23:02)
[2021-02-14] MEDS: azithromycin 500 MG in sodium chloride 0.9% 250 ML 250 MG IV (23:02)
[2021-02-14 23:34] LABS: SARS Covid-2 Antigen Positive (Negative)
[2021-02-14] MEDS: albuterol 8 gm MDI 1 PUFF INHALATION (23:34)
[2021-02-15] VITALS (55 sets, daily range): BP systolic 114–178; BP diastolic 36–107; PULSE 55–96; RESP 13–27; TEMP 36.4–36.7; O2SAT 85–97; BMI 29.0
[2021-02-15 01:21] LABS: Troponin 5 6HR 33.07 ng/L (0-10)
[2021-02-15 01:32] LABS: Troponin 5 6HR Delta -2.93 ng/L (0-12)
[2021-02-15] MEDS: albuterol 8 gm MDI 1 PUFF INHALATION ×6 (03:20→23:31)
[2021-02-15 03:30] LABS: ABG PCO2 31.1 mmHg (35-45); ABG PH Result 7.21 (7.35-7.45); Arterial Blood Gas Hematocrit 40.9 % (37-47); Base Excess ABG -14.1 mmol/L (-2.0-2.0); Blood Gas Allen Test Pos; Blood Gas Sample Site Radial, right; Blood Gas Sample Type Arterial; HCO3 ABG 12.5 mmol/L (22-26); Oxygen Device NC; PO2 ABG 65.8 mmHg (80.0-100.0)
[2021-02-15 05:02] LABS: Basophils % 0.1 %; Hematocrit 38.9 % (37.0-47.0); Lymphocytes # 4.2 10^3/uL (0.8-4.8); Lymphocytes % 54.9 %; Mean Corpuscular HGB Conc 30.8 g/dL (30.0-36.0); Mean Corpuscular Hemoglobin 30.2 pg (28.0-34.0); Mean Corpuscular Volume 97.7 fl (81-99); Mean Platelet Volume 11.7 fL (7.4-10.4); Monocytes # 0.3 10^3/uL (0.2-0.9); Monocytes % 4.3 %; Neutrophils # 3.04 10^3/uL (1.8-7.7); Neutrophils % 40.2 %; Nucleated Red Blood Cells % 0 %; Platelet Count 138 10^3/cmm (130-400); Red Blood Count 3.98 10^6/uL (4.1-5.3); White Blood Count 7.6 10^3/uL (4.0-10.0)
[2021-02-15 05:19] LABS: Lactic Sepsis W/Reflex 0.8 mmol/L (0.5-2.2)
[2021-02-15 05:34] LABS: NT Pro B Type Natriuretic Pept 6773 pg/mL (0-450); Procalcitonin 0.29 ng/mL (0-0.5)
[2021-02-15 05:35] LABS: Alkaline Phosphatase 74 IU/L (35-105); Sodium 145 mmol/L (136-145); Thyroid Stimulating Hormone 0.48 uIU/mL (0.27-4.20)
[2021-02-15 05:51] LABS: Slide Review Slide Review Perform
[2021-02-15 05:55] LABS: Total Bilirubin 0.2 mg/dL (0.15-1.2)
[2021-02-15 06:28] LABS: Alanine Aminotransferase 40 U/L (0-33); Albumin Level 3.3 g/dL (3.5-5.2); Aspartate Amino Transferase 42 U/L (0-32); Blood Urea Nitrogen 53 mg/dL (8-23); Calcium 7.7 mg/dL (8.5-10.5); Carbon Dioxide 11 mmol/L (22-29); Chloride 115 mmol/L (98-107); Glucose 178 mg/dL (65-115); Magnesium 2.9 mg/dL (1.7-2.3); Osmolality Calculated 317 mOsm/kg (285-295); Total Protein 5.1 g/dL (6.6-8.7)
[2021-02-15 07:01] LABS: Creatine Phosphokinase 73 U/L (26-192)
[2021-02-15] MEDS: sodium bicarbonate 8.4% 1 mEq/mL 50mL Syr 50 MEQ IVP (07:10)
--- NOTE | 2021-02-15 07:18 | PC.NURSE ---
Shift Note Frequent safety and comfort rounds continue. Orders and/or nursing care completed as indicated. Patient monitored for response to intervention and treatment(s). Education provided includes information about sodium bicarb/acidosis, SCD's, Remdesivir, and treatment goals. Patient verbalized understanding.
--- NOTE | 2021-02-15 07:34 | US_ITS ---
WS: [id number] ULTRASOUND RENAL TECHNIQUE: Ultrasound examination of both kidneys. CLINICAL INFORMATION: r/o pyelo, stone COMPARISON: None. FINDINGS: RIGHT: Cortical thinning right kidney. Echogenicity: Normal. Cortical thickness: 0.8 cm; Normal. Hydronephrosis: None. Perinephric fluid: None. Right kidney measures: 7.5 cm x 3.8 cm x 3.9 cm. LEFT: Left kidney is normal in size and appearance. Echogenicity: Normal. Cortical thickness: 1.5 cm; Normal. Hydronephrosis: None. Perinephric fluid: None. Left kidney measures: 10.4 cm x 4.9 cm x 5.1 cm. Normal visualized aorta. US/US renal BI* [id number] IMPRESSION: 1. No hydronephrosis in either kidney. 2. Cortical atrophy right kidney.
[2021-02-15 07:45] LABS: Glucose Point of Care 142 mg/dL (70-110)
[2021-02-15] MEDS: ascorbic acid 500 mg Tablet PO ×2 (07:50→18:00)
[2021-02-15] MEDS: aspirin 81 mg EC Tablet PO (07:50)
[2021-02-15] MEDS: zinc gluconate 50 mg Tablet PO (07:50)
[2021-02-15] MEDS: pantoprazole DR 40 mg Tablet PO ×2 (07:51→18:02)
[2021-02-15] MEDS: amlodipine 10 mg Tablet PO (07:51)
[2021-02-15] MEDS: cholecalciferol (vitamin D3) 1,000 unit Tablet 1000 UNIT PO (07:51)
[2021-02-15] MEDS: dilTIAZem ER (24HR) 240 mg Capsule PO (07:51)
[2021-02-15] MEDS: budesonide 0.5 mg/2 mL Neb INHALATION ×2 (08:02→20:18)
[2021-02-15 08:11] LABS: Ketone (Acetest) Serum Negative (Negative)
--- NOTE | 2021-02-15 08:22 | PM.PN ---
Subjective Subjective: Interval history: Patient was seen this morning, she tells me that she feels a bit better, currently she is on heated high flow 30 L, 50% FiO2, denies any chest pain, no nausea, vomiting, no lightheaded, dizziness Vitals/I&O/Wt Last Vital Signs Temp 97.6 F 02/15/21 07:44 Pulse 66 02/15/21 07:44 Resp 19 H 02/15/21 07:44 BP 174/57 02/15/21 07:44 Pulse Ox 89 L 02/15/21 07:44 02/14/21 02/15/21 02/15/21 22:59 06:59 14:59 Intake Total 360 / 360 Output Total 275 / 275 Balance 85 / 85 Weight last 48 hrs Weight 76.657 kg Weight 80.286 kg Physical Exam Const: COMMON NORMALS: no acute distress and patient oriented x3 Resp: COMMON NORMALS: normal respiratory effort, No retractions and No use of accessory muscles AUSCULTATION: wheezes Cardio: COMMON NORMALS: regular rate, regular rhythm, S1 normal heart sound present and S2 normal heart sound present RATE: regular rate RHYTHM: regular rhythm HEART SOUNDS: S1 normal heart sound present and S2 normal heart sound present GI: COMMON NORMALS: Normal to inspection, nondistended, normoactive bowel sounds present, Soft to palpation and non-tender PALPATION: Yes Soft to palpation Extremity: COMMON NORMALS: no pedal edema Neuro: COMMON NORMALS: patient oriented x3 Psych: COMMON NORMALS: mental status grossly normal Urinary Catheter Management^: Ontiveros: Cath Placed During This Visit: yes Reason for Continuing Indwelling Catheter: Accurate Measurement of Urinary Output in Critically Ill Patients Urinary Catheter Date of Insertion: 02/14/21 Urinary Catheter Time of Insertion: 19:48 Data : 02/15/21 04:45 02/15/21 04:45 Micro: Microbiology 02/14/21 20:30 Blood Culture - Preliminary Blood SPECIMEN COLLECTED 02/14/21 18:08 Blood Culture - Preliminary Blood SPECIMEN COLLECTED A&P Assessment and plan (1) Acute respiratory failure with hypoxia: Acute hypoxic respiratory failure -secondary to COVID-19 pneumonia, breakthrough infection, has received both Covid vaccines in May 2019, no history of booster -Some component of acute on chronic diastolic CHF exacerbation Plan: -Admit to general medical floors -Obtain blood cultures, sputum cultures, urine bacterial antigens, stool cultures -ABG shows pH 7.21, PCO2 31, PO2 65.8, bicarb 12.5, metabolic acidosis -Continue BiPAP during the night -Currently on heated high flow, 30 L 50% FiO2 -Start Decadron 6 mg IV push daily -Start remdesivir, GFR is reduced to 20, she is at increased risk of accumulation of metabolites, discussed risk and benefits of remdesivir, she voiced understanding, all questions answered, agreed to proceed with remdesivir, if creatinine continues to elevate we will have to possibly hold due to increased risk of side effects, in addition she has a history of CLL, might consider talking to hematology oncology -Continue Rocephin and azithromycin -Vitamin C, zinc, vitaimn D -Incentive spirometer, flutter valve -Albuterol, budesonide -Elevated D-dimer 1.35, and complaints of worsening shortness of breath, cannot perform a CT angiogram of the chest given elevated creatinine, on therapeutic Lovenox, for possible pulmonary emboli, bilateral extremity ultrasound for DVT, follow D-dimer -For CHF, patient does not look fluid overloaded, BNP is over 6733, hold Bumex dose to 1 mg every 24 hours, monitor urine output, monitor creatinine, monitor potassium, cardiac echo ordered -Full code -Lovenox for DVT prophylaxis Metabolic acidosis, normal lactic acid, normal serum ketones, likely secondary acute renal failure, will give 1 amp of bicarb YENNY on CKD, secondary to COVID-19 pneumonia, possible cardiorenal syndrome, avoid nephrotoxic agents -Creatinine elevated to 2.2 -UA with evidence of UTI, on Rocephin as above -We will do renal ultrasound to evaluate for possible nephrolithiasis Transaminitis secondary to COVID-19 Acute on chronic diastolic CHF exacerbation, as above Hypertension, continue Norvasc, continue labetalol Chronic lymphocytic leukemia, continue to monitor Elevated troponins, likely secondary respiratory failure, serial troponins, serial EKGs, continue aspirin, continue statin, normal CPK [id number] type 2 diabetes mellitus, low-dose sliding scale Status: Acute (2) Pneumonia due to COVID-19 virus: Status: Acute (3) Acute kidney injury superimposed on CKD: Status: Acute (4) CHF exacerbation: Status: Acute (5) Hypertension: Status: Chronic Qualifiers: Hypertension type: renovascular hypertension Qualified Code(s): I15.0 - Renovascular hypertension (6) Dyslipidemia: Status: Chronic (7) Carotid stenosis, bilateral: Status: Chronic (8) CLL (chronic lymphocytic leukemia): Status: Acute Attestations Medical Necessity Statement*: Patient requires hospitalization for acute respiratory failure with hypoxia secondary to COVID-19, pneumonia, acidosis, YENNY, Coding Level of Care Code 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
--- NOTE | 2021-02-15 08:57 | PC.PHAR ---
pt states she takes care of her own medications-pt states she takes hydralazine 50mg bid rx filled on 01/08/21 for 75mg tid-pt states she has a rx for alendronate 70mg 1 tab q7d pt states she hasnt taken for a month or so pt states she forgets to take it since its once a week-
--- NOTE | 2021-02-15 09:26 | PC.CHAP ---
Pastoral Care Encounter/Spiritual Assessment Type of Contact [] Declined configuration engineer visit [] Patient/Family/Request visit [] Outpatient visit [] Follow-up visit [] Physician referral [] Code/Alert [x] Routine visit [] Staff referral [] Actively dying [] Patient sleeping [] Family support [] [] Out of room [] Palliative care [] [] Receiving care in room [] Pre-surgical visit [] Trauma [] Long length of stay [x] ICU visit [] Other: Relational/Emotional Strength [] Patient feels connected with others/family/visitors/staff [] Distress [] Loneliness/isolation [] Abandonment Spirituality of Patient [] Person of Priscilla [] Attends Faith of their Priscilla [] Believes in Prayer [] Reads Bible or Jehovah'S Witness materials [] There are Spiritual issues to be addressed Client Sales And Service Officer Interventions [x] Prayer [] Active listening [] Non-anxious presence [] Spiritual/emotional support [] Crisis/trauma care [] Spiritual counseling [] Bereavement support [] Provided bereavement packet [] Provided Bible/devotional materials [] Provided toy/stuffed animal, coloring book to patient or family member [] Provided Communion [] Anointing/[place] [] Salvation [x] Completed spiritual assessment [] Other: Impact on Illness or Injury [] Angry [] Fearful [] Anxious [] Often cries [] Exhaustion [] Unable to work [] Unable to attend rastafarian [] Unable to walk/stand [] Unable to read [] Unable to drive [] Unable to eat/drink [] Unable to sleep [] Unable to be with family [] Patient intubated [] Other: Summary Time spent with patient
[2021-02-15] MEDS: labetalol 200 mg Tablet PO (09:35)
[2021-02-15 11:22] LABS: Glucose Point of Care 177 mg/dL (70-110)
[2021-02-15] MEDS: acetaminophen 325 mg Tablet 650 MG PO (12:12)
[2021-02-15 13:46] LABS: Coronavirus Test Green County Detected
--- NOTE | 2021-02-15 14:12 | PM.CONSULT ---
Providers/Reason For Consult Consulting Physician/Specialty*: Nephrology Reason for Consult*: Eval for YENNY on CKD Attending Physician: Oh Brennan MD Primary Care Provider: Teena Connelly MD History of Present Illness History of Present Illness Thank you for consultation, today had the pleasure reviewing this very pleasant 76-year-old female for evaluation of acute on chronic kidney disease. She developed symptoms of Covid last Monday and was formally diagnosed on , presenting to our facility for increasing shortness of breath with some associated diarrhea, feeling lousy etc. Following hospitalization she is received combination therapy with remdesivir and dexamethasone, with broad-spectrum antibiotic coverage to include Rocephin and azithromycin. She also received a dose of Bumex yesterday evening. Despite this, her oxygen needs are increasing, her FiO2 is now 70% and she is on 35 L of high flow oxygen via nasal cannula. She is well-known to Dr. Gonzalez in the outpatient clinic, has CKD stage III, on review of historic data serum creatinine tends to range between 1.2 and 1.6 mg/dL. On arrival yesterday creatinine 2.1 increasing to 2.2 mg/dL today. Of note she is overtly acidemic with a bicarb level down to 11 and an anion gap that is noted. She denies any extremity edema, she denies any other hypervolemic symptoms. Passing urine without obstruction or urinary incontinence and the urine is clear, nonbloody or cloudy. She denies any recent exposure to potentially nephrotoxic substances including anti-inflammatory medications IV contrast etc. Hemodynamics robust since hospitalization, blood pressure is high this morning responding to amlodipine. Review of Systems Narrative: 12 point review of systems completed per HPI and subjective assessment, this includes....Constitutional: Weakness, fatigue. Respiratory: No SOB on exertion, comfortable at rest. CardioVasc: No chest pain, palpitations. Gastrointestinal: No nausea, no vomiting. Neurological: No seizures, no AMS. Derm: No new rashes, lesions or wounds. Immunological: No seasonal and no food allergies Meds/Allergies Home Medications and Allergies Home Medications Medication Instructions Recorded Confirmed Last Taken Type diltiazem HCl 240 mg 240 mg PO BEDTIME 10/22/19 02/15/21 11/30/20 History capsule,extended release 24 hr atorvastatin 10 mg tablet 5 mg PO BEDTIME tab 0502/15/21 11/30/20 History labetalol 200 mg PO BID 07/08/20 02/15/21 11/30/20 History acetaminophen 650 mg 1,300 mg PO Q12H PRN 11/11/20 02/15/21 11/30/20 History tablet,extended release vit C,E,zinc,copper-qdglv2m 250 1 cap PO QAM 11/11/20 02/15/21 11/30/20 History mg-lutein 5 mg-zeaxanthin 1 mg capsule bumetanide 2 mg tablet 1 mg PO BID tab 12/01/20 02/15/21 Unknown History hydralazine 50 mg tablet 50 mg PO BID tab 12/01/20 02/15/21 11/30/20 History losartan 50 mg tablet 75 mg PO DAILY #135 tab 12/14/20 02/15/21 Unknown Rx amlodipine 10 mg PO BEDTIME 02/15/21 02/15/21 Unknown History aspirin [Aspir-81] 81 mg PO BEDTIME 02/15/21 02/15/21 Unknown History glipizide 5 mg PO BEDTIME 02/15/21 02/15/21 Unknown History Allergies Allergy/AdvReac Type Severity Reaction Status Date / Time No Known Allergies Allergy Verified 02/15/21 08:49 Current Medications Current Medications Generic Name Dose Route Start Last Admin Trade Name Muraliq PRN Reason Stop Dose Admin Acetaminophen 650 mg 02/14/21 21:16 02/15/21 12:12 Acetaminophen 325 Mg Tablet PO 650 mg Q6H PRN Administration Mild/Mod Pain Or Temp >/= 101 Albuterol Sulfate 1 puff 02/15/21 00:00 02/15/21 13:27 Albuterol 8 Gm Mdi INHALATION 1 puff Q4H.RESPIRATORY ALISSA Administration Amlodipine Besylate 10 mg 02/15/21 09:00 02/15/21 07:51 Amlodipine 10 Mg Tablet PO 10 mg DAILY ALISSA Administration Ascorbic Acid 500 mg 02/15/21 09:00 02/15/21 07:50 Ascorbic Acid 500 Mg Tablet PO 500 mg BID ALISSA Administration Aspirin 81 mg 02/15/21 09:00 02/15/21 07:50 Aspirin 81 Mg Ec Tablet PO 81 mg DAILY ALISSA Administration Budesonide 0.5 mg 02/15/21 08:00 02/15/21 08:02 Budesonide 0.5 Mg/2 Ml Neb INHALATION 0.5 mg BID.RESPIRATORY ALISSA Administration Bumetanide 1 mg 02/14/21 21:16 02/14/21 23:00 Bumetanide 0.25 Mg/Ml Sdv 4 Ml IVP 1 mg Q24H ALISSA Administration Diltiazem HCl 240 mg 02/15/21 09:00 02/15/21 07:51 Diltiazem Er (24hr) 240 Mg Capsule PO 240 mg DAILY ALISSA Administration Ceftriaxone Sodium 1,000 mg/ 50 mls @ 100 mls/hr 02/14/21 23:00 02/14/21 23:35 Sodium Chloride IV Infused Q24H ALISSA Infusion Protocol Azithromycin 500 mg/ Sodium 250 mls @ 250 mls/hr 02/14/21 22:00 02/15/21 00:38 Chloride IV Infused Q24H ALISSA Infusion Protocol Insulin Aspart 0 unit 02/15/21 08:00 02/15/21 11:46 Insulin Aspart 100 Unit/1 Ml SUBCUT 2 unit TIDWM ALISSA Administration Protocol Labetalol HCl 200 mg 02/15/21 09:00 02/15/21 09:35 Labetalol 200 Mg Tablet PO 200 mg BID ALISSA Administration Pantoprazole Sodium 40 mg 02/15/21 09:00 02/15/21 07:[address] 40 Mg Tablet PO 40 mg BID ALISSA Administration Vitamin D 1,000 unit 02/15/21 09:00 02/15/21 07:51 Cholecalciferol (Vitamin D3) 1,000 Unit Tablet PO 1,000 unit DAILY ALISSA Administration Zinc Gluconate 50 mg 02/15/21 09:00 02/15/21 07:50 Zinc Gluconate 50 Mg Tablet PO 50 mg DAILY ALISSA Administration PFSH Acute PFSH: Medical History (Updated 02/14/21 @ 20:59 by Oh Brennan MD) Aortic stenosis Not apparent on echocardiogram 08/04/2020 Carotid stenosis, bilateral CKD (chronic kidney disease) CLL (chronic lymphocytic leukemia) Compression fracture COVID-19 vaccine administered Degenerative lumbar disc Diabetes Discoid lupus Dyslipidemia Hypertension Lumbar radiculopathy Mitral regurgitation Surgical History No significant past surgical history Family History Mother , AGE 89 Diabetes Stroke CAD (coronary artery disease) Dementia Father , AGE 92 Stroke CAD (coronary artery disease) Dementia Sister CAD (coronary artery disease) Lung disease Myocardial infarction Cancer Brother CAD (coronary artery disease) Family/Other Cancer Denies family history of Clotting disorder Chronic kidney disease (CKD) Suicide Anesthesia complication Bleeding disorder Social History Second hand smoke exposure: No Alcohol intake: never Lives independently: Yes Marital status: / Current occupational status: retired History of recent travel: No Vitals/I&O/Wt Last Vital Signs Temp 97.7 F 02/15/21 12:00 Pulse 88 02/15/21 13:27 Resp 18 02/15/21 13:27 BP 124/47 02/15/21 13:00 Pulse Ox 92 02/15/21 13:27 02/14/21 02/15/21 02/15/21 22:59 06:59 14:59 Intake Total 360 / 360 Output Total 275 / 275 Balance 85 / 85 Weight last 48 hrs Weight 76.657 kg Weight 80.286 kg Physical Exam Narrative: EXAM NARRATIVE: Constitutional: Awake, comfortable HEENT: Wet mucosa, no jvp, non icteric Lungs: Bilaterally clear without discernible wheeze, rales in all lung zones CVS: S1 S2, no murmurs Abdo: Soft, BS ok Ext 4: Minimal edema, peripheral perfusion with no cyanosis Neurological: Grossly non-focal Urinary Catheter Management^: Ontiveros: Cath Placed During This Visit: yes Reason for Continuing Indwelling Catheter: Accurate Measurement of Urinary Output in Critically Ill Patients Urinary Catheter Date of Insertion: 02/14/21 Urinary Catheter Time of Insertion: 19:48 Data Micro: Micro: Microbiology 02/14/21 22:00 Bacterial Antigens - Final Urine,Clean Catch 02/14/21 20:30 Blood Culture - Pr eliminary Blood [facility] 02/14/21 18:08 Blood Culture - Pr eliminary Blood [facility] A&P Additional A&P Information 1. 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 Given increasing oxygen needs will defer IV fluid. Judicious use of diuretics. No indication for dialysis Limited evaluation to include urine sodium, creatinine, urinalysis, TSH, CPK, uric acid. Strict I's and O's Avoid usual nephrotoxic agents Dose medication for GFR less than 30 2. Covid pneumonitis On combination remdesivir, dexamethasone, antibiotic coverage, judicious use of diuretics. High flow nasal cannula being titrated. She did receive both vaccinations. 3. Chemistry Anion gap metabolic acidosis, likely secondary to uremia We will give some oral sodium bicarb for this. Thank you for consultation, it is a pleasure to be involved with these patients with you Jesus Omalley MD Nephrology [phone] Patient seen and examined via telemedicine, with the assistance of the bedside RN > 25 min spent in evaluation and mgmt of patient Consult Attestations Medical Necessity Statement: Eval for YENNY Coding Level of Care Code Acute Felt Dyeing Machine Tender for Karthikeyan Peters
[2021-02-15] MEDS: sodium bicarbonate 650 mg Tablet PO ×2 (14:30→20:43)
[2021-02-15 17:29] LABS: Glucose Point of Care 98 mg/dL (70-110)
[2021-02-15] MEDS: dexamethasone 10 mg/mL INJ 6 MG IVP (18:00)
[2021-02-15] MEDS: remdesivir 100 MG in sodium chloride 0.9% (100 ml) 80 ML IV (18:01)
[2021-02-15 19:22] LABS: Urine Creatinine 153 mg/dL (28-217); Urine Random Sodium 31 mmol/L
--- NOTE | 2021-02-15 19:56 | PC.NURSE ---
Family updated Son, Carrington Gao, called and received an update on patient. Son asked questions regarding COVID isolation, oxygen requirements, and nephrology consult. Son verbalized understanding after receiving answers from nurse about questions asked.
[2021-02-15] MEDS: enoxaparin 80 mg/0.8 mL Syringe SUBCUT (20:30)
[2021-02-15] MEDS: atorvastatin 40 mg Tablet 10 MG PO (20:43)
--- NOTE | 2021-02-15 21:16 | USCV_ITS ---
DereckYanira ying Age: 76 Gender: F : 1945 Exam Date: 02/15/2021 06:48 Ordering Phys: Oh Brennan MD Technologist: Harlan Roy [place] [facility] [place]: ? PE PROCEDURES: The venous duplex Doppler examination of both lower extremities was performed in the standard fashion. The following venous structures were evaluated: common femoral vein, profunda vein, proximal portion of the greater saphenous vein, superficial femoral vein, and the popliteal vein. In addition, the posterior tibial and peroneal trunk were evaluated. FINDINGS: Normal 2-D Doppler and augmentation and compressibility throughout the lower extremity venous structures. Additional imaging through the proximal calf veins also reveals no thrombus. Limited evaluation of the greater saphenous vein is patent with no thrombus.. CONCLUSIONS No evidence of DVT in the above-mentioned identifiable veins. Dr Darlene Jones MD [facility] (Electronically Signed) Final Date: 15 February 2021 20:41 S
--- NOTE | 2021-02-15 21:16 | USCV_ITS ---
Yanira Gao Age: 76 Gender: F : 1945 Exam Date: 02/15/2021 06:31 Ordering Phys: Oh Brennan MD Technologist: Harlan Roy [place] [facility] [place]: ? PE BP: 151 / 51 HR: 62 Rhythm: Sinus Technical Quality: Adequate MEASUREMENTS (Male / Female) Normal Values 2D ECHO LV Diastolic Diameter PLAX 3.6 cm 4.2 - 5.9 / 3.9 - 5.3 cm LV Systolic Diameter PLAX 2.3 cm IVS Diastolic Thickness 1.4 cm 0.6 - 1.0 / 0.6 - 0.9 cm IVS Systolic Thickness 1.6 cm LVPW Diastolic Thickness 1.5 cm 0.6 - 1.0 / 0.6 - 0.9 cm LVPW Systolic Thickness 1.8 cm LVOT Diameter 2.0 cm LV Ejection Fraction 2D Teich 67.2 % LV Ejection Fraction MOD 2C 58.4 % LV Ejection Fraction 2C AL 59.1 % LA Diameter 4.3 cm LA Width 3.3 cm LA Height 4.2 cm RA Width 3.3 cm RA Height 5.8 cm Aorta at Sinotubular Diameter 2.3 cm DOPPLER AV Peak Velocity 167.0 cm/s LVOT Peak Velocity 97.0 cm/s AV Area Cont Eq vti 1.7 cm squared AV Area Cont Eq pk 1.8 cm squared MV Area PHT 2.8 cm squared Mitral E to A Ratio 0.9 MV E' Velocity 47.4 cm/s Mitral E to MV E' Ratio 11.8 Mitral E to LV E' Lateral Ratio 12.4 Mitral E to LV E' Septal Ratio 11.5 TR Peak Velocity 203.0 cm/s TR Peak Gradient 16.5 mmHg TV Peak E Velocity 66.0 cm/s Right Atrial Pressure 3.0 mmHg Pulmonary Artery Systolic Pressu 19.5 mmHg FINDINGS Left Ventricle Normal left ventricular size and systolic function, EF 64 %. Moderate left ventricular hypertrophy. No regional wall motion abnormalities. Grade I/IV diastolic dysfunction (abnormal relaxation filling pattern), normal to mildly elevated filling pressures. Right Ventricle The right ventricle is normal in size and function. Right Atrium The right atrium is normal in size. Left Atrium Mildly increased left atrial size. Mitral Valve Thickened mitral valve. Mild mitral annular calcification. Aortic Valve Thickened aortic valve. Tricuspid Valve No gross abnormalities noted Pulmonic Valve Pulmonic valve not well visualized. Pericardium Normal pericardium without effusion. Aorta Normal ascending aorta dimension. CONCLUSIONS Normal left ventricular size and systolic function, EF 64 %. Moderate left ventricular hypertrophy. No regional wall motion abnormalities. Grade I/IV diastolic dysfunction (abnormal relaxation filling pattern), normal to mildly elevated filling pressures. Mildly increased left atrial size. Thickened mitral valve. Mild mitral annular calcification. Thickened aortic valve. There is no pericardial effusion. There are no intracardiac masses. Compared to the study from 12/02/2020, there may not be a significant change in the 2D findings Dr Darlene Jones MD [facility] (Electronically Signed) Final Date: 15 February 2021 20:37 S
[2021-02-15 21:18] LABS: Glucose Point of Care 182 mg/dL (70-110)
[2021-02-15] MEDS: azithromycin 500 MG in sodium chloride 0.9% 250 ML 250 MG IV (22:14)
[2021-02-15] MEDS: cefTRIAXone 1,000 MG in sodium chloride 0.9% (plus) 50 ML 100 MG IV (22:15)
[2021-02-16] VITALS (62 sets, daily range): BP systolic 129–172; BP diastolic 44–76; PULSE 54–72; RESP 14–30; TEMP 36.5–36.7; O2SAT 81–97; BMI 29.2
[2021-02-16] MEDS: albuterol 8 gm MDI 1 PUFF INHALATION ×6 (03:15→23:36)
[2021-02-16 04:47] LABS: Hematocrit 35.6 % (37.0-47.0); Hemoglobin 11.2 g/dL (11.5-15.3); Lymphocytes # 4.2 10^3/uL (0.8-4.8); Mean Corpuscular HGB Conc 31.5 g/dL (30.0-36.0); Mean Corpuscular Hemoglobin 29.9 pg (28.0-34.0); Mean Corpuscular Volume 95.2 fl (81-99); Mean Platelet Volume 11.9 fL (7.4-10.4); Monocytes # 0.3 10^3/uL (0.2-0.9); Monocytes % 2.7 %; Neutrophils # 4.87 10^3/uL (1.8-7.7); Neutrophils % 51.7 %; Nucleated Red Blood Cells % 0 %; Platelet Count 166 10^3/cmm (130-400); Red Blood Count 3.74 10^6/uL (4.1-5.3); Red Cell Distribution Width 14.1 % (12.1-15.1); White Blood Count 9.4 10^3/uL (4.0-10.0)
[2021-02-16 05:03] LABS: D Dimer 0.82 ug/mIFEU (0-0.59)
[2021-02-16 05:04] LABS: Creatine Phosphokinase 57 U/L (26-192)
[2021-02-16 05:09] LABS: Alanine Aminotransferase 28 U/L (0-33); Alkaline Phosphatase 69 IU/L (35-105); Anion Gap 20.8 (5-19); Aspartate Amino Transferase 21 U/L (0-32); Blood Urea Nitrogen 69 mg/dL (8-23); Calcium 7.4 mg/dL (8.5-10.5); Carbon Dioxide 14 mmol/L (22-29); Chloride 114 mmol/L (98-107); Globulin 2.2 g/dL (1.3-4.6); Glucose 193 mg/dL (65-115); Magnesium 2.9 mg/dL (1.7-2.3); Osmolality Calculated 323 mOsm/kg (285-295); Phosphorus 6.5 mg/dL (2.5-4.5); Potassium 4.8 mmol/L (3.5-5.1); Sodium 144 mmol/L (136-145); Total Bilirubin 0.2 mg/dL (0.15-1.2); Total Protein 5.2 g/dL (6.6-8.7)
[2021-02-16 05:10] LABS: Slide Review Slide Review Perform
[2021-02-16 05:40] LABS: ABG PH Result 7.32 (7.35-7.45); Arterial Blood Gas Hematocrit 35.1 % (37-47); Base Excess ABG -10.7 mmol/L (-2.0-2.0); Blood Gas Allen Test Pos; Blood Gas Operator Identificat JB; Blood Gas Sample Site Brachial, right; Blood Gas Sample Type Arterial; Oxygen Device HAG
--- NOTE | 2021-02-16 06:52 | PC.NURSE ---
Shift Note Frequent safety and comfort rounds continue. Orders and/or nursing care completed as indicated. Patient received bed bath, oral care, and hair care as requested. During hygiene measures, patient's oxygen saturation decreased to mid-low 80s with movement; upon rest, saturation recovered well. Patient monitored for response to intervention and treatment(s). Education provided includes information regarding lovenox, activity levels, and deep breathing. Patient verbalized understanding. Will continue to monitor.
[2021-02-16 08:04] LABS: Glucose Point of Care 211 mg/dL (70-110)
[2021-02-16] MEDS: ascorbic acid 500 mg Tablet PO ×2 (08:37→17:32)
[2021-02-16] MEDS: sodium bicarbonate 650 mg Tablet PO ×3 (08:37→20:41)
[2021-02-16] MEDS: amlodipine 10 mg Tablet PO (08:37)
[2021-02-16] MEDS: cholecalciferol (vitamin D3) 1,000 unit Tablet 1000 UNIT PO (08:37)
[2021-02-16] MEDS: pantoprazole DR 40 mg Tablet PO ×2 (08:37→17:32)
[2021-02-16] MEDS: zinc gluconate 50 mg Tablet PO (08:37)
[2021-02-16] MEDS: aspirin 81 mg EC Tablet PO (08:38)
[2021-02-16] MEDS: budesonide 0.5 mg/2 mL Neb INHALATION ×2 (08:49→19:44)
[2021-02-16 12:16] LABS: Glucose Point of Care 251 mg/dL (70-110)
--- NOTE | 2021-02-16 13:29 | PM.PN ---
Subjective Subjective: Interval history: She feels quite good, optimistic. Breathing comfortable on high flow O2 with slight decrease in high flow oxygen needs. Minimal edema and no other hypervol Sx. Passing urine. No uremic Sx. Vitals/I&O/Wt Last Vital Signs Temp 97.8 F 02/16/21 04:30 Pulse 59 L 02/16/21 11:39 Resp 18 02/16/21 11:39 BP 157/58 02/16/21 08:00 Pulse Ox 90 02/16/21 11:39 02/15/21 02/16/21 02/16/21 22:59 06:59 14:59 Intake Total 170 / 170 522 / 692 Output Total 275 / 275 375 / 650 Balance -105 / -105 147 / 42 Weight last 48 hrs Weight 77.111 kg Weight 76.657 kg Weight 80.286 kg Physical Exam Narrative: EXAM NARRATIVE: Constitutional: Awake, comfortable HEENT: Wet mucosa, no jvp, non icteric Lungs: Bilaterally clear without discernible wheeze, rales in all lung zones CVS: S1 S2, no murmurs Abdo: Soft, BS ok Ext 4: Minimal edema, peripheral perfusion with no cyanosis Neurological: Grossly non-focal Urinary Catheter Management^: Otniveros: Cath Placed During This Visit: yes Reason for Continuing Indwelling Catheter: Accurate Measurement of Urinary Output in Critically Ill Patients Urinary Catheter Date of Insertion: 02/14/21 Urinary Catheter Time of Insertion: 19:48 Data : 02/16/21 04:27 02/16/21 04:27 Micro: Microbiology 02/14/21 22:00 Urine Culture - Final Urine Catheterized 02/14/21 20:30 Blood Culture - Preliminary Blood 02/14/21 18:08 Blood Culture - Preliminary Blood NEGATIVE TO DATE 02/14/21 22:00 Bacterial Antigens - Final Urine,Clean Catch A&P Additional A&P Information 1. 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 Given increasing oxygen needs will defer IV fluid. Judicious use of diuretics. No indication for dialysis Strict I's and O's Avoid usual nephrotoxic agents Dose medication for GFR less than 30 2. Covid pneumonitis On combination remdesivir, dexamethasone, antibiotic coverage, judicious use of diuretics. High flow nasal cannula being titrated. She did receive both vaccinations. 3. Chemistry Anion gap metabolic acidosis, likely secondary to uremia Improving Continue oral sodium bicarb for this. Thank you for consultation, it is a pleasure to be involved with these patients with you Jesus Omalley MD Nephrology [phone] Patient seen and examined via telemedicine, with the assistance of the bedside RN > 25 min spent in evaluation and mgmt of patient Attestations Medical Necessity Statement*: Eval for YENNY on CKD Coding Level of Care Code Acute Guest Experience Representative for Karthikeyan Peters
--- NOTE | 2021-02-16 17:08 | P.PN_ITS ---
Subjective Subjective: Interval history: Patient was seen this morning, afebrile overnight, she complains of some shortness of breath and tiredness, she is on 35%, 60 L, she denies any chest pain, has a cough Vitals/I&O/Wt Last Vital Signs Temp 97.7 F 02/16/21 12:00 Pulse 69 02/16/21 15:29 Resp 16 02/16/21 15:28 BP 153/62 02/16/21 13:30 Pulse Ox 92 02/16/21 15:28 02/16/21 02/16/21 02/16/21 06:59 14:59 22:59 Intake Total 522 / 692 Output Total 375 / 650 Balance 147 / 42 Weight last 48 hrs Weight 77.111 kg Weight 76.657 kg Weight 80.286 kg Physical Exam Const: COMMON NORMALS: no acute distress and patient oriented x3 HENMT: COMMON NORMALS: normocephalic HEAD & SCALP: normocephalic Resp: COMMON NORMALS: normal respiratory effort, No retractions and No use of accessory muscles AUSCULTATION: diminished lung sounds diffuse Cardio: COMMON NORMALS: regular rate, regular rhythm, S1 normal heart sound present and S2 normal heart sound present RATE: regular rate RHYTHM: regular rhythm HEART SOUNDS: S1 normal heart sound present and S2 normal heart sound present GI: COMMON NORMALS: Normal to inspection, nondistended, normoactive bowel claudia nds present, Soft to palpation and non-tender PALPATION: Yes Soft to palpation Extremity: COMMON NORMALS: no pedal edema Neuro: COMMON NORMALS: patient oriented x3 Psych: COMMON NORMALS: mental status grossly normal Urinary Catheter Management^: Ontiveros: Cath Placed During This Visit: yes Reason for Continuing Indwelling Catheter: Accurate Measurement of Urinary Output in Critically Ill Patients Urinary Catheter Date of Insertion: 02/14/21 Urinary Catheter Time of Insertion: 19:48 Data : 02/16/21 04:27 02/16/21 04:27 Micro: Microbiology 02/14/21 22:00 MRSA Culture - Final Nose 02/14/21 22:00 Urine Culture - Final Urine Catheterized 02/14/21 20:30 Blood Culture - Preliminary Blood 02/14/21 18:08 Blood Culture - Preliminary Blood NEGATIVE TO DATE A&P Assessment and plan (1) Acute respiratory failure with hypoxia: Acute hypoxic respiratory failure -secondary to COVID-19 pneumonia, breakthrough infection, has received both Covid vaccines in May 2019, no history of booster -Some component of acute on chronic diastolic CHF exacerbation Plan: -Admit to general medical floors -Obtain blood cultures, sputum cultures, urine bacterial antigens, stool cultures all so far negative -ABG shows pH 7.32, PCO2 27, PO2 59, bicarb 14, 65%, 30 L -Continue BiPAP during the night -Currently on heated high flow, 30 L 65% -Start Decadron 6 mg IV push daily -Start remdesivir, GFR is reduced to 20, she is at increased risk of accumulation of metabolites, discussed risk and benefits of remdesivir, she voiced understanding, all questions answered, agreed to proceed with remdesivir, if creatinine continues to elevate we will have to possibly hold due to increased risk of side effect -As there are concerns for UTI hold for Actemra -Continue Rocephin and azithromycin -Vitamin C, zinc, vitaimn D -Incentive spirometer, flutter valve -Albuterol, budesonide -Elevated D-dimer 1.35, and complaints of worsening shortness of breath, cannot perform a CT angiogram of the chest given elevated creatinine, on therapeutic Lovenox, for possible pulmonary emboli, bilateral extremity ultrasound for DVT, follow D-dimer -For CHF, resume Bumex 1 mg IV every 24 hours -Echocardiogram shows EF of 65%, moderate LVH, grade 1 out of 4 diastolic dysfunction -Continue bicarb 650 mg 3 times daily-secondary to uremia -Full code -Lovenox for DVT prophylaxis Metabolic acidosis, normal lactic acid, normal serum ketones, likely secondary acute renal failure, uremia, on bicarb replacement YENNY on CKD, secondary to COVID-19 pneumonia, possible cardiorenal syndrome, avoid nephrotoxic agents -Creatinine elevated to 2.3 -UA with evidence of UTI, on Rocephin as above -Renal ultrasound no nephrolithiasis Transaminitis secondary to COVID-19 Acute on chronic diastolic CHF exacerbation, as above Hypertension, continue Norvasc, continue labetalol Chronic lymphocytic leukemia, continue to monitor Elevated troponins, likely secondary respiratory failure, serial troponins, serial EKGs, continue aspirin, continue statin, normal CPK [id number] type 2 diabetes mellitus, low-dose sliding scale Status: Acute (2) Pneumonia due to COVID-19 virus: Status: Acute (3) Acute kidney injury superimposed on CKD: Status: Acute (4) CHF exacerbation: Status: Acute (5) Hypertension: Status: Chronic Qualifiers: Hypertension type: renovascular hypertension Qualified Code(s): I15.0 - Renovascular hypertension (6) Dyslipidemia: Status: Chronic (7) Carotid stenosis, bilateral: Status: Chronic (8) CLL (chronic lymphocytic leukemia): Status: Acute Attestations Medical Necessity Statement*: Patient course hospitalization for acute respiratory failure sec to COVID-19 Coding Level of Care Code Acute Measuring Machine Operator for [facility] Fwd Diagnoses Acute respiratory failure with hypoxia J96.01 Pneumonia due to COVID-19 virus U07.1; J12.82 Acute kidney injury superimposed on CKD N17.9; N18.9 CHF exacerbation I50.9 Hypertension I15.0 Hypertension type: renovascular hypertension Dyslipidemia E78.5 Carotid stenosis, bilateral I65.23 CLL (chronic lymphocytic leukemia) C91.10
[2021-02-16] MEDS: dexamethasone 10 mg/mL INJ 6 MG IVP (17:32)
[2021-02-16] MEDS: remdesivir 100 MG in sodium chloride 0.9% (100 ml) 80 ML IV (17:33)
[2021-02-16 18:56] LABS: Glucose Point of Care 205 mg/dL (70-110)
[2021-02-16] MEDS: enoxaparin 80 mg/0.8 mL Syringe SUBCUT (20:41)
[2021-02-16] MEDS: atorvastatin 40 mg Tablet 10 MG PO (20:41)
[2021-02-16] MEDS: azithromycin 500 MG in sodium chloride 0.9% 250 ML 250 MG IV (23:07)
[2021-02-16] MEDS: cefTRIAXone 1,000 MG in sodium chloride 0.9% (plus) 50 ML 100 MG IV (23:08)
[2021-02-17] VITALS (58 sets, daily range): BP systolic 135–156; BP diastolic 42–88; PULSE 60–91; RESP 13–31; TEMP 36.6–37; O2SAT 82–96; BMI 31.1
[2021-02-17] MEDS: albuterol 8 gm MDI 1 PUFF INHALATION ×4 (02:59→15:29)
[2021-02-17 04:36] LABS: Basophils % 0.1 %; Hemoglobin 11.3 g/dL (11.5-15.3); Lymphocytes # 5.4 10^3/uL (0.8-4.8); Lymphocytes % 40.2 %; Mean Corpuscular HGB Conc 32.3 g/dL (30.0-36.0); Mean Corpuscular Hemoglobin 30.1 pg (28.0-34.0); Mean Corpuscular Volume 93.1 fl (81-99); Mean Platelet Volume 11.8 fL (7.4-10.4); Monocytes # 0.5 10^3/uL (0.2-0.9); Neutrophils # 7.38 10^3/uL (1.8-7.7); Neutrophils % 54.8 %; Nucleated Red Blood Cells % 0 %; Platelet Count 192 10^3/cmm (130-400); Red Blood Count 3.76 10^6/uL (4.1-5.3); Red Cell Distribution Width 13.8 % (12.1-15.1); White Blood Count 13.5 10^3/uL (4.0-10.0)
[2021-02-17 04:55] LABS: D Dimer 0.82 ug/mIFEU (0-0.59)
[2021-02-17 04:57] LABS: Alanine Aminotransferase 24 U/L (0-33); Alkaline Phosphatase 69 IU/L (35-105); Anion Gap 18.9 (5-19); Aspartate Amino Transferase 20 U/L (0-32); Calcium 7.4 mg/dL (8.5-10.5); Carbon Dioxide 15 mmol/L (22-29); Chloride 113 mmol/L (98-107); Globulin 2.2 g/dL (1.3-4.6); Glucose 232 mg/dL (65-115); Magnesium 3.3 mg/dL (1.7-2.3); Osmolality Calculated 329 mOsm/kg (285-295); Phosphorus 5.6 mg/dL (2.5-4.5); Potassium 4.9 mmol/L (3.5-5.1); Sodium 142 mmol/L (136-145); Total Bilirubin 0.2 mg/dL (0.15-1.2); Total Protein 5.2 g/dL (6.6-8.7)
[2021-02-17 04:59] LABS: Creatine Phosphokinase 75 U/L (26-192)
[2021-02-17 05:05] LABS: ABG PCO2 26.2 mmHg (35-45); ABG PH Result 7.34 (7.35-7.45); Arterial Blood Gas Hematocrit 35.5 % (37-47); Base Excess ABG -10.2 mmol/L (-2.0-2.0); Blood Gas Operator Identificat JB; Blood Gas Sample Site Brachial, right; Blood Gas Sample Type Arterial; HCO3 ABG 14.1 mmol/L (22-26); Oxygen Device VENT; PO2 ABG 47.8 mmHg (80.0-100.0)
[2021-02-17 05:07] LABS: Slide Review Slide Review Perform
[2021-02-17 05:23] LABS: Blood Urea Nitrogen 90 mg/dL (8-23)
--- NOTE | 2021-02-17 06:16 | PC.NURSE ---
Shift Note Frequent safety and comfort rounds continue. Orders and/or nursing care completed as indicated. Patient monitored for response to intervention and treatment(s). Education provided includes heated high flow requirements. Patient verbalizes understanding of teaching. Heated high flow is at 35 L and 65% FiO2. Left wrist and AC IV's are saline locked at this time. Patient had 850 mls of bright yellow urine overnight. No wounds or skin issues noted at this time. Patient alert and oriented x4. Will continue to monitor.
[2021-02-17] MEDS: budesonide 0.5 mg/2 mL Neb INHALATION ×2 (08:08→20:25)
--- NOTE | 2021-02-17 08:34 | PC.NUTR ---
Nutrition note: Added strawberry Glucerna with meals per nurse request. Will follow up as appropriate.
[2021-02-17] MEDS: aspirin 81 mg EC Tablet PO (08:41)
[2021-02-17] MEDS: amlodipine 10 mg Tablet PO (08:41)
[2021-02-17] MEDS: pantoprazole DR 40 mg Tablet PO ×2 (08:41→18:00)
[2021-02-17] MEDS: cholecalciferol (vitamin D3) 1,000 unit Tablet 1000 UNIT PO (08:41)
[2021-02-17] MEDS: sodium bicarbonate 650 mg Tablet PO ×3 (08:41→21:10)
[2021-02-17] MEDS: ascorbic acid 500 mg Tablet PO ×2 (08:41→18:00)
[2021-02-17] MEDS: zinc gluconate 50 mg Tablet PO (08:41)
[2021-02-17 08:51] LABS: Glucose Point of Care 280 mg/dL (70-110)
--- NOTE | 2021-02-17 10:05 | PC.CHAP ---
Pastoral Care Encounter/Spiritual Assessment Type of Contact [] Declined brand strategist visit [] Patient/Family/Request visit [] Outpatient visit [] Follow-up visit [] Physician referral [] Code/Alert [x] Routine visit [] Staff referral [] Actively dying [] Patient sleeping [] Family support [] [] Out of room [] Palliative care [] [x Receiving care in room [] Pre-surgical visit [] Trauma [] Long length of stay [x] ICU visit [] Other: Relational/Emotional Strength [] Patient feels connected with others/family/visitors/staff [] Distress [] Loneliness/isolation [] Abandonment Spirituality of Patient [] Person of Priscilla [] Attends Mandaeism of their Priscilla [] Believes in Prayer [] Reads Bible or Zoroastrian materials [] There are Spiritual issues to be addressed International Nurse Interventions [x] Prayer [] Active listening [] Non-anxious presence [] Spiritual/emotional support [] Crisis/trauma care [] Spiritual counseling [] Bereavement support [] Provided bereavement packet [] Provided Bible/devotional materials [] Provided toy/stuffed animal, coloring book to patient or family member [] Provided Communion [] Anointing/Conger [] Salvation [x] Completed spiritual assessment [] Other: Impact on Illness or Injury [] Angry [] Fearful [] Anxious [] Often cries [] Exhaustion [] Unable to work [] Unable to attend sabianist [] Unable to walk/stand [] Unable to read [] Unable to drive [] Unable to eat/drink [] Unable to sleep [] Unable to be with family [] Patient intubated [] Other: Summary Time spent with patient
[2021-02-17 11:52] LABS: Glucose Point of Care 316 mg/dL (70-110)
--- NOTE | 2021-02-17 12:08 | PM.PN ---
Subjective Subjective: Interval history: No new events today. She feels quite cheerful, quite well. Optimistic. Still remains on high flow oxygen, levels remained stable. Minimal extremity edema. No uremic symptoms. Eating and drinking well. Vitals/I&O/Wt Last Vital Signs Temp 97.9 F 02/17/21 08:00 Pulse 72 02/17/21 11:34 Resp 16 02/17/21 11:34 BP 150/48 02/17/21 08:00 Pulse Ox 92 02/17/21 11:34 02/16/21 02/17/21 02/17/21 22:59 06:59 14:59 Intake Total 80 / 80 780 / 860 Output Total 475 / 475 850 / 1325 Balance -395 / -395 -70 / -465 Weight last 48 hrs Weight 82.157 kg Weight 77.111 kg Physical Exam Narrative: EXAM NARRATIVE: Constitutional: Awake, comfortable HEENT: Wet mucosa, no jvp, non icteric Lungs: Bilaterally clear without discernible wheeze, rales in all lung zones CVS: S1 S2, no murmurs Abdo: Soft, BS ok Ext 4: Minimal edema, peripheral perfusion with no cyanosis Neurological: Grossly non-focal Urinary Catheter Management^: Ontiveros: Cath Placed During This Visit: yes Reason for Continuing Indwelling Catheter: Accurate Measurement of Urinary Output in Critically Ill Patients Urinary Catheter Date of Insertion: 02/14/21 Urinary Catheter Time of Insertion: 19:48 Data : 02/17/21 04:20 02/17/21 04:20 Micro: Microbiology 02/17/21 04:23 Blood Culture - Preliminary Blood SPECIMEN COLLECTED 02/17/21 04:20 Blood Culture - Preliminary Blood SPECIMEN COLLECTED 02/14/21 22:00 MRSA Culture - Final Nose 02/14/21 22:00 Urine Culture - Final Urine Catheterized A&P Additional A&P Information 1. 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 Creatinine slightly better, BUN increasing in part due to steroid therapy Strict I's and O's Avoid usual nephrotoxic agents Dose medication for GFR less than 30 2. Covid pneumonitis On combination remdesivir, dexamethasone, antibiotic coverage, judicious use of diuretics. High flow nasal cannula being titrated. She did receive both vaccinations. 3. Chemistry Anion gap metabolic acidosis, likely secondary to uremia Improving Continue oral sodium bicarb for this. Renal issues remain stable; will follow peripherally at this time. Please do not hesitate to contact us should we be of further assistance in her care Thank you for consultation, it is a pleasure to be involved with these patients with you Jesus Omalley MD Nephrology [phone] Patient seen and examined via telemedicine, with the assistance of the bedside RN > 25 min spent in evaluation and mgmt of patient Attestations Medical Necessity Statement*: Eval for YENNY Coding Level of Care Code Acute Director Community Health Nursing for Karthikeyan Peters
--- NOTE | 2021-02-17 16:05 | PC.SOCIAL ---
IMM Update pg 2 of IMM updated w/ son Carrington via phone and copy placed in chart.
--- NOTE | 2021-02-17 16:31 | PM.PN ---
Subjective Subjective: Interval history: Patient was seen this morning, she tells me that she is feeling better, no fevers, no chills, no nausea, no vomiting, but she does tell me that when she moves a bit in bed, her oxygen saturations do decline, Vitals/I&O/Wt Last Vital Signs Temp 97.9 F 02/17/21 12:30 Pulse 79 02/17/21 15:35 Resp 18 02/17/21 15:35 BP 152/88 02/17/21 12:30 Pulse Ox 93 02/17/21 15:35 02/17/21 02/17/21 02/17/21 06:59 14:59 22:59 Intake Total 780 / 860 Output Total 850 / 1325 Balance -70 / -465 Weight last 48 hrs Weight 82.157 kg Weight 77.111 kg Physical Exam Const: COMMON NORMALS: no acute distress and patient oriented x3 Resp: COMMON NORMALS: normal respiratory effort, No retractions and No use of accessory muscles AUSCULTATION: diminished lung sounds Cardio: COMMON NORMALS: regular rate, regular rhythm, S1 normal heart sound present and S2 normal heart sound present RATE: regular rate RHYTHM: regular rhythm HEART SOUNDS: S1 normal heart sound present and S2 normal heart sound present GI: COMMON NORMALS: Normal to inspection, nondistended, normoactive bowel sounds present, Soft to palpation and non-tender PALPATION: Yes Soft to palpation Extremity: COMMON NORMALS: no pedal edema Neuro: COMMON NORMALS: patient oriented x3 Psych: COMMON NORMALS: mental status grossly normal Urinary Catheter Management^: Ontiveros: Cath Placed During This Visit: yes Reason for Continuing Indwelling Catheter: Accurate Measurement of Urinary Output in Critically Ill Patients Urinary Catheter Date of Insertion: 02/14/21 Urinary Catheter Time of Insertion: 19:48 Data : 02/17/21 04:20 02/17/21 04:20 Micro: Microbiology 02/14/21 18:08 Blood Culture - Preliminary Blood Staphylococcus sp coag neg Staphylococcus sp coag neg#2 02/14/21 20:30 Blood Culture - Preliminary Blood Staphylococcus sp coag neg Staphylococcus sp coag neg#2 02/17/21 04:23 Blood Culture - Preliminary Blood SPECIMEN COLLECTED 02/17/21 04:20 Blood Culture - Preliminary Blood SPECIMEN COLLECTED 02/14/21 22:00 MRSA Culture - Final Nose A&P Assessment and plan (1) Acute respiratory failure with hypoxia: Acute hypoxic respiratory failure -secondary to COVID-19 pneumonia, breakthrough infection, has received both Covid vaccines in May 2019, no history of booster -Some component of acute on chronic diastolic CHF exacerbation Plan: -Admit to general medical floors -Obtain blood cultures, sputum cultures, urine bacterial antigens, stool cultures all so far negative -ABG shows pH 7.34, PCO2 26.2, PO2 47.8, likely inaccurate as I was told ABG was drawn during a significant hypoxic event -Continue BiPAP during the night -Currently on heated high flow, 35 L 65% -Start Decadron 6 mg IV push daily -Start remdesivir, GFR is reduced to 20, she is at increased risk of accumulation of metabolites, discussed risk and benefits of remdesivir, she voiced understanding, all questions answered, agreed to proceed with remdesivir, if creatinine continues to elevate we will have to possibly hold due to increased risk of side effect -As all cultures have been unremarkable, she is remained afebrile, no significant evidence of bacterial infection will give her 1 dose of Actemra, I discussed with her the risks and benefits of Actemra, she voiced understanding, all questions answered, agreed to proceed -Continue Rocephin and azithromycin -Vitamin C, zinc, vitaimn D -Incentive spirometer, flutter valve -Albuterol, budesonide -Elevated D-dimer 1.35, and complaints of worsening shortness of breath, cannot perform a CT angiogram of the chest given elevated creatinine, on therapeutic Lovenox, for possible pulmonary emboli, bilateral extremity ultrasound for negative for DVT, follow D-dimer -For CHF, resume Bumex 1 mg IV every 24 hours -Echocardiogram shows EF of 65%, moderate LVH, grade 1 out of 4 diastolic dysfunction -Continue bicarb 650 mg 3 times daily-secondary to uremia -Full code -Lovenox for DVT prophylaxis Metabolic acidosis, normal lactic acid, normal serum ketones, likely secondary acute renal failure, uremia, on bicarb replacement YENNY on CKD, secondary to COVID-19 pneumonia, possible cardiorenal syndrome, avoid nephrotoxic agents -Creatinine elevated to 1.9 -UA had evidence of UTI, but urine cultures have been unremarkable unlikely to be UTI -Renal ultrasound no nephrolithiasis Transaminitis secondary to COVID-19 Acute on chronic diastolic CHF exacerbation, as above Hypertension, continue Norvasc, continue labetalol Chronic lymphocytic leukemia, continue to monitor Elevated troponins, likely secondary respiratory failure, serial troponins, serial EKGs, continue aspirin, continue statin, normal CPK [id number] type 2 diabetes mellitus, low-dose sliding scale Status: Acute (2) Pneumonia due to COVID-19 virus: Status: Acute (3) Acute kidney injury superimposed on CKD: Status: Acute (4) CHF exacerbation: Status: Acute (5) Hypertension: Status: Chronic Qualifiers: Hypertension type: renovascular hypertension Qualified Code(s): I15.0 - Renovascular hypertension (6) Dyslipidemia: Status: Chronic (7) Carotid stenosis, bilateral: Status: Chronic (8) CLL (chronic lymphocytic leukemia): Status: Acute Attestations Medical Necessity Statement*: Patient requires hospitalization for acute respiratory failure with hypoxia secondary COVID-19 Coding Level of Care Code Acute Brass Wind Instrument Maker for [facility] Diagnoses Acute respiratory failure with hypoxia J96.01 Pneumonia due to COVID-19 virus U07.1; J12.82 Acute kidney injury superimposed on CKD N17.9; N18.9 CHF exacerbation I50.9 Hypertension I15.0 Hypertension type: renovascular hypertension Dyslipidemia E78.5 Carotid stenosis, bilateral I65.23 CLL (chronic lymphocytic leukemia) C91.10
[2021-02-17 17:22] LABS: Glucose Point of Care 162 mg/dL (70-110)
[2021-02-17] MEDS: remdesivir 100 MG in sodium chloride 0.9% (100 ml) 80 ML IV (17:56)
[2021-02-17] MEDS: dexamethasone 10 mg/mL INJ 6 MG IVP (18:00)
[2021-02-17] MEDS: labetalol 200 mg Tablet PO (18:01)
[2021-02-17] MEDS: enoxaparin 80 mg/0.8 mL Syringe SUBCUT (21:09)
[2021-02-17] MEDS: atorvastatin 40 mg Tablet 10 MG PO (21:10)
[2021-02-17] MEDS: tocilizumab 400 MG, tocilizumab 200 MG, tocilizumab 60 MG in sodium chloride 0.9% (100 ... 100 MG IV (21:10)
[2021-02-17] MEDS: azithromycin 500 MG in sodium chloride 0.9% 250 ML 250 MG IV (22:01)
[2021-02-17] MEDS: cefTRIAXone 1,000 MG in sodium chloride 0.9% (plus) 50 ML 100 MG IV (22:01)
[2021-02-17 22:10] LABS: Glucose Point of Care 137 mg/dL (70-110)
[2021-02-18] VITALS (57 sets, daily range): BP systolic 105–167; BP diastolic 47–88; PULSE 54–87; RESP 13–25; TEMP 36.6–36.8; O2SAT 83–95; BMI 30.9
[2021-02-18] MEDS: albuterol 8 gm MDI 1 PUFF INHALATION ×7 (03:34→23:42)
[2021-02-18 05:16] LABS: Basophils % 0.1 %; Hematocrit 33.8 % (37.0-47.0); Hemoglobin 10.7 g/dL (11.5-15.3); Lymphocytes # 5.4 10^3/uL (0.8-4.8); Lymphocytes % 36.1 %; Mean Corpuscular HGB Conc 31.7 g/dL (30.0-36.0); Mean Corpuscular Hemoglobin 29.8 pg (28.0-34.0); Mean Corpuscular Volume 94.2 fl (81-99); Mean Platelet Volume 12.2 fL (7.4-10.4); Monocytes # 0.8 10^3/uL (0.2-0.9); Monocytes % 5.2 %; Neutrophils # 8.69 10^3/uL (1.8-7.7); Neutrophils % 57.7 %; Nucleated Red Blood Cells % 0 %; Platelet Count 186 10^3/cmm (130-400); Red Blood Count 3.59 10^6/uL (4.1-5.3); Red Cell Distribution Width 13.9 % (12.1-15.1); White Blood Count 15.1 10^3/uL (4.0-10.0)
[2021-02-18 05:36] LABS: Alanine Aminotransferase 24 U/L (0-33); Albumin Level 2.8 g/dL (3.5-5.2); Alkaline Phosphatase 64 IU/L (35-105); Anion Gap 20.2 (5-19); Aspartate Amino Transferase 26 U/L (0-32); Blood Urea Nitrogen 76 mg/dL (8-23); C Reactive Protein 12.9 mg/L (0.0-4.9); Calcium 7.2 mg/dL (8.5-10.5); Carbon Dioxide 15 mmol/L (22-29); Chloride 113 mmol/L (98-107); Globulin 2.2 g/dL (1.3-4.6); Glucose 261 mg/dL (65-115); Magnesium 3.2 mg/dL (1.7-2.3); Osmolality Calculated 328 mOsm/kg (285-295); Phosphorus 4.9 mg/dL (2.5-4.5); Potassium 5.2 mmol/L (3.5-5.1); Sodium 143 mmol/L (136-145); Total Bilirubin 0.2 mg/dL (0.15-1.2)
[2021-02-18 05:48] LABS: NT Pro B Type Natriuretic Pept 1850 pg/mL (0-450); Procalcitonin 0.12 ng/mL (0-0.5)
[2021-02-18 06:02] LABS: Creatine Phosphokinase 64 U/L (26-192)
[2021-02-18 06:12] LABS: Slide Review Slide Review Perform
[2021-02-18 06:14] LABS: Ferritin 3480 ng/mL (15-150)
--- NOTE | 2021-02-18 06:45 | PC.NURSE ---
Shift Note Frequent safety and comfort rounds continue. Orders and/or nursing care completed as indicated. Patient monitored for response to intervention and treatment(s). Education provided includes[]. Patient and/or sales account representative [[email or web address]]. Will continue to monitor. The patient did great during the shift. They did go up slightly on the heated HiFLO. There were no new changes.
--- NOTE | 2021-02-18 07:00 | XR_ITS ---
WS: [id number] Portable AP semiupright chest, 02/18/2021 Clinical Data: sob Comparison: Portable chest, 02/14/2021 Findings: The patchy bilateral pulmonary opacities are not changed. The heart remains enlarged. The a ortic arch and descending thoracic aorta show calcification. Monitor leads are on the chest wall. XR/XR chest 1V portable [id number] Impression: No change in patchy bilateral pulmonary opacities and cardiomegaly.
[2021-02-18 07:33] LABS: Glucose Point of Care 241 mg/dL (70-110)
[2021-02-18] MEDS: budesonide 0.5 mg/2 mL Neb INHALATION ×2 (08:06→20:26)
[2021-02-18] MEDS: aspirin 81 mg EC Tablet PO (08:21)
[2021-02-18] MEDS: dilTIAZem ER (24HR) 240 mg Capsule PO (08:21)
[2021-02-18] MEDS: pantoprazole DR 40 mg Tablet PO ×2 (08:21→17:18)
[2021-02-18] MEDS: labetalol 200 mg Tablet PO (08:21)
[2021-02-18] MEDS: amlodipine 10 mg Tablet PO (08:21)
[2021-02-18] MEDS: cholecalciferol (vitamin D3) 1,000 unit Tablet 1000 UNIT PO (08:21)
[2021-02-18] MEDS: ascorbic acid 500 mg Tablet PO ×2 (08:22→17:18)
[2021-02-18] MEDS: zinc gluconate 50 mg Tablet PO (08:22)
[2021-02-18] MEDS: sodium bicarbonate 650 mg Tablet PO ×3 (08:22→21:28)
--- NOTE | 2021-02-18 08:43 | PC.NURSE ---
No wounds noted at this time.
--- NOTE | 2021-02-18 09:18 | PC.NURSE ---
Patient states that she is cold. A heated blanket was used, and the patient states that it is better now. Patient was put up to chair at 0800. Patient independently set up breakfast try, but ate around 10%. Doctor rounded and the need for lung exercises was reinforced.
[2021-02-18] MEDS: ondansetron 2 mg/ML SDV 2 mL 4 MG IVP (09:44)
--- NOTE | 2021-02-18 10:08 | PC.NURSE ---
At 0940 patient wanted to return to bed from the chair. Patient got nauseated and vomited a yellow brown liquid when she got into the bed. At 0944 the patient got Zofran 4 mg. Patient is currently asleep in bed.
[2021-02-18 11:00] LABS: Glucose Point of Care 235 mg/dL (70-110)
--- NOTE | 2021-02-18 12:48 | PC.NURSE ---
Updates patient's son on the treatment plan, medications, and how patient was doing in person. Son visited the patient by talking with her through the phone and seeing her through the glass.
--- NOTE | 2021-02-18 16:15 | PC.NURSE ---
Patient was asleep around 1300 to 1600. During that time her heart rate would fall into the mid 50s. When the patient would be wakened for hourly rounding her heart rate would go up to the 60s.
[2021-02-18] MEDS: remdesivir 100 MG in sodium chloride 0.9% (100 ml) 80 ML IV (17:18)
[2021-02-18] MEDS: dexamethasone 10 mg/mL INJ 6 MG IVP (17:18)
[2021-02-18 17:56] LABS: Glucose Point of Care 204 mg/dL (70-110)
--- NOTE | 2021-02-18 17:57 | PM.PN ---
Subjective Subjective: Interval history: Patient was seen this morning, she sitting up into a chair, tells me that she is feeling well, no nausea, no vomiting, no chest pain, continues to have fatigue Vitals/I&O/Wt Last Vital Signs Temp 97.9 F 02/18/21 16:00 Pulse 60 02/18/21 16:00 Resp 17 02/18/21 16:00 BP 156/48 02/18/21 16:00 Pulse Ox 90 02/18/21 16:00 02/18/21 02/18/21 02/18/21 06:59 14:59 22:59 Intake Total 250 / 513 1300 / 1300 Output Total 1350 / 2050 Balance -1100 / -1537 1300 / 1300 Weight last 48 hrs Weight 81.76 kg Weight 82.157 kg Physical Exam Const: COMMON NORMALS: no acute distress and patient oriented x3 Resp: COMMON NORMALS: normal respiratory effort, No retractions and No use of accessory muscles AUSCULTATION: diminished lung sounds Cardio: COMMON NORMALS: regular rate, regular rhythm, S1 normal heart sound present and S2 normal heart sound present RATE: regular rate RHYTHM: regular rhythm HEART SOUNDS: S1 normal heart sound present and S2 normal heart sound present GI: COMMON NORMALS: Normal to inspection, nondistended, normoactive bowel sounds present, Soft to palpation and non-tender PALPATION: Yes Soft to palpation Extremity: COMMON NORMALS: no pedal edema Neuro: COMMON NORMALS: patient oriented x3 Psych: COMMON NORMALS: mental status grossly normal Urinary Catheter Management^: Ontiveros: Cath Placed During This Visit: yes Reason for Continuing Indwelling Catheter: Accurate Measurement of Urinary Output in Critically Ill Patients Urinary Catheter Date of Insertion: 02/14/21 Urinary Catheter Time of Insertion: 19:48 Data : 02/18/21 04:53 02/18/21 04:53 Micro: Microbiology 02/17/21 04:23 Blood Culture - Preliminary Blood NEGATIVE TO DATE 02/17/21 04:20 Blood Culture - Preliminary Blood NEGATIVE TO DATE 02/14/21 18:08 Blood Culture - Preliminary Blood Staphylococcus sp coag neg Staphylococcus sp coag neg#2 02/14/21 20:30 Blood Culture - Preliminary Blood Staphylococcus sp coag neg Staphylococcus sp coag neg#2 A&P Assessment and plan (1) Acute respiratory failure with hypoxia: Acute hypoxic respiratory failure -secondary to COVID-19 pneumonia, breakthrough infection, has received both Covid vaccines in May 2019, no history of booster -Some component of acute on chronic diastolic CHF exacerbation Plan: -Admit to general medical floors -Obtain blood cultures, sputum cultures, urine bacterial antigens, stool cultures all so far negative -Currently on heated high flow, 35 L 70% -On Decadron 6 mg IV push daily -On remdesivir, GFR is reduced to 20, she is at increased risk of accumulation of metabolites, discussed risk and benefits of remdesivir, she voiced understanding, all questions answered, agreed to proceed with remdesivir, if creatinine continues to elevate we will have to possibly hold due to increased risk of side effect -status post 1 dose Actemra 02/17/2021 -Continue Rocephin and azithromycin -Vitamin C, zinc, vitaimn D -Incentive spirometer, flutter valve -Albuterol, budesonide -Elevated D-dimer 1.35, and complaints of worsening shortness of breath, cannot perform a CT angiogram of the chest given elevated creatinine, on therapeutic Lovenox, for possible pulmonary emboli, bilateral extremity ultrasound for negative for DVT, follow D-dimer -For CHF, BNP elevated, not in exacerbation does not look fluid overloaded hold Bumex -Echocardiogram shows EF of 65%, moderate LVH, grade 1 out of 4 diastolic dysfunction -Continue bicarb 650 mg 3 times daily-secondary to uremia -Full code -Lovenox for DVT prophylaxis Metabolic acidosis, resolved, on bicarb replacement YENNY on CKD, secondary to COVID-19 pneumonia, possible cardiorenal syndrome, avoid nephrotoxic agents -Creatinine elevated to 1.5 -UA had evidence of UTI, but urine cultures have been unremarkable unlikely to be UTI -Renal ultrasound no nephrolithiasis Transaminitis secondary to COVID-19 Acute on chronic diastolic CHF exacerbation, as above Hypertension, continue Norvasc, continue labetalol Chronic lymphocytic leukemia, continue to monitor Elevated troponins, likely secondary respiratory failure, serial troponins, serial EKGs, continue aspirin, continue statin, normal CPK uud-yigkfcw-ygalvbagy type 2 diabetes mellitus, low-dose sliding scale Status: Acute (2) Pneumonia due to COVID-19 virus: Status: Acute (3) Acute kidney injury superimposed on CKD: Status: Acute (4) CHF exacerbation: Status: Acute (5) Hypertension: Status: Chronic Qualifiers: Hypertension type: renovascular hypertension Qualified Code(s): I15.0 - Renovascular hypertension (6) Dyslipidemia: Status: Chronic (7) Carotid stenosis, bilateral: Status: Chronic (8) CLL (chronic lymphocytic leukemia): Status: Acute Attestations Medical Necessity Statement*: Patient requires hospitalization due to acute respiratory failure sec to COVID-19 Coding Level of Care Code Acute Roof Bolter Operator for [facility] Diagnoses Acute respiratory failure with hypoxia J96.01 Pneumonia due to COVID-19 virus U07.1; J12.82 Acute kidney injury superimposed on CKD N17.9; N18.9 CHF exacerbation I50.9 Hypertension I15.0 Hypertension type: renovascular hypertension Dyslipidemia E78.5 Carotid stenosis, bilateral I65.23 CLL (chronic lymphocytic leukemia) C91.10
--- NOTE | 2021-02-18 18:54 | PC.NURSE ---
Shift Note Frequent safety and comfort rounds continue. Orders and/or nursing care completed as indicated. Patient monitored for response to intervention and treatment(s). Education provided includes fall precautions, getting up to chair with meals, use of incentive spirometry, medications, and treatment plan. Patient was bradycardic today, so the 1800 labetalol was held. Patient was able to get up to chair with assists for meals. Patient was rounded and turned for comfort.
[2021-02-18] MEDS: atorvastatin 40 mg Tablet 10 MG PO (21:27)
[2021-02-18] MEDS: enoxaparin 80 mg/0.8 mL Syringe SUBCUT (21:27)
[2021-02-18] MEDS: azithromycin 500 MG in sodium chloride 0.9% 250 ML 250 MG IV (21:28)
[2021-02-18 21:37] LABS: Glucose Point of Care 215 mg/dL (70-110)
[2021-02-18] MEDS: cefTRIAXone 1,000 MG in sodium chloride 0.9% (plus) 50 ML 100 MG IV (22:07)
[2021-02-18] MEDS: ALPRAZolam 0.5 mg Tablet PO (23:44)
[2021-02-19] VITALS (62 sets, daily range): BP systolic 131–166; BP diastolic 35–79; PULSE 51–73; RESP 15–33; TEMP 35.8–36.7; O2SAT 78–100
[2021-02-19] MEDS: dexmedeTOMIDine 0.9 % NaCL 400 MCG/100 ML PREMIX IV (04:15)
[2021-02-19] MEDS: haloperidol inj 5 mg/mL INJ 1 mL IVP (04:15)
--- NOTE | 2021-02-19 04:41 | ECG_ITS ---
[facility] Test Date: 2021-02-19 Pat Name: Yanira Gao Department: Room: [id number] Gender: Female Health Care Legal Assistant: : 1945 Requested By: Jodi Miranda Order Number: [id number] Reading MD: AR AL Measurements Intervals [place] Rate: 57 P: 33 NV: 182 QRS: 23 QRSD: 90 T: -6 QT: 425 QTc: 415 Interpretive Statements SINUS BRADYCARDIA ANTEROSEPTAL MYOCARDIAL INFARCTION , OF INDETERMINATE AGE [40+ ms Q WAVE IN V1-V4] Compared to ECG 02/14/2021 19:13:44 Sinus rhythm no longer present Myocardial infarct finding still present Electronically Signed On 02-19-2021 15:41:20 CDT by AR AL [id number]
--- NOTE | 2021-02-19 04:46 | XRR_ITS ---
PROCEDURE INFORMATION: Exam: XR Chest Exam date and time: 02/19/2021 4:46 AM Age: 76 years old Clinical indication: Shortness of breath; Patient HX: Worsening hypoxia. Covid +. On high flow 02. ; Additional info: Change in status TECHNIQUE: Imaging protocol: XR of the chest. Views: 1 view. COMPARISON: CR XR chest 1V portable [id number] 02/18/2021 5:21 AM FINDINGS: Lungs: Mild interval increase in bilateral pulmonary infiltrates. Pleural spaces: Unremarkable. No pleural effusion. No pneumothorax. Heart/Mediastinum: There is mild cardiomegaly. Bones/joints: Unremarkable. XR/XR chest 1V portable [id number] IMPRESSION: 1. Mild interval increase in bilateral pulmonary infiltrates. 2. Mild cardiomegaly.
[2021-02-19 04:47] LABS: ABG PCO2 31.8 mmHg (35-45); Arterial Blood Gas Hematocrit 33.4 % (37-47); Base Excess ABG -9.8 mmol/L (-2.0-2.0); Blood Gas Allen Test Pos; Blood Gas Sample Site Radial, right; Blood Gas Sample Type Arterial; HCO3 ABG 15.6 mmol/L (22-26); Oxygen Device NRB; PO2 ABG 71.9 mmHg (80.0-100.0)
[2021-02-19 07:01] LABS: Basophils % 0.1 %; Hematocrit 32.7 % (37.0-47.0); Hemoglobin 10.5 g/dL (11.5-15.3); Lymphocytes # 5.7 10^3/uL (0.8-4.8); Lymphocytes % 32.4 %; Mean Corpuscular HGB Conc 32.1 g/dL (30.0-36.0); Mean Corpuscular Hemoglobin 30.3 pg (28.0-34.0); Mean Corpuscular Volume 94.2 fl (81-99); Mean Platelet Volume 11.8 fL (7.4-10.4); Monocytes % 5.6 %; Neutrophils # 10.73 10^3/uL (1.8-7.7); Nucleated Red Blood Cells % 0 %; Platelet Count 173 10^3/cmm (130-400); Red Blood Count 3.47 10^6/uL (4.1-5.3); White Blood Count 17.6 10^3/uL (4.0-10.0)
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
[2021-02-19 07:22] LABS: Glucose Point of Care 247 mg/dL (70-110)
[2021-02-19 07:27] LABS: Alanine Aminotransferase 21 U/L (0-33); Albumin Level 2.8 g/dL (3.5-5.2); Alkaline Phosphatase 75 IU/L (35-105); Anion Gap 17.4 (5-19); Aspartate Amino Transferase 29 U/L (0-32); Blood Urea Nitrogen 76 mg/dL (8-23); C Reactive Protein 9.4 mg/L (0.0-4.9); Calcium 7.1 mg/dL (8.5-10.5); Carbon Dioxide 16 mmol/L (22-29); Chloride 112 mmol/L (98-107); Globulin 2.2 g/dL (1.3-4.6); Glucose 257 mg/dL (65-115); Magnesium 3.4 mg/dL (1.7-2.3); Osmolality Calculated 321 mOsm/kg (285-295); Phosphorus 4.8 mg/dL (2.5-4.5); Potassium 5.4 mmol/L (3.5-5.1); Sodium 140 mmol/L (136-145); Total Bilirubin 0.3 mg/dL (0.15-1.2)
[2021-02-19 07:40] LABS: NT Pro B Type Natriuretic Pept 3030 pg/mL (0-450); Procalcitonin 0.09 ng/mL (0-0.5)
[2021-02-19 07:41] LABS: Slide Review Slide Review Perform
[2021-02-19 07:52] LABS: Creatine Phosphokinase 136 U/L (26-192)
[2021-02-19] MEDS: FUROsemide 10 mg/mL SDV 4mL 40 MG IVP (08:13)
[2021-02-19] MEDS: levofloxacin-dextrose 5 % 750 MG/150 ML PREMIX 100 MG IV (08:14)
[2021-02-19] MEDS: zinc gluconate 50 mg Tablet PO (08:14)
[2021-02-19] MEDS: amlodipine 10 mg Tablet PO (08:14)
[2021-02-19] MEDS: ascorbic acid 500 mg Tablet PO ×2 (08:14→17:55)
[2021-02-19] MEDS: aspirin 81 mg EC Tablet PO (08:14)
[2021-02-19] MEDS: pantoprazole DR 40 mg Tablet PO ×2 (08:15→17:55)
[2021-02-19] MEDS: sodium bicarbonate 650 mg Tablet PO ×3 (08:15→21:08)
[2021-02-19] MEDS: cholecalciferol (vitamin D3) 1,000 unit Tablet 1000 UNIT PO (08:15)
[2021-02-19] MEDS: budesonide 0.5 mg/2 mL Neb INHALATION ×2 (08:26→20:50)
[2021-02-19] MEDS: albuterol 8 gm MDI 1 PUFF INHALATION ×4 (08:30→20:52)
[2021-02-19] MEDS: sodium bicarbonate 8.4% 1 mEq/mL 50mL Syr 25 MEQ IVP (08:45)
[2021-02-19 09:19] LABS: Ferritin 3501 ng/mL (15-150)
[2021-02-19] MEDS: cefepime 2,000 MG in sodium chloride 0.9% (plus) 50 ML 100 MG IV (09:43)
--- NOTE | 2021-02-19 10:39 | PC.NURSE ---
Doctor rounding was done. Medication and oxygen use was discussed. At 0800 the soft wrist restraints were taken off. The patient was drowsy and cooperative upon assessment. Patient states a desire to sleep when awakened. Patient agreed to do incentive spectrometry every hour with nurse rounding.
[2021-02-19] MEDS: vancomycin 1,250 MG/250 ML PIGGYBACK 250 MG IV (10:56)
--- NOTE | 2021-02-19 11:00 | P.CONIM_ITS ---
Providers/Reason For Consult Consulting Physician/Specialty*: Gabriel Khan MD/Pulmonary Critical Care Reason for Consult*: Acute hypoxic respiratory failure secondary to ARDS due to COVID-19 pneumonia Requesting Physician: Oh Brennan MD Attending Physician: Oh Brennan MD Primary Care Provider: Teena Connelly MD History of Present Illness History of Present Illness Yanira Gao is a 76 year old female with a past medical history of chronic lymphocytic leukemia, hypertension, noninsulin-dependent type 2 diabetes mellitus, discoid lupus, left subclavian artery stenosis, history of COVID-19 vaccination back in May 2019, aortic stenosis, CKD, diastolic CHF, hypertension, diagnosed with COVID-19 positive on last week, who presents to [facility] due to complaints of fatigue, malaise, shor tness of breath, fevers, chills, poor appetite. Patient tells me that she tested positive for Covid on 02/11/2021, came to emergency room on 02/14/2021 for worsening shortness of breath and was admitted to the hospital. She has received both doses of COVID-19. In the emergency room she was found to have a creatinine of 2.1, was given 40 of Lasix, 15 L, saturating in the mid 90s, CT of the chest shows diffuse groundglass opacities, D-dimer elevated 1.35, was given Lovenox, given Decadron, ABG shows pH of 7.31, PCO2 65.7.Echocardiogram 02/15/2021 reported normal LV size and systolic function with EF 64% and moderate LVH. Grade 1/4 diastolic dysfunction and mildly increased left atrial size. Mild mitral annular calcification. Patient FiO2 requirements increased to 60 L 100% and was transferred to ICU. Pulmonary critical care consult requested for acute hypoxic respiratory failure secondary to ARDS due to COVID-19 pneumonia requiring 100% FiO2 on high flow nasal cannula. Today patient seen at bedside Overnight she had episodes of agitation combativeness-reduce her Xanax and Haldol and then placed on Precedex drip Appeared comfortable and saturating 99% on HFNC 60 L 100% Labs and imaging reviewed Review of Systems General: Reports: 10 or more systems reviewed and unremarkable except in HPI and below Meds/Allergies Home Medications and Allergies Home Medications Medication Instructions Recorded Confirmed Last Taken Type diltiazem HCl 240 mg 240 mg PO BEDTIME 10/22/19 02/15/21 11/30/20 History capsule,extended release 24 hr atorvastatin 10 mg tablet 5 mg PO BEDTIME tab 10/23/19 02/15/21 11/30/20 History labetalol 200 mg PO BID 07/08/20 02/15/21 11/30/20 History acetaminophen 650 mg 1,300 mg PO Q12H PRN 11/11/20 02/15/21 11/30/20 History tablet,extended release vit C,E,zinc,copper-nacuf6d 250 1 cap PO QAM 11/11/20 02/15/21 11/30/20 History mg-lutein 5 mg-zeaxanthin 1 mg capsule bumetanide 2 mg tablet 1 mg PO BID tab 12/01/20 02/15/21 Unknown History hydralazine 50 mg tablet 50 mg PO BID tab 12/01/20 02/15/21 11/30/20 History losartan 50 mg tablet 75 mg PO DAILY #135 tab 12/14/20 02/15/21 Unknown Rx amlodipine 10 mg PO BEDTIME 02/15/21 02/15/21 Unknown History aspirin [Aspir-81] 81 mg PO BEDTIME 02/15/21 02/15/21 Unknown History glipizide 5 mg PO BEDTIME 02/15/21 02/15/21 Unknown History Allergies Allergy/AdvReac Type Severity Reaction Status Date / Time No Known Allergies Allergy Verified 02/15/21 08:49 Current Medications Current Medications Generic Name Dose Route Start Last Admin Trade Name Freq PRN Reason Stop Dose Admin Acetaminophen 650 mg 02/14/21 21:16 02/15/21 12:12 Acetaminophen 325 Mg Tablet PO 650 mg Q6H PRN Administration Mild/Mod Pain Or Temp >/= 101 Albuterol Sulfate 1 puff 02/15/21 00:00 02/19/21 08:30 Albuterol 8 Gm Mdi INHALATION 1 puff Q4H.RESPIRATORY ALISSA Administration Amlodipine Besylate 10 mg 02/15/21 09:00 02/19/21 08:14 Amlodipine 10 Mg Tablet PO 10 mg DAILY ALISSA Administration Ascorbic Acid 500 mg 02/15/21 09:00 02/19/21 08:14 Ascorbic Acid 500 Mg Tablet PO 500 mg BID ALISSA Administration Aspirin 81 mg 02/15/21 09:00 02/19/21 08:14 Aspirin 81 Mg Ec Tablet PO 81 mg DAILY ALISSA Administration Atorvastatin Calcium 10 mg 02/15/21 21:00 02/18/21 21:27 Atorvastatin 40 Mg Tablet PO 10 mg BEDTIME ALISSA Administration Budesonide 0.5 mg 02/15/21 08:00 02/19/21 08:26 Budesonide 0.5 Mg/2 Ml Neb INHALATION 0.5 mg BID.RESPIRATORY ALISSA Administration Dexamethasone 6 mg 02/15/21 18:00 02/18/21 17:18 Dexamethasone 10 Mg/Ml Inj IVP 6 mg Q24H ALISSA Administration Diltiazem HCl 240 mg 02/15/21 09:00 02/19/21 08:39 Diltiazem Er (24hr) 240 Mg Capsule PO Not Given DAILY ALISSA Enoxaparin Sodium 80 mg 02/15/21 20:00 02/18/21 21:27 Enoxaparin 80 Mg/0.8 Ml Syringe SUBCUT 80 mg Q24H ALISSA Administration dexmedeTOMIDine 0.9 % NaCL 400 mcg in 100 mls @ 0 mls/hr 02/19/21 04:15 02/19/21 10:39 Dexmedetomidine-Ns IV 0 mcg/kg/hr .Q0M ALISSA 0 mls/hr Titration Protocol Per Protocol Cefepime HCl 2,000 mg/ Sodium 50 mls @ 100 mls/hr 02/19/21 09:00 02/19/21 10:27 Chloride IV Infused Q24H ALISSA Infusion Protocol Levofloxacin/Dextrose 750 mg in 150 mls @ 100 mls/hr 02/19/21 08:00 02/19/21 10:27 Levaquin-D5w IV Infused Q48H ALISSA Infusion Protocol Vancomycin/PEG/NADA/Lysine/Water 1,250 mg in 250 mls @ 250 mls/hr 02/19/21 10:00 02/19/21 10:56 Vancocin IV 250 mls/hr Q36H ALISSA Administration Insulin Aspart 0 unit 02/15/21 08:00 02/19/21 08:15 Insulin Aspart 100 Unit/1 Ml SUBCUT 6 unit TIDWM ALISSA Administration Protocol Labetalol HCl 200 mg 02/15/21 09:00 02/19/21 08:39 Labetalol 200 Mg Tablet PO Not Given BID ALISSA Ondansetron HCl 4 mg 02/14/21 21:16 02/18/21 09:44 Ondansetron 2 Mg/Ml Sdv 2 Ml IVP 4 mg Q8H PRN Administration vomiting, or N/V if npo Pantoprazole Sodium 40 mg 02/15/21 09:00 02/19/21 08:[address] 40 Mg Tablet PO 40 mg BID ALISSA Administration Sodium Bicarbonate 650 mg 02/15/21 14:30 02/19/21 08:15 Sodium Bicarbonate 650 Mg Tablet PO 650 mg TID ALISSA Administration Vitamin D 1,000 unit 02/15/21 09:00 02/19/21 08:15 Cholecalciferol (Vitamin D3) 1,000 Unit Tablet PO 1,000 unit DAILY ALISSA Administration Zinc Gluconate 50 mg 02/15/21 09:00 02/19/21 08:14 Zinc Gluconate 50 Mg Tablet PO 50 mg DAILY ALISSA Administration PFSH Acute PFSH: Medical History Aortic stenosis Not apparent on echocardiogram 08/04/2020 Carotid stenosis, bilateral CKD (chronic kidney disease) CLL (chronic lymphocytic leukemia) Compression fracture COVID-19 vaccine administered Degenerative lumbar disc Diabetes Discoid lupus Dyslipidemia Hypertension Lumbar radiculopathy Mitral regurgitation Surgical History No significant past surgical history Family History Mother , AGE 89 Diabetes Stroke CAD (coronary artery disease) Dementia Father , AGE 92 Stroke CAD (coronary artery disease) Dementia Sister CAD (coronary artery disease) Lung disease Myocardial infarction Cancer Brother CAD (coronary artery disease) Family/Other Cancer Denies family history of Clotting disorder Chronic kidney disease (CKD) Suicide Anesthesia complication Bleeding disorder Social History Second hand smoke exposure: No Alcohol intake: never Lives independently: Yes Marital status: / Current occupational status: retired History of recent travel: No Vitals/I&O/Wt Last Vital Signs Temp 96.5 F L 02/19/21 08:30 Pulse 71 02/19/21 09:37 Resp 20 H 02/19/21 09:37 BP 166/75 02/19/21 09:00 Pulse Ox 100 02/19/21 09:37 02/18/21 02/19/21 02/19/21 22:59 06:59 14:59 Intake Total 660 / 1960 203.068 / 2163.068 944.597 / 944.597 Output Total 625 / 625 850 / 1475 625 / 625 Balance 35 / 1335 -646.932 / 688.068 319.597 / 319.597 Weight last 48 hrs Weight 180 lb 4 oz Physical Exam Narrative: EXAM NARRATIVE: General: alert, in mild respiratory distress on high flow nasal cannula 60 L 100% HFNC HEENT: conj clear, EOMI, PERRL, mmm, Neck: supple, no meningismus Heme: no cervical LAP Pulmonary: Bilateral diffuse coarse crackles Cardiovascular: rrr, nl s1s2, no mrg Abdomen: soft, nt, nd, no r/g, bs+ Extremities: pulses +, no edema, no c/c : no CVA tenderness Skin: intact, no rash MSK: no back or neck pain Neurologic: grossly intact Urinary Catheter Management^: Ontiveros: Cath Placed During This Visit: yes Reason for Continuing Indwelling Catheter: Accurate Measurement of Urinary Output in Critically Ill Patients Urinary Catheter Date of Insertion: 02/14/21 Urinary Catheter Time of Insertion: 19:48 Data Labs: Other Labs: Laboratory Results WBC 17.6 10^3/uL (4.0 -10.0) H 02/19/21 06:48 RBC 3.47 10^6/uL (4.1 -5.3) L 02/19/21 06:48 Hgb 10.5 g/dL (11.5-1 5.3) L 02/19/21 06:48 Hct 32.7 % (37.0-47.0 ) L 02/19/21 06:48 MCV 94.2 fl (81-99) 02/19/21 06:48 MCH 30.3 pg (28.0-34. 0) 02/19/21 06:48 MCHC 32.1 g/dL (30.0-3 6.0) 02/19/21 06:48 RDW 14.0 % (12.1-15.1 ) 02/19/21 06:48 Plt Count 173 10^3/cmm (130 -400) 02/19/21 06:48 MPV 11.8 fL (7.4-10.4 ) H 02/19/21 06:48 Neut % (Auto) 61.0 % 02/19/21 06:48 Lymph % (Auto) 32.4 % 02/19/21 06:48 [place] % (Auto) 5.6 % 02/19/21 06:48 Eos % (Auto) 0.0 % 02/19/21 06:48 Baso % (Auto) 0.1 % 02/19/21 06:48 Neut # (Auto) 10.73 10^3/uL (1. 8-7.7) H 02/19/21 06:48 Lymph # (Auto) 5.7 10^3/uL (0.8- 4.8) H 02/19/21 06:48 [place] # (Auto) 1.0 10^3/uL (0.2- 0.9) H 02/19/21 06:48 Eos # (Auto) 0.0 10^3/uL (0.0- 0.8) 02/19/21 06:48 Baso # (Auto) 0.0 10^3/uL (0.0- 0.1) 02/19/21 06:48 Nucleated RBC % (a uto) 0 % 02/19/21 06:48 Nucleated RBCs # 0.0 /100WBC 02/19/21 06:48 PT 14.30 SECONDS (12 .1-14.9) 02/14/21 18:08 INR 1.08 (0.8-1.2) 02/14/21 18:08 APTT 26.5 SECONDS (23. 9-36.7) 02/14/21 18:08 D-Dimer 0.82 ug/mIFEU (0- 0.59) H 02/17/21 04:20 Specimen Type Arterial 02/19/21 04:45 Sample Site Radial, right 02/19/21 04:45 ABG pH 7.30 (7.35-7.45) L 02/19/21 04:45 ABG pCO2 31.8 mmHg (35-45) L 02/19/21 04:45 ABG pO2 71.9 mmHg (80.0-1 00.0) L 02/19/21 04:45 ABG HCO3 15.6 mmol/L (22-2 6) L 02/19/21 04:45 ABG O2 Saturation 92.2 02/14/21 17:07 ABG Base Excess -9.8 mmol/L (-2.0 -2.0) L 02/19/21 04:45 Marlo Test Pos 02/19/21 04:45 A-a O2 Gradient 6.8 mmHg (5-10) 02/14/21 17:07 Hematocrit 33.4 % (37-47) L 02/19/21 04:45 Hgb O2 Saturation 90.6 % (95-100) L 02/14/21 17:07 Carboxyhemoglobin 0.9 %THgb (0.4-20 .1) 02/14/21 17:07 Methemoglobin 0.8 % (0.4-1.5) 02/14/21 17:07 Total Hemoglobin 13.1 g/dL (12-16) 02/14/21 17:07 Sodium 144.0 mmol/L (131 -143) H 02/14/21 17:07 Potassium 4.7 mmol/L (3.5-5 .0) 02/14/21 17:07 Glucose 181.0 mg/dL (70-1 15) H 02/14/21 17:07 Ionized Calcium 1.1 mmol/L (1.1-1 .4) 02/14/21 17:07 O2 Delivery Device Nrb 02/19/21 04:45 O2 Liters/Min 60.0 % 02/19/21 04:45 FiO2 100.0 % 02/19/21 04:45 Experimental Rocketsled Mechanic ID Hinja 02/19/21 04:45 Sodium 140 mmol/L (136-1 45) 02/19/21 06:48 Potassium 5.4 mmol/L (3.5-5 .1) H 02/19/21 06:48 Chloride 112 mmol/L (98-10 7) H 02/19/21 06:48 Carbon Dioxide 16 mmol/L (22-29) L 02/19/21 06:48 Anion Gap 17.4 (5-19) 02/19/21 06:48 BUN 76 mg/dL (8-23) H 02/19/21 06:48 Creatinine 1.5 mg/dL (0.5-0. 9) H 02/19/21 06:48 GFR Calculation Not Reportable 02/19/21 06:48 Glucose 257 mg/dL (65-115 ) H 02/19/21 06:48 POC Glucose 95 mg/dL (70-110) 02/19/21 17:45 Calculated Osmolal ity 321 mOsm/kg (285- 295) H 02/19/21 06:48 Lactic Acid 0.8 mmol/L (0.5-2 .2) 02/15/21 04:45 Calcium 7.1 mg/dL (8.5-10 .5) L 02/19/21 06:48 Phosphorus 4.8 mg/dL (2.5-4. 5) H 02/19/21 06:48 Magnesium 3.4 mg/dL (1.7-2. 3) H 02/19/21 06:48 Ferritin 3501 ng/mL (15-15 0) H 02/19/21 06:48 Total Bilirubin 0.3 mg/dL (0.15-1 .2) 02/19/21 06:48 AST 29 U/L (0-32) 02/19/21 06:48 ALT 21 U/L (0-33) 02/19/21 06:48 Alkaline Phosphata se 75 IU/L (35-105) 02/19/21 06:48 Creatine Kinase 136 U/L (26-192) 02/19/21 06:48 Troponin T Baselin e 36 ng/L (0-10) H 02/14/21 18:08 Troponin T 120 Min [place] 38.17 ng/L (0-10) H 02/14/21 20:30 Delta Troponin T 2.17 ABS# (0-10) 02/14/21 20:30 Troponin T Hi Sens 6Hr 33.07 ng/L (0-10) H 02/15/21 00:50 Troponin T Hi Sens 6Hr Delta -2.93 ng/L (0-12) L 02/15/21 00:50 C-Reactive Protein 9.4 mg/L (0.0-4.9 ) H 02/19/21 06:48 NT-Pro-B Natriuret Pep 3030 pg/mL (0-450 ) H 02/19/21 06:48 Total Protein 5.0 g/dL (6.6-8.7 ) L 02/19/21 06:48 Albumin 2.8 g/dL (3.5-5.2 ) L 02/19/21 06:48 Globulin 2.2 g/dL (1.3-4.6 ) 02/19/21 06:48 Procalcitonin 0.09 ng/mL (0-0.5 ) 02/19/21 06:48 TSH 0.48 uIU/mL (0.27 -4.20) 02/15/21 04:45 Urine Color Yellow (Yellow) 02/14/21 22:00 Urine Appearance Sl cloudy (CLEAR ) A 02/14/21 22:00 Urine pH 5 (5-7) 02/14/21 22:00 Ur Specific Gravit y 1.010 (1.005-1.0 30) 02/14/21 22:00 Urine Protein 1+ (Negative) H 02/14/21 22:00 Urine Glucose (UA) Norm (Normal) 02/14/21 22:00 Urine Ketones Negative (Negati ve) 02/14/21 22:00 Urine Blood 2+ (Negative) H 02/14/21 22:00 Urine Nitrate Negative (Negati ve) 02/14/21 22:00 Urine Bilirubin Neg (Negative) 02/14/21 22:00 Urine Urobilinogen Norm mg/dL (Negat mary) 02/14/21 22:00 Ur Leukocyte Geena ase 2+ (Negative) H 02/14/21 22:00 Urine RBC 10-15 /hpf (0-2) H 02/14/21 22:00 Urine WBC >100 /hpf (0-5) H 02/14/21 22:00 Ur Squamous Epith Cells 0-4 /hpf (0-5) H 02/14/21 22:00 Amorphous Sediment Not Reportable 02/14/21 22:00 Urine Bacteria 4+ /hpf (NONE) H 02/14/21 22:00 Ur Random Sodium 31 mmol/L 02/15/21 17:26 Urine Creatinine 153 mg/dL (28-217 ) 02/15/21 17:26 Serum Ketones Negative (Negati ve) 02/15/21 04:45 Nasal/Oral COVID-1 9 PCR Detected H 02/14/21 22:00 SARS-CoV-2 Ag (Rap id) Positive (Negati ve) H 02/14/21 22:[address] 02/14/21 18:36 IMPRESSION: 1. Multifocal patchy bilateral pulmonary ground-glass opacities are nonspecific. Differential includes pneumonia and/or pulmonary edema.Imaging features can be seen with COVID-19 pneumonia, though are nonspecific and can occur with a variety of infectious and noninfectious processes. (Reference: Todd) 2. There are centrilobular emphysematous changes in the bilateral lungs. 3. Multivessel atherosclerotic disease which involves the coronary arteries. 4. Multiple lymph nodes are visualized in the upper abdomen some of which appear to be abnormal in morphology/rounded. Consider CT scan of the abdomen/pelvis with IV contrast for further evaluation as clinically warranted. REFERENCES: Todd Dill, et al., Radiological Society of [place] Expert Consensus Statement on Reporting Chest CT Findings Related to COVID-19. Endorsed by the Society of Thoracic Radiology, the [place] [employer], and RSNA. Published August 21, 2019. Radiation Dose CTDIVOL = (mGy): DLP = 692.4 (mGy-cm) Renal Ultrasound 02/15/21 07:34 IMPRESSION: 1. No hydronephrosis in either kidney. 2. Cortical atrophy right kidney. Chest X-Ray 02/19/21 04:46 IMPRESSION: 1. Mild interval increase in bilateral pulmonary infiltrates. 2. Mild cardiomegaly. A&P Assessment and plan (1) Acute respiratory failure with hypoxia: Status: Acute (2) Acute respiratory distress syndrome (ARDS) due to COVID-19 virus: Status: Acute (3) Acute kidney injury superimposed on CKD: Status: Acute (4) CHF (congestive heart failure): Status: Acute Qualifiers: Heart failure chronicity: acute on chronic Heart failure type: diastolic Qualified Code(s): I50.33 - Acute on chronic diastolic (congestive) heart failure (5) Mitral regurgitation: Status: Chronic Qualifiers: Cardiac valve disease etiology: etiology unspecified Qualified Code(s): I34.0 - Nonrheumatic mitral (valve) insufficiency #Acute hypoxic respiratory failure secondary to ARDS due to COVID-19 pneumonia #YENNY superimposed on CKD #Chronic diastolic heart failure with mitral regurgitation -Covid test + 02/11/2021, admitted 02/14/2021;-) May 2020 with 2 doses -Recommended Seroquel 25 mg at bedtime for confusion and agitation; Precedex gtt. for anxiety -ABG 7.3 on 60L 100% FiO2-tapered FiO2 to 85% and patient is saturating 92% -S/p Actemra 02/17/2021, held remdesivir in view of CKD, currently on dexamethasone 10 mg daily -Echocardiogram shows EF of 65%, moderate LVH, grade 1 out of 4 diastolic dysfunction -Currently hemodynamically stable -She is receiving aspirin/Lipitor/Cardizem 240 mg p.o. daily, labetalol 200 mg p.o. twice daily, -YENNY on CKD stage III likely secondary to COVID-19 pneumonia-potassium 3.4 and anion gap metabolic acidosis-currently on sodium bicarbonate 650 mg p.o. 3 times daily -Received 1 dose of Lasix 40 mg today-monitor input output and electrolytes; overall -1.2 L last 24 hours and -2.1 L since admission -Potassium 5.4 and patient received albuterol nebulizations and Lasix 40 mg daily-monitor potassium -Blood cultures 02/14/2021-08/30 bottles positive for cons-repeat blood cultures 02/18/2020 were negative so far -MRSA nares negative -Currently patient is on vancomycin, cefepime, Levaquin; procalcitonin 0.09- recommended to discontinue cefepime and Levaquin. Repeat blood cultures nega tive discontinue vancomycin. -Sugars moderately controlled with scale coverage -can add Lantus 5 units at bedtime -Patient on therapeutic Lovenox for D-dimer 1.35- Cannot do CT angiogram with contrast due to underlying CKD -DVT prophylaxis Lovenox -Continue renal diet as tolerated; please start on bowel regimen senna docusate 2 tabs at bedtime -Full code-patient agrees for intubation and full code Recommendations conveyed to hospitalist, RN, RT covering the patient Consult Attestations Medical Necessity Statement: Acute hypoxic respiratory failure secondary to ARDS due to COVID-19 pneumonia requiring high flow nasal cannula 85% in an elderly woman with multiple comorbidities with significant past medical history of CLL, diastolic heart failure, aortic stenosis, mitral regurgitation, CKD stage III-currently requires close ICU monitoring for respiratory status Time Spent in Patient Care: Greater than 35 minutes (>than 50% of time spent in counselling and/or direct pt care on unit) . Critical Care Time: The high probability of a clinically significant, sudden or life threatening deterioration of the patient's [renal, cardiac, pulmonary, endocrine] system(s) required my full and direct attention, intervention and personal management. The critical care time is as shown. This time is in addition to time spent performing any reported procedures but includes the following: [x] Data and vital sign review and interpretation [x] Patient assessment, examination and intervention [x] Documentation [x] Medication orders and management Critical Care Time (min): 45 Coding Level of Care Code New Pt Acute [employer] for g Fwd Patient Type New History Comprehensive Exam Comprehensive Medical Decision Making High Complexity Diagnoses Acute respiratory failure with hypoxia J96.01 Acute respiratory distress syndrome (ARDS) due to COVID-19 virus U07.1; J80 Acute kidney injury superimposed on CKD N17.9; N18.9 CHF (congestive heart failure) I50.33 Heart failure chronicity: acute on chronic Heart failure type: diastolic Mitral regurgitation I34.0 Cardiac valve disease etiology: etiology unspecified Time Spent (min) 45
--- NOTE | 2021-02-19 11:11 | PM.PN ---
Subjective Subjective: Interval history: Overnight patient had episodes of agitation and combativeness after receiving alprazolam, required restraints, placed on Precedex, fracture requirements increased to 60 L, 100% FiO2, currently on 60 L 100% FiO2, her oxygen saturations were in the high 90s, she is alert oriented x3, follows all commands, she tells me she feels short of breath, advised her that given her increased oxygen requirements, she has a high risk of intubation in the next 24 hours, she is agreeable to elective intubation if her oxygen requirements remain this high and she continues to deteriorate, and feels more short of breath and or becomes encephalopathic Vitals/I&O/Wt Last Vital Signs Temp 96.5 F L 02/19/21 08:30 Pulse 71 02/19/21 09:37 Resp 20 H 02/19/21 09:37 BP 166/75 02/19/21 09:00 Pulse Ox 85 L 02/19/21 11:01 02/18/21 02/19/21 02/19/21 22:59 06:59 14:59 Intake Total 660 / 1960 203.068 / 2163.068 944.597 / 944.597 Output Total 625 / 625 850 / 1475 625 / 625 Balance 35 / 1335 -646.932 / 688.068 319.597 / 319.597 Weight last 48 hrs Weight 81.76 kg Physical Exam Const: COMMON NORMALS: no acute distress ORIENTATION/CONSCIOUSNESS: Yes awake, Yes oriented to person, Yes oriented to place and Yes oriented to time Resp: COMMON NORMALS: normal respiratory effort, No retractions and No use of accessory muscles AUSCULTATION: diminished lung sounds diffuse Cardio: COMMON NORMALS: regular rate, regular rhythm, S1 normal heart sound present and S2 normal heart sound present RATE: regular rate RHYTHM: regular rhythm HEART SOUNDS: S1 normal heart sound present and S2 normal heart sound present GI: COMMON NORMALS: Normal to inspection, nondistended, normoactive bowel sounds present and Soft to palpation PALPATION: Yes Soft to palpation Extremity: COMMON NORMALS: no pedal edema Neuro: SENSORIUM/ORIENTATION: Yes oriented to person, Yes oriented to place and Yes oriented to time Urinary Catheter Management^: Ontiveros: Cath Placed During This Visit: yes Reason for Continuing Indwelling Catheter: Accurate Measurement of Urinary Output in Critically Ill Patients Urinary Catheter Date of Insertion: 02/14/21 Urinary Catheter Time of Insertion: 19:48 Data : 02/19/21 06:48 02/19/21 06:48 A&P Assessment and plan (1) Acute respiratory failure with hypoxia: Acute hypoxic respiratory failure -secondary to COVID-19 pneumonia, breakthrough infection, has received both Covid vaccines in May 2019, no history of booster -Some component of acute on chronic diastolic CHF exacerbation Plan: -Admit to general medical floors -Obtain blood cultures, sputum cultures, urine bacterial antigens, stool cultures all so far negative -Currently on heated high flow, 60 L and 100% FiO2 -On Decadron 6 mg, IV push daily -On remdesivir, she is at increased risk of accumulation of metabolites, discussed risk and benefits of remdesivir, she voiced understanding, all questions answered, agreed to proceed with remdesivir, if creatinine continues to elevate we will have to possibly hold due to increased risk of side effect -status post 1 dose Actemra 02/17/2021 -We will expand antibiotic coverage to vancomycin, cefepime and Levaquin -Vitamin C, zinc, vitaimn D -Incentive spirometer, flutter valve -Albuterol, budesonide -Elevated D-dimer 1.35, and complaints of worsening shortness of breath, cannot perform a CT angiogram of the chest given elevated creatinine, on therapeutic Lovenox, for possible pulmonary emboli, bilateral extremity ultrasound for negative for DVT, follow D-dimer -For CHF, BNP elevated, not in exacerbation does not look fluid overloaded hold Bumex -Echocardiogram shows EF of 65%, moderate LVH, grade 1 out of 4 diastolic dysfunction -Continue bicarb 650 mg 3 times daily-secondary to uremia -We will give 1 dose of Lasix today, with an amp of bicarb -Full code -Lovenox for DVT prophylaxis Metabolic acidosis, on bicarb replacement, will give 1 amp of bicarb YENNY on CKD, secondary to COVID-19 pneumonia, possible cardiorenal syndrome, avoid nephrotoxic agents -Creatinine elevated to 1.5 -UA had evidence of UTI, but urine cultures have been unremarkable unlikely to be UTI -Renal ultrasound no nephrolithiasis Transaminitis secondary to COVID-19 Acute on chronic diastolic CHF exacerbation, as above Hypertension, continue Norvasc, continue labetalol Chronic lymphocytic leukemia, continue to monitor Elevated troponins, likely secondary respiratory failure, serial troponins, serial EKGs, continue aspirin, continue statin, normal CPK [id number] type 2 diabetes mellitus, low-dose sliding scale Will monitor respiratory status closely, high risk of intubation next 24 hours, start Seroquel for acute encephalopathy Status: Acute (2) Pneumonia due to COVID-19 virus: Status: Acute (3) Acute kidney injury superimposed on CKD: Status: Acute (4) CHF exacerbation: Status: Acute (5) Hypertension: Status: Chronic Qualifiers: Hypertension type: renovascular hypertension Qualified Code(s): I15.0 - Renovascular hypertension (6) Dyslipidemia: Status: Chronic (7) Carotid stenosis, bilateral: Status: Chronic (8) CLL (chronic lymphocytic leukemia): Status: Acute Attestations Medical Necessity Statement*: Patient requires hospitalization for acute respiratory failure secondary to COVID-19 pneumonia Coding Level of Care Code Acute Forest Scientist for [facility] Diagnoses Acute respiratory failure with hypoxia J96.01 Pneumonia due to COVID-19 virus U07.1; J12.82 Acute kidney injury superimposed on CKD N17.9; N18.9 CHF exacerbation I50.9 Hypertension I15.0 Hypertension type: renovascular hypertension Dyslipidemia E78.5 Carotid stenosis, bilateral I65.23 CLL (chronic lymphocytic leukemia) C91.10
[2021-02-19] MEDS: acetaminophen 325 mg Tablet 650 MG PO (11:13)
[2021-02-19 11:32] LABS: Glucose Point of Care 289 mg/dL (70-110)
--- NOTE | 2021-02-19 12:03 | PC.NURSE ---
Gave the patient Tylenol for the pain. Darkened the room and put a warm blanket behind the neck. The patient is resting at this time and said that the blanket feels good.
--- NOTE | 2021-02-19 12:44 | PC.NURSE ---
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 O2 sats at 84%. Pt stated the first two times she did not know what she wanted. The third time she said her back her assisted pt to right side. Restarted the Precedex gtt for her anxiousness.. Encouraged pt to close her eyes and rest/take a nap. O2 sats improved to 89%. Will continue to monitor.
--- NOTE | 2021-02-19 13:52 | PC.NURSE ---
Called and updated son, Carrington, on patient. Told him how the patient did last night, this morning, oxygen requirements, and pain. The son stated that the patient has a bed back and arthritic hip. Also, the son stated that patient was supposed to have a second procedure with the pain clinic. Got patient up to chair.
--- NOTE | 2021-02-19 15:14 | PC.CHAP ---
Pastoral Care Encounter/Spiritual Assessment Type of Contact [] Declined custodial engineer visit [] Patient/Family/Request visit [] Outpatient visit [] Follow-up visit [] Physician referral [] Code/Alert [] Routine visit [] Staff referral [] Actively dying [] Patient sleeping [] Family support [] [] Out of room [] Palliative care [] [] Receiving care in room [] Pre-surgical visit [] Trauma [xx] Long length of stay [xx] ICU visit [] Other: Relational/Emotional Strength [] Patient feels connected with others/family/visitors/staff [] Distress [] Loneliness/isolation [] Abandonment Spirituality of Patient [] Person of Priscilla [] Attends Protestant of their Priscilla [] Believes in Prayer [] Reads Bible or Episcopalian materials [] There are Spiritual issues to be addressed Sample Steamer Interventions [xx] Prayer [] Active listening [] Non-anxious presence [] Spiritual/emotional support [] Crisis/trauma care [] Spiritual counseling [] Bereavement support [] Provided bereavement packet [] Provided Bible/devotional materials [] Provided toy/stuffed animal, coloring book to patient or family member [] Provided Communion [] Anointing/[place] [] Salvation [] Completed spiritual assessment [] Other: Impact on Illness or Injury [] Angry [] Fearful [] Anxious [] Often cries [] Exhaustion [] Unable to work [] Unable to attend mormonism [] Unable to walk/stand [] Unable to read [] Unable to drive [] Unable to eat/drink [] Unable to sleep [] Unable to be with family [] Patient intubated [] Other: Summary Patient isolated with covid-19. Sample Steamer prayed outside room. Time spent with patient 2 minutes
--- NOTE | 2021-02-19 15:15 | PC.NURSE ---
Answered call light and patient said that she is done and going to sleep. Denied any back pain when asked. Offered to turn the patient, but patient refused. Room darkened for patient comfort.
--- NOTE | 2021-02-19 16:21 | PC.RESP ---
RT Shift Note Frequent safety and respiratory rounds continue. Orders completed as indicated. Patient monitored pre and post treatments throughout shift. Patient [Did.] tolerate treatments appropriately. Condition [DidNotChange]. Patient and/or shipping services sales representative educated on respiratory treatment and medications. Patient and/or shipping services sales representative [reinforcement needed]. Will continue to monitor patient progress.
[2021-02-19 17:49] LABS: Glucose Point of Care 95 mg/dL (70-110)
[2021-02-19] MEDS: dexamethasone 10 mg/mL INJ 6 MG IVP (17:54)
[2021-02-19] MEDS: quetiapine 25 mg Tablet PO (17:55)
[2021-02-19] MEDS: labetalol 200 mg Tablet PO (18:39)
--- NOTE | 2021-02-19 18:48 | PC.NURSE ---
Patient's daughter called because she was concerned that her mother did not answer her phone. The nurse told the daughter that the patient was asleep so she did not answer the phone and the patient's oxygen at the time was high 90s. Upon rounding with the patient she was informed that her daughter has called.
--- NOTE | 2021-02-19 19:11 | PC.NURSE ---
Shift Note Frequent safety and comfort rounds continue. Orders and/or nursing care completed as indicated. Patient monitored for response to intervention and treatment(s). Education provided includes medication and treatment plan. Reinforcement needed. Patient expressed a desire to sleep throughout the day. Patient does not eat full meals. Patient turned and room darkened for comfort.
[2021-02-19] MEDS: enoxaparin 80 mg/0.8 mL Syringe SUBCUT (21:07)
[2021-02-19] MEDS: atorvastatin 40 mg Tablet 10 MG PO (21:07)
[2021-02-19] MEDS: HYDROcodone-acetaminophen 5-325 mg Tablet 1 TAB PO (21:08)
[2021-02-19] MEDS: dexmedeTOMIDine 0.9 % NaCL 400 MCG/100 ML PREMIX 6.13 MCG IV (21:10)
[2021-02-20] VITALS (57 sets, daily range): BP systolic 86–183; BP diastolic 38–108; PULSE 57–86; RESP 15–26; TEMP 35.9–36.4; O2SAT 80–100; BMI 29.7
[2021-02-20 00:27] LABS: Glucose Point of Care 161 mg/dL (70-110)
[2021-02-20 04:48] LABS: ABG PCO2 30.7 mmHg (35-45); ABG PH Result 7.32 (7.35-7.45); Arterial Blood Gas Hematocrit 33.6 % (37-47); Base Excess ABG -9.1 mmol/L (-2.0-2.0); Blood Gas Allen Test Pos; Blood Gas Sample Site Radial, right; Blood Gas Sample Type Arterial; HCO3 ABG 15.9 mmol/L (22-26); PO2 ABG 90.2 mmHg (80.0-100.0)
--- NOTE | 2021-02-20 06:40 | PC.NURSE ---
Shift Note Frequent safety and comfort rounds continue. Orders and/or nursing care completed as indicated. Patient monitored for response to intervention and treatment(s). Education provided to son Carrington and patient who was somewhat confused during the shift. The patient was awake and alert to person, place, and situation, but not time. []. Head Cook responded well to teaching . There were no significant changes that occurred during the shift. The patient is on heated HiFlo at 60/83. During the patient's bath it looked like there was yeast underneath the breast. I relayed this information to the day shift nurse. The patient had a normal sinus rhythm with a blood pressure within normal limits.
[2021-02-20] MEDS: ondansetron 2 mg/ML SDV 2 mL 4 MG IVP (07:33)
[2021-02-20 07:52] LABS: Glucose Point of Care 250 mg/dL (70-110)
[2021-02-20] MEDS: budesonide 0.5 mg/2 mL Neb INHALATION ×2 (08:10→20:04)
--- NOTE | 2021-02-20 08:15 | PC.NURSE ---
Ultrasound guided IV insertion, 2 attempts. 20 gauge right forearm. Pt tolerated.
[2021-02-20] MEDS: labetalol 200 mg Tablet PO (08:33)
[2021-02-20] MEDS: cefepime 2,000 MG in sodium chloride 0.9% (plus) 50 ML 100 MG IV (08:33)
[2021-02-20] MEDS: cholecalciferol (vitamin D3) 1,000 unit Tablet 1000 UNIT PO (08:34)
[2021-02-20] MEDS: ascorbic acid 500 mg Tablet PO (08:34)
[2021-02-20] MEDS: sodium bicarbonate 650 mg Tablet PO ×2 (08:34→14:11)
[2021-02-20] MEDS: amlodipine 10 mg Tablet PO (08:34)
[2021-02-20] MEDS: dilTIAZem ER (24HR) 240 mg Capsule PO (08:34)
[2021-02-20] MEDS: zinc gluconate 50 mg Tablet PO (08:34)
[2021-02-20] MEDS: aspirin 81 mg EC Tablet PO (08:34)
[2021-02-20] MEDS: pantoprazole DR 40 mg Tablet PO (08:34)
[2021-02-20] MEDS: quetiapine 25 mg Tablet PO (08:35)
--- NOTE | 2021-02-20 09:15 | PC.NURSE ---
Patient drank full bottle of Boost with morning medications. After taking all the morning mediations the patient refused to eat, by saying no more.
[2021-02-20] MEDS: HYDROcodone-acetaminophen 5-325 mg Tablet 1 TAB PO (10:22)
[2021-02-20] MEDS: dexmedeTOMIDine 0.9 % NaCL 400 MCG/100 ML PREMIX 6.13 MCG IV (11:01)
[2021-02-20 11:43] LABS: Glucose Point of Care 307 mg/dL (70-110)
[2021-02-20] MEDS: insulin glargine 100 units/1 mL 5 UNIT SUBCUT (12:42)
--- NOTE | 2021-02-20 13:11 | PC.NURSE ---
Patient's son called for an update. Explained to him about patient's oxygen demands, orientation to place and self, and pain management. Afterwards, the daughter came by to visit the patient, and spent some time outside the patient's room. Explained to the daughter the reason why we have soft restraints on, oxygen demands, pain control, orientation, and plan of care. The daughter said that they will do what ever it takes and are ok with the vent if it comes to that. Told the daughter that is something the doctor will have to decide. Told the daughter that if the patients oxygen requirements go up, heart rate or blood pressure change, and orientation status changes that the doctor would be notified. All other decisions would be up to the doctor. The daughter expressed her thanks for being able to see the patient and left.
[2021-02-20 13:44] LABS: Basophils % 0.1 %; Hematocrit 33.1 % (37.0-47.0); Hemoglobin 10.3 g/dL (11.5-15.3); Lymphocytes # 6.4 10^3/uL (0.8-4.8); Lymphocytes % 30.5 %; Mean Corpuscular HGB Conc 31.1 g/dL (30.0-36.0); Mean Corpuscular Hemoglobin 29.8 pg (28.0-34.0); Mean Corpuscular Volume 95.7 fl (81-99); Mean Platelet Volume 12.2 fL (7.4-10.4); Monocytes # 1.1 10^3/uL (0.2-0.9); Monocytes % 5.3 %; Neutrophils # 13.25 10^3/uL (1.8-7.7); Neutrophils % 63.2 %; Nucleated Red Blood Cells % 0 %; Platelet Count 192 10^3/cmm (130-400); Red Blood Count 3.46 10^6/uL (4.1-5.3); Red Cell Distribution Width 14.4 % (12.1-15.1)
[2021-02-20 14:01] LABS: Alanine Aminotransferase 21 U/L (0-33); Alkaline Phosphatase 79 IU/L (35-105); Anion Gap 19.6 (5-19); Aspartate Amino Transferase 33 U/L (0-32); Blood Urea Nitrogen 75 mg/dL (8-23); C Reactive Protein 6.5 mg/L (0.0-4.9); Calcium 7.5 mg/dL (8.5-10.5); Carbon Dioxide 14 mmol/L (22-29); Chloride 113 mmol/L (98-107); Globulin 1.8 g/dL (1.3-4.6); Glucose 242 mg/dL (65-115); Magnesium 3.6 mg/dL (1.7-2.3); Osmolality Calculated 324 mOsm/kg (285-295); Phosphorus 5.3 mg/dL (2.5-4.5); Potassium 4.6 mmol/L (3.5-5.1); Sodium 142 mmol/L (136-145); Total Bilirubin 0.3 mg/dL (0.15-1.2); Total Protein 4.8 g/dL (6.6-8.7)
[2021-02-20 14:13] LABS: NT Pro B Type Natriuretic Pept 3127 pg/mL (0-450); Procalcitonin 0.08 ng/mL (0-0.5); Slide Review Slide Review Perform
--- NOTE | 2021-02-20 14:15 | PM.PN ---
Subjective Subjective: Interval history: Patient was seen this morning, no episodes of agitation overnight remains on Precedex, she is alert to person, to place, not to time, she does follow commands, but is quite drowsy, does have episodes of confusion she is currently on 60 L, 85% FiO2, no evidence of respiratory distress, Vitals/I&O/Wt Last Vital Signs Temp 96.6 F L 02/20/21 13:00 Pulse 64 02/20/21 13:00 Resp 17 02/20/21 13:00 BP 139/71 02/20/21 13:00 Pulse Ox 90 02/20/21 13:00 02/19/21 02/20/21 02/20/21 22:59 06:59 14:59 Intake Total 286.664 / 1481.261 60 / 1541.261 387 / 387 Output Total 850 / 1475 1300 / 2775 Balance -563.336 / 6.261 -1240 / -1233.739 387 / 387 Weight last 48 hrs Weight 78.471 kg Physical Exam Const: COMMON NORMALS: no acute distress ORIENTATION/CONSCIOUSNESS: Yes awake, Yes oriented to person, Yes oriented to place and Yes confused; not oriented to time Resp: COMMON NORMALS: normal respiratory effort, No retractions and No use of accessory muscles AUSCULTATION: diminished lung sounds diffuse Cardio: COMMON NORMALS: regular rate, regular rhythm, S1 normal heart sound present and S2 normal heart sound present RATE: regular rate RHYTHM: regular rhythm HEART SOUNDS: S1 normal heart sound present and S2 normal heart sound present GI: COMMON NORMALS: Normal to inspection, nondistended, normoactive bowel sounds present and Soft to palpation PALPATION: Yes Soft to palpation Extremity: COMMON NORMALS: no pedal edema Neuro: SENSORIUM/ORIENTATION: Yes oriented to person, Yes oriented to place and No oriented to time Urinary Catheter Management^: Ontiveros: Cath Placed During This Visit: yes Reason for Continuing Indwelling Catheter: Accurate Measurement of Urinary Output in Critically Ill Patients Urinary Catheter Date of Insertion: 02/14/21 Urinary Catheter Time of Insertion: 19:48 Data : 02/20/21 13:05 02/20/21 13:05 Micro: Microbiology 02/14/21 20:30 Blood Culture - Final Blood Staphylococcus sp coag neg Staphylococcus sp coag neg#2 02/14/21 18:08 Blood Culture - Final Blood Staphylococcus sp coag neg Staphylococcus sp coag neg#2 A&P Assessment and plan (1) Acute respiratory failure with hypoxia: Acute hypoxic respiratory failure -secondary to COVID-19 pneumonia, breakthrough infection, has received both Covid vaccines in May 2019, no history of booster -Some component of acute on chronic diastolic CHF exacerbation Plan: -Admit to general medical floors -Initial 2 blood cultures positive for coagulase-negative staph, repeat blood cultures negative -Currently on heated high flow, 60 L and 85 FiO2 -On Decadron 6 mg, IV push daily -On remdesivir, she is at increased risk of accumulation of metabolites, discussed risk and benefits of remdesivir, she voiced understanding, all questions answered, agreed to proceed with remdesivir, if creatinine continues to elevate we will have to possibly hold due to increased risk of side effect -status post 1 dose Actemra 02/17/2021 -Currently on vancomycin, cefepime and Levaquin -Vitamin C, zinc, vitaimn D -Incentive spirometer, flutter valve -Albuterol, budesonide -Elevated D-dimer 1.35, and complaints of worsening shortness of breath, cannot perform a CT angiogram of the chest given elevated creatinine, on therapeutic Lovenox, for possible pulmonary emboli, bilateral extremity ultrasound for negative for DVT, follow D-dimer -For CHF, BNP elevated, hold Bumex -Echocardiogram shows EF of 65%, moderate LVH, grade 1 out of 4 diastolic dysfunction -Continue bicarb 650 mg 3 times daily-secondary to uremia -Seroquel for agitation -Precedex for agitation Acute encephalopathy, secondary to COVID-19 pneumonia, hypoxia, -Continue to monitor mentation closely, aspiration precautions -Full code -Lovenox for DVT prophylaxis Metabolic acidosis, on bicarb replacement YENNY on CKD, secondary to COVID-19 pneumonia, possible cardiorenal syndrome, avoid nephrotoxic agents -Creatinine elevated to 1.6 -UA had evidence of UTI, but urine cultures have been unremarkable unlikely to be UTI -Renal ultrasound no nephrolithiasis Transaminitis secondary to COVID-19 Acute on chronic diastolic CHF exacerbation, as above Hypertension, continue Norvasc, continue labetalol Chronic lymphocytic leukemia, continue to monitor Elevated troponins, likely secondary respiratory failure, serial troponins, serial EKGs, continue aspirin, continue statin, normal CPK [id number] type 2 diabetes mellitus, low-dose sliding scale, Lantus 5 units twice daily Given patient's acute encephalopathy, increased oxygen requirements, she is a high risk of intubation 4 hours, continue Precedex, Seroquel for agitation Patient son was updated yesterday of patient's critical status, prognosis guarded Status: Acute (2) Pneumonia due to COVID-19 virus: Status: Acute (3) Acute kidney injury superimposed on CKD: Status: Acute (4) CHF exacerbation: Status: Acute (5) Hypertension: Status: Chronic Qualifiers: Hypertension type: renovascular hypertension Qualified Code(s): I15.0 - Renovascular hypertension (6) Dyslipidemia: Status: Chronic (7) Carotid stenosis, bilateral: Status: Chronic (8) CLL (chronic lymphocytic leukemia): Status: Acute Attestations Medical Necessity Statement*: She requires hospitalization for acute respiratory failure with hypoxia secondary to COVID-19, now with acute encephalopathy, increased oxygen requirements Coding Level of Care Code Acute Translator/Interpreter for [facility] Diagnoses Acute respiratory failure with hypoxia J96.01 Pneumonia due to COVID-19 virus U07.1; J12.82 Acute kidney injury superimposed on CKD N17.9; N18.9 CHF exacerbation I50.9 Hypertension I15.0 Hypertension type: renovascular hypertension Dyslipidemia E78.5 Carotid stenosis, bilateral I65.23 CLL (chronic lymphocytic leukemia) C91.10
--- NOTE | 2021-02-20 14:21 | PC.NURSE ---
Gave wash cloth soap and water bed bath to patient. Patient tolerated the bed bath well. Covered the patient with a heated blanket for warmth and comfort. Patient resting in bed.
[2021-02-20 14:32] LABS: Creatine Phosphokinase 442 U/L (26-192)
[2021-02-20 14:37] LABS: Ferritin 2632 ng/mL (15-150)
--- NOTE | 2021-02-20 15:17 | PC.NURSE ---
Printed two strips. One strip has the QRS and NE. The second strip has the QT. To much artifact to see QT in the first strip.
--- NOTE | 2021-02-20 15:40 | PC.RESP ---
RT Shift Note Frequent safety and respiratory rounds continue. Orders completed as indicated. Patient monitored pre and post treatments throughout shift. Patient [Did.] tolerate treatments appropriately. Condition .DidNotChange]. Patient and/or access service representative educated on respiratory treatment and medications. Patient and/or access service representative [reinforcement needed. Will continue to monitor patient progress.
--- NOTE | 2021-02-20 16:00 | PC.NURSE ---
BIS 50. TOF 4/4, pt vent compliant. Pt to supine. Nimbex and Versed stopped, Fentanyl decreased to 25mcg/hr as ordered. Tube feeding restarted.
[2021-02-20 17:19] LABS: Glucose Point of Care 93 mg/dL (70-110)
[2021-02-20] MEDS: dexamethasone 10 mg/mL INJ 6 MG IVP (17:43)
[2021-02-20 18:06] LABS: ABG PCO2 30.5 mmHg (35-45); ABG PH Result 7.34 (7.35-7.45); Arterial Blood Gas Hematocrit 33.4 % (37-47); Base Excess ABG -8.3 mmol/L (-2.0-2.0); Blood Gas Allen Test Pos; Blood Gas Operator Identificat GD; Blood Gas Sample Site Radial, left; Blood Gas Sample Type Arterial; HCO3 ABG 16.4 mmol/L (22-26); Oxygen Device NC; PO2 ABG 58.3 mmHg (80.0-100.0)
[2021-02-20] MEDS: FUROsemide 10 mg/mL SDV 4mL 40 MG IVP (18:42)
--- NOTE | 2021-02-20 18:55 | PC.NURSE ---
Pt to drowsy for dinner.
--- NOTE | 2021-02-20 19:18 | PC.NURSE ---
Shift Note Frequent safety and comfort rounds continue. Orders and/or nursing care completed as indicated. Patient monitored for response to intervention and treatment(s). The patient is drowsy so did not get dinner. The patient was rounded and turned for comfort. The patient is oriented to self.
[2021-02-20 19:38] LABS: Glucose Point of Care 93 mg/dL (70-110)
[2021-02-20] MEDS: enoxaparin 80 mg/0.8 mL Syringe SUBCUT (21:11)
[2021-02-20] MEDS: vancomycin 1,250 MG/250 ML PIGGYBACK 250 MG IV (21:12)
[2021-02-21] VITALS (58 sets, daily range): BP systolic 86–188; BP diastolic 32–110; PULSE 68–107; RESP 16–26; TEMP 36.2–36.9; O2SAT 76–100; BMI 29.2
--- NOTE | 2021-02-21 02:39 | PC.NURSE ---
Addendum entered by Rossi Iqbal RN 02/21/21 02:59: Patient had become extremely agitated and pulled out peripheral IV, attempting to pull out all lines and tubes and pull self out of bed, education provided but patient not able to comprehend. Bed exercises, ROM and repositioning seemed to help calm patient. Patient denied any pain. Original Note: Shift Note Frequent safety and comfort rounds continue. Orders and/or nursing care completed as indicated. Patient monitored for response to intervention and treatment(s). Education provided includes medications with side effects, activity, oxygen safety and requirements. Patient not alert or orientated enough to comprehend. Patient's digital sales representative verbalized understanding of education. Patient not alert or oriented enough to follow commands and take PO medications, she would only blows into the straw. Aspiration precautions taken. Bed exercises and ROM performed, patient later in the shift started to follow commands with arms and legs but remained too confused to comprehend the instructions to swallow pills. Ontiveros patent and draining. Will continue to monitor.
[2021-02-21 03:35] LABS: ABG PCO2 29.4 mmHg (35-45); ABG PH Result 7.29 (7.35-7.45); Arterial Blood Gas Hematocrit 34.2 % (37-47); Base Excess ABG -11.4 mmol/L (-2.0-2.0); Blood Gas Allen Test Pos; Blood Gas Sample Site Radial, right; Blood Gas Sample Type Arterial; Oxygen Device NC; PO2 ABG 64.7 mmHg (80.0-100.0)
[2021-02-21 04:24] LABS: Creatine Phosphokinase 472 U/L (26-192)
[2021-02-21 04:43] LABS: Basophils % 0.1 %; Nucleated Red Blood Cells % 0.1 %
[2021-02-21 04:50] LABS: Hemoglobin 10.5 g/dL (11.5-15.3); Lymphocytes # 6.5 10^3/uL (0.8-4.8); Lymphocytes % 27.4 %; Mean Corpuscular HGB Conc 31.8 g/dL (30.0-36.0); Mean Corpuscular Hemoglobin 30.3 pg (28.0-34.0); Mean Corpuscular Volume 95.4 fl (81-99); Mean Platelet Volume 12.4 fL (7.4-10.4); Monocytes % 4.2 %; Neutrophils # 15.77 10^3/uL (1.8-7.7); Neutrophils % 66.9 %; Platelet Count 204 10^3/cmm (130-400); Red Blood Count 3.46 10^6/uL (4.1-5.3); Red Cell Distribution Width 14.7 % (12.1-15.1); White Blood Count 23.6 10^3/uL (4.0-10.0)
[2021-02-21 05:13] LABS: NT Pro B Type Natriuretic Pept 3123 pg/mL (0-450); Procalcitonin 0.04 ng/mL (0-0.5)
[2021-02-21 05:24] LABS: Alanine Aminotransferase 22 U/L (0-33); Alkaline Phosphatase 86 IU/L (35-105); Anion Gap 25.3 (5-19); Aspartate Amino Transferase 40 U/L (0-32); C Reactive Protein 5.2 mg/L (0.0-4.9); Calcium 7.6 mg/dL (8.5-10.5); Carbon Dioxide 12 mmol/L (22-29); Chloride 117 mmol/L (98-107); Globulin 2.1 g/dL (1.3-4.6); Glucose 210 mg/dL (65-115); Magnesium 3.9 mg/dL (1.7-2.3); Osmolality Calculated 344 mOsm/kg (285-295); Phosphorus 6.2 mg/dL (2.5-4.5); Potassium 5.3 mmol/L (3.5-5.1); Slide Review Slide Review Perform; Sodium 149 mmol/L (136-145); Total Bilirubin 0.5 mg/dL (0.15-1.2); Total Protein 5.1 g/dL (6.6-8.7)
[2021-02-21 05:26] LABS: Blood Urea Nitrogen 97 mg/dL (8-23)
--- NOTE | 2021-02-21 06:00 | XRR_ITS ---
PROCEDURE INFORMATION: Exam: XR Chest Exam date and time: 02/21/2021 6:00 AM Age: 76 years old Clinical indication: Shortness of breath; Patient HX: Covid +; Additional info: SOB TECHNIQUE: Imaging protocol: XR of the chest. Views: 1 view. COMPARISON: CR (CHEST, ) 02/19/2021 4:47 AM FINDINGS: Lungs: There are diffuse bilateral interstitial pulmonary infiltrates. They are less prominent than on previous study. Pleural spaces: Unremarkable. No pleural effusion. No pneumothorax. Heart/Mediastinum: Unremarkable. No cardiomegaly. Bones/joints: Unremarkable. XR/XR chest 1V portable [id number] IMPRESSION: Improving bilateral diffuse interstitial pulmonary infiltrates.
[2021-02-21 07:30] LABS: Glucose Point of Care 262 mg/dL (70-110)
[2021-02-21] MEDS: levofloxacin-dextrose 5 % 750 MG/150 ML PREMIX 100 MG IV (08:21)
[2021-02-21] MEDS: sodium bicarbonate 8.4% 1 mEq/mL 50mL Syr 50 MEQ IVP (08:21)
[2021-02-21] MEDS: budesonide 0.5 mg/2 mL Neb INHALATION ×2 (08:37→20:08)
[2021-02-21] MEDS: cefepime 2,000 MG in sodium chloride 0.9% (plus) 50 ML 100 MG IV (09:48)
[2021-02-21] MEDS: insulin glargine 100 units/1 mL 5 UNIT SUBCUT ×2 (10:07→20:45)
--- NOTE | 2021-02-21 10:07 | PC.SOCIAL ---
IMM update IMM not updated as patient isn't expected to DC in the next 24-48 hours.
--- NOTE | 2021-02-21 10:41 | P.PN_ITS ---
Subjective Subjective: Interval history: This morning patient was seen, she is alert, but she does not answer questions, she can follow some commands such as squeezing my fingers, but is not able to say her name, does not know the date, does not know where she is, she is currently on 55 L, 80% FiO2, her ox saturations are greater than 90%, afebrile overnight, normotensive, she did have episodes of confusion overnight, and she removed one of her IVs, Vitals/I&O/Wt Last Vital Signs Temp 97.1 F L 02/21/21 08:30 Pulse 77 02/21/21 08:46 Resp 26 H 02/21/21 08:37 BP 150/34 02/21/21 08:30 Pulse Ox 93 02/21/21 08:37 02/20/21 02/21/21 02/21/21 22:59 06:59 14:59 Intake Total 467.495 / 854.495 150 / 150 Output Total 651 / 651 450 / 1101 Balance -183.505 / 203.495 -450 / -246.505 150 / 150 Weight last 48 hrs Weight 77.247 kg Weight 78.471 kg Physical Exam Const: COMMON NORMALS: alert EXAM LIMITATIONS: altered mental status GENERAL APPEARANCE: ill appearing and frail appearing ORIENTATION/CONSCIOUSNESS: Yes awake and Yes confused; not oriented to person, not oriented to place and not oriented to time Resp: COMMON NORMALS: normal respiratory effort, No retractions and No use of accessory muscles AUSCULTATION: diminished lung sounds diffuse Cardio: COMMON NORMALS: regular rate, regular rhythm, S1 normal heart sound present and S2 normal heart sound present RATE: regular rate RHYTHM: regular rhythm HEART SOUNDS: S1 normal heart sound present and S2 normal heart sound present GI: COMMON NORMALS: Normal to inspection, nondistended, normoactive bowel soun ds present, Soft to palpation and non-tender PALPATION: Yes Soft to palpation Extremity: COMMON NORMALS: no pedal edema Neuro: SENSORIUM/ORIENTATION: Yes alert, No oriented to person, No oriented to place and No oriented to time Urinary Catheter Management^: Ontiveros: Cath Placed During This Visit: yes Reason for Continuing Indwelling Catheter: Accurate Measurement of Urinary Output in Critically Ill Patients Urinary Catheter Date of Insertion: 02/14/21 Urinary Catheter Time of Insertion: 19:48 Data : 02/21/21 03:17 02/21/21 03:17 A&P Assessment and plan (1) Acute respiratory failure with hypoxia: Acute hypoxic respiratory failure -secondary to COVID-19 pneumonia, breakthrough infection, has received both Covid vaccines in May 2019, no history of booster -Now with evidence of acute respiratory distress syndrome -Now developing worsening encephalopathy, leukocytosis, renal failure Plan: -Currently being managed in ICU -Currently on heated high flow, 55 L and 80% FiO2 -On Decadron 6 mg, IV push daily -Completed remdesivir -status post 1 dose Actemra 02/17/2021 -Currently on vancomycin, cefepime and Levaquin -WBC elevated to 23.6, neutrophilic, pro-Francesco 0.04, CRP 5.2, no fevers, repeat blood cultures, will add antifungal coverage -Initial blood cultures positive for coagulase-negative staphylococci, repeat blood cultures negative, repeat blood cultures -Vitamin C, zinc, vitaimn D -Incentive spirometer, flutter valve -Albuterol, budesonide -Elevated D-dimer 1.35,, cannot perform a CT angiogram of the chest given elevated creatinine, on therapeutic Lovenox, for possible pulmonary emboli, bilateral extremity ultrasound for negative for DVT, follow D-dimer -For CHF, BNP elevated, hold Bumex -Echocardiogram shows EF of 65%, moderate LVH, grade 1 out of 4 diastolic dysfunction -Continue bicarb 650 mg 3 times daily-secondary to uremia -Seroquel for agitation on hold due to encephalopathy -Precedex for agitation -Full code -Protonix for GI prophylaxis -Chlorhexidine -Lovenox for DVT prophylaxis -Given patient's worsening encephalopathy, renal failure, leukocytosis, she is high risk of intubation in the next 24-48 hrs Acute encephalopathy, secondary to COVID-19 pneumonia, hypoxia, uremia -Continue to monitor mentation closely, aspiration precautions Metabolic acidosis, secondary to uremia, 1 amp of bicarb on bicarb replacement YENNY on CKD, secondary to COVID-19 pneumonia, avoid nephrotoxic agents -Creatinine elevated to 1.9, get did get 1 dose of Lasix yesterday -UA had evidence of UTI, but urine cultures have been unremarkable unlikely to be UTI -Renal ultrasound no nephrolithiasis Transaminitis secondary to COVID-19 Acute on chronic diastolic CHF exacerbation, as above Hypertension, continue Norvasc, continue labetalol Chronic lymphocytic leukemia, continue to monitor Elevated troponins, likely secondary respiratory failure, serial troponins, serial EKGs, continue aspirin, continue statin, normal CPK [id number]-[id number] type 2 diabetes mellitus, low-dose sliding scale, Lantus 5 units twice daily Patient son was updated yesterday of patient's critical status, prognosis guarded Plan for today, monitor respiratory status closely, high risk of intubation, add antifungal coverage, Status: Acute (2) Pneumonia due to COVID-19 virus: Status: Acute (3) Acute kidney injury superimposed on CKD: Status: Acute (4) CHF exacerbation: Status: Acute (5) Hypertension: Status: Chronic Qualifiers: Hypertension type: renovascular hypertension Qualified Code(s): I15.0 - Renovascular hypertension (6) Dyslipidemia: Status: Chronic (7) Carotid stenosis, bilateral: Status: Chronic (8) CLL (chronic lymphocytic leukemia): Status: Acute (9) ARDS (adult respiratory distress syndrome): Status: Acute Attestations Medical Necessity Statement*: Patient requires hospitalization, for acute r espiratory failure, acute respiratory distress syndrome, secondary COVID-19 pneumonia, uremia, metabolic encephalopathy, acute renal failure Coding Level of Care Code Acute [facility] [employer] [facility] for [facility] Fwd Exam Detailed Diagnoses Acute respiratory failure with hypoxia J96.01 Pneumonia due to COVID-19 virus U07.1; J12.82 Acute kidney injury superimposed on CKD N17.9; N18.9 CHF exacerbation I50.9 Hypertension I15.0 Hypertension type: renovascular hypertension Dyslipidemia E78.5 Carotid stenosis, bilateral I65.23 CLL (chronic lymphocytic leukemia) C91.10 ARDS (adult respiratory distress syndrome) J80
--- NOTE | 2021-02-21 11:00 | PC.NURSE ---
Called son, Carrington, to get consent for PICC line. Updated son on patient. Explained that the patient pulled out multiple IVs. Explained that there is a need for good IV access. Told the son that range of motion exercises were planned for today.
[2021-02-21] MEDS: morphine 4 mg/mL SDV 1 mL 1 MG IVP ×2 (11:24→17:29)
--- NOTE | 2021-02-21 11:33 | PC.NURSE ---
MIDLINE RIGHT arm ready for use.
[2021-02-21 11:49] LABS: Glucose Point of Care 216 mg/dL (70-110)
--- NOTE | 2021-02-21 15:40 | PC.NURSE ---
Used Plak-Vac mouth moisturizer to clean mouth and wipe lips.
[2021-02-21 17:20] LABS: Glucose Point of Care 137 mg/dL (70-110)
[2021-02-21] MEDS: chlorhexidine gluconate 0.12% Btl 473 mL 15 ML MUCOUS MEM (17:27)
[2021-02-21] MEDS: dexamethasone 10 mg/mL INJ 6 MG IVP (17:28)
--- NOTE | 2021-02-21 19:04 | PC.NURSE ---
Shift Note Frequent safety and comfort rounds continue. Orders and/or nursing care completed as indicated. Patient monitored for response to intervention and treatment(s). Patient pulled oxygen off today. Patient moans and will respond to commands. Gave patient oral care with mouth moisturizer throughout the day. Patient on heated high flow at 100 FIO2 and 55 of flow. Used non-rebreather when turning patient, because oxygen levels fall with activity. Patient did range of motion exercises throughout the day. Gave the patient wash cloths to clench, because patient would clench hand all day long.
[2021-02-21 19:25] LABS: Glucose Point of Care 167 mg/dL (70-110)
[2021-02-21] MEDS: enoxaparin 80 mg/0.8 mL Syringe SUBCUT (20:46)
[2021-02-22] VITALS (97 sets, daily range): BP systolic 84–159; BP diastolic 27–79; PULSE 57–93; RESP 16–29; TEMP 36.3–36.9; O2SAT 83–100
[2021-02-22] MEDS: lanolin oint 7 gm 1 APPLIC TOPICAL (01:47)
[2021-02-22 03:25] LABS: ABG PCO2 25.7 mmHg (35-45); ABG PH Result 7.33 (7.35-7.45); Arterial Blood Gas Hematocrit 33.4 % (37-47); Base Excess ABG -11.1 mmol/L (-2.0-2.0); Blood Gas Allen Test Pos; Blood Gas Sample Site Radial, right; Blood Gas Sample Type Arterial; HCO3 ABG 13.4 mmol/L (22-26); Oxygen Device NC; PO2 ABG 62.9 mmHg (80.0-100.0)
--- NOTE | 2021-02-22 03:59 | PC.NURSE ---
Shift Note Frequent safety and comfort rounds continue. Orders and/or nursing care completed as indicated. Patient monitored for response to intervention and treatment(s). Education provided includes medications with side effects, repositioning, ROM with bed exercises. Patient not alert or oriented enough to understand education, patient's independent sales representative verbalized understanding of education and update provided. Patient is nonverbal, with moaning sounds only. She would intermittently squeeze hands to command and attempt to open eyes. Precedex gtt titrated per protocol. When precedex titrated off patient became extremely agitated and SpOx dropped so precedex restarted at low dose. Bed bath and line change provided, oral care and position changes per protocol. Will continue to monitor.
[2021-02-22 04:45] LABS: Basophils % 0.2 %; Hematocrit 32.6 % (37.0-47.0); Lymphocytes # 6.7 10^3/uL (0.8-4.8); Lymphocytes % 27.3 %; Mean Corpuscular HGB Conc 30.7 g/dL (30.0-36.0); Mean Corpuscular Volume 97.9 fl (81-99); Mean Platelet Volume 12.5 fL (7.4-10.4); Monocytes # 1.5 10^3/uL (0.2-0.9); Monocytes % 6.2 %; Neutrophils # 15.93 10^3/uL (1.8-7.7); Neutrophils % 64.8 %; Nucleated Red Blood Cells % 0.1 %; Platelet Count 206 10^3/cmm (130-400); Red Blood Count 3.33 10^6/uL (4.1-5.3); Red Cell Distribution Width 15.5 % (12.1-15.1); White Blood Count 24.5 10^3/uL (4.0-10.0)
[2021-02-22 05:20] LABS: Alanine Aminotransferase 25 U/L (0-33); Albumin Level 3.1 g/dL (3.5-5.2); Alkaline Phosphatase 80 IU/L (35-105); Anion Gap 24.1 (5-19); Aspartate Amino Transferase 33 U/L (0-32); C Reactive Protein 5.9 mg/L (0.0-4.9); Calcium 7.2 mg/dL (8.5-10.5); Carbon Dioxide 13 mmol/L (22-29); Chloride 125 mmol/L (98-107); Globulin 1.8 g/dL (1.3-4.6); Glucose 219 mg/dL (65-115); Magnesium 4.2 mg/dL (1.7-2.3); Osmolality Calculated 362 mOsm/kg (285-295); Potassium 5.1 mmol/L (3.5-5.1); Sodium 157 mmol/L (136-145); Total Bilirubin 0.4 mg/dL (0.15-1.2); Total Protein 4.9 g/dL (6.6-8.7)
[2021-02-22 05:23] LABS: Blood Urea Nitrogen 100 mg/dL (8-23)
[2021-02-22 05:27] LABS: NT Pro B Type Natriuretic Pept 2130 pg/mL (0-450); Procalcitonin 0.09 ng/mL (0-0.5)
[2021-02-22 05:37] LABS: INR 1.61 (0.8-1.2)
[2021-02-22 05:56] LABS: Slide Review Slide Review Perform
[2021-02-22 06:31] LABS: Creatine Phosphokinase 683 U/L (26-192)
--- NOTE | 2021-02-22 07:00 | XRR_ITS ---
PROCEDURE INFORMATION: Exam: XR Chest Exam date and time: 02/22/2021 7:00 AM Age: 76 years old Clinical indication: Shortness of breath; Patient HX: Covid; Additional info: SOB TECHNIQUE: Imaging protocol: XR of the chest. Views: 1 view. COMPARISON: CR (CHEST, ) 02/21/2021 4:58 AM FINDINGS: Lungs: Persistent increased interstitial markings. Bibasilar atelectasis. Pneumonia should be excluded clinically. No large pleural effusion or pneumothorax. Pleural spaces: See Lungs finding. Heart/Mediastinum: Stable cardiomediastinal silhouette. Vasculature: Right midline is in satisfactory position, with distal tip in the lateral right subclavian vein. Bones/joints: Degenerative changes of the spine seen. XR/XR chest 1V portable [id number] IMPRESSION: Nonspecific imaging findings, which can be seen with pulmonary congestion or pneumonia. Clinical correlation is recommended.
[2021-02-22] MEDS: propofol 1,000 MG/100 ML INJ 7.07 MG IV (08:00)
--- NOTE | 2021-02-22 08:27 | XR_ITS ---
WS: [id number] Exam: XR chest 1V portable [id number] Date/Time of Exam: 02/22/2021 8:29 AM Reason For Exam: intubation and OGT placement Comparison made with the earlier study performed on the same day at 0518 hours. An endotracheal tube is been placed and ends about 5 cm above the shameka in good position. An enteric tube has also been placed and extends into the stomach probably ending near the region of the antrum . There are diffuse interstitial infiltrates in the mid and lower lung zones bilaterally suggesting a ctive pneumonia. Heart size is normal. No pleural effusions. The mediastinum is not widened. Regional bony elements are intact. A vascular line is noted in the region of the right axilla. Exact location is undetermined. XR/XR chest 1V portable [id number] IMPRESSION: 1. NG tube and enteric tube both in satisfactory position. 2. Interstitial infiltrates in the mid and lower bilateral lung zones suspiciou s for pneumonia.
--- NOTE | 2021-02-22 08:32 | PM.ACPR ---
Procedure/Consent Time out: Time Out Performed: Yes Consent: Consent for Procedure: Consent obtained from other (indicate) (son Mr Los Gao verbal consent over phone), Emergency procedure, Risks & Benefits reviewed and Agrees to proceed with procedure Procedure Narrative: Endotracheal Intubation Procedure Note Indication for endotracheal intubation: Altered mental status, hypoxic respiratory failure requiring 100% and 60 L on high flow nasal cannula in patient with ARDS due to COVID-19 pneumonia Consent: The patient was in immediate danger, and required the procedure emergently. Consent was obtained verbally from patient's son listed as next of kin Mr. Los Montano over phone Sedation: Versed 2 mg, etomidate 10 mg, propofol 20 mg Equipment: Chancellor scope blade 3 View: Obscured by dry clots of blood-which were mechanically cleared with suction Yonker and then we can see grade 1 view Cricoid Pressure: No Number of attempts: 1 ETT location confirmed by condensation within the ET tube, bilateral breath sounds, equal chest rise, colorimeter, chest x-ray Post intubation SPO2 100% on FiO2 100% on vent, heart rate 85, blood pressure 146/66 Gabriel DatarMD Pulm/Critical Care Medicine Acute Procedures Epistaxis Control: Time out performed: Yes
--- NOTE | 2021-02-22 08:37 | P.PN_ITS ---
Subjective Subjective: Interval history: -Patient seen multiple times today -Today morning patient noted to be in altered mental status-labs showed BUN 100 and sodium 157 -Patient saturating 94% on 100% FiO2 60 L on HFNC and IV ABG showed PaO2 62 -Discussed with patient's son next of kin Mr. Los Montano about patient current clinical condition and need for intubation to protect airway and proceeded with intubation. -Nephrology very consulted and they recommended hemodialysis, accordingly right internal jugular HD catheter was placed -Labs and imaging reviewed Medications: Reviewed: Yes Vitals/I&O/Wt Last Vital Signs Temp 98.3 F 02/21/21 20:00 Pulse 91 02/22/21 06:00 Resp 24 H 02/22/21 04:30 BP 147/50 02/22/21 04:30 Pulse Ox 95 02/22/21 04:30 02/21/21 02/22/21 02/22/21 22:59 06:59 14:59 Intake Total 0 / 450 39.632 / 489.632 Output Total 425 / 425 625 / 1050 Balance -425 / 25 -585.368 / -560.368 Weight last 48 hrs Weight 173 lb 1.6 oz Weight 170 lb 4.8 oz Physical Exam Narrative: EXAM NARRATIVE: PHYSICAL EXAM: General: lying in bed, sedated and intubated. 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 SKIN: no rash LDA: # HD Cath : Right internal jugular 02/22/2021 # Ontiveros: 02/14/2021 #Patient has right arm midline Urinary Catheter Management^: Ontiveros: Cath Placed During This Visit: yes Reason for Continuing Indwelling Catheter: Accurate Measurement of Urinary Output in Critically Ill Patients Urinary Catheter Date of Insertion: 02/14/21 Urinary Catheter Time of Insertion: 19:48 Data : 02/22/21 03:28 02/22/21 03:28 Other Labs: Laboratory Results WBC 24.5 10^3/uL (4.0-10.0) H 02/22/21 03:28 RBC 3.33 10^6/uL (4.1-5.3) L 02/22/21 03:28 Hgb 10.0 g/dL (11.5-15.3) L 02/22/21 03:28 Hct 32.6 % (37.0-47.0) L 02/22/21 03:28 MCV 97.9 fl (81-99) 02/22/21 03:28 MCH 30.0 pg (28.0-34.0) 02/22/21 03:28 MCHC 30.7 g/dL (30.0-36.0) 02/22/21 03:28 RDW 15.5 % (12.1-15.1) H 02/22/21 03:28 Plt Count 206 10^3/cmm (130-400) 02/22/21 03:28 MPV 12.5 fL (7.4-10.4) H 02/22/21 03:28 Neut % (Auto) 64.8 % 02/22/21 03:28 Lymph % (Auto) 27.3 % 02/22/21 03:28 Tyrrell % (Auto) 6.2 % 02/22/21 03:28 Eos % (Auto) 0.0 % 02/22/21 03:28 Baso % (Auto) 0.2 % 02/22/21 03:28 Neut # (Auto) 15.93 10^3/uL (1.8-7.7) H 02/22/21 03:28 Lymph # (Auto) 6.7 10^3/uL (0.8-4.8) H 02/22/21 03:28 Tyrrell # (Auto) 1.5 10^3/uL (0.2-0.9) H 02/22/21 03:28 Eos # (Auto) 0.0 10^3/uL (0.0-0.8) 02/22/21 03:28 Baso # (Auto) 0.0 10^3/uL (0.0-0.1) 02/22/21 03:28 Nucleated RBC % (auto) 0.1 % 02/22/21 03:28 Nucleated RBCs # 0.0 /100WBC 02/22/21 03:28 PT 19.50 SECONDS (12.1-14.9) H 02/22/21 03:28 INR 1.61 (0.8-1.2) H 02/22/21 03:28 APTT 26.5 SECONDS (23.9-36.7) 02/14/21 18:08 D-Dimer 0.82 ug/mIFEU (0-0.59) H 02/17/21 04:20 Specimen Type Arterial 02/22/21 10:15 Sample Site Brachial, left 02/22/21 10:15 ABG pH 7.18 (7.35-7.45) L* 02/22/21 10:15 ABG pCO2 44.0 mmHg (35-45) 02/22/21 10:15 ABG pO2 135.0 mmHg (80.0-100.0) H 02/22/21 10:15 ABG HCO3 16.5 mmol/L (22-26) L 02/22/21 10:15 ABG O2 Saturation 98.7 02/22/21 10:15 ABG Base Excess -11.3 mmol/L (-2.0-2.0) L 02/22/21 10:15 Marlo Test Pos 02/22/21 10:15 A-a O2 Gradient 49.4 mmHg (5-10) H 02/22/21 10:15 Hematocrit 30.8 % (37-47) L 02/22/21 10:15 Hgb O2 Saturation 97.0 % (95-100) 02/22/21 10:15 Carboxyhemoglobin 0.7 %THgb (0.4-20.1) 02/22/21 10:15 Methemoglobin 1.0 % (0.4-1.5) 02/22/21 10:15 Total Hemoglobin 10.0 g/dL (12-16) L 02/22/21 10:15 Sodium 160.0 mmol/L (131-143) H 02/22/21 10:15 Potassium 5.5 mmol/L (3.5-5.0) H 02/22/21 10:15 Glucose 245.0 mg/dL (70-115) H 02/22/21 10:15 Ionized Calcium 1.1 mmol/L (1.1-1.4) 02/22/21 10:15 O2 Delivery Device Vent 02/22/21 10:15 O2 Liters/Min 60.0 % 02/22/21 03:15 FiO2 80.0 % 02/22/21 10:15 Tidal Volume 0.38 02/22/21 10:15 PEEP 10.0 cmH20 02/22/21 10:15 Hospital Manager ID Bd 02/22/21 10:15 Sodium 157 mmol/L (136-145) H 02/22/21 03:28 Potassium 5.1 mmol/L (3.5-5.1) 02/22/21 03:28 Chloride 125 mmol/L (98-107) H 02/22/21 03:28 Carbon Dioxide 13 mmol/L (22-29) L 02/22/21 03:28 Anion Gap 24.1 (5-19) H 02/22/21 03:28 BUN 100 mg/dL (8-23) H* 02/22/21 03:28 Creatinine 2.4 mg/dL (0.5-0.9) H 02/22/21 03:28 GFR Calculation Not Reportable 02/22/21 03:28 Glucose 219 mg/dL (65-115) H 02/22/21 03:28 POC Glucose 229 mg/dL (70-110) H 02/22/21 09:58 Calculated Osmolality 362 mOsm/kg (285-295) H 02/22/21 03:28 Lactic Acid 0.8 mmol/L (0.5-2.2) 02/15/21 04:45 Calcium 7.2 mg/dL (8.5-10.5) L 02/22/21 03:28 Phosphorus 6.0 mg/dL (2.5-4.5) H 02/22/21 03:28 Magnesium 4.2 mg/dL (1.7-2.3) H 02/22/21 03:28 Ferritin 2632 ng/mL (15-150) H 02/20/21 13:05 Total Bilirubin 0.4 mg/dL (0.15-1.2) 02/22/21 03:28 AST 33 U/L (0-32) H 02/22/21 03:28 ALT 25 U/L (0-33) 02/22/21 03:28 Alkaline Phosphatase 80 IU/L (35-105) 02/22/21 03:28 Creatine Kinase 683 U/L (26-192) H* 02/22/21 03:28 Troponin T Baseline 36 ng/L (0-10) H 02/14/21 18:08 Troponin T 120 Minute 38.17 ng/L (0-10) H 02/14/21 20:30 Delta Troponin T 2.17 ABS# (0-10) 02/14/21 20:30 Troponin T Hi Sens 6Hr 33.07 ng/L (0-10) H 02/15/21 00:50 Troponin T Hi Sens 6Hr Delta -2.93 ng/L (0-12) L 02/15/21 00:50 C-Reactive Protein 5.9 mg/L (0.0-4.9) H 02/22/21 03:28 NT-Pro-B Natriuret Pep 2130 pg/mL (0-450) H 02/22/21 03:28 Total Protein 4.9 g/dL (6.6-8.7) L 02/22/21 03:28 Albumin 3.1 g/dL (3.5-5.2) L 02/22/21 03:28 Globulin 1.8 g/dL (1.3-4.6) 02/22/21 03:28 Procalcitonin 0.09 ng/mL (0-0.5) 02/22/21 03:28 TSH 0.48 uIU/mL (0.27-4.20) 02/15/21 04:45 Urine Color Yellow (Yellow) 02/14/21 22:00 Urine Appearance Sl cloudy (CLEAR) A 02/14/21 22:00 Urine pH 5 (5-7) 02/14/21 22:00 Ur Specific Apex 1.010 (1.005-1.030) 02/14/21 22:00 Urine Protein 1+ (Negative) H 02/14/21 22:00 Urine Glucose (UA) Norm (Normal) 02/14/21 22:00 Urine Ketones Negative (Negative) 02/14/21 22:00 Urine Blood 2+ (Negative) H 02/14/21 22:00 Urine Nitrate Negative (Negative) 02/14/21 22:00 Urine Bilirubin Neg (Negative) 02/14/21 22:00 Urine Urobilinogen Norm mg/dL (Negative) 02/14/21 22:00 Ur Leukocyte Esterase 2+ (Negative) H 02/14/21 22:00 Urine RBC 10-15 /hpf (0-2) H 09/19/21 22:00 Urine WBC >100 /hpf (0-5) H 02/14/21 22:00 Ur Squamous Epith Cells 0-4 /hpf (0-5) H 02/14/21 22:00 Amorphous Sediment Not Reportable 02/14/21 22:00 Urine Bacteria 4+ /hpf (NONE) H 02/14/21 22:00 Ur Random Sodium 31 mmol/L 02/15/21 17:26 Urine Creatinine 153 mg/dL (28-217) 02/15/21 17:26 Vancomycin Trough 15.1 ug/mL (10-15) H 02/22/21 09:47 Serum Ketones Negative (Negative) 02/15/21 04:45 Nasal/Oral COVID-19 PCR Detected H 02/14/21 22:00 SARS-CoV-2 Ag (Rapid) Positive (Negative) H 02/14/21 22:[address] 02/14/21 18:36 IMPRESSION: 1. Multifocal patchy bilateral pulmonary ground-glass opacities are nonspecific. Differential includes pneumonia and/or pulmonary edema.Imaging features can be seen with COVID-19 pneumonia, though are nonspecific and can occur with a variety of infectious and noninfectious processes. (Reference: Todd) 2. There are centrilobular emphysematous changes in the bilateral lungs. 3. Multivessel atherosclerotic disease which involves the coronary arteries. 4. Multiple lymph nodes are visualized in the upper abdomen some of which appear to be abnormal in morphology/rounded. Consider CT scan of the abdomen/pelvis with IV contrast for further evaluation as clinically warranted. REFERENCES: Todd Dill, et al., Radiological Society of [place] Expert Consensus Statement on Reporting Chest CT Findings Related to COVID-19. Endorsed by the Society of Thoracic Radiology, the [place] [employer], and RSNA. Published August 21, 2019. Radiation Dose CTDIVOL = (mGy): DLP = 692.4 (mGy-cm) Renal Ultrasound 02/15/21 07:34 IMPRESSION: 1. No hydronephrosis in either kidney. 2. Cortical atrophy right kidney. Chest X-Ray 02/22/21 13:16 IMPRESSION: 1. Right-sided IJ catheter ends in the lower one third of the SVC in good posi tion. 2. Improved interstitial infiltrates since previous study. 3. ET tube and NG tube both remain in satisfactory position. Micro: Microbiology 02/22/21 03:28 Blood Culture - Preliminary Blood SPECIMEN COLLECTED 02/22/21 03:28 Blood Culture - Preliminary Blood SPECIMEN COLLECTED 02/17/21 04:23 Blood Culture - Final Blood NO GROWTH AFTER 5 DAYS 02/17/21 04:20 Blood Culture - Final Blood NO GROWTH AFTER 5 DAYS A&P Assessment and plan (1) AMS (altered mental status): Status: Acute Qualifiers: Altered mental status type: somnolence Qualified Code(s): R40.0 - Somnolence (2) Uremic encephalopathy: Status: Acute (3) Acute respiratory failure with hypoxia: Status: Acute (4) Acute respiratory distress syndrome (ARDS) due to COVID-19 virus: Status: Acute (5) Acute kidney injury superimposed on CKD: Status: Acute (6) CHF (congestive heart failure): Status: Acute Qualifiers: Heart failure chronicity: acute on chronic Heart failure type: diastol ic Qualified Code(s): I50.33 - Acute on chronic diastolic (congestive) heart failure (7) Mitral regurgitation: Status: Chronic Qualifiers: Cardiac valve disease etiology: etiology unspecified Qualified Code(s): I34.0 - Nonrheumatic mitral (valve) insufficiency #Altered mental status-secondary to uremic encephalopathy/hypernatremia in patient with worsening CKD #Acute hypoxic respiratory failure secondary to ARDS due to COVID-19 pneumonia -Covid test + 02/11/2021, admitted 02/14/2021; May 2020 with 2 doses -ABG 7.3 08/20/62/13.4 on 60L 100% FiO2 HFNC-and patient appeared confused due to BUN 100/sodium 157 -Intubated today 02/22/2021-and sedated with propofol and fentanyl GTT; target RASS -2 and try to avoid high doses of fentanyl and Versed in this elderly patient. -S/p Actemra 02/17/2021, held remdesivir in view of CKD, currently on dexamethasone 10 mg daily -Titrate FiO2 down to keep saturations >88% #Chronic diastolic heart failure with mitral regurgitation and mild aortic stenosis -Echocardiogram shows EF of 65%, moderate LVH, grade 1 out of 4 diastolic dysfunction -Currently hemodynamically stable -She is receiving aspirin/Lipitor/Cardizem 240 mg p.o. daily, labetalol 200 mg p.o. twice daily, #YENNY on CKD stage III likely secondary to COVID-19 pneumonia with increased anion gap metabolic acidosis -ABG post intubation 7.1 8/44/135/16/98% on 380/80%/10; CMP significant for sodium 157, bicarb 13, corrected anion gap 26.5, phosphorus 6; corrected calcium 8 -overall - 560 cc last 24 hours and - 2.6 L since admission - currently on sodium bicarbonate 650 mg p.o. 3 times daily -Appreciate renal recommendations-plan is to proceed with hemodialysis accordingly right internal jugular hemodialysis catheter placed today 02/22/2021 #Blood cultures 02/14/2021-08/30 bottles positive for cons-repeat blood cultures 02/18/2020 were negative so far -MRSA nares negative -Currently patient is on vancomycin, cefepime, Levaquin, caspofungin; procalcitonin 0.09 -recommended to discontinue micafungin, cefepime and Levaquin. - if Repeat blood cultures negative discontinue vancomycin. #Sugars moderately controlled with scale coverage and Lantus 5 units at bedtime #Patient was on therapeutic Lovenox for D-dimer 1.35- Cannot do CT angiogram with contrast due to underlying CKD -held due to bleeding noted that oral cavity -stable H&H last 4 days -DVT prophylaxis: SCDs currently Lovenox on hold; recommended heparin in view of worsening renal functions #Recommended to start tube feeding nephro 10 mL/hr and max 30 mL/h and check gastric residuals - senna docusate 2 tabs at bedtime #Full code #NOK Reji Montano - updated Patient mentation and respiratory status worsened secondary to worsening CKD r elated hypernatremia and uremia-I believe once patient is on hemodialysis her mentation and respiratory status should get better. So far there is no source of infection and so I recommend to discontinue antibiotics, especially there is no evidence of fungal infection, definitely does not need micafungin. Will assess daily mentation and once oxygenation's improve with FiO2 less than 50% and PEEP 8-we will do breathing trials and extubate the patient. Recommendations conveyed to hospitalist, RN, RT covering the patient Attestations Medical Necessity Statement*: Acute hypoxemic respiratory failure secondary to ARDS due to COVID-19 pneumonia requiring high FiO2 on mechanical ventilator and altered mental status secondary to uremic encephalopathy/hyponatremia and patient with worsening YENNY or CKD requiring hemodialysis-need close ICU monitoring Time Spent in Patient Care: Greater than 35 minutes (>than 50% of time spent in counselling and/or direct pt care on unit) . Critical Care Time: The high probability of a clinically significant, sudden or life threatening deterioration of the patient's [neurological, pulmonary, renal] system(s) required my full and direct attention, intervention and personal management. The critical care time is as shown. 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 Patient Type Established History Comprehensive Exam Comprehensive Medical Decision Making High Complexity Diagnoses AMS (altered mental status) R40.0 Altered mental status type: somnolence Uremic encephalopathy G93.49; N19 Acute respiratory failure with hypoxia J96.01 Acute respiratory distress syndrome (ARDS) due to COVID-19 virus U07.1; J80 Acute kidney injury superimposed on CKD N17.9; N18.9 CHF (congestive heart failure) I50.33 Heart failure chronicity: acute on chronic Heart failure type: diastolic Mitral regurgitation I34.0 Cardiac valve disease etiology: etiology unspecified Time Spent (min) 80
[2021-02-22] MEDS: budesonide 0.5 mg/2 mL Neb INHALATION ×2 (08:52→20:00)
[2021-02-22] MEDS: rocuronium 10 mg/mL INJ 5mL 50 MG (09:33)
[2021-02-22] MEDS: midazolam 1 mg/mL INJ 2 mL 2 MG IVP (09:35)
[2021-02-22] MEDS: fentaNYL 50 mcg/mL INJ 2mL IVP (09:35)
[2021-02-22] MEDS: chlorhexidine gluconate 0.12% Btl 473 mL 15 ML MUCOUS MEM ×2 (09:42→18:19)
[2021-02-22] MEDS: ascorbic acid 500 mg Tablet PO ×2 (09:43→17:51)
[2021-02-22] MEDS: dilTIAZem ER (24HR) 240 mg Capsule PO (09:43)
[2021-02-22] MEDS: sennosides-docusate Tablet 1 TAB PO ×2 (09:43→17:51)
[2021-02-22] MEDS: zinc gluconate 50 mg Tablet PO (09:43)
[2021-02-22] MEDS: sodium bicarbonate 650 mg Tablet PO ×3 (09:43→20:45)
[2021-02-22] MEDS: aspirin 81 mg EC Tablet PO (09:43)
[2021-02-22] MEDS: cholecalciferol (vitamin D3) 1,000 unit Tablet 1000 UNIT PO (09:43)
[2021-02-22] MEDS: pantoprazole DR 40 mg Tablet PO ×2 (09:44→17:51)
[2021-02-22] MEDS: vancomycin 1,250 MG/250 ML PIGGYBACK 250 MG IV (09:44)
[2021-02-22] MEDS: amlodipine 10 mg Tablet PO (09:45)
[2021-02-22] MEDS: labetalol 200 mg Tablet PO (09:46)
[2021-02-22] MEDS: cefepime 2,000 MG in sodium chloride 0.9% (plus) 50 ML 100 MG IV (09:47)
--- NOTE | 2021-02-22 09:55 | PC.CHAP ---
Pastoral Care Encounter/Spiritual Assessment Type of Contact [] Declined in home sales consultant visit [] Patient/Family/Request visit [] Outpatient visit [] Follow-up visit [] Physician referral [] Code/Alert [x] Routine visit [] Staff referral [] Actively dying [] Patient sleeping [] Family support [] [] Out of room [] Palliative care [] [x] Receiving care in room [] Pre-surgical visit [] Trauma [] Long length of stay [x] ICU visit [x] Other: covid Relational/Emotional Strength [] Patient feels connected with others/family/visitors/staff [] Distress [] Loneliness/isolation [] Abandonment Spirituality of Patient [] Person of Priscilla [] Attends Roman Catholic of their Priscilla [] Believes in Prayer [] Reads Bible or Episcopal materials [] There are Spiritual issues to be addressed Tong Setter Interventions [x] Prayer [] Active listening [] Non-anxious presence [] Spiritual/emotional support [] Crisis/trauma care [] Spiritual counseling [] Bereavement support [] Provided bereavement packet [] Provided Bible/devotional materials [] Provided toy/stuffed animal, coloring book to patient or family member [] Provided Communion [] Anointing/[place] [] Salvation [x] Completed spiritual assessment [] Other: Impact on Illness or Injury [] Angry [] Fearful [] Anxious [] Often cries [] Exhaustion [] Unable to work [] Unable to attend jain [] Unable to walk/stand [] Unable to read [] Unable to drive [] Unable to eat/drink [] Unable to sleep [] Unable to be with family [] Patient intubated [] Other: Summary Time spent with patient
[2021-02-22 10:26] LABS: Blood Gas Allen Test Pos; Blood Gas Operator Identificat BD; Blood Gas Sample Site Brachial, left; Blood Gas Sample Type Arterial; Ionized Calcium Level - ABG 1.1 mmol/L (1.1-1.4); Oxygen Device VENT
--- NOTE | 2021-02-22 10:26 | P.PN_ITS ---
Subjective Subjective: Interval history: -Patient was seen and examined this morning, worsening mentation and increasing supplemental oxygen requirement as well as worsening Hypernatremia. Best way forward was to intubate her and put on mechanical ventilation, family was updated , consent was obtained. Medications: Reviewed: Yes Vitals/I&O/Wt Last Vital Signs Temp 98.3 F 02/21/21 20:00 Pulse 81 02/22/21 09:02 Resp 16 02/22/21 09:02 BP 147/50 02/22/21 04:30 Pulse Ox 99 02/22/21 09:02 02/21/21 02/22/21 02/22/21 22:59 06:59 14:59 Intake Total 0 / 450 39.632 / 489.632 Output Total 425 / 425 625 / 1050 Balance -425 / 25 -585.368 / -560.368 Weight last 48 hrs Weight 78.517 kg Weight 77.247 kg Physical Exam Narrative: EXAM NARRATIVE: Intubated and sedated. HENMT: COMMON NORMALS: normocephalic and atraumatic HEAD & SCALP: normocephalic and atraumatic Resp: OTHER: B/L Coarse Breath sounds, B/L Crackles in both lung marsh Cardio: COMMON NORMALS: regular rate, regular rhythm, S1 normal heart sound present, S2 normal heart sound present, No gallops present (Cardio), No murmurs present (Cardio), No rub (Cardio) and Peripheral pulses 2+ throughout RATE: regular rate RHYTHM: regular rhythm HEART SOUNDS: S1 normal heart sound present and S2 normal heart sound present PERIPHERAL PULSES: Peripheral pulses 2+ throughout GI: COMMON NORMALS: Normal to inspection, nondistended, normoactive bowel sounds present, Soft to palpation, non-tender, No hepatosplenomegaly present and no masses AUSCULTATION: Yes normoactive bowel sounds PALPATION: Yes Soft to palpation and Yes No hepatosplenomegaly present RECTAL EXAM: deferred Extremity: COMMON NORMALS: no clubbing, cyanosis or edema and no pedal edema Urinary Catheter Management^: Ontiveros: Cath Placed During This Visit: yes Reason for Continuing Indwelling Catheter: Accurate Measurement of Urinary Output in Critically Ill Patients Urinary Catheter Date of Insertion: 02/14/21 Urinary Catheter Time of Insertion: 19:48 Data : 02/22/21 03:28 02/22/21 03:28 Micro: Microbiology 09/25/21 08:12 Urine Culture - Preliminary Urine,Voided 02/22/21 03:28 Blood Culture - Preliminary Blood SPECIMEN COLLECTED 02/22/21 03:28 Blood Culture - Preliminary Blood SPECIMEN COLLECTED 02/17/21 04:23 Blood Culture - Final Blood NO GROWTH AFTER 5 DAYS 02/17/21 04:20 Blood Culture - Final Blood NO GROWTH AFTER 5 DAYS A&P Assessment and plan (1) Acute respiratory failure with hypoxia: Acute hypoxic respiratory failure -secondary to COVID-19 pneumonia, breakthrough infection, has received both Covid vaccines in May 2019, no history of booster -Now with evidence of acute respiratory distress syndrome -Now developing worsening encephalopathy, leukocytosis, renal failure Plan: -Currently being managed in ICU -Currently intubated sedated on mechanical ventilation -On Decadron 6 mg, IV push daily -Completed remdesivir -status post 1 dose Actemra 02/17/2021 -Currently on vancomycin, cefepime and Levaquin, Caspofugin -WBC elevated to 23.6, neutrophilic, pro-Francesco 0.04, CRP 5.2, no fevers, repeat blood cultures, will add antifungal coverage -Initial blood cultures positive for coagulase-negative staphylococci, repeat blood cultures negative, repeat blood cultures -Vitamin C, zinc, vitaimn D -Incentive spirometer, flutter valve -Albuterol, budesonide -Elevated D-dimer 1.35,, cannot perform a CT angiogram of the chest given elevated creatinine, on therapeutic Lovenox, for possible pulmonary emboli, bilateral extremity ultrasound for negative for DVT, follow D-dimer -For CHF, BNP elevated, -Echocardiogram shows EF of 65%, moderate LVH, grade 1 out of 4 diastolic dysfunction -Continue bicarb 650 mg 3 times daily-secondary to uremia -Seroquel for agitation on hold due to encephalopathy -Precedex for agitation -Protonix for GI prophylaxis -Chlorhexidine -Lovenox for DVT prophylaxis Acute encephalopathy, secondary to COVID-19 pneumonia, hypoxia, uremia -Continue to monitor mentation closely, aspiration precautions YENNY on worseing CKD stage IV , secondary to COVID-Nephropathy: Started ON H/D on 02/22 Renal ultrasound no nephrolithiasis avoid nephrotoxic agents -Metabolic Acidosis 2/2 to uremia plan as above. Transaminitis secondary to COVID-19 Acute on chronic diastolic CHF exacerbation: Hypertension: Currently Hypotensive on Levophed Chronic lymphocytic leukemia, continue to monitor Elevated troponins, likely secondary respiratory failure, serial troponins, serial EKGs, continue aspirin, continue statin, normal CPK [id number] type 2 diabetes mellitus, low-dose sliding scale, Lantus 5 units twice daily Patient son was updated -Full code Status: Acute (2) Pneumonia due to COVID-19 virus: Status: Acute (3) Acute kidney injury superimposed on CKD: Status: Acute (4) CHF exacerbation: Status: Acute (5) Hypertension: Status: Chronic Qualifiers: Hypertension type: renovascular hypertension Qualified Code(s): I15.0 - Renovascular hypertension (6) Dyslipidemia: Status: Chronic (7) Carotid stenosis, bilateral: Status: Chronic (8) CLL (chronic lymphocytic leukemia): Status: Acute (9) ARDS (adult respiratory distress syndrome): Status: Acute Attestations Medical Necessity Statement*: Patient needs to be in hospital for management of PNA. Coding Level of Care Code Acute Spooler Operator Automatic for [facility] [place] Diagnoses Acute respiratory failure with hypoxia J96.01 Pneumonia due to COVID-19 virus U07.1; J12.82 Acute kidney injury superimposed on CKD N17.9; N18.9 CHF exacerbation I50.9 Hypertension I15.0 Hypertension type: renovascular hypertension Dyslipidemia E78.5 Carotid stenosis, bilateral I65.23 CLL (chronic lymphocytic leukemia) C91.10 ARDS (adult respiratory distress syndrome) J80
[2021-02-22 10:30] LABS: Vancomycin Trough 15.1 ug/mL (10-15)
[2021-02-22] MEDS: insulin glargine 100 units/1 mL 5 UNIT SUBCUT ×2 (11:11→20:45)
[2021-02-22 11:46] LABS: Alveolar-Arterial Oxygen Gradi 49.4 mmHg (5-10); Arterial Blood Gas Hematocrit 30.8 % (37-47); Base Excess ABG -11.3 mmol/L (-2.0-2.0); Blood Gas Tidal Volume 0.38; Carboxyhemoglobin 0.7 %THgb (0.4-20.1); HCO3 ABG 16.5 mmol/L (22-26); Oxygen Saturation ABG 98.7; Potassium Level - ABG 5.5 mmol/L (3.5-5.0)
[2021-02-22 12:29] LABS: Glucose Point of Care 229 mg/dL (70-110)
--- NOTE | 2021-02-22 12:53 | PC.NURSE ---
called Pt's Son, Carrington Gao. Updated him and answered all questions. While on the phone we obtained permission to put in a dialysis port and do hemodialysis.
--- NOTE | 2021-02-22 13:08 | PC.NURSE ---
Time out done for Hemodialysis cath . Jeffrey performing with Datar assisting.
--- NOTE | 2021-02-22 13:16 | XR_ITS ---
WS: [id number] Exam: XR chest 1V portable [id number] Date/Time of Exam: 02/22/2021 1:17 PM Reason For Exam: check dialysis line placement Comparison made with previous study performed on the same day at 0835 hours. A right IJ catheter has been placed and ends in the lower one third of the SVC. ET tube and NG tube b oth remain in satisfactory position. Mild interstitial infiltrates are noted bilaterally with some im provement since the last exam. Heart size remains normal. No pleural effusions. XR/XR chest 1V portable [id number] IMPRESSION: 1. Right-sided IJ catheter ends in the lower one third of the SVC in good posit ion. 2. Improved interstitial infiltrates since previous study. 3. ET tube and NG tube both remain in satisfactory position.
--- NOTE | 2021-02-22 14:06 | P.PN_ITS ---
Subjective Subjective: Interval history: Since I signed off her care on 02/17 unfortunately Ms. Gao has declined, is now intubated and mechanically ventilated on FiO2 100% earlier today, just decreasing down to 70% with a PEEP of 10. Hemodynamically she remains stable and currently not on Levophed. Urine output noted to be 625 mL yesterday. She does have increasing potassium, severe acidosis as well as elevations in creatinine and BUN. No overt extremity edema, lungs are very diminished on examination. Vitals/I&O/Wt Last Vital Signs Temp 97.4 F L 02/22/21 07:45 Pulse 67 02/22/21 12:30 Resp 24 H 02/22/21 13:39 BP 114/35 02/22/21 12:30 Pulse Ox 98 02/22/21 13:39 02/21/21 02/22/21 02/22/21 22:59 06:59 14:59 Intake Total 0 / 450 39.632 / 489.632 Output Total 425 / 425 625 / 1050 Balance -425 / 25 -585.368 / -560.368 Weight last 48 hrs Weight 78.517 kg Weight 77.247 kg Physical Exam Narrative: EXAM NARRATIVE: Constitutional: sedated and vented HEENT: Wet mucosa, no jvp, non icteric Lungs: Bilaterally decreased air entry in all lung zones CVS: S1 S2, no murmurs Abdo: Soft, BS ok Ext 4: Minimal edema, peripheral perfusion with no cyanosis Neurological: Grossly non-focal Urinary Catheter Management^: Ontiveros: Cath Placed During This Visit: yes Reason for Continuing Indwelling Catheter: Accurate Measurement of Urinary Output in Critically Ill Patients Urinary Catheter Date of Insertion: 02/14/21 Urinary Catheter Time of Insertion: 19:48 Data : 02/22/21 03:28 02/22/21 03:28 Micro: Microbiology 02/20/21 08:12 Urine Culture - Preliminary Urine,Voided 02/22/21 03:28 Blood Culture - Preliminary Blood SPECIMEN COLLECTED 02/22/21 03:28 Blood Culture - Preliminary Blood SPECIMEN COLLECTED 02/17/21 04:23 Blood Culture - Final Blood NO GROWTH AFTER 5 DAYS 02/17/21 04:20 Blood Culture - Final Blood NO GROWTH AFTER 5 DAYS A&P Additional A&P Information 1. 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 Given critical acidemia, increasing BUN and creatinine and also hyperkalemia will initiate hemodialysis today. We'll do gentle dialysis session today with plan for increased up titration in intensity depending on how she tolerates this over the next 24-48 hours. Strict I's and O's Avoid usual nephrotoxic agents Dose medication for GFR less than 15 2. Covid pneumonitis On combination remdesivir, dexamethasone, antibiotic coverage, judicious use of diuretics. High flow nasal cannula being titrated. She did receive both vaccinations. 3. Chemistry Anion gap metabolic acidosis, likely secondary to uremia but will check lactic acid levels Dialysis will help Case discussed with multiple team members and son Carrington Jesus Omalley MD Nephrology [phone] Patient seen and examined via telemedicine, with the assistance of the bedside RN > 25 min spent in evaluation and mgmt of patient Attestations Medical Necessity Statement*: eval for YENNY Coding Level of Care Code Acute Paper Sales Manager for Karthikeyan Peters
--- NOTE | 2021-02-22 15:00 | PC.NURSE ---
Tube feed devorah. Nicol at 10 ml. Goal is 30ml.
--- NOTE | 2021-02-22 15:22 | PM.ACPR ---
Procedure/Consent Consent: Consent for Procedure: Consent obtained from other (indicate), Risks & Benefits reviewed and Agrees to proceed with procedure Acute Procedures Central Line Placement^: Right IJ: Time out performed: Yes Patient placed on monitor/pulse ox: Yes MD prep: mask, gown and gloves Central line prep: Chlorhexidine scrub Local anesthesia used: lidocaine 1% Ultrasound used for placement: Yes Central line lumen inserted: double Post procedure: sutured in place, good blood return, all ports aspirated, flushed, capped and sterile dressing applied Post procedure x-ray: tip of catheter in good position and no pneumothorax seen Patient tolerated procedure: well Complications: none Additional comments: RT I.J Dialysis catheter was placed.
--- NOTE | 2021-02-22 16:06 | PC.NUTR ---
Tube feeding recommendations: TF not yet ordered or initiated, but MD requesting Nepro at 30 ml/hr goal rate, per nurse. No flushes noted. This would provide 1296 kcal, 58 g protein, 522 ml H2O, meeting 89% estimated kcal needs, and 71% estimated protein needs. Would suggest minimum 30-60 ml free H2O flushes q 4 hrs, with additional fluid per MD discretion. Would also suggest Beneprotein, 1 scoop, 1-2 X/day to better meet protein needs for HD and wound healing without excessive kcal. See full RD assessment for further details.
[2021-02-22 16:24] LABS: ABG PH Result 7.18 (7.35-7.45)
[2021-02-22] MEDS: heparin, porcine 1,000 unit/mL INJ 10 mL 10000 UNIT HE (17:17)
--- NOTE | 2021-02-22 17:17 | PC.NURSE ---
Heparin given by Dialysis nurse Radha Guzman RN
[2021-02-22] MEDS: dexamethasone 10 mg/mL INJ 6 MG IVP (17:51)
[2021-02-22 18:10] LABS: Glucose Point of Care 153 mg/dL (70-110)
[2021-02-22 18:29] LABS: Hepatitis B Core AB, Total Non-Reactive (Nonreactive); Hepatitis B Surface AB 3.5 (11.5-1000); Hepatitis B Surface Antigen Non-Reactive (Nonreactive)
--- NOTE | 2021-02-22 19:00 | PC.NURSE ---
Dr. Murphy called and gave verbal orders to turn tube feeding to 30mL/hr and 200mL water flush every 6 hours.
[2021-02-22] MEDS: atorvastatin 40 mg Tablet 10 MG PO (20:45)
[2021-02-22] MEDS: enoxaparin 80 mg/0.8 mL Syringe SUBCUT (20:46)
[2021-02-23] VITALS (89 sets, daily range): BP systolic 84–205; BP diastolic 29–171; PULSE 55–116; RESP 18–28; TEMP 37.5–37.8; O2SAT 86–96
[2021-02-23 04:47] LABS: Basophils % 0.2 %; Hematocrit 29.1 % (37.0-47.0); Hemoglobin 8.9 g/dL (11.5-15.3); Lymphocytes # 4.4 10^3/uL (0.8-4.8); Lymphocytes % 22.7 %; Mean Corpuscular HGB Conc 30.6 g/dL (30.0-36.0); Mean Corpuscular Hemoglobin 30.2 pg (28.0-34.0); Mean Corpuscular Volume 98.6 fl (81-99); Mean Platelet Volume 12.2 fL (7.4-10.4); Monocytes % 5.3 %; Neutrophils # 13.47 10^3/uL (1.8-7.7); Nucleated Red Blood Cells # 0.1 /100WBC; Nucleated Red Blood Cells % 0.4 %; Platelet Count 146 10^3/cmm (130-400); Red Blood Count 2.95 10^6/uL (4.1-5.3); White Blood Count 19.2 10^3/uL (4.0-10.0)
[2021-02-23 04:53] LABS: ABG PCO2 37.6 mmHg (35-45); ABG PH Result 7.34 (7.35-7.45); Arterial Blood Gas Hematocrit 28.6 % (37-47); Base Excess ABG -5.3 mmol/L (-2.0-2.0); Blood Gas Sample Site Brachial, left; Blood Gas Sample Type Arterial; HCO3 ABG 20.1 mmol/L (22-26); Oxygen Device VENT
--- NOTE | 2021-02-23 04:53 | PC.NURSE ---
Shift Note Frequent safety and comfort rounds continue. Orders and/or nursing care completed as indicated. Patient monitored for response to intervention and treatment(s). Education provided includes optimal oxygenation. Patient and/or title insurance sales representative Reinforcement needed. Will continue to monitor.
[2021-02-23 05:01] LABS: INR 1.45 (0.8-1.2)
[2021-02-23 05:05] LABS: Alanine Aminotransferase 22 U/L (0-33); Albumin Level 2.8 g/dL (3.5-5.2); Alkaline Phosphatase 64 IU/L (35-105); Anion Gap 19.7 (5-19); Aspartate Amino Transferase 31 U/L (0-32); Blood Urea Nitrogen 73 mg/dL (8-23); Calcium 6.6 mg/dL (8.5-10.5); Carbon Dioxide 20 mmol/L (22-29); Chloride 111 mmol/L (98-107); Globulin 1.5 g/dL (1.3-4.6); Glucose 258 mg/dL (65-115); Osmolality Calculated 332 mOsm/kg (285-295); Phosphorus 5.4 mg/dL (2.5-4.5); Potassium 4.7 mmol/L (3.5-5.1); Sodium 146 mmol/L (136-145); Total Bilirubin 0.4 mg/dL (0.15-1.2); Total Protein 4.3 g/dL (6.6-8.7)
[2021-02-23 05:12] LABS: NT Pro B Type Natriuretic Pept 1848 pg/mL (0-450); Procalcitonin 0.09 ng/mL (0-0.5)
[2021-02-23 05:36] LABS: Creatine Phosphokinase 546 U/L (26-192)
[2021-02-23 07:51] LABS: Glucose Point of Care 309 mg/dL (70-110)
[2021-02-23] MEDS: aspirin 81 mg EC Tablet PO (08:23)
[2021-02-23] MEDS: labetalol 200 mg Tablet PO (08:23)
[2021-02-23] MEDS: sodium bicarbonate 650 mg Tablet PO ×3 (08:23→20:39)
[2021-02-23] MEDS: pantoprazole DR 40 mg Tablet PO ×2 (08:23→18:39)
[2021-02-23] MEDS: ascorbic acid 500 mg Tablet PO ×2 (08:23→18:38)
[2021-02-23] MEDS: zinc gluconate 50 mg Tablet PO (08:23)
[2021-02-23] MEDS: sennosides-docusate Tablet 1 TAB PO ×2 (08:23→18:38)
[2021-02-23] MEDS: cholecalciferol (vitamin D3) 1,000 unit Tablet 1000 UNIT PO (08:23)
[2021-02-23] MEDS: cefepime 2,000 MG in sodium chloride 0.9% (plus) 50 ML 100 MG IV ×2 (08:24→23:20)
[2021-02-23] MEDS: levofloxacin-dextrose 5 % 750 MG/150 ML PREMIX 300 MG IV (08:40)
[2021-02-23] MEDS: insulin glargine 100 units/1 mL 5 UNIT SUBCUT ×2 (08:41→20:42)
[2021-02-23] MEDS: chlorhexidine gluconate 0.12% Btl 473 mL 15 ML MUCOUS MEM ×2 (08:41→18:41)
[2021-02-23] MEDS: budesonide 0.5 mg/2 mL Neb INHALATION ×2 (08:46→20:33)
--- NOTE | 2021-02-23 10:22 | PC.SOCIAL ---
IMM Update Pg. 2 of IMM updated and reviewed with patient's son, Carrington, over the phone. Verbalized understanding. Intialed, dated, and timed copy in chart.
--- NOTE | 2021-02-23 11:06 | P.PN_ITS ---
Subjective Subjective: Interval history: -Patient was seen and examined this morning,continue to be on mechanical ventilation 60 % Fio2 PEEP: 12 . Went into a.fib today with well controlled rate she is also having frequent 2 Secs pause and one episode of 3.1 s pause. Tolerated H/D well yesterday. Medications: Reviewed: Yes Vitals/I&O/Wt Last Vital Signs Temp 99.8 F H 02/23/21 08:30 Pulse 79 02/23/21 10:00 Resp 27 H 02/23/21 09:22 BP 106/38 02/23/21 10:00 Pulse Ox 89 L 02/23/21 10:00 02/22/21 02/23/21 02/23/21 22:59 06:59 14:59 Intake Total 756.427 / 756.427 794.25 / 1550.677 Output Total 400 / 400 50 / 450 Balance 356.427 / 356.427 744.25 / 1100.677 Weight last 48 hrs Weight 76.459 kg Weight 78.517 kg Physical Exam Narrative: EXAM NARRATIVE: Intubated and sedated. HENMT: COMMON NORMALS: normocephalic and atraumatic HEAD & SCALP: normocephalic and atraumatic Resp: OTHER: B/L Coarse Breath sounds, B/L Crackles in both lung marsh Cardio: COMMON NORMALS: regular rate, regular rhythm, S1 normal heart sound present, S2 normal heart sound present, No gallops present (Cardio), No murmurs present (Cardio), No rub (Cardio) and Peripheral pulses 2+ throughout RATE: regular rate RHYTHM: regular rhythm HEART SOUNDS: S1 normal heart sound present and S2 normal heart sound present PERIPHERAL PULSES: Peripheral pulses 2+ throughout GI: COMMON NORMALS: Normal to inspection, nondistended, normoactive bowel sounds present, Soft to palpation, non-tender, No hepatosplenomegaly present and no masses AUSCULTATION: Yes normoactive bowel sounds PALPATION: Yes Soft to palpation and Yes No hepatosplenomegaly present RECTAL EXAM: deferred Extremity: COMMON NORMALS: no clubbing, cyanosis or edema and no pedal edema Urinary Catheter Management^: Ontiveros: Cath Placed During This Visit: yes Reason for Continuing Indwelling Catheter: Accurate Measurement of Urinary Output in Critically Ill Patients Urinary Catheter Date of Insertion: 09/19/21 Urinary Catheter Time of Insertion: 19:48 Data : 02/23/21 04:23 02/23/21 04:23 Micro: Microbiology 02/20/21 08:12 Urine Culture - Final Urine,Voided 02/22/21 03:28 Blood Culture - Preliminary Blood NEGATIVE TO DATE 02/22/21 03:28 Blood Culture - Preliminary Blood NEGATIVE TO DATE A&P Assessment and plan (1) Acute respiratory failure with hypoxia: Acute hypoxic respiratory failure -secondary to COVID-19 pneumonia, breakthrough infection, has received both Covid vaccines in May 2019, no history of booster -Now with evidence of acute respiratory distress syndrome -Now developing worsening encephalopathy, leukocytosis, renal failure Plan: -Currently being managed in ICU -Currently intubated sedated on mechanical ventilation -On Decadron 6 mg, IV push daily -Completed remdesivir -status post 1 dose Actemra 02/17/2021 -Currently on vancomycin, cefepime and Levaquin, Caspofugin -WBC elevated to 23.6, neutrophilic, pro-Francesco 0.04, CRP 5.2, no fevers, repeat blood cultures, will add antifungal coverage -Initial blood cultures positive for coagulase-negative staphylococci, repeat blood cultures negative, repeat blood cultures -Vitamin C, zinc, vitaimn D -Incentive spirometer, flutter valve -Albuterol, budesonide Bilateral lower extremity ultrasound for negative for DVT, follow D-dimer -For CHF, BNP elevated, -Echocardiogram shows EF of 65%, moderate LVH, grade 1 out of 4 diastolic dysfunction -Continue bicarb 650 mg 3 times daily-secondary to uremia -Seroquel for agitation on hold due to encephalopathy -Precedex for agitation -Protonix for GI prophylaxis -Chlorhexidine -Lovenox for DVT prophylaxis Acute encephalopathy, secondary to COVID-19 pneumonia, hypoxia, uremia -Continue to monitor mentation closely, aspiration precautions YENNY on worseing CKD stage IV , secondary to COVID-Nephropathy: Started ON H/D on 02/22 Renal ultrasound no nephrolithiasis avoid nephrotoxic agents -Metabolic Acidosis 2/2 to uremia plan as above. Transaminitis secondary to COVID-19 Acute on chronic diastolic CHF exacerbation: Hypertension: Currently b/p is well controlled. Chronic lymphocytic leukemia, continue to monitor Elevated troponins, likely secondary respiratory failure, serial troponins, serial EKGs, continue aspirin, continue statin, normal CPK sid-[id number] type 2 diabetes mellitus, low-dose sliding scale, Lantus 5 units twice daily A.fib :Currently rate is well controlled. Will hold off on full Ac for now as there is risk of bleeding with dropping H&H. DVT PPX: On Heparin 5000 sc q12 h daily Patient son was updated -Full code Status: Acute (2) Pneumonia due to COVID-19 virus: Status: Acute (3) Acute kidney injury superimposed on CKD: Status: Acute (4) Atrial fibrillation: Status: Acute (5) CHF exacerbation: Status: Acute (6) Hypertension: Status: Chronic Qualifiers: Hypertension type: renovascular hypertension Qualified Code(s): I15.0 - Renovascular hypertension (7) Dyslipidemia: Status: Chronic (8) Carotid stenosis, bilateral: Status: Chronic (9) CLL (chronic lymphocytic leukemia): Status: Acute (10) ARDS (adult respiratory distress syndrome): Status: Acute Attestations Medical Necessity Statement*: Patient needs to be in hospital for the management of COVID PNA. Coding Level of Care Code Acute Bunch Maker Hand for [facility] Fwd Diagnoses Acute respiratory failure with hypoxia J96.01 Pneumonia due to COVID-19 virus U07.1; J12.82 Acute kidney injury superimposed on CKD N17.9; N18.9 Atrial fibrillation I48.91 CHF exacerbation I50.9 Hypertension I15.0 Hypertension type: renovascular hypertension Dyslipidemia E78.5 Carotid stenosis, bilateral I65.23 CLL (chronic lymphocytic leukemia) C91.10 ARDS (adult respiratory distress syndrome) J80
[2021-02-23 11:14] LABS: Glucose Point of Care 318 mg/dL (70-110)
--- NOTE | 2021-02-23 13:33 | ECG_ITS ---
[facility] Test Date: 2021-02-23 Pat Name: Yanira Gao Department: Room: ICU07 Gender: Female Licensed Embalmer: : 1945 Requested By: Joni Murphy Order Number: [id number] Reading MD: AR AL Measurements Intervals [place] Rate: 63 P: CO: QRS: 35 QRSD: 91 T: 202 QT: 430 QTc: 443 Interpretive Statements ATRIAL FIBRILLATION SEPTAL MYOCARDIAL INFARCTION , PROBABLY OLD [40+ ms Q WAVE IN V1/V2] MODERATE T-WAVE ABNORMALITY, CONSIDER LATERAL ISCHEMIA [-0.1+ mV T-WAVE IN I/aVL/V5/V6] MODERATE T-WAVE ABNORMALITY, CONSIDER INFERIOR ISCHEMIA [-0.1+ mV T-WAVE IN II/aVF] Compared to ECG 02/19/2021 04:47:43 T-wave abnormality now present Possible ischemia now present Sinus bradycardia no longer present Myocardial infarct finding still present Electronically Signed On 02-23-2021 20:02:58 CDT by AR AL [id number]
--- NOTE | 2021-02-23 14:58 | PC.NURSE ---
Pt having freq. 2 sec pauses. Recently had a 3.[address] Murphy notified.
--- NOTE | 2021-02-23 15:01 | P.PN_ITS ---
Subjective Subjective: Interval history: Tolerated dialysis yesterday reasonably well. Remains critically sick in the icu. FiO2 50%, PEEP 10. Tolerating tube feeds and ree water flushes Medications: Reviewed: Yes Vitals/I&O/Wt Last Vital Signs Temp 99.7 F H 02/23/21 12:00 Pulse 67 02/23/21 12:30 Resp 26 H 02/23/21 11:31 BP 105/40 02/23/21 12:30 Pulse Ox 93 02/23/21 12:30 02/23/21 02/23/21 02/23/21 06:59 14:59 22:59 Intake Total 794.25 / 2150.677 124.033 / 124.033 Output Total 50 / 695 Balance 744.25 / 1455.677 124.033 / 124.033 Weight last 48 hrs Weight 76.459 kg Weight 76.9 kg Weight 78.517 kg Physical Exam Narrative: EXAM NARRATIVE: Constitutional: sedated and vented HEENT: Wet mucosa, no jvp, non icteric Lungs: Bilaterally decreased air entry in all lung zones CVS: S1 S2, no murmurs Abdo: Soft, BS ok Ext 4: Minimal edema, peripheral perfusion with no cyanosis Neurological: Grossly non-focal Urinary Catheter Management^: Ontiveros: Cath Placed During This Visit: yes Reason for Continuing Indwelling Catheter: Accurate Measurement of Urinary Output in Critically Ill Patients Urinary Catheter Date of Insertion: 02/14/21 Urinary Catheter Time of Insertion: 19:48 Data : 02/23/21 04:23 02/23/21 04:23 Micro: Microbiology 02/22/21 18:20 Gram Stain - Final Sputum - Endotracheal Tube Aspirate 02/20/21 08:12 Urine Culture - Final Urine,Voided 02/22/21 03:28 Blood Culture - Preliminary Blood NEGATIVE TO DATE 02/22/21 03:28 Blood Culture - Preliminary Blood NEGATIVE TO DATE A&P Additional A&P Information 1. 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 Will plan another session of dialysis today, 3K, UF 1-2L as tolerated Strict I's and O's Avoid usual nephrotoxic agents Dose medication for GFR less than 15 2. Covid pneumonitis On combination remdesivir, dexamethasone, antibiotic coverage, judicious use of diuretics. High flow nasal cannula being titrated. She did receive both vaccinations. 3. Chemistry Anion gap metabolic acidosis, likely secondary to uremia LA levels pending Dialysis will help Jesus Omalley MD Nephrology [phone] Patient seen and examined via telemedicine, with the assistance of the bedside RN > 25 min spent in evaluation and mgmt of patient Attestations Medical Necessity Statement*: Eval for YENNY Coding Level of Care Code Acute Information Analyst for Karthikeyan Peters
[2021-02-23] MEDS: propofol 1,000 MG/100 ML INJ 9.42 MG IV (15:43)
[2021-02-23 17:18] LABS: Lactate (Lactic Acid level) 1.9 mmol/L (0.5-2.2)
[2021-02-23] MEDS: dexamethasone 10 mg/mL INJ 6 MG IVP (18:38)
[2021-02-23 19:22] LABS: Glucose Point of Care 162 mg/dL (70-110)
[2021-02-23] MEDS: heparin 5,000 unit/mL INJ 1 mL 5000 UNIT SUBCUT (20:39)
[2021-02-23] MEDS: atorvastatin 40 mg Tablet 10 MG PO (20:39)
[2021-02-23] MEDS: vancomycin 1,250 MG/250 ML PIGGYBACK 250 MG IV (21:27)
--- NOTE | 2021-02-23 21:46 | PM.PN ---
Subjective Subjective: Interval history: -Patient seen at bedside today -On fentanyl 75 MCG/hour gtt. and Versed 4 mg/hour gtt. -Sedated and not following commands -FiO2 requirement down to 60% -Labs and imaging reviewed Medications: Reviewed: Yes Vitals/I&O/Wt Last Vital Signs Temp 99.5 F 02/23/21 19:30 Pulse 89 02/23/21 20:33 Resp 25 H 02/23/21 20:34 BP 177/53 02/23/21 19:30 Pulse Ox 93 02/23/21 20:34 02/23/21 02/23/21 02/23/21 06:59 14:59 22:59 Intake Total 794.25 / 2150.677 159.172 / 607.484 3291.980 / 1890.152 Output Total 50 / 695 1741 / 1741 Balance 744.25 / 1455.677 159.172 / 159.172 -10.020 / 149.152 Weight last 48 hrs Weight 171 lb 15.369 oz Weight 168 lb 9 oz Weight 169 lb 8.568 oz Weight 173 lb 1.6 oz Physical Exam Narrative: EXAM NARRATIVE: General: lying in bed, sedated and intubated. HEENT:NCAT, PERRLA, EOMI Neck: Supple Lungs: Bilateral coarse crepitations Heart: s1/s2, RRR Abd: soft, NT, ND, BS + Normoactive Extremities: No edema DINKEY OPERATOR SLAG: sedated and limited DINKEY OPERATOR SLAG exam possible. SKIN: no rash LDA: # HD Cath : Right internal jugular 02/22/2021 # Ontiveros: 02/14/2021 #Patient has right arm midline Urinary Catheter Management^: Ontiveros: Cath Placed During This Visit: yes Reason for Continuing Indwelling Catheter: Accurate Measurement of Urinary Output in Critically Ill Patients Urinary Catheter Date of Insertion: 02/14/21 Urinary Catheter Time of Insertion: 19:48 Data : 02/23/21 04:23 02/23/21 04:23 Other Labs: Laboratory Results WBC 19.2 10^3/uL (4.0-10.0) H 02/23/21 04:23 RBC 2.95 10^6/uL (4.1-5.3) L 02/23/21 04:23 Hgb 8.9 g/dL (11.5-15.3) L 02/23/21 04:23 Hct 29.1 % (37.0-47.0) L 02/23/21 04:23 MCV 98.6 fl (81-99) 02/23/21 04:23 MCH 30.2 pg (28.0-34.0) 02/23/21 04:23 MCHC 30.6 g/dL (30.0-36.0) 02/23/21 04:23 RDW 16.0 % (12.1-15.1) H 02/23/21 04:23 Plt Count 146 10^3/cmm (130-400) 02/23/21 04:23 MPV 12.2 fL (7.4-10.4) H 02/23/21 04:23 Neut % (Auto) 70.0 % 02/23/21 04:23 Lymph % (Auto) 22.7 % 02/23/21 04:23 [place] % (Auto) 5.3 % 02/23/21 04:23 Eos % (Auto) 0.0 % 02/23/21 04:23 Baso % (Auto) 0.2 % 02/23/21 04:23 Neut # (Auto) 13.47 10^3/uL (1.8-7.7) H 02/23/21 04:23 Lymph # (Auto) 4.4 10^3/uL (0.8-4.8) 02/23/21 04:23 [place] # (Auto) 1.0 10^3/uL (0.2-0.9) H 02/23/21 04:23 Eos # (Auto) 0.0 10^3/uL (0.0-0.8) 02/23/21 04:23 Baso # (Auto) 0.0 10^3/uL (0.0-0.1) 02/23/21 04:23 Nucleated RBC % (auto) 0.4 % 02/23/21 04:23 Nucleated RBCs # 0.1 /100WBC 02/23/21 04:23 PT 18.10 SECONDS (12.1-14.9) H 02/23/21 04:23 INR 1.45 (0.8-1.2) H 02/23/21 04:23 APTT 26.5 SECONDS (23.9-36.7) 02/14/21 18:08 D-Dimer 0.82 ug/mIFEU (0-0.59) H 02/17/21 04:20 Specimen Type Arterial 02/23/21 04:38 Sample Site Brachial, left 02/23/21 04:38 ABG pH 7.34 (7.35-7.45) L 02/23/21 04:38 ABG pCO2 37.6 mmHg (35-45) 02/23/21 04:38 ABG pO2 65.0 mmHg (80.0-100.0) L 02/23/21 04:38 ABG HCO3 20.1 mmol/L (22-26) L 02/23/21 04:38 ABG O2 Saturation 98.7 02/22/21 10:15 ABG Base Excess -5.3 mmol/L (-2.0-2.0) L 02/23/21 04:38 Marlo Test N/a 02/23/21 04:38 A-a O2 Gradient 49.4 mmHg (5-10) H 02/22/21 10:15 Hematocrit 28.6 % (37-47) L 02/23/21 04:38 Hgb O2 Saturation 97.0 % (95-100) 02/22/21 10:15 Carboxyhemoglobin 0.7 %THgb (0.4-20.1) 02/22/21 10:15 Methemoglobin 1.0 % (0.4-1.5) 02/22/21 10:15 Total Hemoglobin 10.0 g/dL (12-16) L 02/22/21 10:15 Sodium 160.0 mmol/L (131-143) H 02/22/21 10:15 Potassium 5.5 mmol/L (3.5-5.0) H 02/22/21 10:15 Glucose 245.0 mg/dL (70-115) H 02/22/21 10:15 Ionized Calcium 1.1 mmol/L (1.1-1.4) 02/22/21 10:15 O2 Delivery Device Vent 02/23/21 04:38 O2 Liters/Min 60.0 % 02/22/21 03:15 FiO2 60.0 % 02/23/21 04:38 Tidal Volume 0.40 02/23/21 04:38 PEEP 10.0 cmH20 02/23/21 04:38 Product Design Engineer ID Hinja 02/23/21 04:38 Sodium 146 mmol/L (136-145) H 02/23/21 04:23 Potassium 4.7 mmol/L (3.5-5.1) 02/23/21 04:23 Chloride 111 mmol/L (98-107) H 02/23/21 04:23 Carbon Dioxide 20 mmol/L (22-29) L 02/23/21 04:23 Anion Gap 19.7 (5-19) H 02/23/21 04:23 BUN 73 mg/dL (8-23) H 02/23/21 04:23 Creatinine 2.5 mg/dL (0.5-0.9) H 02/23/21 04:23 GFR Calculation Not Reportable 02/23/21 04:23 Glucose 258 mg/dL (65-115) H 02/23/21 04:23 POC Glucose 162 mg/dL (70-110) H 02/23/21 18:40 Calculated Osmolality 332 mOsm/kg (285-295) H 02/23/21 04:23 Lactic Acid 0.8 mmol/L (0.5-2.2) 02/15/21 04:45 Lactate 1.9 mmol/L (0.5-2.2) 02/23/21 16:35 Calcium 6.6 mg/dL (8.5-10.5) L 02/23/21 04:23 Phosphorus 5.4 mg/dL (2.5-4.5) H 02/23/21 04:23 Magnesium 3.0 mg/dL (1.7-2.3) H 02/23/21 04:23 Ferritin 2632 ng/mL (15-150) H 02/20/21 13:05 Total Bilirubin 0.4 mg/dL (0.15-1.2) 02/23/21 04:23 AST 31 U/L (0-32) 02/23/21 04:23 ALT 22 U/L (0-33) 02/23/21 04:23 Alkaline Phosphatase 64 IU/L (35-105) 02/23/21 04:23 Creatine Kinase 546 U/L (26-192) H* 02/23/21 04:23 Troponin T Baseline 36 ng/L (0-10) H 02/14/21 18:08 Troponin T 120 Minute 38.17 ng/L (0-10) H 02/14/21 20:30 Delta Troponin T 2.17 ABS# (0-10) 02/14/21 20:30 Troponin T Hi Sens 6Hr 33.07 ng/L (0-10) H 02/15/21 00:50 Troponin T Hi Sens 6Hr Delta -2.93 ng/L (0-12) L 02/15/21 00:50 C-Reactive Protein 3.0 mg/L (0.0-4.9) 02/23/21 04:23 NT-Pro-B Natriuret Pep 1848 pg/mL (0-450) H 02/23/21 04:23 Total Protein 4.3 g/dL (6.6-8.7) L 02/23/21 04:23 Albumin 2.8 g/dL (3.5-5.2) L 02/23/21 04:23 Globulin 1.5 g/dL (1.3-4.6) 02/23/21 04:23 Procalcitonin 0.09 ng/mL (0-0.5) 02/23/21 04:23 TSH 0.48 uIU/mL (0.27-4.20) 02/15/21 04:45 Urine Color Yellow (Yellow) 02/14/21 22:00 Urine Appearance Sl cloudy (CLEAR) A 02/14/21 22:00 Urine pH 5 (5-7) 02/14/21 22:00 Ur Specific [place] 1.010 (1.005-1.030) 02/14/21 22:00 Urine Protein 1+ (Negative) H 02/14/21 22:00 Urine Glucose (UA) Norm (Normal) 02/14/21 22:00 Urine Ketones Negative (Negative) 02/14/21 22:00 Urine Blood 2+ (Negative) H 02/14/21 22:00 Urine Nitrate Negative (Negative) 02/14/21 22:00 Urine Bilirubin Neg (Negative) 02/14/21 22:00 Urine Urobilinogen Norm mg/dL (Negative) 02/14/21 22:00 Ur Leukocyte Esterase 2+ (Negative) H 02/14/21 22:00 Urine RBC 10-15 /hpf (0-2) H 02/14/21 22:00 Urine WBC >100 /hpf (0-5) H 02/14/21 22:00 Ur Squamous Epith Cells 0-4 /hpf (0-5) H 02/14/21 22:00 Amorphous Sediment Not Reportable 02/14/21 22:00 Urine Bacteria 4+ /hpf (NONE) H 02/14/21 22:00 Ur Random Sodium 31 mmol/L 02/15/21 17:26 Urine Creatinine 153 mg/dL (28-217) 02/15/21 17:26 Vancomycin Trough 15.1 ug/mL (10-15) H 02/22/21 09:47 Serum Ketones Negative (Negative) 02/15/21 04:45 Nasal/Oral COVID-19 PCR Detected H 02/14/21 22:00 Hep Bs Antigen Non-reactive (Nonreactive) 02/22/21 17:30 Hep Bs Antibody 3.5 (11.5-1000) L 02/22/21 17:30 Hep B Core Total Ab Non-reactive (Nonreactive) 02/22/21 17:30 SARS-CoV-2 Ag (Rapid) Positive (Negative) H 02/14/21 22:[address] 02/14/21 18:36 IMPRESSION: 1. Multifocal patchy bilateral pulmonary ground-glass opacities are nonspecific. Differential includes pneumonia and/or pulmonary edema.Imaging features can be seen with COVID-19 pneumonia, though are nonspecific and can occur with a variety of infectious and noninfectious processes. (Reference: Todd) 2. There are centrilobular emphysematous changes in the bilateral lungs. 3. Multivessel atherosclerotic disease which involves the coronary arteries. 4. Multiple lymph nodes are visualized in the upper abdomen some of which appear to be abnormal in morphology/rounded. Consider CT scan of the abdomen/pelvis with IV contrast for further evaluation as clinically warranted. REFERENCES: Todd Dill, et al., Radiological Society of [place] Expert Consensus Statement on Reporting Chest CT Findings Related to COVID-19. Endorsed by the Society of Thoracic Radiology, the [place] [employer], and RSNA. Published August 21, 2019. Radiation Dose CTDIVOL = (mGy): DLP = 692.4 (mGy-cm) Renal Ultrasound 02/15/21 07:34 IMPRESSION: 1. No hydronephrosis in either kidney. 2. Cortical atrophy right kidney. Chest X-Ray 02/22/21 13:16 IMPRESSION: 1. Right-sided IJ catheter ends in the lower one third of the SVC in good position. 2. Improved interstitial infiltrates since previous study. 3. ET tube and NG tube both remain in satisfactory position. Micro: Microbiology 02/22/21 18:20 Gram Stain - Final Sputum - Endotracheal Tube Aspirate 02/20/21 08:12 Urine Culture - Final Urine,Voided 02/22/21 03:28 Blood Culture - Preliminary Blood NEGATIVE TO DATE 02/22/21 03:28 Blood Culture - Preliminary Blood NEGATIVE TO DATE A&P Assessment and plan (1) AMS (altered mental status): Status: Acute Qualifiers: Altered mental status type: somnolence Qualified Code(s): R40.0 - Somnolence (2) Uremic encephalopathy: Status: Acute (3) Acute respiratory failure with hypoxia: Status: Acute (4) Acute respiratory distress syndrome (ARDS) due to COVID-19 virus: Status: Acute (5) Acute kidney injury superimposed on CKD: Status: Acute (6) CHF (congestive heart failure): Status: Acute Qualifiers: Heart failure chronicity: acute on chronic Heart failure type: diastolic Qualified Code(s): I50.33 - Acute on chronic diastolic (congestive) heart failure (7) Mitral regurgitation: Status: Chronic Qualifiers: Cardiac valve disease etiology: etiology unspecified Qualified Code(s): I34.0 - Nonrheumatic mitral (valve) insufficiency #Altered mental status-secondary to uremic encephalopathy/hypernatremia in patient with worsening CKD #Acute hypoxic respiratory failure secondary to ARDS due to COVID-19 pneumonia -Covid test + 02/11/2021, admitted 02/14/2021; May 2020 with 2 doses -Intubated today 02/22/2021 for altered mental status due to uremic encephalopathy/hyponatremia and patient with acute hypoxic respiratory failure due to COVID-19 pneumonia -ABG 7.3 4/37/65/20/98% on 60%/400/10 CMV -Sedated with propofol and fentanyl GTT; target RASS -2 and try to avoid high doses of fentanyl and Versed in this elderly patient. -S/p Actemra 02/17/2021, held remdesivir in view of CKD, currently on dexamethasone 10 mg daily -Titrate FiO2 down to keep saturations >88% #Chronic diastolic heart failure with mitral regurgitation and mild aortic stenosis -Echocardiogram shows EF of 65%, moderate LVH, grade 1 out of 4 diastolic dysfunction -Currently hemodynamically stable -She is receiving aspirin/Lipitor/Cardizem 240 mg p.o. daily, labetalol 200 mg p.o. twice daily, #YENNY on CKD stage III likely secondary to COVID-19 pneumonia with increased anion gap metabolic acidosis -ABG post intubation 7.1 8/44/135/16/98% on 380/80%/10; CMP significant for sodium 157, bicarb 13, corrected anion gap 26.5, phosphorus 6; corrected calcium 8 -Patient received hemodialysis yesterday and plan is to receive 1 more session today -Patient required low-dose pressor during hemodialysis only -Today ABG showed pH 7.34 and sodium 146, bicarb 20 - currently on sodium bicarbonate 650 mg p.o. 3 times daily -Appreciate renal recommendations - right internal jugular hemodialysis catheter placed today 02/22/2021 #Blood cultures 02/14/2021-08/30 bottles positive for cons-repeat blood cultures 02/18/2020 were negative so far -MRSA nares negative -Currently patient is on vancomycin, cefepime, Levaquin, caspofungin; procalcitonin 0.09 -recommended to discontinue micafungin, cefepime and Levaquin. - if Repeat blood cultures negative discontinue vancomycin. #Sugars moderately controlled -On scale coverage and Lantus 5 units at bedtime; increase Lantus to 10 twice daily #DVT prophylaxis: Heparin #Recommended to start tube feeding nephro 10 mL/hr and max 30 mL/h and check gastric residuals - senna docusate 2 tabs at bedtime #Full code #NOK Reji Montano - updated Patient mentation and respiratory status worsened secondary to worsening CKD related hypernatremia and uremia-I believe once patient is on hemodialysis her mentation and respiratory status should get better. So far there is no source of infection and so I recommend to discontinue antibiotics, especially there is no evidence of fungal infection, definitely does not need caspofungin. Will assess daily mentation and once oxygenation's improve with FiO2 less than 50% and PEEP 8-we will do breathing trials and extubate the patient. Recommendations conveyed to hospitalist, RN, RT covering the patient Attestations Medical Necessity Statement*: Acute hypoxemic respiratory failure secondary to ARDS due to COVID-19 pneumonia requiring high FiO2 on mechanical ventilator and altered mental status secondary to uremic encephalopathy/hypernatremia and patient with worsening YENNY or CKD requiring hemodialysis-need close ICU monitoring Time Spent in Patient Care: Greater than 35 minutes (>than 50% of time spent in counselling and/or direct pt care on unit). Critical Care Time: The high probability of a clinically significant, sudden or life threatening deterioration of the patient's [neurological, pulmonary, renal] system(s) required my full and direct attention, intervention and personal management. The critical care time is as shown. This time is in addition to time spent performing any reported procedures but includes the following: [x] Data and vital sign review and interpretation [x] Patient assessment, examination and intervention [x] Documentation [x] Medication orders and management Critical Care Time (min): 45 Coding Level of Care Code Established Pt Acute Data Entry Coordinator for Chg Fwd Patient Type Established History Comprehensive Exam Comprehensive Medical Decision Making High Complexity Diagnoses AMS (altered mental status) R40.0 Altered mental status type: somnolence Uremic encephalopathy G93.49; N19 Acute respiratory failure with hypoxia J96.01 Acute respiratory distress syndrome (ARDS) due to COVID-19 virus U07.1; J80 Acute kidney injury superimposed on CKD N17.9; N18.9 CHF (congestive heart failure) I50.33 Heart failure chronicity: acute on chronic Heart failure type: diastolic Mitral regurgitation I34.0 Cardiac valve disease etiology: etiology unspecified Time Spent (min) 45
[2021-02-24] VITALS (68 sets, daily range): BP systolic 76–162; BP diastolic 32–75; PULSE 80–127; RESP 26–29; TEMP 36–37.4; O2SAT 33–95
[2021-02-24 04:47] LABS: Basophils # 0.1 10^3/uL (0.0-0.1); Basophils % 0.3 %; Hemoglobin 9.4 g/dL (11.5-15.3); Lymphocytes % 21.9 %; Mean Corpuscular HGB Conc 31.3 g/dL (30.0-36.0); Mean Corpuscular Hemoglobin 29.8 pg (28.0-34.0); Mean Corpuscular Volume 95.2 fl (81-99); Mean Platelet Volume 12.8 fL (7.4-10.4); Monocytes # 1.5 10^3/uL (0.2-0.9); Neutrophils % 70.8 %; Nucleated Red Blood Cells # 0.1 /100WBC; Nucleated Red Blood Cells % 0.4 %; Platelet Count 141 10^3/cmm (130-400); Red Blood Count 3.15 10^6/uL (4.1-5.3); Red Cell Distribution Width 15.6 % (12.1-15.1)
[2021-02-24 04:58] LABS: INR 1.31 (0.8-1.2)
[2021-02-24] MEDS: propofol 1,000 MG/100 ML INJ 9.42 MG IV (04:58)
[2021-02-24 05:02] LABS: D Dimer 2.16 ug/mIFEU (0-0.59)
[2021-02-24 05:05] LABS: ABG PCO2 33.8 mmHg (35-45); Arterial Blood Gas Hematocrit 29.9 % (37-47); Base Excess ABG -3.1 mmol/L (-2.0-2.0); Blood Gas Allen Test Pos; Blood Gas Sample Site Radial, left; Blood Gas Sample Type Arterial; HCO3 ABG 21.1 mmol/L (22-26); Oxygen Device VENT; PO2 ABG 54.7 mmHg (80.0-100.0)
[2021-02-24 05:08] LABS: Alanine Aminotransferase 27 U/L (0-33); Albumin Level 2.9 g/dL (3.5-5.2); Alkaline Phosphatase 70 IU/L (35-105); Anion Gap 23.1 (5-19); Aspartate Amino Transferase 60 U/L (0-32); Blood Urea Nitrogen 54 mg/dL (8-23); C Reactive Protein 4.3 mg/L (0.0-4.9); Calcium 6.5 mg/dL (8.5-10.5); Carbon Dioxide 20 mmol/L (22-29); Chloride 94 mmol/L (98-107); Globulin 1.8 g/dL (1.3-4.6); Glucose 303 mg/dL (65-115); Magnesium 2.3 mg/dL (1.7-2.3); Osmolality Calculated 302 mOsm/kg (285-295); Phosphorus 5.1 mg/dL (2.5-4.5); Potassium 4.1 mmol/L (3.5-5.1); Sodium 133 mmol/L (136-145); Total Bilirubin 0.6 mg/dL (0.15-1.2); Total Protein 4.7 g/dL (6.6-8.7)
[2021-02-24 05:16] LABS: Slide Review Slide Review Perform; White Blood Count 36.3 10^3/uL (4.0-10.0)
[2021-02-24 05:18] LABS: NT Pro B Type Natriuretic Pept 2742 pg/mL (0-450); Procalcitonin 0.29 ng/mL (0-0.5)
[2021-02-24 05:34] LABS: Creatine Phosphokinase 1749 U/L (26-192)
--- NOTE | 2021-02-24 06:04 | PC.NURSE ---
Cdiff came back positive.
--- NOTE | 2021-02-24 06:04 | PC.NURSE ---
Shift Note Frequent safety and comfort rounds continue. Orders and/or nursing care completed as indicated. Patient monitored for response to intervention and treatment(s). Education provided includes pain management. Patient and/or commercial pest control representative . Will continue to monitor.
--- NOTE | 2021-02-24 07:44 | XR_ITS ---
WS: [id number] Exam: XR chest 1V portable [id number] Date/Time of Exam: 02/24/2021 7:52 AM Reason For Exam: pneumonia Comparison 02/22/2021. Bilateral interstitial infiltrates show little change since prior study. Cardiomediastinal structures are unremarkable. No pneumothorax or pleural effusion. ET tube ends about 4 cm above the [place] in g ood position. An NG tube is in place in the stomach in satisfactory location. A right-sided IJ centra l line appears in near the cavoatrial junction. Monitoring leads superimpose the chest. XR/XR chest 1V portable [id number] IMPRESSION: 1. Bilateral interstitial infiltrates showing little change since prior study. 2. ET tube, enteric tube and central vascular line all appear to be in the sati sfactory position. 3. A right-sided PICC line is also noted and ends in the region of the right ax illa probably in the axillary vein.
[2021-02-24] MEDS: budesonide 0.5 mg/2 mL Neb INHALATION ×2 (07:57→20:37)
[2021-02-24 09:54] LABS: Glucose Point of Care 391 mg/dL (70-110)
[2021-02-24] MEDS: sennosides-docusate Tablet 1 TAB PO ×2 (10:09→17:30)
[2021-02-24] MEDS: ascorbic acid 500 mg Tablet PO ×2 (10:09→17:29)
[2021-02-24] MEDS: heparin 5,000 unit/mL INJ 1 mL 5000 UNIT SUBCUT ×2 (10:09→19:48)
[2021-02-24] MEDS: sodium bicarbonate 650 mg Tablet PO ×3 (10:09→20:35)
[2021-02-24] MEDS: zinc gluconate 50 mg Tablet PO (10:09)
[2021-02-24] MEDS: cholecalciferol (vitamin D3) 1,000 unit Tablet 1000 UNIT PO (10:10)
[2021-02-24] MEDS: aspirin 81 mg EC Tablet PO (10:10)
[2021-02-24] MEDS: pantoprazole DR 40 mg Tablet PO ×2 (10:10→17:29)
[2021-02-24] MEDS: chlorhexidine gluconate 0.12% Btl 473 mL 15 ML MUCOUS MEM ×2 (10:12→17:31)
[2021-02-24] MEDS: insulin glargine 100 units/1 mL 10 UNIT SUBCUT ×2 (10:12→21:23)
--- NOTE | 2021-02-24 10:26 | PC.CHAP ---
Pastoral Care Encounter/Spiritual Assessment Type of Contact [] Declined tobacco sample puller visit [] Patient/Family/Request visit [] Outpatient visit [] Follow-up visit [] Physician referral [] Code/Alert [x] Routine visit [] Staff referral [] Actively dying [] Patient sleeping [] Family support [] [] Out of room [] Palliative care [] [] Receiving care in room [] Pre-surgical visit [] Trauma [] Long length of stay [x] ICU visit [] Other: Relational/Emotional Strength [] Patient feels connected with others/family/visitors/staff [] Distress [] Loneliness/isolation [] Abandonment Spirituality of Patient [] Person of Priscilla [] Attends Spiritism of their Priscilla [] Believes in Prayer [] Reads Bible or Rastafarian materials [] There are Spiritual issues to be addressed Powder Line Repairer Interventions [x] Prayer [] Active listening [] Non-anxious presence [] Spiritual/emotional support [] Crisis/trauma care [] Spiritual counseling [] Bereavement support [] Provided bereavement packet [] Provided Bible/devotional materials [] Provided toy/stuffed animal, coloring book to patient or family member [] Provided Communion [] Anointing/[place] [] Salvation [x] Completed spiritual assessment [] Other: Impact on Illness or Injury [] Angry [] Fearful [] Anxious [] Often cries [] Exhaustion [] Unable to work [] Unable to attend mosque [] Unable to walk/stand [] Unable to read [] Unable to drive [] Unable to eat/drink [] Unable to sleep [] Unable to be with family [] Patient intubated [] Other: Summary Time spent with patient
--- NOTE | 2021-02-24 11:32 | PM.PN ---
Subjective Subjective: Interval history: Stool output high yesterday, CDiff positive. Remains on FiO2 65%, PEEP 12. CXR unchanged. Tolerated dialysis yesterday with transient need for vasopressor agents Minimal edema Medications: Reviewed: Yes Vitals/I&O/Wt Last Vital Signs Temp 99.5 F 02/23/21 19:30 Pulse 114 H 02/24/21 07:58 Resp 26 H 02/24/21 10:27 BP 81/43 02/24/21 04:15 Pulse Ox 93 02/24/21 10:27 02/23/21 02/24/21 02/24/21 22:59 06:59 14:59 Intake Total 1734.518 / 9538.366 8849.013 / 3053.703 196.120 / 196.120 Output Total 1741 / 1741 50 / 1791 Balance -6.482 / 461.872 0874.013 / 1262.703 196.120 / 196.120 Weight last 48 hrs Weight 78 kg Weight 76.459 kg Weight 76.9 kg Physical Exam Narrative: EXAM NARRATIVE: Constitutional: sedated and vented HEENT: Wet mucosa, no jvp, non icteric Lungs: Bilaterally decreased air entry in all lung zones CVS: S1 S2, no murmurs Abdo: Soft, BS ok Ext 4: Minimal edema, peripheral perfusion with no cyanosis Neurological: Grossly non-focal Urinary Catheter Management^: Ontiveros: Cath Placed During This Visit: yes Reason for Continuing Indwelling Catheter: Accurate Measurement of Urinary Output in Critically Ill Patients Urinary Catheter Date of Insertion: 02/14/21 Urinary Catheter Time of Insertion: 19:48 Data : 02/24/21 04:10 02/24/21 04:10 Micro: Microbiology 02/22/21 18:20 Gram Stain - Final Sputum - Endotracheal Tube Aspirate Sputum Culture - Preliminary Yeast species 02/23/21 19:08 Stool Lactoferrin - Final Stool C.difficile Toxin B Gene (PCR) - Final Occult Blood (FIT) - Final 02/20/21 08:12 Urine Culture - Final Urine,Voided A&P Additional A&P Information 1. 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 Defer dialysis today, jorge given increase in stool output; will evaluate tomorrow morning for additional need Strict I's and O's Avoid usual nephrotoxic agents Dose medication for GFR less than 15 2. Covid pneumonitis On combination remdesivir, dexamethasone, antibiotic coverage, judicious use of diuretics. High flow nasal cannula being titrated. She did receive both vaccinations. 3. Chemistry Anion gap metabolic acidosis, likely secondary to uremia Look improved after dialysis Jesus Omalley MD Nephrology [phone] Patient seen and examined via telemedicine, with the assistance of the bedside RN > 25 min spent in evaluation and mgmt of patient Attestations Medical Necessity Statement*: Eval for YENNY Coding Level of Care Code Acute Continuous Improvement Consultant for Sug Lorraine
--- NOTE | 2021-02-24 11:34 | PC.NUTR ---
Tube feeding: Spoke to nursing staff who updated diet order from cardiac to tube feeding. Current TF order of 30mL/hr, 200mL H2O flushes q4h, and propofol provides a total of 1793kcal (105%), 58g protein (70%), and 1722mL fluids (96%). To promote wound healing + dialysis, recommend 1 scoop of beneprotein q4h with each water flush, to provide a total of 94g protein/day (100%).
--- NOTE | 2021-02-24 12:14 | P.PN_ITS ---
Subjective Subjective: Interval history: -Patient was seen and examined this morning,continue to be on mechanical ventilation 65 % Fio2 PEEP: 12 . She has developed C.diff diarrhea, for which she was started on PO Vancomycin. has intermittently needed Levoped as her b/p has been on softer side. Urine Output in the last 24 hrs: 100cc Continue to be in A.fib. Am xray chest, abg and labs have been reviewed. Medications: Reviewed: Yes Vitals/I&O/Wt Last Vital Signs Temp 99.5 F 02/23/21 19:30 Pulse 97 02/24/21 11:50 Resp 26 H 02/24/21 11:50 BP 81/43 02/24/21 04:15 Pulse Ox 94 02/24/21 11:50 02/23/21 02/24/21 02/24/21 22:59 06:59 14:59 Intake Total 1734.518 / 8413.980 6848.013 / 3053.703 196.120 / 196.120 Output Total 1741 / 1741 50 / 1791 Balance -6.482 / 092.044 4272.013 / 1262.703 196.120 / 196.120 Weight last 48 hrs Weight 78 kg Weight 76.459 kg Weight 76.9 kg Physical Exam Narrative: EXAM NARRATIVE: Intubated and sedated. HENMT: COMMON NORMALS: normocephalic and atraumatic HEAD & SCALP: normocephalic and atraumatic Resp: OTHER: B/L Coarse Breath sounds Cardio: COMMON NORMALS: regular rate, regular rhythm, S1 normal heart sound present, S2 normal heart sound present, No gallops present (Cardio), No murmurs present (Cardio), No rub (Cardio) and Peripheral pulses 2+ throughout RATE: regular rate RHYTHM: regular rhythm HEART SOUNDS: S1 normal heart sound present and S2 normal heart sound present PERIPHERAL PULSES: Peripheral pulses 2+ throughout GI: COMMON NORMALS: Normal to inspection, nondistended, normoactive bowel so unds present, Soft to palpation, non-tender, No hepatosplenomegaly present and no masses AUSCULTATION: Yes normoactive bowel sounds PALPATION: Yes Soft to palpation and Yes No hepatosplenomegaly present RECTAL EXAM: deferred Extremity: COMMON NORMALS: no clubbing, cyanosis or edema and no pedal edema Urinary Catheter Management^: Ontiveros: Cath Placed During This Visit: yes Reason for Continuing Indwelling Catheter: Accurate Measurement of Urinary Output in Critically Ill Patients Urinary Catheter Date of Insertion: 02/14/21 Urinary Catheter Time of Insertion: 19:48 Data : 02/24/21 04:10 02/24/21 04:10 Micro: Microbiology 02/22/21 18:20 Gram Stain - Final Sputum - Endotracheal Tube Aspirate Sputum Culture - Preliminary Yeast species 02/23/21 19:08 Stool Lactoferrin - Final Stool C.difficile Toxin B Gene (PCR) - Final Occult Blood (FIT) - Final 02/20/21 08:12 Urine Culture - Final Urine,Voided A&P Assessment and plan (1) Acute respiratory failure with hypoxia: Acute hypoxic respiratory failure -secondary to COVID-19 pneumonia, breakthrough infection, has received both Covid vaccines in May 2019, no history of booster -Now with evidence of acute respiratory distress syndrome -Now developing worsening encephalopathy, leukocytosis, renal failure Plan: -Currently being managed in ICU -Currently intubated sedated on mechanical ventilation -On Decadron 6 mg, IV push daily -Completed remdesivir -status post 1 dose Actemra 02/17/2021 -Currently on vancomycin, cefepime and Po vancomycin - Levaquin and Caspofugin was discontinued -WBC elevated to 23.6, neutrophilic, pro-Francesco 0.04, CRP 5.2, no fevers, repeat blood cultures, will add antifungal coverage -Initial blood cultures positive for coagulase-negative staphylococci, repeat blood cultures negative, repeat blood cultures -Vitamin C, zinc, vitaimn D -Incentive spirometer, flutter valve -Albuterol, budesonide Bilateral lower extremity ultrasound for negative for DVT, follow D-dimer -For CHF, BNP elevated, -Echocardiogram shows EF of 65%, moderate LVH, grade 1 out of 4 diastolic dysfunction -Continue bicarb 650 mg 3 times daily-secondary to uremia -Seroquel for agitation on hold due to encephalopathy -Precedex for agitation -Protonix for GI prophylaxis -Chlorhexidine -Lovenox for DVT prophylaxis Acute encephalopathy, secondary to COVID-19 pneumonia, hypoxia, uremia -Continue to monitor mentation closely, aspiration precautions YENNY on worseing CKD stage IV , secondary to COVID-Nephropathy: Started ON H/D on 02/22 Renal ultrasound no nephrolithiasis avoid nephrotoxic agents -Metabolic Acidosis 2/2 to uremia plan as above. Transaminitis secondary to COVID-19 Acute on chronic diastolic CHF exacerbation: Hypertension: Currently b/p is well controlled. Chronic lymphocytic leukemia, continue to monitor Elevated troponins, likely secondary respiratory failure, serial troponins, ser ial EKGs, continue aspirin, continue statin, normal CPK kno-[id number]-[id number] type 2 diabetes mellitus, low-dose sliding scale, Lantus 5 units twice daily A.fib :Currently rate is well controlled. Will hold off on full Ac for now as there is risk of bleeding with dropping H&H. C.Diff Diarrhea : On Po Vancomycin 125 mg q6h for 7days. DVT PPX: On Heparin 5000 sc q12 h daily Patient son was updated -Full code Status: Acute (2) Pneumonia due to COVID-19 virus: Status: Acute (3) Acute kidney injury superimposed on CKD: Status: Acute (4) Atrial fibrillation: Status: Acute (5) CHF exacerbation: Status: Acute (6) Hypertension: Status: Chronic Qualifiers: Hypertension type: renovascular hypertension Qualified Code(s): I15.0 - Renovascular hypertension (7) Dyslipidemia: Status: Chronic (8) Carotid stenosis, bilateral: Status: Chronic (9) CLL (chronic lymphocytic leukemia): Status: Acute (10) ARDS (adult respiratory distress syndrome): Status: Acute Attestations Medical Necessity Statement*: Patient needs to be in hospital for the management of PNA Coding Level of Care Code Acute Engineering Surveyor for [facility] Fwd Exam Expanded Problem Focused Diagnoses Acute respiratory failure with hypoxia J96.01 Pneumonia due to COVID-19 virus U07.1; J12.82 Acute kidney injury superimposed on CKD N17.9; N18.9 Atrial fibrillation I48.91 CHF exacerbation I50.9 Hypertension I15.0 Hypertension type: renovascular hypertension Dyslipidemia E78.5 Carotid stenosis, bilateral I65.23 CLL (chronic lymphocytic leukemia) C91.10 ARDS (adult respiratory distress syndrome) J80
[2021-02-24] MEDS: propofol 1,000 MG/100 ML INJ 18.84 MG IV ×2 (13:33→20:35)
[2021-02-24 15:04] LABS: Glucose Point of Care 324 mg/dL (70-110)
--- NOTE | 2021-02-24 15:10 | PC.RESP ---
RT Shift Note Frequent safety and respiratory rounds continue. Orders completed as indicated. Patient monitored pre and post treatments throughout shift. Patient [Did. tolerate treatments appropriately. Condition [.DidNotChange]. Patient and/or new accounts banking representative educated on respiratory treatment and medications. Patient and/or new accounts banking representative [unable to comprehend]. Will continue to monitor patient progress.
[2021-02-24] MEDS: dexamethasone 10 mg/mL INJ 6 MG IVP (17:30)
[2021-02-24 17:57] LABS: Glucose Point of Care 190 mg/dL (70-110)
[2021-02-24] MEDS: atorvastatin 40 mg Tablet 10 MG PO (20:35)
--- NOTE | 2021-02-24 20:56 | P.PN_ITS ---
Subjective Subjective: Interval history: - pt seen at bedside today - yesterday night had diarrhea and C diff PCR postiive - started on PO Vancomycin - today wbc increased to 36K - likely secondary to C.Diff colitis, however resent blood cultures and sputum cultures and continue broad coverage v ancomycin/cefepime -Yesterday removed 1400 cc of hemodialysis and required small dose of Levophed during dialysis -Today off pressors, on propofol 30, fentanyl 50 -Still requiring 65% FiO2 on ventilator -Other labs and imaging reviewed -Other labs and imaging also reviewed Medications: Reviewed: Yes Vitals/I&O/Wt Last Vital Signs Temp 96.8 F L 02/24/21 19:04 Pulse 97 02/24/21 20:47 Resp 26 H 02/24/21 20:43 BP 121/41 02/24/21 19:04 Pulse Ox 93 02/24/21 20:43 02/24/21 02/24/21 02/24/21 06:59 14:59 22:59 Intake Total 1160.013 / 3053.703 229.159 / 229.159 899.792 / 1128.951 Output Total 50 / 1791 150 / 150 Balance 1110.013 / 1262.703 229.159 / 229.159 749.792 / 978.951 Weight last 48 hrs Weight 171 lb 15.369 oz Weight 168 lb 9 oz Physical Exam Narrative: EXAM NARRATIVE: General: lying in bed, sedated and intubated. HEENT:NCAT, PERRLA, EOMI Neck: Supple Lungs: Bilateral coarse crepitations Heart: s1/s2, RRR Abd: soft, NT, ND, BS + Normoactive Extremities: No edema FOOD TASTER: sedated and limited FOOD TASTER exam possible. SKIN: no rash LDA: # HD Cath : Right internal jugular 02/22/2021 # Ontiveros: 02/14/2021 #Patient has right arm midline Urinary Catheter Management^: Ontiveros: Cath Placed During This Visit: yes Reason for Continuing Indwelling Catheter: Accurate Measurement of Urinary Output in Critically Ill Patients Urinary Catheter Date of Insertion: 02/14/21 Urinary Catheter Time of Insertion: 19:48 Data : 02/24/21 04:10 02/24/21 04:10 Other Labs: Laboratory Results WBC 36.3 10^3/uL (4.0-10.0) H* 02/24/21 04:10 RBC 3.15 10^6/uL (4.1-5.3) L 02/24/21 04:10 Hgb 9.4 g/dL (11.5-15.3) L 02/24/21 04:10 Hct 30.0 % (37.0-47.0) L 02/24/21 04:10 MCV 95.2 fl (81-99) 02/24/21 04:10 MCH 29.8 pg (28.0-34.0) 02/24/21 04:10 MCHC 31.3 g/dL (30.0-36.0) 02/24/21 04:10 RDW 15.6 % (12.1-15.1) H 02/24/21 04:10 Plt Count 141 10^3/cmm (130-400) 02/24/21 04:10 MPV 12.8 fL (7.4-10.4) H 02/24/21 04:10 Neut % (Auto) 70.8 % 02/24/21 04:10 Lymph % (Auto) 21.9 % 02/24/21 04:10 Bay % (Auto) 4.0 % 02/24/21 04:10 Eos % (Auto) 0.0 % 02/24/21 04:10 Baso % (Auto) 0.3 % 02/24/21 04:10 Neut # (Auto) 25.70 10^3/uL (1.8-7.7) H 02/24/21 04:10 Lymph # (Auto) 8.0 10^3/uL (0.8-4.8) H 02/24/21 04:10 Bay # (Auto) 1.5 10^3/uL (0.2-0.9) H 02/24/21 04:10 Eos # (Auto) 0.0 10^3/uL (0.0-0.8) 02/24/21 04:10 Baso # (Auto) 0.1 10^3/uL (0.0-0.1) 02/24/21 04:10 Nucleated RBC % (auto) 0.4 % 02/24/21 04:10 Nucleated RBCs # 0.1 /100WBC 02/24/21 04:10 PT 16.60 SECONDS (12.1-14.9) H 02/24/21 04:10 INR 1.31 (0.8-1.2) H 02/24/21 04:10 APTT 26.5 SECONDS (23.9-36.7) 02/14/21 18:08 D-Dimer 2.16 ug/mIFEU (0-0.59) H 02/24/21 04:10 Specimen Type Arterial 02/24/21 05:00 Sample Site Radial, left 02/24/21 05:00 ABG pH 7.40 (7.35-7.45) 02/24/21 05:00 ABG pCO2 33.8 mmHg (35-45) L 02/24/21 05:00 ABG pO2 54.7 mmHg (80.0-100.0) L 02/24/21 05:00 ABG HCO3 21.1 mmol/L (22-26) L 02/24/21 05:00 ABG O2 Saturation 98.7 02/22/21 10:15 ABG Base Excess -3.1 mmol/L (-2.0-2.0) L 02/24/21 05:00 Marlo Test Pos 02/24/21 05:00 A-a O2 Gradient 49.4 mmHg (5-10) H 02/22/21 10:15 Hematocrit 29.9 % (37-47) L 02/24/21 05:00 Hgb O2 Saturation 97.0 % (95-100) 02/22/21 10:15 Carboxyhemoglobin 0.7 %THgb (0.4-20.1) 02/22/21 10:15 Methemoglobin 1.0 % (0.4-1.5) 02/22/21 10:15 Total Hemoglobin 10.0 g/dL (12-16) L 02/22/21 10:15 Sodium 160.0 mmol/L (131-143) H 02/22/21 10:15 Potassium 5.5 mmol/L (3.5-5.0) H 02/22/21 10:15 Glucose 245.0 mg/dL (70-115) H 02/22/21 10:15 Ionized Calcium 1.1 mmol/L (1.1-1.4) 02/22/21 10:15 O2 Delivery Device Vent 02/24/21 05:00 O2 Liters/Min 60.0 % 02/22/21 03:15 FiO2 60.0 % 02/24/21 05:00 Tidal Volume 0.40 02/24/21 05:00 PEEP 12.0 cmH20 02/24/21 05:00 Dermatologist Managing Partner MICHAEL Perry 02/24/21 05:00 Sodium 133 mmol/L (136-145) L 02/24/21 04:10 Potassium 4.1 mmol/L (3.5-5.1) 02/24/21 04:10 Chloride 94 mmol/L (98-107) L 02/24/21 04:10 Carbon Dioxide 20 mmol/L (22-29) L 02/24/21 04:10 Anion Gap 23.1 (5-19) H 02/24/21 04:10 BUN 54 mg/dL (8-23) H 02/24/21 04:10 Creatinine 2.7 mg/dL (0.5-0.9) H 02/24/21 04:10 GFR Calculation Not Reportable 02/24/21 04:10 Glucose 303 mg/dL (65-115) H 02/24/21 04:10 POC Glucose 167 mg/dL (70-110) H 02/24/21 21:07 Calculated Osmolality 302 mOsm/kg (285-295) H 02/24/21 04:10 Lactic Acid 0.8 mmol/L (0.5-2.2) 02/15/21 04:45 Lactate 1.9 mmol/L (0.5-2.2) 02/23/21 16:35 Calcium 6.5 mg/dL (8.5-10.5) L 02/24/21 04:10 Phosphorus 5.1 mg/dL (2.5-4.5) H 02/24/21 04:10 Magnesium 2.3 mg/dL (1.7-2.3) 02/24/21 04:10 Ferritin 2632 ng/mL (15-150) H 02/20/21 13:05 Total Bilirubin 0.6 mg/dL (0.15-1.2) 02/24/21 04:10 AST 60 U/L (0-32) H 02/24/21 04:10 ALT 27 U/L (0-33) 02/24/21 04:10 Alkaline Phosphatase 70 IU/L (35-105) 02/24/21 04:10 Creatine Kinase 1749 U/L (26-192) H* D 02/24/21 04:10 Troponin T Baseline 36 ng/L (0-10) H 02/14/21 18:08 Troponin T 120 Minute 38.17 ng/L (0-10) H 02/14/21 20:30 Delta Troponin T 2.17 ABS# (0-10) 02/14/21 20:30 Troponin T Hi Sens 6Hr 33.07 ng/L (0-10) H 02/15/21 00:50 Troponin T Hi Sens 6Hr Delta -2.93 ng/L (0-12) L 02/15/21 00:50 C-Reactive Protein 4.3 mg/L (0.0-4.9) 02/24/21 04:10 NT-Pro-B Natriuret Pep 2742 pg/mL (0-450) H 02/24/21 04:10 Total Protein 4.7 g/dL (6.6-8.7) L 02/24/21 04:10 Albumin 2.9 g/dL (3.5-5.2) L 02/24/21 04:10 Globulin 1.8 g/dL (1.3-4.6) 02/24/21 04:10 Procalcitonin 0.29 ng/mL (0-0.5) 02/24/21 04:10 TSH 0.48 uIU/mL (0.27-4.20) 02/15/21 04:45 Urine Color Yellow (Yellow) 02/14/21 22:00 Urine Appearance Sl cloudy (CLEAR) A 02/14/21 22:00 Urine pH 5 (5-7) 02/14/21 22:00 Ur Specific [place] 1.010 (1.005-1.030) 02/14/21 22:00 Urine Protein 1+ (Negative) H 02/14/21 22:00 Urine Glucose (UA) Norm (Normal) 02/14/21 22:00 Urine Ketones Negative (Negative) 02/14/21 22:00 Urine Blood 2+ (Negative) H 02/14/21 22:00 Urine Nitrate Negative (Negative) 02/14/21 22:00 Urine Bilirubin Neg (Negative) 02/14/21 22:00 Urine Urobilinogen Norm mg/dL (Negative) 02/14/21 22:00 Ur Leukocyte Esterase 2+ (Negative) H 02/14/21 22:00 Urine RBC 10-15 /hpf (0-2) H 02/14/21 22:00 Urine WBC >100 /hpf (0-5) H 02/14/21 22:00 Ur Squamous Epith Cells 0-4 /hpf (0-5) H 02/14/21 22:00 Amorphous Sediment Not Reportable 02/14/21 22:00 Urine Bacteria 4+ /hpf (NONE) H 02/14/21 22:00 Ur Random Sodium 31 mmol/L 02/15/21 17:26 Urine Creatinine 153 mg/dL (28-217) 02/15/21 17:26 Vancomycin Trough 15.1 ug/mL (10-15) H 02/22/21 09:47 Serum Ketones Negative (Negative) 02/15/21 04:45 Nasal/Oral COVID-19 PCR Detected H 02/14/21 22:00 Hep Bs Antigen Non-reactive (Nonreactive) 02/22/21 17:30 Hep Bs Antibody 3.5 (11.5-1000) L 02/22/21 17:30 Hep B Core Total Ab Non-reactive (Nonreactive) 02/22/21 17:30 SARS-CoV-2 Ag (Rapid) Positive (Negative) H 02/14/21 22:[address] 02/14/21 18:36 IMPRESSION: 1. Multifocal patchy bilateral pulmonary ground-glass opacities are nonspecific. Differential includes pneumonia and/or pulmonary edema.Imaging features can be seen with COVID-19 pneumonia, though are nonspecific and can occur with a variety of infectious and noninfectious processes. (Reference: Todd) 2. There are centrilobular emphysematous changes in the bilateral lungs. 3. Multivessel atherosclerotic disease which involves the coronary arteries. 4. Multiple lymph nodes are visualized in the upper abdomen some of which appear to be abnormal in morphology/rounded. Consider CT scan of the abdomen/pelvis with IV contrast for further evaluation as clinically warranted. REFERENCES: Todd Dill et al., Radiological Society of [place] Expert Consensus Statement on Reporting Chest CT Findings Related to COVID-19. Endorsed by the Society of Thoracic Radiology, the [place] [employer], and RSNA. Published August 21, 2019. Radiation Dose CTDIVOL = (mGy): DLP = 692.4 (mGy-cm) Renal Ultrasound 02/15/21 07:34 IMPRESSION: 1. No hydronephrosis in either kidney. 2. Cortical atrophy right kidney. Chest X-Ray 02/24/21 07:44 IMPRESSION: 1. Bilateral interstitial infiltrates showing little change since prior study. 2. ET tube, enteric tube and central vascular line all appear to be in the satisfactory position. 3. A right-sided PICC line is also noted and ends in the region of the right axilla probably in the axillary vein. Micro: Microbiology 02/24/21 19:05 Blood Culture - Preliminary Blood SPECIMEN COLLECTED 02/24/21 18:50 Blood Culture - Preliminary Blood SPECIMEN COLLECTED 02/23/21 19:08 Stool Lactoferrin - Final Stool Enteric Pathogens (PCR) - Final Parasite Antigen Panel - Final C.difficile Toxin B Gene (PCR) - Final Occult Blood (FIT) - Final 02/22/21 18:20 Gram Stain - Final Sputum - Endotracheal Tube Aspirate Sputum Culture - Preliminary Yeast species A&P Assessment and plan (1) AMS (altered mental status): Status: Acute Qualifiers: Altered mental status type: somnolence Qualified Code(s): R40.0 - Somnolence (2) Uremic encephalopathy: Status: Acute (3) Acute respiratory failure with hypoxia: Status: Acute (4) Acute respiratory distress syndrome (ARDS) due to COVID-19 virus: Status: Acute (5) Acute kidney injury superimposed on CKD: Status: Acute (6) CHF (congestive heart failure): Status: Acute Qualifiers: Heart failure chronicity: acute on chronic Heart failure type: diastolic Qualified Code(s): I50.33 - Acute on chronic diastolic (congestive) heart failure (7) Mitral regurgitation: Status: Chronic Qualifiers: Cardiac valve disease etiology: etiology unspecified Qualified Code(s): I34.0 - Nonrheumatic mitral (valve) insufficiency (8) C. difficile diarrhea: Status: Acute (9) Atrial fibrillation: Status: Acute #Altered mental status-secondary to uremic encephalopathy/hypernatremia in patient with worsening CKD #Acute hypoxic respiratory failure secondary to ARDS due to COVID-19 pneumonia -Covid test + 02/11/2021, admitted 02/14/2021; May 2020 with 2 doses -Intubated 02/22/2021 for altered mental status due to uremic encephalopathy/hypernatremia and patient with acute hypoxic respiratory failure due to COVID-19 pneumonia -ABG 7.4 0/33/54/21/92% on 60%/400/12 CMV -Sedated with propofol and fentanyl GTT; target RASS -2 and try to avoid high doses of fentanyl and Versed in this elderly patient. -S/p Actemra 02/17/2021, remdesivir, currently on dexamethasone 10 mg daily -Titrate FiO2 down to keep saturations >88% #Chronic diastolic heart failure with mitral regurgitation and mild aortic stenosis -Echocardiogram shows EF of 65%, moderate LVH, grade 1 out of 4 diastolic dysfunction -Currently hemodynamically stable -She is receiving aspirin/Lipitor/Cardizem 240 mg p.o. daily, labetalol 200 mg p.o. twice daily, #YENNY on CKD stage III likely secondary to COVID-19 pneumonia with increased anion gap metabolic acidosis -ABG post intubation 7.1 8/44/135/16/98% on 380/80%/10; CMP significant for sodium 157, bicarb 13, corrected anion gap 26.5, phosphorus 6; corrected calcium 8 -Patient received hemodialysis 2 sessions -Patient required low-dose pressor during hemodialysis -Today ABG showed pH 7.40 and sodium 133, bicarb 20 - currently on sodium bicarbonate 650 mg p.o. 3 times daily -Renal on board and appreciate their recommendations regarding hemodialysis - right internal jugular hemodialysis catheter placed today 02/22/2021 #Blood cultures 02/14/2021-4/4 bottles positive for cons-repeat blood cultures 02/18/2020 were negative so far #Diarrhea-C. difficile PCR positive #Leukocytosis 35K --likely due to C. difficile colitis -Currently on p.o. Vanco 125 every 6 hours started 02/23/2021 -MRSA nares negative and other cultures negative so far -Due to significant leukocytosis and fever spike yesterday-recent blood cultures and sputum cultures & currently patient is on vancomycin, cefepime -if cultures negative can discontinue vancomycin/cefepime #Sugars moderately controlled -On scale coverage and Lantus 10 twice daily #DVT prophylaxis: Heparin #Recommended to start tube feeding nephro 10 mL/hr and max 30 mL/h and check gastric residuals -Hold senna docusate 2 tabs at bedtime #Full code #NOK Reji Montano - updated Patient mentation and respiratory status worsened secondary to worsening CKD related hypernatremia and uremia-I believe once patient is on hemodialysis her mentation and respiratory status should get better. Patient has CT diarrhea and worsening leukocytosis-currently on p.o. vancomycin-recent blood cultures and cover with broad-spectrum coverage vancomycin and cefepime. Will assess daily mentation and once oxygenation's improve with FiO2 less than 50% and PEEP 8-we will do breathing trials and extubate the patient; if patient does not improve in the next couple of days-we should start discussing with family regarding trach and PEG and long-term acute care facility placement Recommendations conveyed to hospitalist, RN, RT covering the patient Attestations Medical Necessity Statement*: Acute hypoxemic respiratory failure secondary to ARDS due to COVID-19 pneumonia requiring high FiO2 on mechanical ventilator and altered mental status secondary to uremic encephalopathy/hypernatremia and patient with worsening YENNY or CKD requiring hemodialysis-need close ICU monitoring Time Spent in Patient Care: Greater than 35 minutes (>than 50% of time spent in counselling and/or direct pt care on unit) . Critical Care Time: The high probability of a clinically significant, sudden or life threatening deterioration of the patient's [neurological, pulmonary, renal, GI] system(s) required my full and direct attention, intervention and personal management. The critical care time is as shown. This time is in addition to time spent performing any reported procedures but includes the following: [x] Data and vital sign review and interpretation [x] Patient assessment, examination and intervention [x] Documentation [x] Medication orders and management Critical Care Time (min): 45 Coding Level of Care Code Established Pt Acute Absorption And Adsorption Engineer for Chg Fwd Patient Type Established History Comprehensive Exam Comprehensive Medical Decision Making High Complexity Diagnoses AMS (altered mental status) R40.0 Altered mental status type: somnolence Uremic encephalopathy G93.49; N19 Acute respiratory failure with hypoxia J96.01 Acute respiratory distress syndrome (ARDS) due to COVID-19 virus U07.1; J80 Acute kidney injury superimposed on CKD N17.9; N18.9 CHF (congestive heart failure) I50.33 Heart failure chronicity: acute on chronic Heart failure type: diastolic Mitral regurgitation I34.0 Cardiac valve disease etiology: etiology unspecified C. difficile diarrhea A04.72 Atrial fibrillation I48.91 Time Spent (min) 45
[2021-02-24 21:09] LABS: Glucose Point of Care 167 mg/dL (70-110)
[2021-02-24] MEDS: morphine 4 mg/mL SDV 1 mL 1 MG IVP (22:10)
[2021-02-24] MEDS: cefepime 2,000 MG in sodium chloride 0.9% (plus) 50 ML 50 MG IV (22:15)
--- NOTE | 2021-02-24 23:10 | ECG_ITS ---
[facility] Test Date: 2021-02-24 Pat Name: Yanira Gao Department: Room: ICU07 Gender: Female Unloader Operator: : [id number] Requested By: Shane Soto Order Number: [id number] Anabella MD: Debbi Quiroga M.D. Measurements Intervals [place] Rate: 96 P: TN: QRS: -22 QRSD: 112 T: 140 QT: 383 QTc: 486 Interpretive Statements ATRIAL FIBRILLATION ANTEROSEPTAL MYOCARDIAL INFARCTION , OF INDETERMINATE AGE [40+ ms Q WAVE IN V1-V4] MODERATE T-WAVE ABNORMALITY, CONSIDER LATERAL ISCHEMIA [-0.1+ mV T-WAVE IN I/aVL/V5/V6] Compared to ECG 02/23/2021 13:41:52 No significant changes Electronically Signed On 02-26-2021 7:04:02 CDT by Debbi Quiroga M.D. [email or web address] f
[2021-02-25] VITALS (42 sets, daily range): BP systolic 70–159; BP diastolic 38–103; PULSE 87–142; RESP 20–29; TEMP 36.6–37.5; O2SAT 82–93
[2021-02-25] MEDS: propofol 1,000 MG/100 ML INJ 21.2 MG IV ×4 (01:24→20:49)
[2021-02-25] MEDS: morphine 4 mg/mL SDV 1 mL 1 MG IVP ×3 (01:25→15:22)
[2021-02-25 05:12] LABS: Basophils # 0.1 10^3/uL (0.0-0.1); Basophils % 0.3 %; Hematocrit 26.2 % (37.0-47.0); Hemoglobin 8.7 g/dL (11.5-15.3); Lymphocytes # 4.9 10^3/uL (0.8-4.8); Lymphocytes % 17.6 %; Mean Corpuscular HGB Conc 33.2 g/dL (30.0-36.0); Mean Corpuscular Hemoglobin 32.1 pg (28.0-34.0); Mean Corpuscular Volume 96.7 fl (81-99); Mean Platelet Volume 12.9 fL (7.4-10.4); Monocytes # 1.2 10^3/uL (0.2-0.9); Monocytes % 4.5 %; Neutrophils # 20.78 10^3/uL (1.8-7.7); Neutrophils % 75.6 %; Nucleated Red Blood Cells # 0.1 /100WBC; Nucleated Red Blood Cells % 0.3 %; Platelet Count 93 10^3/cmm (130-400); Red Blood Count 2.71 10^6/uL (4.1-5.3); Red Cell Distribution Width 15.2 % (12.1-15.1); White Blood Count 27.5 10^3/uL (4.0-10.0)
[2021-02-25 05:27] LABS: D Dimer 1.37 ug/mIFEU (0-0.59)
[2021-02-25 05:32] LABS: Albumin Level 2.5 g/dL (3.5-5.2); Alkaline Phosphatase 61 IU/L (35-105); Blood Urea Nitrogen 80 mg/dL (8-23); Carbon Dioxide 18 mmol/L (22-29); Chloride 88 mmol/L (98-107); Globulin 2.2 g/dL (1.3-4.6); Glucose 168 mg/dL (65-115); Osmolality Calculated 294 mOsm/kg (285-295); Sodium 128 mmol/L (136-145); Total Bilirubin 0.4 mg/dL (0.15-1.2); Total Protein 4.7 g/dL (6.6-8.7)
[2021-02-25 05:34] LABS: Anion Gap 26.5 (5-19); Potassium 4.5 mmol/L (3.5-5.1)
[2021-02-25 05:48] LABS: Alanine Aminotransferase < 5 U/L (0-33); Aspartate Amino Transferase 5 U/L (0-32)
--- NOTE | 2021-02-25 06:10 | PC.NURSE ---
Shift Note Frequent safety and comfort rounds continue. Orders and/or nursing care completed as indicated. Patient monitored for response to intervention and treatment(s). Pt had one, 40 beat run of Vtach (see chart). Dr. Soto was notified and an EKG was ordered and completed at bedside. Dr. Soto had no further orders. Pt was non-compliant with vent settings. Fentanyl was titrated to max of 10 (per Datar, fentanyl should go no higher). Propofol was titrated to max of 50 (also, per Datar's orders). Pt had PRN order for morphine, so it was given (see MAR) in order to assist with vent compliance/respiratory rate. This combination seemed to help. Information will be passed along to dayshift RN during report. Will continue to monitor.
[2021-02-25] MEDS: budesonide 0.5 mg/2 mL Neb INHALATION ×2 (07:58→19:48)
[2021-02-25 08:19] LABS: Glucose Point of Care 248 mg/dL (70-110)
[2021-02-25] MEDS: heparin 5,000 unit/mL INJ 1 mL 5000 UNIT SUBCUT ×2 (08:48→22:31)
[2021-02-25] MEDS: pantoprazole DR 40 mg Tablet PO ×2 (08:49→18:16)
[2021-02-25] MEDS: sodium bicarbonate 650 mg Tablet PO ×3 (08:49→22:28)
[2021-02-25] MEDS: aspirin 81 mg EC Tablet PO (08:49)
[2021-02-25] MEDS: cholecalciferol (vitamin D3) 1,000 unit Tablet 1000 UNIT PO (08:49)
[2021-02-25] MEDS: vancomycin 750 MG in sodium chloride 0.9% 250 ML 250 MG IV (08:49)
[2021-02-25] MEDS: zinc gluconate 50 mg Tablet PO (08:49)
[2021-02-25] MEDS: ascorbic acid 500 mg Tablet PO ×2 (08:49→18:16)
[2021-02-25] MEDS: chlorhexidine gluconate 0.12% Btl 473 mL 15 ML MUCOUS MEM (08:51)
--- NOTE | 2021-02-25 09:10 | P.PN_ITS ---
Subjective Subjective: Interval history: Remains critically ill in the ICU. FiO2 55%, PEEP 12, off pressors. In and out of Afib. No urine output. Medications: Reviewed: Yes Vitals/I&O/Wt Last Vital Signs Temp 96.8 F L 02/24/21 19:04 Pulse 109 H 02/25/21 07:58 Resp 27 H 02/25/21 08:08 BP 132/45 02/25/21 05:00 Pulse Ox 92 02/25/21 08:08 02/24/21 02/25/21 02/25/21 22:59 06:59 14:59 Intake Total 899.792 / 2680.567 3401.791 / 4855.742 Output Total 150 / 150 10 / 160 Balance 749.792 / 916.552 8641.791 / 4695.742 Weight last 48 hrs Weight 78 kg Physical Exam 2 Narrative: EXAM NARRATIVE: Constitutional: sedated and vented HEENT: Wet mucosa, no jvp, non icteric Lungs: Bilaterally decreased air entry in all lung zones with scattered coarse breath sounds CVS: S1 S2, no murmurs Abdo: Soft, BS ok Ext 4: Minimal edema, peripheral perfusion with no cyanosis Neurological: Grossly non-focal Urinary Catheter Management^: Ontiveros: Cath Placed During This Visit: yes Reason for Continuing Indwelling Catheter: Accurate Measurement of Urinary Output in Critically Ill Patients Urinary Catheter Date of Insertion: 02/14/21 Urinary Catheter Time of Insertion: 19:48 Data : 02/25/21 04:39 02/25/21 04:39 Micro: Microbiology 02/24/21 19:05 Blood Culture - Preliminary Blood SPECIMEN COLLECTED 02/24/21 18:50 Blood Culture - Preliminary Blood SPECIMEN COLLECTED 02/23/21 19:08 Stool Lactoferrin - Final Stool Enteric Pathogens (PCR) - Final Parasite Antigen Panel - Final C.difficile Toxin B Gene (PCR) - Final Occult Blood (FIT) - Final 02/22/21 18:20 Gram Stain - Final Sputum - Endotracheal Tube Aspirate Sputum Culture - Preliminary Yeast species A&P Additional A&P Information 1. Acute on chronic kidney disease Now in overt renal failure from ATN Plan for dialysis today; 3K, UF 2-3L as tolerated Avoid usual nephrotoxic agents Dose medication for GFR less than 15 2. Covid pneumonitis On combination remdesivir, dexamethasone, antibiotic coverage, judicious use of diuretics. High flow nasal cannula being titrated. She did receive both vaccinations. 3. Chemistry Acidosis, hyponatremia, hypocalcemia all noted and all to be helped by dialysis. Will recheck Ca post dialysis Jesus Omalley MD Nephrology [phone] Patient seen and examined via telemedicine, with the assistance of the bedside RN > 25 min spent in evaluation and mgmt of patient Attestations Medical Necessity Statement*: eval for YENNY Coding Level of Care Code Acute Climbing Guide for Karthikeyan Peters
--- NOTE | 2021-02-25 09:58 | PC.SOCIAL ---
IMM update pg 2 of IMM updated and reviewed w/ son Carrington.
[2021-02-25 10:02] LABS: ABG PCO2 38.9 mmHg (35-45); ABG PH Result 7.28 (7.35-7.45); Alveolar-Arterial Oxygen Gradi 36.2 mmHg (5-10); Arterial Blood Gas Hematocrit 25.2 % (37-47); Base Excess ABG -7.9 mmol/L (-2.0-2.0); Blood Gas Operator Identificat GD; Blood Gas Sample Site Brachial, left; Blood Gas Sample Type Arterial; HCO3 ABG 18.2 mmol/L (22-26); HGB O2 Sat 89.7 % (95-100); Ionized Calcium Level - ABG 0.8 mmol/L (1.1-1.4); Oxygen Device VENT; Oxygen Saturation ABG 91.5; PO2 ABG 66.6 mmHg (80.0-100.0); Potassium Level - ABG 4.2 mmol/L (3.5-5.0); Total Hemoglobin 8.2 g/dL (12-16)
[2021-02-25] MEDS: insulin glargine 100 units/1 mL 10 UNIT SUBCUT (10:13)
[2021-02-25 11:30] LABS: Glucose Point of Care 192 mg/dL (70-110)
--- NOTE | 2021-02-25 11:34 | P.PN_ITS ---
Subjective Subjective: Interval history: -Patient was seen and examined this morning, supplemental oxygen requirement is slowly coming down, currently she is on 50% FiO2 and PEEP of 10. Due for dialysis today. A.m. ABG: pH 7.28, PCO2 38, PO2 66.6, FiO2:55% Medications: Reviewed: Yes Vitals/I&O/Wt Last Vital Signs Temp 96.8 F L 02/24/21 19:04 Pulse 97 02/25/21 11:11 Resp 29 H 02/25/21 11:11 BP 103/50 02/25/21 10:00 Pulse Ox 82 L 02/25/21 11:11 02/24/21 02/25/21 02/25/21 22:59 06:59 14:59 Intake Total 899.792 / 1771.251 9419.791 / 4955.742 293.167 / 293.167 Output Total 150 / 150 10 / 160 Balance 749.792 / 020.649 9305.791 / 4795.742 293.167 / 293.167 Weight last 48 hrs Weight 78 kg Physical Exam Narrative: EXAM NARRATIVE: Intubated and sedated. HENMT: COMMON NORMALS: normocephalic and atraumatic HEAD & SCALP: normocephalic and atraumatic Resp: OTHER: B/L Coarse Breath sounds Cardio: COMMON NORMALS: regular rate, regular rhythm, S1 normal heart sound present, S2 normal heart sound present, No gallops present (Cardio), No murmurs present (Cardio), No rub (Cardio) and Peripheral pulses 2+ throughout RATE: regular rate RHYTHM: regular rhythm HEART SOUNDS: S1 normal heart sound pr esent and S2 normal heart sound present PERIPHERAL PULSES: Peripheral pulses 2+ throughout GI: COMMON NORMALS: Normal to inspection, nondistended, normoactive bowel sounds present, Soft to palpation, non-tender, No hepatosplenomegaly present and no masses AUSCULTATION: Yes normoactive bowel sounds PALPATION: Yes Soft to palpation and Yes No hepatosplenomegaly present RECTAL EXAM: deferred Extremity: COMMON NORMALS: no clubbing, cyanosis or edema and no pedal edema Urinary Catheter Management^: Ontiveros: Cath Placed During This Visit: yes Reason for Continuing Indwelling Catheter: Accurate Measurement of Urinary Output in Critically Ill Patients Urinary Catheter Date of Insertion: 02/14/21 Urinary Catheter Time of Insertion: 19:48 Data : 02/25/21 04:39 02/25/21 04:39 Micro: Microbiology 02/24/21 19:05 Blood Culture - Preliminary Blood SPECIMEN COLLECTED 02/24/21 18:50 Blood Culture - Preliminary Blood SPECIMEN COLLECTED 02/23/21 19:08 Stool Lactoferrin - Final Stool Enteric Pathogens (PCR) - Final Parasite Antigen Panel - Final C.difficile Toxin B Gene (PCR) - Final Occult Blood (FIT) - Final 02/22/21 18:20 Gram Stain - Final Sputum - Endotracheal Tube Aspirate Sputum Culture - Preliminary Yeast species A&P Assessment and plan (1) Acute respiratory failure with hypoxia: Acute hypoxic respiratory failure -secondary to COVID-19 pneumonia, breakthrough infection, has received both Covid vaccines in May 2019, no history of booster Plan: -Currently being managed in ICU -Currently intubated sedated on mechanical ventilation -On Decadron 6 mg, IV push daily -Completed remdesivir -status post 1 dose Actemra 02/17/2021 -Currently on vancomycin, cefepime and Po vancomycin - Levaquin and Caspofugin was discontinued -Initial blood cultures positive for coagulase-negative staphylococci, repeat blood cultures negative -Vitamin C, zinc, vitaimn D -Albuterol, budesonide Bilateral lower extremity ultrasound for negative for DVT, follow D-dimer -For CHF, BNP elevated, -Echocardiogram shows EF of 65%, moderate LVH, grade 1 out of 4 diastolic dysfunction -Continue bicarb 650 mg 3 times daily-secondary to uremia -Protonix for GI prophylaxis Acute encephalopathy, secondary to COVID-19 pneumonia, hypoxia, uremia -Continue to monitor mentation closely, aspiration precautions YENNY on worseing CKD stage IV , secondary to COVID-Nephropathy: Started ON H/D on 02/22 Renal ultrasound no nephrolithiasis avoid nephrotoxic agents -Metabolic Acidosis 2/2 to uremia plan as above. Transaminitis secondary to COVID-19 Acute on chronic diastolic CHF exacerbation: Hypertension: Currently b/p is well controlled. Chronic lymphocytic leukemia, continue to monitor Elevated troponins, likely secondary respiratory failure, serial troponins, serial EKGs, continue aspirin, continue statin, normal CPK [id number] type 2 diabetes mellitus, low-dose sliding scale, Lantus 5 units twice daily A.fib :Currently rate is well controlled. Will hold off on full Ac for now as there is risk of bleeding with dropping H&H. C.Diff Diarrhea : On Po Vancomycin 125 mg q6h for 7days. Thrombocytopenia: Low 4T Score, less likely HIT. Likely part of viral syndrome. Continue to monitor CBC for now. DVT PPX: On Heparin 5000 sc q12 h daily Patient son was updated -Full code Status: Acute (2) Pneumonia due to COVID-19 virus: Status: Acute (3) Acute kidney injury superimposed on CKD: Status: Acute (4) Atrial fibrillation: Status: Acute (5) CHF exacerbation: Status: Acute (6) Hypertension: Status: Chronic Qualifiers: Hypertension type: renovascular hypertension Qualified Code(s): I15.0 - Renovascular hypertension (7) Dyslipidemia: Status: Chronic (8) Carotid stenosis, bilateral: Status: Chronic (9) CLL (chronic lymphocytic leukemia): Status: Acute (10) ARDS (adult respiratory distress syndrome): Status: Acute Attestations Medical Necessity Statement*: Patient needs to be in the hospital for management of pneumonia. Coding Level of Care Code Acute Applications Packager [facility] Diagnoses Acute respiratory failure with hypoxia J96.01 Pneumonia due to COVID-19 virus U07.1; J12.82 Acute kidney injury superimposed on CKD N17.9; N18.9 Atrial fibrillation I48.91 CHF exacerbation I50.9 Hypertension I15.0 Hypertension type: renovascular hypertension Dyslipidemia E78.5 Carotid stenosis, bilateral I65.23 CLL (chronic lymphocytic leukemia) C91.10 ARDS (adult respiratory distress syndrome) J80
[2021-02-25] MEDS: metoprolol tartrate 25 mg Tablet 12.5 MG PO (13:05)
[2021-02-25] MEDS: metoprolol tartrate 1 mg/1 mL SDV 5 mL 5 MG IVP (13:05)
--- NOTE | 2021-02-25 15:21 | PC.RESP ---
RT Shift Note Frequent safety and respiratory rounds continue. Orders completed as indicated. Patient monitored pre and post treatments throughout shift. Patient [Did.] tolerate treatments appropriately. Condition [.DidNotChange]. Patient and/or eligibility services representative educated on respiratory treatment and medications. Patient and/or eligibility services representative [unable to understand]. Will continue to monitor patient progress.
[2021-02-25 16:56] LABS: Ionized Calcium 0.9 mmol/L (1.1-1.4)
[2021-02-25 18:14] LABS: Glucose Point of Care 123 mg/dL (70-110)
[2021-02-25] MEDS: dexamethasone 10 mg/mL INJ 6 MG IVP (18:16)
[2021-02-25] MEDS: atorvastatin 40 mg Tablet 10 MG PO (22:29)
[2021-02-25 23:11] LABS: Glucose Point of Care 89 mg/dL (70-110)
[2021-02-26] VITALS (47 sets, daily range): BP systolic 83–167; BP diastolic 41–102; PULSE 0–127; RESP 12–28; TEMP 36.4–37.8; O2SAT 87–94; BMI 28.3
[2021-02-26] MEDS: cefepime 2,000 MG in sodium chloride 0.9% (plus) 50 ML 100 MG IV (01:00)
[2021-02-26] MEDS: propofol 1,000 MG/100 ML INJ 21.2 MG IV ×2 (02:40→09:36)
[2021-02-26 05:10] LABS: Hematocrit 25.8 % (37.0-47.0); Hemoglobin 8.3 g/dL (11.5-15.3); Mean Corpuscular HGB Conc 32.2 g/dL (30.0-36.0); Mean Corpuscular Hemoglobin 31.2 pg (28.0-34.0); Mean Platelet Volume 12.8 fL (7.4-10.4); Platelet Count 100 10^3/cmm (130-400); Red Blood Count 2.66 10^6/uL (4.1-5.3); Red Cell Distribution Width 15.2 % (12.1-15.1); White Blood Count 29.1 10^3/uL (4.0-10.0)
[2021-02-26 05:25] LABS: D Dimer 1.72 ug/mIFEU (0-0.59)
[2021-02-26 05:27] LABS: Alanine Aminotransferase 71 U/L (0-33); Albumin Level 2.8 g/dL (3.5-5.2); Alkaline Phosphatase 68 IU/L (35-105); Anion Gap 24.5 (5-19); Aspartate Amino Transferase 99 U/L (0-32); Blood Urea Nitrogen 52 mg/dL (8-23); Calcium 6.5 mg/dL (8.5-10.5); Carbon Dioxide 21 mmol/L (22-29); Chloride 95 mmol/L (98-107); Globulin 2.1 g/dL (1.3-4.6); Glucose 133 mg/dL (65-115); Osmolality Calculated 298 mOsm/kg (285-295); Potassium 4.5 mmol/L (3.5-5.1); Sodium 136 mmol/L (136-145); Total Bilirubin 0.4 mg/dL (0.15-1.2); Total Protein 4.9 g/dL (6.6-8.7)
[2021-02-26 05:39] LABS: Slide Review Slide Review Perform; Total Cells Counted 100 (0-100)
[2021-02-26 05:40] LABS: Absolute Segmented Neutrophil 23.3 10/cmm (1.6-7.1); Band Neutrophils Absolute 0.9 10^3/cmm (0.0-1.2); Eosinophils 0 %; Lymphocytes 13 %; Lymphocytes Absolute 4.4 10^3/cmm (1.2-3.4); Monocytes Absolute 0.6 10^3/cmm (0.1-0.6); Segmented Neutrophils 80 %
[2021-02-26 05:41] LABS: Absolute Neutrophil 24.2 10^3/cmm (1.4-6.5); Platelet Estimate Decreased (Normal)
--- NOTE | 2021-02-26 07:13 | PC.NURSE ---
Shift Note Frequent safety and comfort rounds continue. Orders and/or nursing care completed as indicated. Patient monitored for response to intervention and treatment(s). Education provided includes[]. Patient and/or merchandiser retail representative [ResponseToTeaching]. Will continue to monitor. No changes during the shift. The patient continues to to have bloody oral secretions.
[2021-02-26 07:59] LABS: Glucose Point of Care 153 mg/dL (70-110)
[2021-02-26] MEDS: sodium bicarbonate 650 mg Tablet PO ×3 (08:38→20:59)
[2021-02-26] MEDS: zinc gluconate 50 mg Tablet PO (08:38)
[2021-02-26] MEDS: heparin 5,000 unit/mL INJ 1 mL 5000 UNIT SUBCUT ×2 (08:38→20:58)
[2021-02-26] MEDS: pantoprazole DR 40 mg Tablet PO ×2 (08:38→18:33)
[2021-02-26] MEDS: aspirin 81 mg EC Tablet PO (08:38)
[2021-02-26] MEDS: ascorbic acid 500 mg Tablet PO ×2 (08:38→18:33)
[2021-02-26] MEDS: chlorhexidine gluconate 0.12% Btl 473 mL 15 ML MUCOUS MEM ×2 (08:41→18:36)
[2021-02-26] MEDS: budesonide 0.5 mg/2 mL Neb INHALATION ×2 (09:03→20:48)
[2021-02-26] MEDS: insulin glargine 100 units/1 mL 10 UNIT SUBCUT ×2 (10:56→21:00)
--- NOTE | 2021-02-26 11:41 | PC.NUTR ---
Tube feeding recommendations: Nurse states feeding held yesterday for high residual--remains held at this time. Possible extubation today. If fails weaning/extubation trial, unclear this time whether resuming TF is appropriate, given limited and possibly inaccurate documentation of tolerance, provision, etc. However, if TF deemed appropriate, recommend to resume current TF order for Nepro at 30mL/hr, 200mL H2O flushes q4h, provide a total of 1296 kcal, 58g protein, and 1722mL fluids. Receiving additional 436 kcal/day from propofol at current rate. To promote wound healing + dialysis, continue to recommend 1 scoop of beneprotein q4h with each water flush, to provide a total of 94g protein/day. See full RD assessment for further details.
[2021-02-26 11:48] LABS: Glucose Point of Care 125 mg/dL (70-110)
--- NOTE | 2021-02-26 12:37 | PM.PN ---
Subjective Subjective: Interval history: Remains intubated and vented, FiO2 50%. Dialysis went well yesterday, tolerating this hemodynamically well. Currently off levophed. No overt edema and no other hypervolemic Sx. Medications: Reviewed: Yes Vitals/I&O/Wt Last Vital Signs Temp 100.1 F H 02/26/21 04:00 Pulse 102 H 02/26/21 11:00 Resp 24 H 02/26/21 11:44 BP 126/78 02/26/21 11:00 Pulse Ox 91 02/26/21 11:44 02/25/21 02/26/21 02/26/21 22:59 06:59 14:59 Intake Total 515.956 / 926.649 250 / 1176.649 134.273 / 134.273 Output Total 2289 / 2289 150 / 2439 Balance -1773.044 / -1362.351 100 / -1262.351 134.273 / 134.273 Weight last 48 hrs Weight 74.871 kg Weight 75 kg Physical Exam Narrative: EXAM NARRATIVE: Constitutional: sedated and vented HEENT: Wet mucosa, no jvp, non icteric Lungs: Bilaterally decreased air entry in all lung zones with scattered coarse breath sounds CVS: S1 S2, no murmurs Abdo: Soft, BS ok Ext 4: Minimal edema, peripheral perfusion with no cyanosis Neurological: Grossly non-focal Urinary Catheter Management^: Ontiveros: Cath Placed During This Visit: yes Reason for Continuing Indwelling Catheter: Accurate Measurement of Urinary Output in Critically Ill Patients Urinary Catheter Date of Insertion: 02/14/21 Urinary Catheter Time of Insertion: 19:48 Data : 02/26/21 04:45 02/26/21 04:45 Micro: Microbiology 02/24/21 19:05 Blood Culture - Preliminary Blood NEGATIVE TO DATE 02/24/21 18:50 Blood Culture - Preliminary Blood NEGATIVE TO DATE A&P Additional A&P Information 1. Acute on chronic kidney disease Now in overt renal failure from ATN Plan for dialysis tomorrow but will be happy to do so today if team members believe to be beneficial; 3K, UF 2-3L as tolerated Avoid usual nephrotoxic agents Dose medication for GFR less than 15 2. Covid pneumonitis On combination remdesivir, dexamethasone, antibiotic coverage, judicious use of diuretics. High flow nasal cannula being titrated. She did receive both vaccinations. 3. Chemistry Much more balanced after dialysis Jesus Omalley MD Nephrology [phone] Patient seen and examined via telemedicine, with the assistance of the bedside RN > 25 min spent in evaluation and mgmt of patient Attestations Medical Necessity Statement*: Eval for YENNY Coding Level of Care Code Acute Field Artillery Basic for Sug Lorraine
--- NOTE | 2021-02-26 14:27 | PM.PN ---
Subjective Subjective: Interval history: -Patient was seen and examined this morning, she was placed on MMV mode with PS: 14 and PEEP of 8 @ fio2: 50% tolerated well. No dialysis today. Clinically no significant edema. off levophed. Noted Tmax: 100.1 Medications: Reviewed: Yes Vitals/I&O/Wt Last Vital Signs Temp 100.1 F H 02/26/21 04:00 Pulse 110 H 02/26/21 14:00 Resp 20 H 02/26/21 13:00 BP 116/44 02/26/21 14:00 Pulse Ox 92 02/26/21 14:00 02/25/21 02/26/21 02/26/21 22:59 06:59 14:59 Intake Total 515.956 / 926.649 250 / 1176.649 212.275 / 212.275 Output Total 2289 / 2289 150 / 2439 Balance -1773.044 / -1362.351 100 / -1262.351 212.275 / 212.275 Weight last 48 hrs Weight 74.871 kg Weight 75 kg Physical Exam Narrative: EXAM NARRATIVE: Intubated and sedated. HENMT: COMMON NORMALS: normocephalic and atraumatic HEAD & SCALP: normocephalic and atraumatic Resp: OTHER: B/L Coarse Breath sounds Cardio: COMMON NORMALS: regular rate, regular rhythm, S1 normal heart sound present, S2 normal heart sound present, No gallops present (Cardio), No murmurs present (Cardio), No rub (Cardio) and Peripheral pulses 2+ throughout RATE: regular rate RHYTHM: regular rhythm HEART SOUNDS: S1 normal heart sound present and S2 normal heart sound present PERIPHERAL PULSES: Peripheral pulses 2+ throughout GI: COMMON NORMALS: Normal to inspection, nondistended, normoactive bowel sounds present, Soft to palpation, non-tender, No hepatosplenomegaly present and no masses AUSCULTATION: Yes normoactive bowel sounds PALPATION: Yes Soft to palpation and Yes No hepatosplenomegaly present RECTAL EXAM: deferred Extremity: COMMON NORMALS: no clubbing, cyanosis or edema and no pedal edema Urinary Catheter Management^: Ontiveros: Cath Placed During This Visit: yes Reason for Continuing Indwelling Catheter: Accurate Measurement of Urinary Output in Critically Ill Patients Urinary Catheter Date of Insertion: 02/14/21 Urinary Catheter Time of Insertion: 19:48 Data : 02/26/21 04:45 02/26/21 04:45 Micro: Microbiology 02/24/21 19:05 Blood Culture - Preliminary Blood NEGATIVE TO DATE 02/24/21 18:50 Blood Culture - Preliminary Blood NEGATIVE TO DATE A&P Assessment and plan (1) Acute respiratory failure with hypoxia: Acute hypoxic respiratory failure -secondary to COVID-19 pneumonia, breakthrough infection, has received both Covid vaccines in May 2019, no history of booster Plan: -Currently being managed in ICU -Currently intubated sedated on mechanical ventilation -On Decadron 6 mg, IV push daily -Completed remdesivir -status post 1 dose Actemra 02/17/2021 -Currently on vancomycin, cefepime and Po vancomycin , Fluconazole - Levaquin and Caspofugin was discontinued -Initial blood cultures positive for coagulase-negative staphylococci, repeat blood cultures negative -Sputum Culture : Yeast -Vitamin C, zinc, vitaimn D -Albuterol, budesonide Bilateral lower extremity ultrasound for negative for DVT, follow D-dimer -For CHF, BNP elevated, -Echocardiogram shows EF of 65%, moderate LVH, grade 1 out of 4 diastolic dysfunction -Continue bicarb 650 mg 3 times daily-secondary to uremia -Protonix for GI prophylaxis Acute encephalopathy, secondary to COVID-19 pneumonia, hypoxia, uremia -Continue to monitor mentation closely, aspiration precautions YENNY on worseing CKD stage IV , secondary to COVID-Nephropathy: Started ON H/D on 02/22 Renal ultrasound no nephrolithiasis avoid nephrotoxic agents -Metabolic Acidosis 2/2 to uremia plan as above. Transaminitis secondary to COVID-19 Acute on chronic diastolic CHF exacerbation: Hypertension: Currently b/p is well controlled. Chronic lymphocytic leukemia, continue to monitor Elevated troponins, likely secondary respiratory failure, serial troponins, serial EKGs, continue aspirin, continue statin, normal CPK [id number] type 2 diabetes mellitus, low-dose sliding scale, Lantus 5 units twice daily A.fib :Currently rate is well controlled. Will hold off on full Ac for now as there is risk of bleeding with dropping H&H. C.Diff Diarrhea : On Po Vancomycin 125 mg q6h for 7days. Thrombocytopenia: Low 4T Score, less likely HIT. Likely part of viral syndrome. Continue to monitor CBC for now. DVT PPX: On Heparin 5000 sc q12 h daily Patient son was updated -Full code Status: Acute (2) Pneumonia due to COVID-19 virus: Status: Acute (3) Acute kidney injury superimposed on CKD: Status: Acute (4) Atrial fibrillation: Status: Acute (5) CHF exacerbation: Status: Acute (6) Hypertension: Status: Chronic Qualifiers: Hypertension type: renovascular hypertension Qualified Code(s): I15.0 - Renovascular hypertension (7) Dyslipidemia: Status: Chronic (8) Carotid stenosis, bilateral: Status: Chronic (9) CLL (chronic lymphocytic leukemia): Status: Acute (10) ARDS (adult respiratory distress syndrome): Status: Acute Attestations Medical Necessity Statement*: Patient needs to be in hospital for the management of PNA Coding Level of Care Code Acute Sugarcane Planter for [facility] Diagnoses Acute respiratory failure with hypoxia J96.01 Pneumonia due to COVID-19 virus U07.1; J12.82 Acute kidney injury superimposed on CKD N17.9; N18.9 Atrial fibrillation I48.91 CHF exacerbation I50.9 Hypertension I15.0 Hypertension type: renovascular hypertension Dyslipidemia E78.5 Carotid stenosis, bilateral I65.23 CLL (chronic lymphocytic leukemia) C91.10 ARDS (adult respiratory distress syndrome) J80
[2021-02-26] MEDS: metoprolol tartrate 1 mg/1 mL SDV 5 mL 5 MG IVP (16:33)
[2021-02-26] MEDS: dexamethasone 10 mg/mL INJ 6 MG IVP (18:33)
[2021-02-26 18:35] LABS: Glucose Point of Care 112 mg/dL (70-110)
[2021-02-26 20:44] LABS: Glucose Point of Care 121 mg/dL (70-110)
[2021-02-26] MEDS: fluconazole premix 200 MG/100 ML PREMIX 100 MG IV (20:58)
[2021-02-26] MEDS: atorvastatin 40 mg Tablet 10 MG PO (20:59)
[2021-02-26] MEDS: vancomycin 750 MG in sodium chloride 0.9% 250 ML 250 MG IV (21:00)
[2021-02-26] MEDS: cefepime 1,000 MG in sodium chloride 0.9% (plus) 50 ML 100 MG IV (22:58)
[2021-02-27] VITALS (38 sets, daily range): BP systolic 101–180; BP diastolic 46–133; PULSE 94–157; RESP 12–29; TEMP 36.6–37.2; O2SAT 86–97; BMI 28.3
[2021-02-27] MEDS: propofol 1,000 MG/100 ML INJ 9.42 MG IV (02:03)
[2021-02-27 05:24] LABS: Basophils # 0.2 10^3/uL (0.0-0.1); Basophils % 0.4 %; Hematocrit 25.8 % (37.0-47.0); Hemoglobin 8.2 g/dL (11.5-15.3); Lymphocytes # 5.9 10^3/uL (0.8-4.8); Lymphocytes % 16.9 %; Mean Corpuscular HGB Conc 31.8 g/dL (30.0-36.0); Mean Corpuscular Hemoglobin 30.8 pg (28.0-34.0); Mean Platelet Volume 13.2 fL (7.4-10.4); Monocytes # 1.5 10^3/uL (0.2-0.9); Monocytes % 4.3 %; Neutrophils # 26.21 10^3/uL (1.8-7.7); Neutrophils % 75.5 %; Nucleated Red Blood Cells # 0.1 /100WBC; Nucleated Red Blood Cells % 0.3 %; Platelet Count 113 10^3/cmm (130-400); Red Blood Count 2.66 10^6/uL (4.1-5.3); Red Cell Distribution Width 15.6 % (12.1-15.1)
[2021-02-27 05:45] LABS: Alanine Aminotransferase 62 U/L (0-33); Albumin Level 2.8 g/dL (3.5-5.2); Alkaline Phosphatase 81 IU/L (35-105); Anion Gap 32.3 (5-19); Aspartate Amino Transferase 61 U/L (0-32); Calcium 6.2 mg/dL (8.5-10.5); Carbon Dioxide 15 mmol/L (22-29); Chloride 91 mmol/L (98-107); Globulin 2.2 g/dL (1.3-4.6); Glucose 131 mg/dL (65-115); Osmolality Calculated 302 mOsm/kg (285-295); Potassium 5.3 mmol/L (3.5-5.1); Sodium 133 mmol/L (136-145); Total Bilirubin 0.4 mg/dL (0.15-1.2)
[2021-02-27 06:04] LABS: Blood Urea Nitrogen 81 mg/dL (8-23)
[2021-02-27] MEDS: heparin 5,000 unit/mL INJ 1 mL 5000 UNIT SUBCUT ×2 (07:46→21:34)
--- NOTE | 2021-02-27 07:51 | PC.NURSE ---
Shift Note Frequent safety and comfort rounds continue. Orders and/or nursing care completed as indicated. Patient monitored for response to intervention and treatment(s). Education provided to Carrington (Son).[]. Patient and/or sales representative rural power understood the teaching. There were no significant changes with the patient during the shift. The patient's FiO2 was at 50% at the start of shift, then went up to 60%, and finally was titrated back down to 50% towards the end of the shift. The patient had some brown emesis that came up past the ETT tube at the start of shift. Carrington, the son, called around 2200 to receive an update on his mother.
[2021-02-27 08:04] LABS: White Blood Count 34.8 10^3/uL (4.0-10.0)
--- NOTE | 2021-02-27 09:07 | XRR_ITS ---
Whole PROCEDURE INFORMATION: Exam: XR Chest Exam date and time: 02/27/2021 9:07 AM Age: 76 years old Clinical indication: Shortness of breath; Additional info: Pna TECHNIQUE: Imaging protocol: XR of the chest. Views: 1 view. COMPARISON: CR XR chest 1V portable [id number] 02/24/2021 7:45 AM FINDINGS: Tubes, catheters and devices: Right IJ approach central line is in satisfactory position, with distal tip in the RA. Endotracheal tube is in satisfactory position. Feeding tube is in satisfactory position. Lungs: Persistent bilateral airspace opacities. No large pleural effusion or pneumothorax. Pleural spaces: See Lungs finding. Heart/Mediastinum: Stable cardiomediastinal silhouette. Stable cardiomediastinal silhouette. Vasculature: Right sided midline is in satisfactory position, with distal tip in the right axillary vein. Aortic atherosclerotic calcifications seen. Bones/joints: No acute osseous injury identified. Degenerative changes of the spine seen. XR/XR chest 1V portable [id number] IMPRESSION: Persistent bilateral airspace opacities.
--- NOTE | 2021-02-27 09:40 | PM.PN ---
Subjective Subjective: Interval history: Remains stable on the vent, off pressors .FiO2 50%. Minimal edema. No acute events over night. Medications: Reviewed: Yes Vitals/I&O/Wt Last Vital Signs Temp 98.2 F 02/27/21 04:00 Pulse 106 H 02/27/21 09:00 Resp 20 H 02/27/21 09:00 BP 144/56 02/27/21 09:00 Pulse Ox 92 02/27/21 09:00 02/26/21 02/27/21 02/27/21 22:59 06:59 14:59 Intake Total 367.308 / 579.583 50 / 629.583 Output Total 50 / 60 Balance 357.308 / 569.583 0 / 569.583 Weight last 48 hrs Weight 74.843 kg Weight 74.871 kg Weight 75 kg Physical Exam Narrative: EXAM NARRATIVE: Constitutional: sedated and vented HEENT: Wet mucosa, no jvp, non icteric Lungs: Bilaterally decreased air entry in all lung zones with scattered coarse breath sounds CVS: S1 S2, no murmurs Abdo: Soft, BS ok Ext 4: Minimal edema, peripheral perfusion with no cyanosis Neurological: Grossly non-focal Urinary Catheter Management^: Ontiveros: Cath Placed During This Visit: yes Reason for Continuing Indwelling Catheter: Accurate Measurement of Urinary Output in Critically Ill Patients Urinary Catheter Date of Insertion: 02/14/21 Urinary Catheter Time of Insertion: 19:48 Data : 02/27/21 04:30 02/27/21 04:30 Micro: Microbiology 02/22/21 03:28 Blood Culture - Final Blood NO GROWTH AFTER 5 DAYS 02/22/21 03:28 Blood Culture - Final Blood NO GROWTH AFTER 5 DAYS 02/24/21 21:52 Sputum Culture - Preliminary Sputum - Endotracheal Tube Aspirate Yeast 02/22/21 18:20 Gram Stain - Final Sputum - Endotracheal Tube Aspirate Sputum Culture - Final Emma albicans A&P Additional A&P Information 1. Acute on chronic kidney disease Now in overt renal failure from ATN Plan for dialysis today; 2K, UF 2-3L Daily evaluation for dialysis needs Avoid usual nephrotoxic agents Dose medication for GFR less than 15 2. Covid pneumonitis On combination remdesivir, dexamethasone, antibiotic coverage, judicious use of diuretics. High flow nasal cannula being titrated. She did receive both vaccinations. 3. Chemistry Acidosis, HypoNa and hyperK will correct with dialysis Jesus Omalley MD Nephrology [phone] Patient seen and examined via telemedicine, with the assistance of the bedside RN > 25 min spent in evaluation and mgmt of patient Attestations Medical Necessity Statement*: Eval for YENNY Coding Level of Care Code Acute Lead Mobile Developer for Sug Lorraine
[2021-02-27] MEDS: pantoprazole DR 40 mg Tablet PO ×2 (09:41→18:17)
[2021-02-27] MEDS: aspirin 81 mg EC Tablet PO (09:41)
[2021-02-27] MEDS: insulin glargine 100 units/1 mL 10 UNIT SUBCUT (09:41)
[2021-02-27] MEDS: sodium bicarbonate 650 mg Tablet PO ×3 (09:41→21:37)
[2021-02-27] MEDS: ascorbic acid 500 mg Tablet PO ×2 (09:41→18:17)
[2021-02-27] MEDS: cholecalciferol (vitamin D3) 1,000 unit Tablet 1000 UNIT PO (09:41)
[2021-02-27] MEDS: zinc gluconate 50 mg Tablet PO (09:41)
[2021-02-27] MEDS: chlorhexidine gluconate 0.12% Btl 473 mL 15 ML MUCOUS MEM ×2 (09:42→18:18)
[2021-02-27] MEDS: budesonide 0.5 mg/2 mL Neb INHALATION ×2 (09:49→20:46)
[2021-02-27 11:07] LABS: Glucose Point of Care 155 mg/dL (70-110)
[2021-02-27 11:40] LABS: Glucose Point of Care 124 mg/dL (70-110)
--- NOTE | 2021-02-27 12:05 | PC.SOCIAL ---
IMM Not Updated IMM not updated. Pt is intubated & is not expected to d/c within the next 24-48hrs.
[2021-02-27] MEDS: metoprolol tartrate 1 mg/1 mL SDV 5 mL 5 MG IVP ×2 (12:29→13:25)
--- NOTE | 2021-02-27 12:51 | PC.HD ---
Cath site is right IJ.
[2021-02-27] MEDS: heparin, porcine 1,000 unit/mL INJ 10 mL 10000 UNIT HE (12:59)
--- NOTE | 2021-02-27 13:05 | PM.PN ---
Subjective Subjective: Interval history: -Patient was seen and examined this morning,continue to be on mechanical ventilation 50 % fio2 peep 8,had dialysis today with removal of 2.8ml, she has been off sedation whole day, with very less response.Will do C.T head without contrast. Medications: Reviewed: Yes Vitals/I&O/Wt Last Vital Signs Temp 97.9 F 02/27/21 12:46 Pulse 116 H 02/27/21 12:46 Resp 13 02/27/21 12:46 BP 155/86 02/27/21 12:46 Pulse Ox 93 02/27/21 12:00 02/26/21 02/27/21 02/27/21 22:59 06:59 14:59 Intake Total 367.308 / 579.583 50 / 629.583 121.197 / 121.197 Output Total 50 / 60 Balance 357.308 / 569.583 0 / 569.583 121.197 / 121.197 Weight last 48 hrs Weight 74.843 kg Weight 74.871 kg Weight 75 kg Physical Exam Narrative: EXAM NARRATIVE: Intubated and sedated. HENMT: COMMON NORMALS: normocephalic and atraumatic HEAD & SCALP: normocephalic and atraumatic Resp: OTHER: B/L Coarse Breath sounds Cardio: COMMON NORMALS: regular rate, regular rhythm, S1 normal heart sound present, S2 normal heart sound present, No gallops present (Cardio), No murmurs present (Cardio), No rub (Cardio) and Peripheral pulses 2+ throughout RATE: regular rate RHYTHM: regular rhythm HEART SOUNDS: S1 normal heart sound present and S2 normal heart sound present PERIPHERAL PULSES: Peripheral pulses 2+ throughout GI: COMMON NORMALS: Normal to inspection, nondistended, normoactive bowel sounds present, Soft to palpation, non-tender, No hepatosplenomegaly present and no masses AUSCULTATION: Yes normoactive bowel sounds PALPATION: Yes Soft to palpation and Yes No hepatosplenomegaly present RECTAL EXAM: deferred Extremity: COMMON NORMALS: no clubbing, cyanosis or edema and no pedal edema Urinary Catheter Management^: Ontiveros: Cath Placed During This Visit: yes Reason for Continuing Indwelling Catheter: Accurate Measurement of Urinary Output in Critically Ill Patients Urinary Catheter Date of Insertion: 02/14/21 Urinary Catheter Time of Insertion: 19:48 Data : 10/02/21 04:30 02/27/21 04:30 Micro: Microbiology 02/24/21 21:52 Sputum Culture - Final Sputum - Endotracheal Tube Aspirate Emma albicans 02/22/21 03:28 Blood Culture - Final Blood NO GROWTH AFTER 5 DAYS 02/22/21 03:28 Blood Culture - Final Blood NO GROWTH AFTER 5 DAYS 02/22/21 18:20 Gram Stain - Final Sputum - Endotracheal Tube Aspirate Sputum Culture - Final Emma albicans A&P Assessment and plan (1) Acute respiratory failure with hypoxia: Acute hypoxic respiratory failure -secondary to COVID-19 pneumonia, breakthrough infection, has received both Covid vaccines in May 2019, no history of booster Plan: -Currently being managed in ICU -Currently intubated sedated on mechanical ventilation -On Decadron 6 mg, IV push daily -Completed remdesivir -status post 1 dose Actemra 02/17/2021 -Currently on vancomycin, cefepime and Po vancomycin , Fluconazole - Levaquin and Caspofugin was discontinued -Initial blood cultures positive for coagulase-negative staphylococci, repeat blood cultures negative -Sputum Culture : Yeast -Vitamin C, zinc, vitaimn D -Albuterol, budesonide Bilateral lower extremity ultrasound for negative for DVT, follow D-dimer -For CHF, BNP elevated, -Echocardiogram shows EF of 65%, moderate LVH, grade 1 out of 4 diastolic dysfunction -Continue bicarb 650 mg 3 times daily-secondary to uremia -Protonix for GI prophylaxis Acute encephalopathy, secondary to COVID-19 pneumonia, hypoxia, uremia. C.T head without contrast. Continue to monitor mentation closely, aspiration precautions YENNY on worseing CKD stage IV , secondary to COVID-Nephropathy: Started ON H/D on 02/22 Renal ultrasound no nephrolithiasis avoid nephrotoxic agents -Metabolic Acidosis 2/2 to uremia plan as above. Transaminitis secondary to COVID-19 Acute on chronic diastolic CHF exacerbation: Hypertension: Currently b/p is well controlled. Chronic lymphocytic leukemia, continue to monitor Elevated troponins, likely secondary respiratory failure, serial troponins, serial EKGs, continue aspirin, continue statin, normal CPK [id number] type 2 diabetes mellitus, low-dose sliding scale, Lantus 5 units twice daily A.fib :Currently rate is well controlled. Will hold off on full Ac for now as there is risk of bleeding with dropping H&H. C.Diff Diarrhea : On Po Vancomycin 125 mg q6h for 7days. Thrombocytopenia: Low 4T Score, less likely HIT. Likely part of viral syndrome. Continue to monitor CBC for now. DVT PPX: On Heparin 5000 sc q12 h daily Patient son was updated -Full code Status: Acute (2) Pneumonia due to COVID-19 virus: Status: Acute (3) Acute kidney injury superimposed on CKD: Status: Acute (4) Atrial fibrillation: Status: Acute (5) CHF exacerbation: Status: Acute (6) Hypertension: Status: Chronic Qualifiers: Hypertension type: renovascular hypertension Qualified Code(s): I15.0 - Renovascular hypertension (7) Dyslipidemia: Status: Chronic (8) Carotid stenosis, bilateral: Status: Chronic (9) CLL (chronic lymphocytic leukemia): Status: Acute (10) ARDS (adult respiratory distress syndrome): Status: Acute Attestations Medical Necessity Statement*: Patient needs to be in hospital for the management of PNA. Coding Level of Care Code Acute Employee Benefits Attorney for [facility] Fwd Exam Expanded Problem Focused Diagnoses Acute respiratory failure with hypoxia J96.01 Pneumonia due to COVID-19 virus U07.1; J12.82 Acute kidney injury superimposed on CKD N17.9; N18.9 Atrial fibrillation I48.91 CHF exacerbation I50.9 Hypertension I15.0 Hypertension type: renovascular hypertension Dyslipidemia E78.5 Carotid stenosis, bilateral I65.23 CLL (chronic lymphocytic leukemia) C91.10 ARDS (adult respiratory distress syndrome) J80
--- NOTE | 2021-02-27 15:56 | PC.HD ---
During hemodialysis, tachycardia escalated throughout in spite of 2 doses IV metoprolol with HR as high as 180s and accompanied by hypotension and decreased O2 sat. BP also very labile with BP as high as 167/142 and drops as low as 73/53 that required ultrafiltration being stopped repeatedly. Hypotension responded well, though briefly, to fluid boluses but ACTIVITIES THERAPIST restarted Levophed drip to facilitate fluid removal. Throughout treatment, AP also increased with spikes requiring frequent flushes to bring it back down. At one point, dialyzer flushed to nearly clear revealing no clots in the dialyzer or circuit. Dr Murphy and Dr Omalley were made aware of these issues during treatment. When Dr Murphy came to see patient he ordered treatment terminated and Dr Omalley was notified.
--- NOTE | 2021-02-27 18:04 | CTR_ITS ---
PROCEDURE INFORMATION: Exam: CT Head Without Contrast Exam date and time: 02/27/2021 6:04 PM Age: 76 years old Clinical indication: Altered mental status/memory loss; Other: See below; Patient HX: Off sedation; Not following commands TECHNIQUE: Imaging protocol: Computed tomography of the head without contrast. Radiation optimization: All CT scans at this facility use at least one of these dose optimization techniques: automated exposure control; mA and/or kV adjustment per patient size (includes targeted exams where dose is matched to clinical indication); or iterative reconstruction. COMPARISON: CTA Head/Neck [id number] 05/25/2017 8:35 AM RADIATION DOSE METRICS: Total DLP (mGy-cm): 985.69 FINDINGS: There is streak artifact from patient motion.There is mild generalized atrophy. There are mild areas of decreased attenuation in the periventricular white matter which is nonspecific but likely relates to small vessel ischemic change. There is no evidence for acute infarct. There is no evidence for mass. There is no hemorrhage. There are no extra-axial fluid collections. There is no midline shift. The skull is intact. There is patchy opacification of the paranasal sinuses. There is atherosclerotic change of the cavernous carotid arteries. CT/CT head wo con* [id number] IMPRESSION: No evidence for acute infarct, mass or hemorrhage. Radiation Dose CTDIVOL = (mGy): DLP = 985.69 (mGy-cm)
[2021-02-27] MEDS: dexamethasone 10 mg/mL INJ 6 MG IVP (18:17)
[2021-02-27 18:30] LABS: Glucose Point of Care 111 mg/dL (70-110)
--- NOTE | 2021-02-27 20:00 | PC.NURSE ---
Dr. Murphy called in to make to see if the patient had gone down to CT yet, he also asked for the Cardizem drip to be increased to 15 mg/hr.
--- NOTE | 2021-02-27 20:15 | PC.NURSE ---
Patient brought down to CT with respiratory (Felix) at 2014, and brought back up into ICU-07 at 2044. There were no complications during the transfer. Patient was bagged during the transfer down and up.
[2021-02-27] MEDS: fluconazole premix 200 MG/100 ML PREMIX 100 MG IV (21:32)
[2021-02-27] MEDS: atorvastatin 40 mg Tablet 10 MG PO (21:34)
[2021-02-27 21:40] LABS: Glucose Point of Care 102 mg/dL (70-110)
[2021-02-27] MEDS: cefepime 1,000 MG in sodium chloride 0.9% (plus) 50 ML 100 MG IV (22:01)
[2021-02-28] VITALS (33 sets, daily range): BP systolic 147–200; BP diastolic 43–68; PULSE 85–113; RESP 18–27; TEMP 36.8–37.8; O2SAT 88–92; BMI 28.1
[2021-02-28] MEDS: morphine 4 mg/mL SDV 1 mL 1 MG IVP (01:11)
[2021-02-28 04:20] LABS: ABG PCO2 26.6 mmHg (35-45); ABG PH Result 7.42 (7.35-7.45); Arterial Blood Gas Hematocrit 29.9 % (37-47); Base Excess ABG -6.3 mmol/L (-2.0-2.0); Blood Gas Sample Site Brachial, left; Blood Gas Sample Type Arterial; HCO3 ABG 17.1 mmol/L (22-26); Oxygen Device VENT; PO2 ABG 57.5 mmHg (80.0-100.0)
[2021-02-28 05:46] LABS: Basophils # 0.1 10^3/uL (0.0-0.1); Basophils % 0.4 %; Hematocrit 25.8 % (37.0-47.0); Hemoglobin 8.5 g/dL (11.5-15.3); Lymphocytes # 5.6 10^3/uL (0.8-4.8); Lymphocytes % 20.1 %; Mean Corpuscular HGB Conc 32.9 g/dL (30.0-36.0); Mean Platelet Volume 13.3 fL (7.4-10.4); Monocytes # 1.2 10^3/uL (0.2-0.9); Monocytes % 4.2 %; Neutrophils # 20.65 10^3/uL (1.8-7.7); Neutrophils % 73.7 %; Nucleated Red Blood Cells # 0.1 /100WBC; Nucleated Red Blood Cells % 0.4 %; Platelet Count 121 10^3/cmm (130-400); Red Blood Count 2.66 10^6/uL (4.1-5.3); Red Cell Distribution Width 16.9 % (12.1-15.1)
[2021-02-28 06:05] LABS: Slide Review Slide Review Perform
[2021-02-28 06:13] LABS: Alanine Aminotransferase 63 U/L (0-33); Alkaline Phosphatase 111 IU/L (35-105); Anion Gap 31.6 (5-19); Aspartate Amino Transferase 49 U/L (0-32); Blood Urea Nitrogen 52 mg/dL (8-23); Calcium 6.6 mg/dL (8.5-10.5); Carbon Dioxide 16 mmol/L (22-29); Chloride 92 mmol/L (98-107); Glucose 92 mg/dL (65-115); Osmolality Calculated 294 mOsm/kg (285-295); Potassium 4.6 mmol/L (3.5-5.1); Sodium 135 mmol/L (136-145); Total Bilirubin 0.5 mg/dL (0.15-1.2)
--- NOTE | 2021-02-28 07:11 | PC.NURSE ---
Shift Note Frequent safety and comfort rounds continue. Orders and/or nursing care completed as indicated. Patient monitored for response to intervention and treatment(s). Education provided to Carrington who called around 2100 and again at 0000. AT 2014 the patient was taken down for a CT of the head. There were no significant changes with the patient during the shift. The patient experienced longer episodes of hypertension during the shift.
--- NOTE | 2021-02-28 07:33 | PC.NURSE ---
bedside report received from Marin LAWTON
[2021-02-28] MEDS: heparin 5,000 unit/mL INJ 1 mL 5000 UNIT SUBCUT ×2 (07:50→20:39)
[2021-02-28] MEDS: ascorbic acid 500 mg Tablet PO ×2 (08:00→17:27)
[2021-02-28] MEDS: aspirin 81 mg EC Tablet PO (08:00)
[2021-02-28] MEDS: zinc gluconate 50 mg Tablet PO (08:00)
[2021-02-28] MEDS: pantoprazole DR 40 mg Tablet PO ×2 (08:00→17:27)
[2021-02-28] MEDS: cholecalciferol (vitamin D3) 1,000 unit Tablet 1000 UNIT PO (08:00)
[2021-02-28] MEDS: sodium bicarbonate 650 mg Tablet PO ×3 (08:00→20:39)
[2021-02-28] MEDS: vancomycin 750 MG in sodium chloride 0.9% 250 ML 250 MG IV (08:02)
[2021-02-28] MEDS: budesonide 0.5 mg/2 mL Neb INHALATION ×2 (08:22→20:29)
[2021-02-28 08:28] LABS: Glucose Point of Care 109 mg/dL (70-110)
[2021-02-28] MEDS: chlorhexidine gluconate 0.12% Btl 473 mL 15 ML MUCOUS MEM ×2 (08:28→17:33)
[2021-02-28] MEDS: dilTIAZem 30 mg Tablet PO ×3 (10:24→20:39)
[2021-02-28] MEDS: insulin glargine 100 units/1 mL 10 UNIT SUBCUT ×2 (10:25→21:16)
--- NOTE | 2021-02-28 10:45 | P.PN_ITS ---
Subjective Subjective: Interval history: Dialysis terminated a little early yesterday given hemodynamic instability. Blood pressure actually appears elevated today. On diltiazem. Neurologically poorly responsive now. CT of the head was unremarkable. Minimal global edema at this time. Minimal urine output. Medications: Reviewed: Yes Vitals/I&O/Wt Last Vital Signs Temp 98.3 F 02/28/21 10:35 Pulse 107 H 02/28/21 08:15 Resp 23 H 02/28/21 08:59 BP 171/52 02/28/21 08:00 Pulse Ox 90 02/28/21 08:59 02/27/21 02/28/21 02/28/21 22:59 06:59 14:59 Intake Total 1414.875 / 1536.072 110.125 / 1646.197 Output Total 2935 / 2935 20 / 2955 Balance -1520.125 / -1398.928 90.125 / -1308.803 Weight last 48 hrs Weight 74.474 kg Weight 75.1 kg Weight 74.843 kg Physical Exam Narrative: EXAM NARRATIVE: Constitutional: sedated and vented HEENT: Wet mucosa, no jvp, non icteric Lungs: Bilaterally decreased air entry in all lung zones with scattered coarse breath sounds CVS: S1 S2, no murmurs Abdo: Soft, BS ok Ext 4: Minimal edema, peripheral perfusion with no cyanosis Neurological: Grossly non-focal Urinary Catheter Management^: Ontiveros: Cath Placed During This Visit: yes Reason for Continuing Indwelling Catheter: Accurate Measurement of Urinary Output in Critically Ill Patients Urinary Catheter Date of Insertion: 02/14/21 Urinary Catheter Time of Insertion: 19:48 Data : 02/28/21 05:00 02/28/21 05:00 Micro: Microbiology 02/24/21 21:52 Sputum Culture - Final Sputum - Endotracheal Tube Aspirate Emma albicans A&P Additional A&P Information 1. Acute on chronic kidney disease Now in overt renal failure from ATN Plan for dialysis tomorrow; 2K, UF 2-3L Daily evaluation for dialysis needs Avoid usual nephrotoxic agents Dose medication for GFR less than 15 2. Covid pneumonitis On combination remdesivir, dexamethasone, antibiotic coverage VDRF; poorly recovering neurologically Vent settings noted, remains stable 3. Chemistry Non critical aberration, will dialyze tomorrow Jesus Omalley MD Nephrology [phone] Patient seen and examined via telemedicine, with the assistance of the bedside RN > 25 min spent in evaluation and mgmt of patient Attestations Medical Necessity Statement*: Eval for YENNY Coding Level of Care Code Acute Convention Services Manager for [facility]
--- NOTE | 2021-02-28 11:57 | PC.NURSE ---
Patients blood sugar checked. He requested to hold lunch tray until he asks for it and to give insulin late. Patient is resting in bed with eyes closed.
[2021-02-28 12:41] LABS: Glucose Point of Care 136 mg/dL (70-110)
--- NOTE | 2021-02-28 14:40 | PC.NUTR ---
Nutrition recommendations: TF held since 02/25/21. Spoke with nurse who states MD wants to continue holding TF at this time. Continue to recommend resuming current TF order for Nepro at 30mL/hr, 200mL H2O flushes q4h, provide a total of 1296 kcal, 58g protein, and 1722mL fluids. To promote wound healing + dialysis, continue to recommend 1 scoop of beneprotein q4h with each water flush, to provide additional 36 g protein/day. If unable to tolerate enteral nutrition, recommend consideration of parenteral nutrition. See full RD assessments for further details.
[2021-02-28] MEDS: dexamethasone 10 mg/mL INJ 6 MG IVP (17:27)
--- NOTE | 2021-02-28 19:20 | PM.PN ---
Subjective Subjective: Interval history: Patient was seen and examined this morning. Continues to have poor neurological response, GCS of sedation:3T Medications: Reviewed: Yes Vitals/I&O/Wt Last Vital Signs Temp 98.7 F 02/28/21 14:00 Pulse 89 02/28/21 16:00 Resp 26 H 02/28/21 16:47 BP 186/51 02/28/21 16:00 Pulse Ox 91 02/28/21 16:47 02/28/21 02/28/21 02/28/21 06:59 14:59 22:59 Intake Total 110.125 / 1646.197 369 / 369 Output Total 20 / 2955 0 / 0 Balance 90.125 / -1308.803 369 / 369 0 / 369 Weight last 48 hrs Weight 74.474 kg Weight 75.1 kg Weight 74.843 kg Physical Exam Narrative: EXAM NARRATIVE: Intubated currently she has been off sedation for close to 36 hours, GCS is:3t HENMT: COMMON NORMALS: normocephalic and atraumatic HEAD & SCALP: normocephalic and atraumatic Resp: OTHER: B/L Coarse Breath sounds Cardio: COMMON NORMALS: regular rate, regular rhythm, S1 normal heart sound present, S2 normal heart sound present, No gallops present (Cardio), No murmurs present (Cardio), No rub (Cardio) and Peripheral pulses 2+ throughout RATE: regular rate RHYTHM: regular rhythm HEART SOUNDS: S1 normal heart sound present and S2 normal heart sound present PERIPHERAL PULSES: Peripheral pulses 2+ throughout GI: COMMON NORMALS: Normal to inspection, nondistended, normoactive bowel sounds present, Soft to palpation, non-tender, No hepatosplenomegaly present and no masses AUSCULTATION: Yes normoactive bowel sounds PALPATION: Yes Soft to palpation and Yes No hepatosplenomegaly present RECTAL EXAM: deferred Extremity: COMMON NORMALS: no clubbing, cyanosis or edema and no pedal edema Urinary Catheter Management^: Ontiveros: Cath Placed During This Visit: yes Reason for Continuing Indwelling Catheter: Accurate Measurement of Urinary Output in Critically Ill Patients Urinary Catheter Date of Insertion: 02/14/21 Urinary Catheter Time of Insertion: 19:48 Data : 02/28/21 05:00 02/28/21 05:00 A&P Assessment and plan (1) Acute respiratory failure with hypoxia: Acute hypoxic respiratory failure -secondary to COVID-19 pneumonia, breakthrough infection, has received both Covid vaccines in May 2019, no history of booster Plan: -Currently being managed in ICU -Currently intubated sedated on mechanical ventilation -On Decadron 6 mg, IV push daily -Completed remdesivir -status post 1 dose Actemra 02/17/2021 -Currently on vancomycin, cefepime and Po vancomycin , Fluconazole - Levaquin and Caspofugin was discontinued -Initial blood cultures positive for coagulase-negative staphylococci, repeat blood cultures negative -Sputum Culture : Yeast -Vitamin C, zinc, vitaimn D -Albuterol, budesonide Bilateral lower extremity ultrasound for negative for DVT, follow D-dimer -For CHF, BNP elevated, -Echocardiogram shows EF of 65%, moderate LVH, grade 1 out of 4 diastolic dysfunction -Continue bicarb 650 mg 3 times daily-secondary to uremia -Protonix for GI prophylaxis Acute encephalopathy, secondary to COVID-19 pneumonia, hypoxia, uremia. C.T head without contrast. No acute intracranial pathology Continue to monitor mentation closely, aspiration precautions YENNY on worseing CKD stage IV , secondary to COVID-Nephropathy: Started ON H/D on 02/22 Renal ultrasound no nephrolithiasis avoid nephrotoxic agents -Metabolic Acidosis 2/2 to uremia plan as above. Transaminitis secondary to COVID-19 Acute on chronic diastolic CHF exacerbation: Hypertension: Currently b/p is well controlled. Chronic lymphocytic leukemia, continue to monitor Elevated troponins, likely secondary respiratory failure, serial troponins, serial EKGs, continue aspirin, continue statin, normal CPK [id number] type 2 diabetes mellitus, low-dose sliding scale, Lantus 5 units twice daily A.fib : Initially on Cardizem drip, has been stopped. Currently on p.o. Cardizem 30 mg every 6H Will hold off on full Ac for now as there is risk of bleeding with dropping H&H. C.Diff Diarrhea : On Po Vancomycin 125 mg q6h for 7days. Improving Thrombocytopenia: Low 4T Score, less likely HIT. Likely part of viral syndrome. Continue to monitor CBC for now. DVT PPX: On Heparin 5000 sc q12 h daily Patient son was updated -Full code Status: Acute (2) Pneumonia due to COVID-19 virus: Status: Acute (3) Acute kidney injury superimposed on CKD: Status: Acute (4) Atrial fibrillation: Status: Acute (5) CHF exacerbation: Status: Acute (6) Hypertension: Status: Chronic Qualifiers: Hypertension type: renovascular hypertension Qualified Code(s): I15.0 - Renovascular hypertension (7) Dyslipidemia: Status: Chronic (8) Carotid stenosis, bilateral: Status: Chronic (9) CLL (chronic lymphocytic leukemia): Status: Acute (10) ARDS (adult respiratory distress syndrome): Status: Acute Attestations Medical Necessity Statement*: Stay in hospital for management of pneumonia, encephalopathy, renal failure Coding Level of Care Code Acute Analog Design Engineer for [facility] Fwd Diagnoses Acute respiratory failure with hypoxia J96.01 Pneumonia due to COVID-19 virus U07.1; J12.82 Acute kidney injury superimposed on CKD N17.9; N18.9 Atrial fibrillation I48.91 CHF exacerbation I50.9 Hypertension I15.0 Hypertension type: renovascular hypertension Dyslipidemia E78.5 Carotid stenosis, bilateral I65.23 CLL (chronic lymphocytic leukemia) C91.10 ARDS (adult respiratory distress syndrome) J80
[2021-02-28] MEDS: fluconazole premix 200 MG/100 ML PREMIX 100 MG IV (20:39)
[2021-02-28] MEDS: atorvastatin 40 mg Tablet 10 MG PO (20:39)
[2021-02-28 21:03] LABS: Glucose Point of Care 149 mg/dL (70-110)
[2021-02-28 21:03] LABS: Glucose Point of Care 132 mg/dL (70-110)
[2021-02-28] MEDS: cefepime 1,000 MG in sodium chloride 0.9% (plus) 50 ML 100 MG IV (22:07)
[2021-03-01] VITALS (44 sets, daily range): BP systolic 82–193; BP diastolic 42–95; PULSE 84–127; RESP 17–28; TEMP 36.9–38.7; O2SAT 80–99; BMI 28.7
[2021-03-01] MEDS: dilTIAZem 30 mg Tablet PO ×2 (02:04→08:40)
[2021-03-01 04:22] LABS: ABG PCO2 26.8 mmHg (35-45); ABG PH Result 7.38 (7.35-7.45); Arterial Blood Gas Hematocrit 26.8 % (37-47); Base Excess ABG -8.4 mmol/L (-2.0-2.0); Blood Gas Allen Test Pos; Blood Gas Sample Type Arterial; HCO3 ABG 15.7 mmol/L (22-26); PO2 ABG 58.4 mmHg (80.0-100.0)
[2021-03-01 04:23] LABS: Blood Gas Sample Site Radial, left; Oxygen Device VENT
[2021-03-01] MEDS: hyDRALAzine 20 mg/mL INJ 1 mL 10 MG IVP (05:25)
[2021-03-01 05:43] LABS: Basophils # 0.1 10^3/uL (0.0-0.1); Basophils % 0.3 %; Hematocrit 26.1 % (37.0-47.0); Hemoglobin 8.3 g/dL (11.5-15.3); Lymphocytes # 6.9 10^3/uL (0.8-4.8); Lymphocytes % 23.6 %; Mean Corpuscular HGB Conc 31.8 g/dL (30.0-36.0); Mean Corpuscular Hemoglobin 31.2 pg (28.0-34.0); Mean Corpuscular Volume 98.1 fl (81-99); Mean Platelet Volume 12.3 fL (7.4-10.4); Monocytes # 1.6 10^3/uL (0.2-0.9); Monocytes % 5.3 %; Neutrophils # 20.28 10^3/uL (1.8-7.7); Neutrophils % 69.4 %; Nucleated Red Blood Cells # 0.1 /100WBC; Nucleated Red Blood Cells % 0.4 %; Platelet Count 136 10^3/cmm (130-400); Red Blood Count 2.66 10^6/uL (4.1-5.3); Red Cell Distribution Width 18.9 % (12.1-15.1); White Blood Count 29.2 10^3/uL (4.0-10.0)
[2021-03-01 06:11] LABS: Alanine Aminotransferase 51 U/L (0-33); Albumin Level 2.9 g/dL (3.5-5.2); Alkaline Phosphatase 98 IU/L (35-105); Anion Gap 31.9 (5-19); Aspartate Amino Transferase 33 U/L (0-32); Calcium 6.5 mg/dL (8.5-10.5); Carbon Dioxide 15 mmol/L (22-29); Chloride 93 mmol/L (98-107); Globulin 2.3 g/dL (1.3-4.6); Glucose 140 mg/dL (65-115); Osmolality Calculated 305 mOsm/kg (285-295); Potassium 5.9 mmol/L (3.5-5.1); Sodium 134 mmol/L (136-145); Total Bilirubin 0.4 mg/dL (0.15-1.2); Total Protein 5.2 g/dL (6.6-8.7)
[2021-03-01 06:13] LABS: Glucose Point of Care 142 mg/dL (70-110)
[2021-03-01 06:28] LABS: Blood Urea Nitrogen 82 mg/dL (8-23)
[2021-03-01 06:38] LABS: Slide Review Slide Review Perform
--- NOTE | 2021-03-01 06:52 | PC.NURSE ---
Shift Note Frequent safety and comfort rounds continue. Orders and/or nursing care completed as indicated. Patient monitored for response to intervention and treatment(s). Education provided to Carrington (Son) during the first half of the shift. Neurologically the patient has been measuring a GCS of 3. She opens her eyes when she is moved, but does not respond to painful stimuli. Pupils are equal round and sluggish to light. The restraints were taken off at the beginning of shift because of the lack of neurological response. Rectal tube was pulled right before shift change as there has been no bowel movement for about two days. Urine appearance was dark yellow to tea color. There are currently no fluids or medications running IV. Bowels sounds are hypoactive. The ETT remains at 24 cm at the lower lip. Dr. Murphy was aware at the beginning of shift that the patient was experiencing hypertensive episodes with SBP's in the 170's to high 180's. He was okay with the high blood pressures per day shift nurse (Velma). The Patient continued during the shift to have hypertensive episodes. The patient received a one time dose of Hydralazine, 10 mg, at 0530 this morning for sustain high blood pressure. Dr. Soto gave the order.
[2021-03-01 08:03] LABS: Glucose Point of Care 163 mg/dL (70-110)
[2021-03-01] MEDS: budesonide 0.5 mg/2 mL Neb INHALATION ×2 (08:17→20:10)
[2021-03-01] MEDS: pantoprazole DR 40 mg Tablet PO (08:40)
[2021-03-01] MEDS: ascorbic acid 500 mg Tablet PO ×2 (08:40→18:09)
[2021-03-01] MEDS: cholecalciferol (vitamin D3) 1,000 unit Tablet 1000 UNIT PO (08:40)
[2021-03-01] MEDS: sodium bicarbonate 650 mg Tablet PO ×3 (08:40→21:00)
[2021-03-01] MEDS: aspirin 81 mg EC Tablet PO (08:40)
[2021-03-01] MEDS: heparin 5,000 unit/mL INJ 1 mL 5000 UNIT SUBCUT ×2 (08:40→21:35)
[2021-03-01] MEDS: zinc gluconate 50 mg Tablet PO (08:40)
[2021-03-01] MEDS: insulin glargine 100 units/1 mL 10 UNIT SUBCUT ×2 (08:44→21:07)
--- NOTE | 2021-03-01 09:19 | CT_ITS ---
WS: [id number] CT angio headneck* [id number] REASON FOR EXAM: ams TECHNIQUE: Coronal and sagittal 2-D and MIP reformations. IV CONTRAST ADMINISTERED: 95 mL of Visipaque. TOTAL EXAM DLP: 2368.[address] scans at [facility] use at least one of these dose optimization techniques: automat ed exposure control; mA and/or kV adjustment per patient size (includes targeted exams where dose is matched to clinical indication); or iterative reconstruction. FINDINGS: ARCH: Extensive calcification of the origin of the great vessels from the aortic arch and from the innomina te and left subclavian arteries. Respiratory motion severely degrades this portion of the scan. The d egree of stenosis in the origin of the great vessels from the aortic arch and from the subclavian and innominate arteries cannot be determined. The origins are patent and unlikely to have high-grade carlo nosis. The appearance of this area is similar to the previous examination of 05/25/2017. CERVICAL: Cervical portion of the right vertebral is diminutive but patent. The left vertebral artery is domina nt and without significant stenosis. The cervical common carotid arteries are without significant stenosis. Calcified plaque in the bifurcation of both common carotid arteries. The calcification combined with motion artifact make the images is suboptimal for stenosis evaluation. There is some narrowing of the origins of both internal carotid arteries more significant on the right. This stenosis is less than 40%. No change from the previous examination of 05/25/2017. The internal carotid arteries and the vertebral arteries and the basilar artery at the base of the sk ull are normal. INTRACRANIAL: The carotid siphon and terminus are normal bilaterally. The anterior and middle cerebral arterial circulations demonstrate no significant stenosis, thrombosi s, or arterial venous malformation or aneurysm. The basilar artery and its bifurcation are normal. Posterior cerebral artery circulation demonstrates no significant stenosis, thrombus, or arteriovenous malformation or aneurysm. The superior cerebellar arteries are patent. The anterior inferior cerebellar arteries are patent. The enhanced brain demonstrates no focal abnormality. CT/CT angio headneck* [id number] IMPRESSION: The examination is limited by dense calcifications combined with motion artifac t. No significant vascular abnormality is identified.
[2021-03-01] MEDS: chlorhexidine gluconate 0.12% Btl 473 mL 15 ML MUCOUS MEM (09:35)
--- NOTE | 2021-03-01 10:02 | PC.CHAP ---
Pastoral Care Encounter/Spiritual Assessment Type of Contact [] Declined urologist physician visit [] Patient/Family/Request visit [] Outpatient visit [] Follow-up visit [] Physician referral [] Code/Alert [x] Routine visit [] Staff referral [] Actively dying [x] Patient sleeping [] Family support [] [] Out of room [] Palliative care [] [] Receiving care in room [] Pre-surgical visit [] Trauma [] Long length of stay [x] ICU visit [x] Other: covid... vent. not getting any stronger Relational/Emotional Strength [] Patient feels connected with others/family/visitors/staff [] Distress [] Loneliness/isolation [] Abandonment Spirituality of Patient [] Person of Priscilla [] Attends Gnosticist of their Priscilla [] Believes in Prayer [] Reads Bible or Quaker materials [] There are Spiritual issues to be addressed Coal Sampler Interventions [x] Prayer [] Active listening [] Non-anxious presence [] Spiritual/emotional support [] Crisis/trauma care [] Spiritual counseling [] Bereavement support [] Provided bereavement packet [] Provided Bible/devotional materials [] Provided toy/stuffed animal, coloring book to patient or family member [] Provided Communion [] Anointing/Crossroads [] Salvation [x] Completed spiritual assessment [] Other: Impact on Illness or Injury [] Angry [] Fearful [] Anxious [] Often cries [] Exhaustion [] Unable to work [] Unable to attend pentecostal [] Unable to walk/stand [] Unable to read [] Unable to drive [] Unable to eat/drink [] Unable to sleep [] Unable to be with family [] Patient intubated [] Other: Summary Time spent with patient
[2021-03-01] MEDS: iodixanol 320 mg/mL 100mL Btl IV (11:23)
--- NOTE | 2021-03-01 12:08 | PC.SOCIAL ---
IMM Updated Page 2 of IMM updated on phone. Pt remains intubated at this time. Copy left in chart. Initialed, dated and timed.
[2021-03-01 12:28] LABS: Glucose Point of Care 127 mg/dL (70-110)
--- NOTE | 2021-03-01 12:50 | PM.PN ---
Subjective Subjective: Interval history: Ms. Gao remains very sick, poorly neurologically responsive. Currently being evaluated for CVA. FiO2 65% PEEP of 8. Remains oligoanuric. Currently not on vasopressor agents. Dialysis is pending for today Medications: Reviewed: Yes Vitals/I&O/Wt Last Vital Signs Temp 98.6 F 03/01/21 09:00 Pulse 102 H 03/01/21 11:32 Resp 22 H 03/01/21 11:30 BP 173/45 03/01/21 09:00 Pulse Ox 92 03/01/21 11:30 02/28/21 03/01/21 03/01/21 22:59 06:59 14:59 Intake Total 150 / 519 Output Total 0 / 0 Balance 150 / 519 - Weight last 48 hrs Weight 75.863 kg Weight 74.474 kg Weight 75.1 kg Physical Exam Narrative: EXAM NARRATIVE: Constitutional: sedated and vented HEENT: Wet mucosa, no jvp, non icteric Lungs: Bilaterally decreased air entry in all lung zones with scattered coarse breath sounds CVS: S1 S2, no murmurs Abdo: Soft, BS ok Ext 4: Minimal edema, peripheral perfusion with no cyanosis Neurological: Grossly non-focal Urinary Catheter Management^: Ontiveros: Cath Placed During This Visit: yes Reason for Continuing Indwelling Catheter: Accurate Measurement of Urinary Output in Critically Ill Patients Urinary Catheter Date of Insertion: 02/14/21 Urinary Catheter Time of Insertion: 19:48 Data : 03/01/21 05:30 03/01/21 05:30 A&P Additional A&P Information 1. Acute on chronic kidney disease Now in overt renal failure from ATN Plan for dialysis today; 2K, UF 3-4L Daily evaluation for dialysis needs Avoid usual nephrotoxic agents Dose medication for GFR less than 15 2. Covid pneumonitis On combination remdesivir, dexamethasone, antibiotic coverage VDRF; poorly recovering neurologically Vent settings noted, remains stable 3. Chemistry hyperK, acidosis; will correct with effective hemodialysis 4. Hypertension UF today will help to bring down prior to further titration of anti-hypertensives Jesus Omalley MD Nephrology [phone] Patient seen and examined via telemedicine, with the assistance of the bedside RN > 25 min spent in evaluation and mgmt of patient Attestations Medical Necessity Statement*: Eval for YENNY Coding Level of Care Code [facility] Coordinator for Karthikeyan Peters
[2021-03-01] MEDS: dilTIAZem 60 mg Tablet PO ×2 (14:12→21:00)
--- NOTE | 2021-03-01 14:17 | P.MISC_ITS ---
Miscellaneous Note Purpose of Documentation: Electroencephalogram Note: ORDERING PHYSICIAN: Oh Pascual MD. REASON FOR STUDY: Coma. STUDY: This was a 21 channel digital electroencephalogram performed using the 10-20 international system of electrode placement. This study was non-sleep deprived and the patient was unresponsive. Photic stimulation and painful stimulation were included. FINDINGS: The record was performed with the patient failing to respond. The record was obtained at the bedside in intensive care with the patient on a ventilator, and therefore artifact was expected. The background consisted of low voltage slowing in the 2 to 3 Hz range. There was no significant variation throughout the tracing. Foot stimulation, foot tickling and nailbed pressure had no effect upon the background. Photic stimulation had no effect upon the ba ckground. IMPRESSION: Profoundly abnormal EEG due to profound diffuse slowing and overall low voltage suggesting profound diffuse brain dysfunction. Duration of EE.1
[2021-03-01] MEDS: acetaminophen 325 mg Tablet 650 MG PO (16:13)
[2021-03-01] MEDS: metoprolol tartrate 1 mg/1 mL SDV 5 mL 5 MG IVP (16:49)
[2021-03-01] MEDS: heparin, porcine 1,000 unit/mL INJ 10 mL 10000 UNIT HE (17:00)
--- NOTE | 2021-03-01 17:36 | PM.PN ---
Subjective Subjective: Interval history: Patient was seen this morning, nursing staff at bedside, she has been off sedation since 02/27/2021, pupils are equal round reactive to light, she does not withdraw from pain, Babinski is downward going, does have a cough, does have a gag, she will periodically open her eyes, but does not have any other meaningful responses, currently on 70% FiO2, afebrile overnight, minimal urine output, I discussed the case with patient's son this afternoon, for my concerns of neurologic injury, possible CVA related to Covid, possible hypoxic injury, possible encephalopathy related to Covid, possible uremia, advised that we will do a trial of dialysis, await further studies, continue to monitor her condition, he is said that he will come by and see his mother Vitals/I&O/Wt Last Vital Signs Temp 101.7 F H 03/01/21 16:03 Pulse 92 03/01/21 15:19 Resp 25 H 03/01/21 15:18 BP 153/52 03/01/21 14:00 Pulse Ox 90 03/01/21 15:18 03/01/21 03/01/21 03/01/21 06:59 14:59 22:59 Intake Total 2.794 / 2.794 Output Total 30 / 30 Balance -30 / 489 2.794 / 2.794 Weight last 48 hrs Weight 75.863 kg Weight 74.474 kg Physical Exam Const: COMMON NORMALS: no acute distress GENERAL APPEARANCE: frail appearing ORIENTATION/CONSCIOUSNESS: not awake, not oriented to person, not oriented to place and not oriented to time Chest: COMMONS NORMALS: normal inspection of the chest Resp: COMMON NORMALS: normal respiratory effort, No retractions, No use of accessory muscles and clear to auscultation bilaterally AUSCULTATION: clear to auscultation bilaterally Cardio: COMMON NORMALS: S1 normal heart sound present and S2 normal heart sound present RATE: tachycardic HEART SOUNDS: S1 normal heart sound present and S2 normal heart sound present GI: COMMON NORMALS: Normal to inspection, nondistended, normoactive bowel sounds present, Soft to palpation and non-tender PALPATION: Yes Soft to palpation Extremity: COMMON NORMALS: no pedal edema Neuro: SENSORIUM/ORIENTATION: No oriented to person, No oriented to place and No oriented to time Urinary Catheter Management^: Ontiveros: Cath Placed During This Visit: yes Reason for Continuing Indwelling Catheter: Accurate Measurement of Urinary Output in Critically Ill Patients Urinary Catheter Date of Insertion: 02/14/21 Urinary Catheter Time of Insertion: 19:48 Data : 03/01/21 05:30 03/01/21 05:30 A&P Assessment and plan (1) Acute respiratory failure with hypoxia: Acute hypoxic respiratory failure -secondary to COVID-19 pneumonia, breakthrough infection, has received both Covid vaccines in May 2019, no history of booster -WBC 29.2 Plan: -Currently being managed in ICU -Currently intubated sedated on mechanical ventilation -On Decadron 6 mg, IV push daily -Completed remdesivir -status post 1 dose Actemra 02/17/2021 -Currently on vancomycin, cefepime and Po vancomycin , Fluconazole - Levaquin and Caspofugin was discontinued -Initial blood cultures positive for coagulase-negative staphylococci, repeat blood cultures negative -Sputum Culture : Yeast -Vitamin C, zinc, vitaimn D -Albuterol, budesonide -Hold tube feeds for now Bilateral lower extremity ultrasound for negative for DVT, follow D-dimer -For CHF, BNP elevated, -Echocardiogram shows EF of 65%, moderate LVH, grade 1 out of 4 diastolic dysfunction -Continue bicarb 650 mg 3 times daily-secondary to uremia -Protonix for GI prophylaxis Acute encephalopathy, secondary to COVID-19 pneumonia, hypoxia, uremia, possible CVA Remains off sedation since 02/27/2021 C.T head without contrast. No acute intracranial pathology CTA of the head and neck pending Will perform EEG We will try to reverse uremia with dialysis Concerns for neurologic injury Continue to monitor mentation closely, aspiration precautions YENNY on worseing CKD stage IV , secondary to COVID-Nephropathy: Started ON H/D on 02/22 Renal ultrasound no nephrolithiasis avoid nephrotoxic agents -Metabolic Acidosis 2/2 to uremia plan as above. Transaminitis secondary to COVID-19 Acute on chronic diastolic CHF exacerbation: Hypertension: Currently b/p is well controlled. Chronic lymphocytic leukemia, continue to monitor Elevated troponins, likely secondary respiratory failure, serial troponins, serial EKGs, continue aspirin, continue statin, normal CPK [id number] type 2 diabetes mellitus, low-dose sliding scale, Lantus 5 units twice daily Acute on chronic anemia, hemoglobin 8.3, concern for slow GI bleed, bone marrow suppression from Covid infection, continue Protonix A.fib : Currently on p.o. Cardizem 30 mg every 6H Will hold off on full Ac for now as there is risk of bleeding with dropping H&H. C.Diff Diarrhea : On Po Vancomycin 125 mg q6h for 7days. Improving Thrombocytopenia: Low 4T Score, less likely HIT. Likely part of viral syndrome. Continue to monitor CBC for now. DVT PPX: On Heparin 5000 sc q12 h daily Patient son was updated -Full code Status: Acute (2) Pneumonia due to COVID-19 virus: Status: Acute (3) Acute kidney injury superimposed on CKD: Status: Acute (4) Atrial fibrillation: Status: Acute (5) CHF exacerbation: Status: Acute (6) Hypertension: Status: Chronic Qualifiers: Hypertension type: renovascular hypertension Qualified Code(s): I15.0 - Renovascular hypertension (7) Dyslipidemia: Status: Chronic (8) Carotid stenosis, bilateral: Status: Chronic (9) CLL (chronic lymphocytic leukemia): Status: Acute (10) ARDS (adult respiratory distress syndrome): Status: Acute Attestations Medical Necessity Statement*: Patient requires hospitalization for acute hypoxic respiratory failure sec to COVID-19 pneumonia, YENNY dialysis dependent, A. fib, encephalopathy Coding Level of Care Code Acute Regrinder Operator for [facility] Diagnoses Acute respiratory failure with hypoxia J96.01 Pneumonia due to COVID-19 virus U07.1; J12.82 Acute kidney injury superimposed on CKD N17.9; N18.9 Atrial fibrillation I48.91 CHF exacerbation I50.9 Hypertension I15.0 Hypertension type: renovascular hypertension Dyslipidemia E78.5 Carotid stenosis, bilateral I65.23 CLL (chronic lymphocytic leukemia) C91.10 ARDS (adult respiratory distress syndrome) J80
[2021-03-01 18:01] LABS: Glucose Point of Care 120 mg/dL (70-110)
[2021-03-01] MEDS: pantoprazole 40 mg SDV IVP (18:09)
[2021-03-01] MEDS: dexamethasone 10 mg/mL INJ 6 MG IVP (18:09)
[2021-03-01 20:22] LABS: Glucose Point of Care 134 mg/dL (70-110)
[2021-03-01 20:54] LABS: Vancomycin Trough 33.1 ug/mL (10-15)
[2021-03-01] MEDS: fluconazole premix 200 MG/100 ML PREMIX 100 MG IV (20:59)
[2021-03-01] MEDS: atorvastatin 40 mg Tablet 10 MG PO (21:00)
[2021-03-01] MEDS: sucralfate 1 gm Tablet PO (21:01)
--- NOTE | 2021-03-01 22:10 | PC.HD ---
Pt noted to be febrile (38.3) on initial assessment and temp increased to 38.7 during 1st half hour of treatment. Tylenol given per RESTAURANT MAINTENANCE TECHNICIAN and temp 37.9 by end of treatment. BP 129/53 pre-treatment but BP quickly decreased with increasing tachycardia and 40 minutes into treatment UF had to be turned off. Levophed and cardiezem gtts initiated during treatment, but patient still did not tolerate even minimal ultrafiltration. Full treatment was completed but with UF reduced greatly when not off altogether, and additional fluids rec'd, pt's weight unchanged at end of treatment. Dr Omalley and Dr Brennan updated during treatment.
[2021-03-01] MEDS: cefepime 1,000 MG in sodium chloride 0.9% (plus) 50 ML 100 MG IV (23:38)
[2021-03-02] VITALS (40 sets, daily range): BP systolic 89–165; BP diastolic 33–86; PULSE 72–100; RESP 14–23; TEMP 36.6–37.6; O2SAT 87–97; BMI 29.8
[2021-03-02] MEDS: dilTIAZem 60 mg Tablet PO ×4 (03:49→21:50)
[2021-03-02 05:05] LABS: Basophils # 0.1 10^3/uL (0.0-0.1); Basophils % 0.4 %; Hematocrit 24.9 % (37.0-47.0); Hemoglobin 7.7 g/dL (11.5-15.3); Lymphocytes # 5.3 10^3/uL (0.8-4.8); Lymphocytes % 23.4 %; Mean Corpuscular HGB Conc 30.9 g/dL (30.0-36.0); Mean Corpuscular Volume 100.4 fl (81-99); Monocytes % 4.3 %; Neutrophils # 16.18 10^3/uL (1.8-7.7); Neutrophils % 70.8 %; Nucleated Red Blood Cells # 0.1 /100WBC; Nucleated Red Blood Cells % 0.4 %; Platelet Count 97 10^3/cmm (130-400); Red Blood Count 2.48 10^6/uL (4.1-5.3); Red Cell Distribution Width 19.2 % (12.1-15.1); White Blood Count 22.8 10^3/uL (4.0-10.0)
[2021-03-02] MEDS: pantoprazole 40 mg SDV IVP ×2 (05:13→17:37)
[2021-03-02 05:22] LABS: INR 1.44 (0.8-1.2)
[2021-03-02 05:30] LABS: Lactate (Lactic Acid level) 1.1 mmol/L (0.5-2.2)
[2021-03-02 05:40] LABS: NT Pro B Type Natriuretic Pept 7302 pg/mL (0-450); Procalcitonin 4.85 ng/mL (0-0.5)
[2021-03-02 05:52] LABS: Alanine Aminotransferase 185 U/L (0-33); Albumin Level 2.7 g/dL (3.5-5.2); Alkaline Phosphatase 96 IU/L (35-105); Anion Gap 26.3 (5-19); Aspartate Amino Transferase 233 U/L (0-32); Blood Urea Nitrogen 54 mg/dL (8-23); C Reactive Protein 63.3 mg/L (0.0-4.9); Calcium 6.6 mg/dL (8.5-10.5); Carbon Dioxide 20 mmol/L (22-29); Chloride 89 mmol/L (98-107); Glucose 142 mg/dL (65-115); Magnesium 2.3 mg/dL (1.7-2.3); Osmolality Calculated 289 mOsm/kg (285-295); Potassium 4.3 mmol/L (3.5-5.1); Sodium 131 mmol/L (136-145); Total Bilirubin 0.6 mg/dL (0.15-1.2); Total Protein 4.7 g/dL (6.6-8.7)
[2021-03-02 05:57] LABS: Phosphorus 7.9 mg/dL (2.5-4.5)
[2021-03-02 05:58] LABS: Creatine Phosphokinase 966 U/L (26-192)
[2021-03-02 06:09] LABS: Slide Review Slide Review Perform
[2021-03-02] MEDS: sucralfate 1 gm Tablet PO ×4 (06:13→21:56)
[2021-03-02 06:15] LABS: Ferritin 4331 ng/mL (15-150)
--- NOTE | 2021-03-02 06:30 | PC.NURSE ---
Shift Note Frequent safety and comfort rounds continue. Orders and/or nursing care completed as indicated. Patient monitored for response to intervention and treatment(s). Education provided to Carrington, the son of the patient, at the bedside. There were no new changes during the shift. Patient experienced a couple hypertensive episodes during the shift, similar to last night. There were no ventilator changes and the amiodarone drip is still running. The patient had zero urine output and had two critical lab values, phosphorus and Creatine Kinase.
--- NOTE | 2021-03-02 07:00 | XR_ITS ---
WS: [id number] XR chest 1V portable [id number] REASON FOR EXAM: sob FINDINGS: Endotracheal tube and nasogastric tube remain positioned properly. Diffuse interstitial infiltrative changes throughout both lungs predominating in the lung bases. Rela tively stable compared to the examination of 02/27/2021 There are no new abnormalities. XR/XR chest 1V portable [id number] IMPRESSION: Stable abnormal chest
--- NOTE | 2021-03-02 08:27 | PC.NURSE ---
Shift Note Frequent safety and comfort rounds continue. Orders and/or nursing care completed as indicated. Patient monitored for response to intervention and treatment(s). Education provided includes[skin integrity, neuro checks, nutrition, ventilation management, and heart rate control]. Patient and/or hospital insurance representative [family has been updated on pt's plan of care]. Will continue to monitor. Received bed side shift report from off going nurse. Pt's plan of care reviewed. Pt resting in bed. Respirations are even and unlabored. No s/sx of distress noted. Pt is lying in bed with her eyes open and her pupils pointed up towards the ceiling. Pt doesnt respond to touch or voice stimuli. Pt does blink when testing her eye reflexes and will cough when deep suctioned. Pt does not respond beyond that. Pt appears to be resting comfortably at this time. Bed in lowest and locked position, call light within reach, x's 3 rails up. Will continue to monitor pt.
[2021-03-02] MEDS: budesonide 0.5 mg/2 mL Neb INHALATION ×2 (08:32→20:17)
[2021-03-02] MEDS: ascorbic acid 500 mg Tablet PO ×2 (08:40→17:37)
[2021-03-02] MEDS: zinc gluconate 50 mg Tablet PO (08:40)
[2021-03-02] MEDS: heparin 5,000 unit/mL INJ 1 mL 5000 UNIT SUBCUT ×2 (08:40→21:50)
[2021-03-02] MEDS: cholecalciferol (vitamin D3) 1,000 unit Tablet 1000 UNIT PO (08:40)
[2021-03-02] MEDS: aspirin 81 mg EC Tablet PO (08:40)
[2021-03-02] MEDS: insulin glargine 100 units/1 mL 10 UNIT SUBCUT ×2 (08:41→21:57)
[2021-03-02] MEDS: sodium bicarbonate 650 mg Tablet PO ×3 (08:41→21:56)
[2021-03-02] MEDS: chlorhexidine gluconate 0.12% Btl 473 mL 15 ML MUCOUS MEM ×2 (08:45→17:38)
[2021-03-02] MEDS: amiodarone 200 mg Tablet 400 MG PO ×2 (08:45→17:37)
--- NOTE | 2021-03-02 11:58 | PC.NUTR ---
Nutrition recommendations: Day 5 of no nutritional provision, with minor exception of approx. 120 ml total 02/28 overnight (exact amount unclear). No new recommendations. Unclear if pt will be able to tolerate TF if resumed given aspiration when attempted 02/28-03/01 per nurse. If deemed appropriate to resume, please refer to RD tube feeding recommendations from 02/28/21. See full RD assessments for further details.
[2021-03-02 12:34] LABS: Glucose Point of Care 104 mg/dL (70-110)
--- NOTE | 2021-03-02 15:00 | PM.PN ---
Subjective Subjective: Interval history: Unfortunately she continues to do very poorly and neurologically. She has a corneal reflex, no gag reflex on suctioning, no good neurological recovery for spontaneous breathing trials. She did have dialysis yesterday which she tolerated very well. She is currently off pressors. FiO2 75 and PEEP of 8. Ongoing discussions with family members at this time. Medications: Reviewed: Yes Vitals/I&O/Wt Last Vital Signs Temp 98.1 F 03/02/21 12:00 Pulse 84 03/02/21 12:20 Resp 15 03/02/21 12:25 BP 122/39 03/02/21 12:00 Pulse Ox 94 03/02/21 12:20 03/02/21 03/02/21 03/02/21 06:59 14:59 22:59 Intake Total 257.18 / 713.314 513.741 / 513.741 Balance 257.18 / -593.686 513.741 / 513.741 Weight last 48 hrs Weight 78.925 kg Weight 79.8 kg Weight 75.863 kg Physical Exam Narrative: EXAM NARRATIVE: Constitutional: sedated and vented HEENT: Wet mucosa, no jvp, non icteric Lungs: Bilaterally decreased air entry in all lung zones with scattered coarse breath sounds CVS: S1 S2, no murmurs Abdo: Soft, BS ok Ext 4: Minimal edema, peripheral perfusion with no cyanosis Neurological: Grossly non-focal Urinary Catheter Management^: Ontiveros: Cath Placed During This Visit: yes Reason for Continuing Indwelling Catheter: Accurate Measurement of Urinary Output in Critically Ill Patients Urinary Catheter Date of Insertion: 02/14/21 Urinary Catheter Time of Insertion: 19:48 Data : 03/02/21 04:45 03/02/21 04:45 Micro: Microbiology 03/02/21 10:22 Blood Culture - Preliminary Blood SPECIMEN COLLECTED 03/02/21 10:18 Blood Culture - Preliminary Blood SPECIMEN COLLECTED 02/24/21 19:05 Blood Culture - Final Blood NO GROWTH AFTER 5 DAYS 02/24/21 18:50 Blood Culture - Final Blood NO GROWTH AFTER 5 DAYS A&P Additional A&P Information 1. Acute on chronic kidney disease Now in overt renal failure from ATN Plan for dialysis tomorrow if ongoing active care is desired 2K, UF 3-4L Daily evaluation for dialysis needs Avoid usual nephrotoxic agents Dose medication for GFR less than 15 2. Covid pneumonitis On combination remdesivir, dexamethasone, antibiotic coverage VDRF; poorly recovering neurologically Vent settings noted, remains stable 3. Chemistry More balanced after dialysis 4. Hypertension Better today after UF Jesus Omalley MD Nephrology [phone] Patient seen and examined via telemedicine, with the assistance of the bedside RN > 25 min spent in evaluation and mgmt of patient Attestations Medical Necessity Statement*: Eval for YENNY Coding Level of Care Code Acute Pump And Still Operator for Karthikeyan Peters
[2021-03-02 15:12] LABS: Glucose Point of Care 83 mg/dL (70-110)
[2021-03-02 15:14] LABS: Basophils # 0.1 10^3/uL (0.0-0.1); Basophils % 0.3 %; Eosinophils % 0.1 %; Hematocrit 24.6 % (37.0-47.0); Hemoglobin 7.8 g/dL (11.5-15.3); Lymphocytes # 5.3 10^3/uL (0.8-4.8); Lymphocytes % 25.5 %; Mean Corpuscular HGB Conc 31.7 g/dL (30.0-36.0); Mean Corpuscular Hemoglobin 31.5 pg (28.0-34.0); Mean Corpuscular Volume 99.2 fl (81-99); Mean Platelet Volume 12.3 fL (7.4-10.4); Monocytes # 1.1 10^3/uL (0.2-0.9); Monocytes % 5.2 %; Neutrophils # 14.15 10^3/uL (1.8-7.7); Neutrophils % 68.2 %; Nucleated Red Blood Cells # 0.1 /100WBC; Nucleated Red Blood Cells % 0.6 %; Platelet Count 102 10^3/cmm (130-400); Red Blood Count 2.48 10^6/uL (4.1-5.3); Red Cell Distribution Width 19.4 % (12.1-15.1); White Blood Count 20.7 10^3/uL (4.0-10.0)
--- NOTE | 2021-03-02 15:48 | PC.RESP ---
RT Shift Note Frequent safety and respiratory rounds continue. Orders completed as indicated. Patient monitored pre and post treatments throughout shift. Patient [Did.] tolerate treatments appropriately. Condition [DidNotChange]. Patient and/or automobile rental representative educated on respiratory treatment and medications. Patient and/or automobile rental representative [unable to comprehend]. Will continue to monitor patient progress.
--- NOTE | 2021-03-02 17:11 | PM.PN ---
Subjective Subjective: Interval history: Yesterday afternoon, during dialysis patient developed hypotension and A. fib with RVR requiring Levophed and amiodarone, Levophed was weaned overnight, currently remains on amiodarone, rates are well controlled, she did have 2 fever spikes yesterday, currently afebrile, normotensive, 75% FiO2 This morning patient was examined she does open her eyes to some degree with stimulation, pupils are reactive to light, she does not follow commands, does not respond to sternal rub, she tends to look upwards, does not withdraw from pain, Babinski is downward going, This afternoon I had an extensive discussion with patient's 2 brothers and his sister -I discussed patient's acute hypoxic respiratory failure secondary to COVID-19 pneumonia, ventilator dependence, is on 75% O2, is off all sedating medications, no episodes of tachypnea, no episodes of desaturation, given her encephalopathy, she will likely require a tracheostomy, and placement at a long-term care facility -She is dialysis dependent, and likely will remain dialysis dependent for some period of time, which can be managed at a long-term care facility -She will require PEG tube placement -Her encephalopathy currently could be multifactorial, secondary to electrolyte abnormalities, toxic encephalopathy, uremia, hypoxia, COVID-19, possible remitted effect of sedating medications which have been stopped on 02/27/2021, possible neurologic injury from CVA such as brainstem stroke -Patient's family would like to see how she does overnight, would like to see what Dr. Watson has to say -Overall prognosis is poor, status is stable Vitals/I&O/Wt Last Vital Signs Temp 98.4 F 03/02/21 16:00 Pulse 87 03/02/21 16:00 Resp 20 H 03/02/21 16:00 BP 152/40 03/02/21 16:00 Pulse Ox 94 03/02/21 16:00 03/02/21 03/02/21 03/02/21 06:59 14:59 22:59 Intake Total 257.18 / 713.314 513.741 / 513.741 Output Total 5 / 5 Balance 257.18 / -593.686 513.741 / 513.741 - / 508.741 Weight last 48 hrs Weight 78.925 kg Weight 79.8 kg Weight 75.863 kg Physical Exam Narrative: EXAM NARRATIVE: Currently intubated, off sedating medications Eye: COMMON NORMALS: Equal, round and reactive pupils present PUPIL: Yes Equal, round and reactive pupils present Resp: COMMON NORMALS: normal respiratory effort, No retractions, No use of accessory muscles and clear to auscultation bilaterally AUSCULTATION: clear to auscultation bilaterally Cardio: COMMON NORMALS: regular rate, S1 normal heart sound present and S2 normal heart sound present RATE: regular rate RHYTHM: abnormal rhythm irregularly irregular HEART SOUNDS: S1 normal heart sound present and S2 normal heart sound present GI: COMMON NORMALS: Normal to inspection, nondistended, normoactive bowel sounds present, Soft to palpation and non-tender PALPATION: Yes Soft to palpation Extremity: COMMON NORMALS: no pedal edema Neuro: OTHER: Pupils equal round reactive to light, does tend to look upwards, does not withdraw from pain, does not respond to sternal rub, does have eye-opening when stimulated intermittently, Babinski is downward going bilaterally Urinary Catheter Management^: Ontiveros: Cath Placed During This Visit: yes Reason for Continuing Indwelling Catheter: Accurate Measurement of Urinary Output in Critically Ill Patients Urinary Catheter Date of Insertion: 02/14/21 Urinary Catheter Time of Insertion: 19:48 Data : 03/02/21 15:00 03/02/21 04:45 Micro: Microbiology 03/02/21 10:22 Blood Culture - Preliminary Blood SPECIMEN COLLECTED 03/02/21 10:18 Blood Culture - Preliminary Blood SPECIMEN COLLECTED 02/24/21 19:05 Blood Culture - Final Blood NO GROWTH AFTER 5 DAYS 02/24/21 18:50 Blood Culture - Final Blood NO GROWTH AFTER 5 DAYS A&P Assessment and plan (1) Acute respiratory failure with hypoxia: Acute hypoxic respiratory failure -secondary to COVID-19 pneumonia, breakthrough infection, has received both Covid vaccines in May 2019, no history of booster -WBC 20.7, did have 2 fever spikes yesterday Plan: -Currently being managed in ICU -Currently intubated, 75% FiO2 -Off sedation since 02/27/2021 -On Decadron 6 mg, IV push daily -Completed remdesivir -status post 1 dose Actemra 02/17/2021 -Currently on vancomycin, and Primaxin, fluconazole -Repeat blood cultures, sputum cultures, urine cultures -Can consider lumbar puncture -Initial blood cultures positive for coagulase-negative staphylococci, repeat blood cultures negative -Sputum Culture : Yeast -Vitamin C, zinc, vitaimn D -Albuterol, budesonide -Resume tube feeds tonight Bilateral lower extremity ultrasound for negative for DVT -For CHF, BNP elevated, -Echocardiogram shows EF of 65%, moderate LVH, grade 1 out of 4 diastolic dysfunction -Continue bicarb 650 mg 3 times daily-secondary to uremia -Protonix for GI prophylaxis -Pending decision from family comfort care versus pursuing full medical intervention including trach, PEG, dialysis and placement to select Acute encephalopathy, secondary to COVID-19 pneumonia, hypoxia, uremia, possible CVA, sedating medications Remains off sedation since 02/27/2021 C.T head without contrast. No acute intracranial pathology CTA of the head and neck no acute pathology EEG shows diffuse slowing Uremia has improved with dialysis, however mentation has remained about the same Concerns for significant neurologic injury Continue to monitor mentation closely, aspiration precautions We will consult Dr. Watson YENNY on worseing CKD stage IV , secondary to COVID-Nephropathy: Developed hypotension during dialysis and A. fib with RVR Plan for dialysis tomorrow Renal ultrasound no nephrolithiasis avoid nephrotoxic agents -Metabolic Acidosis 06/30 to uremia plan as above. Transaminitis secondary to COVID-19, acutely worsening possibly shock liver related to hypotensive episodes Acute on chronic diastolic CHF exacerbation: Continue to monitor, dialysis Hypertension: Currently b/p is well controlled. Chronic lymphocytic leukemia, continue to monitor Elevated troponins, likely secondary respiratory failure, serial troponins, serial EKGs, continue aspirin, continue statin, normal CPK [id number] type 2 diabetes mellitus, low-dose sliding scale, Lantus 5 units twice daily Acute on chronic anemia, hemoglobin 7.8, concern for slow GI bleed, bone marrow suppression, acute renal failure from Covid infection, continue Protonix A.fib : Currently on p.o. Cardizem 30 mg every 6H Of amiodarone drip, continue p.o. Cardizem for twice daily Will hold off on full dose anticoagulation for now as there is risk of bleeding with dropping H&H. C.Diff Diarrhea : On Po Vancomycin 125 mg q6h for 7days status post antibiotic discontinuation as above. No significant episodes of diarrhea Thrombocytopenia: Low 4T Score, less likely HIT. Likely part of viral syndrome. Continue to monitor CBC for now. DVT PPX: On Heparin 5000 sc q12 h daily Patient 2 sons and daughter were updated -Full code -Prognosis poor, status stable Status: Acute (2) Pneumonia due to COVID-19 virus: Status: Acute (3) Acute kidney injury superimposed on CKD: Status: Acute (4) Atrial fibrillation: Status: Acute (5) CHF exacerbation: Status: Acute (6) Hypertension: Status: Chronic Qualifiers: Hypertension type: renovascular hypertension Qualified Code(s): I15.0 - Renovascular hypertension (7) Dyslipidemia: Status: Chronic (8) Carotid stenosis, bilateral: Status: Chronic (9) CLL (chronic lymphocytic leukemia): Status: Acute (10) ARDS (adult respiratory distress syndrome): Status: Acute (11) Acute encephalopathy: Status: Acute Attestations Medical Necessity Statement*: Patient requires hospitalization for acute hypoxic respiratory suspected COVID-19, acute renal failure, acute encephalopathy, uremia Coding Level of Care Code Acute Cnc Manufacturing Engineer for [facility] Diagnoses Acute respiratory failure with hypoxia J96.01 Pneumonia due to COVID-19 virus U07.1; J12.82 Acute kidney injury superimposed on CKD N17.9; N18.9 Atrial fibrillation I48.91 CHF exacerbation I50.9 Hypertension I15.0 Hypertension type: renovascular hypertension Dyslipidemia E78.5 Carotid stenosis, bilateral I65.23 CLL (chronic lymphocytic leukemia) C91.10 ARDS (adult respiratory distress syndrome) J80 Acute encephalopathy G93.40
[2021-03-02] MEDS: dexamethasone 10 mg/mL INJ 6 MG IVP (17:37)
--- NOTE | 2021-03-02 17:56 | PC.NURSE ---
Wasted 23.167mL of fentanyl from IV bag. Wasted witnessed by LEIGHANN Almonte.
--- NOTE | 2021-03-02 17:57 | PC.NURSE ---
Wasted fentanyl with Aiden LAWTON
--- NOTE | 2021-03-02 19:38 | P.CONIM_ITS ---
Providers/Reason For Consult Consulting Physician/Specialty*: Dr. Brennan Reason for Consult*: Persistent coma Attending Physician: Oh Brennan MD Primary Care Provider: Teena Connelly MD History of Present Illness History of Present Illness Yanira Gao is a 76 year old woman with multiple comorbidities. She has COPD from chronic smoking and at her visit with Dr. Baer in November she could only walk a few steps without getting short of breath. She had bilateral carotid s tenosis, unremarkable echocardiogram. She has a long history of diabetes and chronic kidney disease. She was hospitalized here with congestive heart failure in November. She was followed by Dr. Zayas in oncology for chronic lymphocytic leukemia, Lawler stage 0. She presented here 02/14/2021 with symptoms of Covid and respiratory distress. She was diagnosed with Covid a week before and was gradually worsening. She had been vaccinated. Her presenting saturation of oxygen was 70% and came up to 90% on 13 L. She continued to deteriorate and required intubation 02/22/2021 for worsening mental status and increasing oxygen requirement. She was sedated. Her course was complicated by C. difficile for which she was started on vancomycin. She required Levophed for blood pressure support. She is required kidney dialysis. Attempts to wean sedation have yielded no sign of wakefulness. EEG performed yesterday showed no signs of brain activity, very low voltage diffuse slowing. She has not shown any sign of meaningful brain activity since she was intubated. Sedatives were weaned several days ago. She has not responded to pain. She has had a gag reflex according to the nurse. CT angiogram was performed yesterday and the posterior circulation was unremarkable. Anterior circulation was unremarkable. CT scan of the head from 02/27, reviewed by me, is unremarkable. She is not on propofol or midazolam but it looks like she still on fentanyl. Review of Systems General: Reports: ROS unobtainable due to mental status (No recent fever) Meds/Allergies Home Medications and Allergies Home Medications Medication Instructions Recorded Confirmed Last Taken Type diltiazem HCl 240 mg 240 mg PO BEDTIME 10/22/19 02/15/21 11/30/20 History capsule,extended release 24 hr atorvastatin 10 mg tablet 5 mg PO BEDTIME tab 10/23/19 02/15/21 11/30/20 History labetalol 200 mg PO BID 07/08/20 02/15/2121 History acetaminophen 650 mg 1,300 mg PO Q12H PRN 11/11/20 02/15/21 11/30/20 History tablet,extended release vit C,E,zinc,copper-jelma7e 250 1 cap PO QAM 11/11/20 02/15/21 11/30/20 History mg-lutein 5 mg-zeaxanthin 1 mg capsule bumetanide 2 mg tablet 1 mg PO BID tab 12/01/20 02/15/21 Unknown History hydralazine 50 mg tablet 50 mg PO BID tab 12/01/20 02/15/21 11/30/20 History losartan 50 mg tablet 75 mg PO DAILY #135 tab 12/14/20 02/15/21 Unknown Rx amlodipine 10 mg PO BEDTIME 02/15/21 02/15/21 Unknown History aspirin [Aspir-81] 81 mg PO BEDTIME 02/15/21 02/15/21 Unknown History glipizide 5 mg PO BEDTIME 02/15/21 02/15/21 Unknown History Allergies Allergy/AdvReac Type Severity Reaction Status Date / Time No Known Allergies Allergy Verified 02/15/21 08:49 Current Medications Current Medications Generic Name Dose Route Start Last Admin Trade Name Freq PRN Reason Stop Dose Admin Acetaminophen 650 mg 02/14/21 21:16 03/01/21 16:13 Acetaminophen 325 Mg Tablet PO 650 mg Q6H PRN Administration Mild/Mod Pain Or Temp >/= 101 Albuterol Sulfate 2.5 mg 02/20/21 00:22 03/02/21 15:39 Albuterol 2.5 Mg/0.5 Ml Neb INHALATION 2.5 mg Q4H.RESPIRATORY ALISSA Administration Amiodarone HCl 400 mg 03/02/21 09:00 03/02/21 17:37 Amiodarone 200 Mg Tablet PO 400 mg BID ALISSA Administration Ascorbic Acid 500 mg 02/15/21 09:00 03/02/21 17:37 Ascorbic Acid 500 Mg Tablet PO 500 mg BID ALISSA Administration Aspirin 81 mg 02/15/21 09:00 03/02/21 08:40 Aspirin 81 Mg Ec Tablet PO 81 mg DAILY ALISSA Administration Atorvastatin Calcium 10 mg 02/15/21 21:00 03/01/21 21:00 Atorvastatin 40 Mg Tablet PO 10 mg BEDTIME ALISSA Administration Budesonide 0.5 mg 02/15/21 08:00 03/02/21 08:32 Budesonide 0.5 Mg/2 Ml Neb INHALATION 0.5 mg BID.RESPIRATORY ALISSA Administration Chlorhexidine Gluconate 15 ml 02/21/21 18:00 03/02/21 17:38 Chlorhexidine Gluconate 0.12% Btl 473 Ml MUCOUS MEM 15 ml BID ALISSA Administration Dexamethasone 6 mg 02/15/21 18:00 03/02/21 17:37 Dexamethasone 10 Mg/Ml Inj IVP 6 mg Q24H ALISSA Administration Diltiazem HCl 60 mg 03/01/21 08:52 03/02/21 15:13 Diltiazem 60 Mg Tablet PO 60 mg Q6H ALISSA Administration Heparin Sodium (Beef Lung) 5,000 unit 02/23/21 20:00 03/02/21 08:40 Heparin 5,000 Unit/Ml Inj 1 Ml SUBCUT 5,000 unit Q12H ALISSA Administration dexmedeTOMIDine 0.9 % NaCL 400 mcg in 100 mls @ 0 mls/hr 02/19/21 04:15 02/22/21 16:42 Dexmedetomidine-Ns IV Infused .Q0M ALISSA Titration Protocol Per Protocol Propofol 1,000 mg in 100 mls @ 0 mls/hr 02/22/21 08:00 02/27/21 09:54 Diprivan IV 0 mcg/kg/min .Q0M ALISSA 0 mls/hr Titration Protocol Per Protocol Fentanyl 1,000 mcg/ Sodium 100 mls @ 0 mls/hr 02/22/21 08:15 03/02/21 17:56 Chloride IV Infused .Q0M ALISSA Titration Protocol Per Protocol Norepinephrine Bitartrate 4 mg 254 mls @ 0 mls/hr 02/22/21 16:15 03/02/21 08:20 / Dextrose IV Infused .Q0M ALISSA Titration Protocol Per Protocol Midazolam HCl 100 mg/ Sodium 100 mls @ 0 mls/hr 02/22/21 16:30 02/23/21 11:07 Chloride IV 0 mg/hr .Q0M ALISSA 0 mls/hr Titration Protocol Per Protocol Fluconazole 200 mg in 100 mls @ 100 mls/hr 02/26/21 20:00 03/01/21 21:59 Diflucan Premix IV Infused Q24H ALISSA Infusion Diltiazem HCl 125 mg/ Sodium 125 mls @ 0 mls/hr 02/27/21 18:15 02/28/21 12:39 Chloride IV 0 mg/hr .Q0M ALISSA 0 mls/hr Titration Protocol Per Protocol Amiodarone HCl 900 mg/ 518 mls @ 0 mls/hr 03/01/21 17:15 03/02/21 12:19 Dextrose/ IV Miscellaneous IV 0 mg/min Supplies .Q0M ALISSA 0 mls/hr Titration Protocol Per Protocol Imipenem/Cilastatin Sodium 250 100 mls @ 200 mls/hr 03/02/21 09:00 03/02/21 10:07 mg/ Sodium Chloride IV Infused Q12H ALISSA Infusion Protocol Insulin Aspart 0 unit 02/24/21 18:00 03/02/21 15:11 Insulin Aspart 100 Unit/1 Ml SUBCUT Not Given WM&BEDTIME ALISSA Protocol Insulin Glargine 10 unit 02/23/21 22:01 03/02/21 08:41 Insulin Glargine 100 Units/1 Ml SUBCUT 10 unit Q12H ALISSA Administration Lanolin 1 applic 02/22/21 01:35 02/22/21 01:47 Lanolin Oint 7 Gm TOPICAL 1 applic PRN PRN Administration DRYNESS Metoprolol Tartrate 5 mg 02/26/21 14:05 03/01/21 16:49 Metoprolol Tartrate 1 Mg/1 Ml Sdv 5 Ml IVP 5 mg Q4H PRN Administration HR > 120 Ondansetron HCl 4 mg 02/14/21 21:16 02/20/21 07:33 Ondansetron 2 Mg/Ml Sdv 2 Ml IVP 4 mg Q8H PRN Administration vomiting, or N/V if npo Pantoprazole Sodium 40 mg 03/01/21 18:00 03/02/21 17:37 Pantoprazole 40 Mg Sdv IVP 40 mg Q12H ALISSA Administration Senna/Docusate Sodium 1 tab 02/20/21 18:00 02/24/21 17:30 Sennosides-Docusate Tablet PO 1 tab BID ALISSA Administration Sodium Bicarbonate 650 mg 02/15/21 14:30 03/02/21 15:14 Sodium Bicarbonate 650 Mg Tablet PO 650 mg TID ALISSA Administration Sucralfate 1 gm 03/01/21 21:00 03/02/21 16:09 Sucralfate 1 Gm Tablet PO 1 gm AC&BEDTIME ALISSA Administration Vancomycin HCl 125 mg 02/23/21 22:15 03/02/21 16:09 Vancomycin 1,000 Mg Oral Mell (Btl) PO 125 mg QID ALISSA Administration Vitamin D 1,000 unit 02/15/21 09:00 03/02/21 08:40 Cholecalciferol (Vitamin D3) 1,000 Unit Tablet PO 1,000 unit DAILY ALISSA Administration Zinc Gluconate 50 mg 02/15/21 09:00 03/02/21 08:40 Zinc Gluconate 50 Mg Tablet PO 50 mg DAILY ALISSA Administration PFSH Acute PFSH: Medical History Aortic stenosis Not apparent on echocardiogram 08/04/2020 Carotid stenosis, bilateral CKD (chronic kidney disease) CLL (chronic lymphocytic leukemia) Compression fracture COVID-19 vaccine administered Degenerative lumbar disc Diabetes Discoid lupus Dyslipidemia Hypertension Lumbar radiculopathy Mitral regurgitation Surgical History No significant past surgical history Family History Mother , AGE 89 Diabetes Stroke CAD (coronary artery disease) Dementia Father , AGE 92 Stroke CAD (coronary artery disease) Dementia Sister CAD (coronary artery disease) Lung disease Myocardial infarction Cancer Brother CAD (coronary artery disease) Family/Other Cancer Denies family history of Clotting disorder Chronic kidney disease (CKD) Suicide Anesthesia complication Bleeding disorder Social History Second hand smoke exposure: No Alcohol intake: never Lives independently: Yes Marital status: / Current occupational status: retired History of recent travel: No Vitals/I&O/Wt Last Vital Signs Temp 98.4 F 03/02/21 16:00 Pulse 87 03/02/21 16:00 Resp 22 H 03/02/21 17:57 BP 152/40 03/02/21 16:00 Pulse Ox 90 03/02/21 17:57 03/02/21 03/02/21 03/02/21 06:59 14:59 22:59 Intake Total 257.18 / 713.314 513.741 / 513.741 0 / 513.741 Output Total 5 / Balance 257.18 / -593.686 513.741 / 513.741 -5 / 508.741 Weight last 48 hrs Weight 174 lb Weight 175 lb 14.862 oz Weight 167 lb 4 oz Physical Exam Narrative: EXAM NARRATIVE: HEENT: Normocephalic. No bruising about the head. Endotracheal tube in place and nasogastric feeding. Chest: Clear to auscultation Cardiovascular: S1 and S2 normal without murmur or gallop Abdomen no palpable mass Extremities mild diffuse edema Neurologic: Mental status exam: She does not respond to voice. She does not follow simple commands such as open your eyes, look to the left, close your eyes Cranial nerves: PERRL 3 mm to 2 mm bilaterally. Corneal reflexes intact bilaterally. Oculocephalic movements intact bilaterally. She gags with movement of the endotracheal tube. Nailbed pressure of the supraorbital nerve does not yield grimace. Sensorimotor: She is diffusely flaccid in all 4 extremities with flaccid tone and no response to nailbed pressure. She appears to be diffusely paralyzed. Deep tendon reflexes absent throughout. Toes neither upgoing or downgoing Urinary Catheter Management^: Ontiveros: Cath Placed During This Visit: yes Reason for Continuing Indwelling Catheter: Accurate Measurement of Urinary Output in Critically Ill Patients Urinary Catheter Date of Insertion: 02/14/21 Urinary Catheter Time of Insertion: 19:48 Data Micro: Micro: Microbiology 03/02/21 10:22 Blood Culture - Pr eliminary Blood [facility] 03/02/21 10:18 Blood Culture - Pr eliminary Blood [facility] 02/24/21 19:05 Blood Culture - Fi nal Blood NO GROWTH AFTER 5 DAYS 02/24/21 18:50 Blood Culture - Fi nal Blood NO GROWTH AFTER 5 DAYS A&P Assessment and plan (1) Acute ischemic VBA brainstem stroke: This is a Nico 6-year-old woman with baseline of severe COPD and congestive heart failure who presented with Covid pneumonia and has had a jcarlos course requiring intubation and prolonged respiratory support. Attempts to wean her from oxygen have been unsuccessful and attempts to obtain neurologic function by discontinuation of sedation yields the puzzling finding of quadriplegic flaccidity combined with intact brainstem reflexes from the lower medulla but lack of any conscious activity. This is a puzzling constellation of findings and in a patient this gravely ill, bodes a poor prognosis. This could be a combination of critical illness polyneuropathy and profound metabolic encephalopathy but weakness of all 4 extremities would be the more likely picture with critical illness myopathy or polyneuropathy rather than complete f laccid quadriplegia. Similarly, even with profound metabolic encephalopathy I would expect this patient to follow low level commands and despite persistent painful stimulation I was unable to obtain any sign of conscious response. I will talk with you about her tomorrow. I would not recommend aggressive life- saving measures and it would seem reasonable to consider discontinuation of dialysis and allow the patient comfort care. Status: Acute (2) Acute encephalopathy: Status: Acute Coding Level of Care Code Acute Electrical Manufacturing Engineer for [facility] Diagnoses Acute ischemic VBA brainstem stroke I63.219; I63.22 Acute encephalopathy G93.40
[2021-03-02 21:24] LABS: Glucose Point of Care 108 mg/dL (70-110)
[2021-03-02] MEDS: fluconazole premix 200 MG/100 ML PREMIX 100 MG IV (21:50)
[2021-03-02] MEDS: atorvastatin 40 mg Tablet 10 MG PO (21:50)
[2021-03-03] VITALS (17 sets, daily range): BP systolic 107–128; BP diastolic 25–55; PULSE 72–100; RESP 15–22; TEMP 37–39; O2SAT 85–91
[2021-03-03] MEDS: dilTIAZem 60 mg Tablet PO ×2 (03:41→09:06)
[2021-03-03 05:01] LABS: Basophils % 0.2 %; Eosinophils % 0.1 %; Hematocrit 24.8 % (37.0-47.0); Hemoglobin 7.5 g/dL (11.5-15.3); Lymphocytes # 5.1 10^3/uL (0.8-4.8); Lymphocytes % 27.4 %; Mean Corpuscular HGB Conc 30.2 g/dL (30.0-36.0); Mean Corpuscular Hemoglobin 30.7 pg (28.0-34.0); Mean Corpuscular Volume 101.6 fl (81-99); Mean Platelet Volume 12.5 fL (7.4-10.4); Monocytes # 0.6 10^3/uL (0.2-0.9); Monocytes % 3.3 %; Neutrophils # 12.76 10^3/uL (1.8-7.7); Neutrophils % 68.1 %; Nucleated Red Blood Cells # 0.4 /100WBC; Nucleated Red Blood Cells % 2.2 %; Platelet Count 106 10^3/cmm (130-400); Red Blood Count 2.44 10^6/uL (4.1-5.3); Red Cell Distribution Width 19.9 % (12.1-15.1); White Blood Count 18.7 10^3/uL (4.0-10.0)
[2021-03-03 05:06] LABS: Arterial Blood Gas Hematocrit 26.3 % (37-47); Base Excess ABG -7.1 mmol/L (-2.0-2.0); Blood Gas Allen Test Pos; Blood Gas Operator Identificat JB; Blood Gas Sample Site Radial, right; Blood Gas Sample Type Arterial; HCO3 ABG 18.7 mmol/L (22-26); Oxygen Device VENT; PO2 ABG 58.6 mmHg (80.0-100.0)
[2021-03-03 05:15] LABS: INR 1.77 (0.8-1.2)
[2021-03-03 05:21] LABS: Lactate (Lactic Acid level) 1.6 mmol/L (0.5-2.2)
[2021-03-03 05:35] LABS: NT Pro B Type Natriuretic Pept 6509 pg/mL (0-450)
[2021-03-03 05:48] LABS: Vancomycin Trough 36.2 ug/mL (10-15)
[2021-03-03 05:51] LABS: Alanine Aminotransferase 173 U/L (0-33); Albumin Level 2.6 g/dL (3.5-5.2); Alkaline Phosphatase 87 IU/L (35-105); Anion Gap 28.2 (5-19); Aspartate Amino Transferase 155 U/L (0-32); Blood Urea Nitrogen 80 mg/dL (8-23); C Reactive Protein 43.5 mg/L (0.0-4.9); Calcium 6.1 mg/dL (8.5-10.5); Carbon Dioxide 17 mmol/L (22-29); Chloride 92 mmol/L (98-107); Globulin 1.9 g/dL (1.3-4.6); Glucose 117 mg/dL (65-115); Magnesium 2.5 mg/dL (1.7-2.3); Osmolality Calculated 297 mOsm/kg (285-295); Potassium 6.2 mmol/L (3.5-5.1); Sodium 131 mmol/L (136-145); Total Bilirubin 0.5 mg/dL (0.15-1.2); Total Protein 4.5 g/dL (6.6-8.7)
[2021-03-03 05:53] LABS: Creatine Phosphokinase 1375 U/L (26-192); Phosphorus 8.7 mg/dL (2.5-4.5)
[2021-03-03] MEDS: pantoprazole 40 mg SDV IVP (05:57)
[2021-03-03] MEDS: sucralfate 1 gm Tablet PO ×2 (06:01→09:07)
[2021-03-03 06:06] LABS: Ferritin 3433 ng/mL (15-150)
[2021-03-03] MEDS: acetaminophen 325 mg Tablet 650 MG PO (06:30)
--- NOTE | 2021-03-03 07:00 | XR_ITS ---
WS: [id number] XR chest 1V portable [id number] REASON FOR EXAM: sob FINDINGS: The endotracheal tube and nasogastric tube remain in proper position. Right transjugular central line remains in position. Diffuse bilateral pulmonary infiltrates persist. Atelectasis in the right lower lung. These findings are stable. No new findings are identified. XR/XR chest 1V portable [id number] IMPRESSION: Stable abnormal chest.
--- NOTE | 2021-03-03 07:56 | PC.NURSE ---
Shift Note Frequent safety and comfort rounds continue. Orders and/or nursing care completed as indicated. Patient monitored for response to intervention and treatment(s). Patient changes: low diastolic blood pressure, patient spiked a high fever towards the end of shift, zero urine output was observed, patient became hypotensive towards the last two hours of the shift, Levophed drip was started at 0440, Cheeta was used to measure fluid responsiveness (Patient was fluid responsive at 20.9%), Dr. Watson assessed the patient (see notes), and the tube feeding was stopped due to greenish brown emesis that the patient had.
[2021-03-03] MEDS: budesonide 0.5 mg/2 mL Neb INHALATION (08:38)
[2021-03-03] MEDS: heparin 5,000 unit/mL INJ 1 mL 5000 UNIT SUBCUT (08:56)
[2021-03-03 08:57] LABS: Glucose Point of Care 196 mg/dL (70-110)
[2021-03-03] MEDS: amiodarone 200 mg Tablet 400 MG PO (09:06)
[2021-03-03] MEDS: aspirin 81 mg EC Tablet PO (09:06)
[2021-03-03] MEDS: ascorbic acid 500 mg Tablet PO (09:06)
[2021-03-03] MEDS: calcium gluconate 0.1 gm/mL 10% SDV 10mL 1 GM IVP (09:06)
[2021-03-03] MEDS: cholecalciferol (vitamin D3) 1,000 unit Tablet 1000 UNIT PO (09:06)
[2021-03-03] MEDS: dextrose 50% syringe 50 mL IVP (09:06)
[2021-03-03] MEDS: sodium bicarbonate 650 mg Tablet PO (09:06)
[2021-03-03] MEDS: zinc gluconate 50 mg Tablet PO (09:06)
[2021-03-03] MEDS: chlorhexidine gluconate 0.12% Btl 473 mL 15 ML MUCOUS MEM (09:07)
[2021-03-03] MEDS: insulin glargine 100 units/1 mL 10 UNIT SUBCUT (09:10)
[2021-03-03] MEDS: insulin regular-human 10 UNIT in SYRINGE 1 EACH IVP (09:14)
--- NOTE | 2021-03-03 09:28 | PC.CHAP ---
Pastoral Care Encounter/Spiritual Assessment Type of Contact [] Declined manager appointment visit [] Patient/Family/Request visit [] Outpatient visit [] Follow-up visit [] Physician referral [] Code/Alert [x] Routine visit [] Staff referral [] Actively dying [x] Patient sleeping [] Family support [] [] Out of room [] Palliative care [] [] Receiving care in room [] Pre-surgical visit [] Trauma [] Long length of stay [x] ICU visit [] Other: Relational/Emotional Strength [] Patient feels connected with others/family/visitors/staff [] Distress [] Loneliness/isolation [] Abandonment Spirituality of Patient [] Person of Priscilla [] Attends Anabaptist of their Priscilla [] Believes in Prayer [] Reads Bible or Rastafari materials [] There are Spiritual issues to be addressed [employer] Interventions [x] Prayer [] Active listening [] Non-anxious presence [] Spiritual/emotional support [] Crisis/trauma care [] Spiritual counseling [] Bereavement support [] Provided bereavement packet [] Provided Bible/devotional materials [] Provided toy/stuffed animal, coloring book to patient or family member [] Provided Communion [] Anointing/Ubly [] Salvation [x] Completed spiritual assessment [] Other: Impact on Illness or Injury [] Angry [] Fearful [] Anxious [] Often cries [] Exhaustion [] Unable to work [] Unable to attend anglican [] Unable to walk/stand [] Unable to read [] Unable to drive [] Unable to eat/drink [] Unable to sleep [] Unable to be with family [] Patient intubated [] Other: Summary continue to pray for patient at door.. Time spent with patient
--- NOTE | 2021-03-03 11:19 | PM.PN ---
Subjective Subjective: Interval history: -Patient was seen this morning, overnight she was febrile, having hypotensive episodes, requiring 7 on Levophed, her oxygen requirements have increased to 100%, she continues to not withdraw from pain, no movement of upper or lower extremities, does not withdraw from pain, does have pupillary reflexes, does not respond to sternal rub, hemoglobin 7.5, platelet count 106, sodium 131, potassium 6.2, creatinine 4.9 -I discussed the case with patient's son Carrington Madison, and daughter Flaquita -They also came to the ICU, and I discussed this in person with him -I advised that currently patient's developing worsening acute respiratory failure secondary COVID-19 pneumonia, possibly secondary bacterial infection, possible fungal infection, with recurrent fevers, no evidence of sepsis and septic shock -She also has evidence of fluid overload, and electrolyte abnormalities, and she will require dialysis, however I am concerned with her hypotensive episodes and her A. fib with RVR whenever we do dialysis for her, and worried with the morbidity and mortality associated with another trial of dialysis -Currently she remains in renal failure, her oxygen requirements on the vent have increased, now in septic shock, -I discussed with Dr. Watson findings with family, currently she is displaying flaccid paralysis, no significant reflexes below the level of the brainstem, this could possibly be a multitude of factors including hypoxia, COVID-19, electrolyte abnormalities, but were really worried about the possibility of brainstem infarction and or other neurologic abnormalities such as Guillain-Zhang? syndrome -In order to do for the definitive test such as an MRI of the lumbar puncture, as carry significant risk, morbidity and mortality -But the likelihood of her having a meaningful recovery, neurologic recovery is very unlikely, likely has significant neurologic injury from a multitude of factors -I advised family that likely she will be trach dependent, PEG dependent, likely dependent on dialysis, and she does have significant risks associated with dialysis given her history of hypotension and A. fib during dialysis -Options I presented to family is continuing medical interventions versus pursuing comfort care -After discussing all the risks and benefits of each option, all parties voiced understanding, all questions answered, family agreed to proceed with comfort care -Patient's daughter did tell me that her mom would not want this, she would not want to be attached to artificial life support -After discussion the risks and benefits of comfort care, all 3 parties voiced understanding, all children are a healthcare power of divorce attorney, he voiced understanding, all questions answered, agreed to proceed with comfort care - we will proceed with comfort care Vitals/I&O/Wt Last Vital Signs Temp 100.3 F H 03/03/21 09:00 Pulse 93 03/03/21 10:00 Resp 20 H 03/03/21 10:26 BP 127/36 03/03/21 10:00 Pulse Ox 88 L 03/03/21 10:26 03/02/21 03/03/21 03/03/21 22:59 06:59 14:59 Intake Total 200 / 713.741 100.1 / 100.1 Output Total 5 / 5 0 / 5 Balance 195 / 708.741 0 / 708.741 100.1 / 100.1 Weight last 48 hrs Weight 78.925 kg Weight 79.8 kg Physical Exam Narrative: EXAM NARRATIVE: Intubated, off sedation, no responses, does not withdraw from pain, does have pupillary reflexes, no response to sternal rub Resp: COMMON NORMALS: normal respiratory effort, No retractions and No use of accessory muscles EFFORT & INSPECTION: Yes tachypneic AUSCULTATION: crackles Cardio: COMMON NORMALS: S1 normal heart sound present and S2 normal heart sound present RATE: tachycardic RHYTHM: abnormal rhythm irregularly irregular HEART SOUNDS: S1 normal heart sound present and S2 normal heart sound present GI: COMMON NORMALS: Normal to inspection, nondistended, normoactive bowel sounds present and Soft to palpation PALPATION: Yes Soft to palpation Urinary Catheter Management^: Ontiveros: Cath Placed During This Visit: yes Reason for Continuing Indwelling Catheter: Accurate Measurement of Urinary Output in Critically Ill Patients Urinary Catheter Date of Insertion: 02/14/21 Urinary Catheter Time of Insertion: 19:48 Data : 03/03/21 04:00 03/03/21 04:00 Micro: Microbiology 03/02/21 10:18 Blood Culture - Preliminary Blood NEGATIVE TO DATE 03/02/21 10:22 Blood Culture - Preliminary Blood NEGATIVE TO DATE 03/02/21 16:22 Urine Culture - Preliminary Urine Catheterized A&P Assessment and plan (1) Acute respiratory failure with hypoxia: Proceeding with comfort care Acute hypoxic respiratory failure -secondary to COVID-19 pneumonia, breakthrough infection, has received both Covid vaccines in May 2019, no history of booster -WBC 20.7, did have 2 fever spikes yesterday Plan: -Currently being managed in ICU -Currently intubated, 75% FiO2 -Off sedation since 02/27/2021 -On Decadron 6 mg, IV push daily -Completed remdesivir -status post 1 dose Actemra 02/17/2021 -Currently on vancomycin, and Primaxin, fluconazole -Repeat blood cultures, sputum cultures, urine cultures -Can consider lumbar puncture -Initial blood cultures positive for coagulase-negative staphylococci, repeat blood cultures negative -Sputum Culture : Yeast -Vitamin C, zinc, vitaimn D -Albuterol, budesonide -Resume tube feeds tonight Bilateral lower extremity ultrasound for negative for DVT -For CHF, BNP elevated, -Echocardiogram shows EF of 65%, moderate LVH, grade 1 out of 4 diastolic dysfunction -Continue bicarb 650 mg 3 times daily-secondary to uremia -Protonix for GI prophylaxis -Pending decision from family comfort care versus pursuing full medical intervention including trach, PEG, dialysis and placement to select Acute encephalopathy, secondary to COVID-19 pneumonia, hypoxia, uremia, possible CVA, sedating medications Remains off sedation since 02/27/2021 C.T head without contrast. No acute intracranial pathology CTA of the head and neck no acute pathology EEG shows diffuse slowing Uremia has improved with dialysis, however mentation has remained about the same Concerns for significant neurologic injury Continue to monitor mentation closely, aspiration precautions We will consult Dr. Watson YENNY on worseing CKD stage IV , secondary to COVID-Nephropathy: Developed hypotension during dialysis and A. fib with RVR Plan for dialysis tomorrow Renal ultrasound no nephrolithiasis avoid nephrotoxic agents -Metabolic Acidosis 2/2 to uremia plan as above. Transaminitis secondary to COVID-19, acutely worsening possibly shock liver related to hypotensive episodes Acute on chronic diastolic CHF exacerbation: Continue to monitor, dialysis Hypertension: Currently b/p is well controlled. Chronic lymphocytic leukemia, continue to monitor Elevated troponins, likely secondary respiratory failure, serial troponins, serial EKGs, continue aspirin, continue statin, normal CPK [id number] type 2 diabetes mellitus, low-dose sliding scale, Lantus 5 units twice daily Acute on chronic anemia, hemoglobin 7.8, concern for slow GI bleed, bone marrow suppression, acute renal failure from Covid infection, continue Protonix A.fib : Currently on p.o. Cardizem 30 mg every 6H Of amiodarone drip, continue p.o. Cardizem for twice daily Will hold off on full dose anticoagulation for now as there is risk of bleeding with dropping H&H. C.Diff Diarrhea : On Po Vancomycin 125 mg q6h for 7days status post antibiotic discontinuation as above. No significant episodes of diarrhea Thrombocytopenia: Low 4T Score, less likely HIT. Likely part of viral syndrome. Continue to monitor CBC for now. DVT PPX: On Heparin 5000 sc q12 h daily Patient 2 sons and daughter were updated -Full code -Prognosis poor, status stable Status: Acute (2) Pneumonia due to COVID-19 virus: Status: Acute (3) Acute kidney injury superimposed on CKD: Status: Acute (4) Atrial fibrillation: Status: Acute (5) CHF exacerbation: Status: Acute (6) Hypertension: Status: Chronic Qualifiers: Hypertension type: renovascular hypertension Qualified Code(s): I15.0 - Renovascular hypertension (7) Dyslipidemia: Status: Chronic (8) Carotid stenosis, bilateral: Status: Chronic (9) CLL (chronic lymphocytic leukemia): Status: Acute (10) ARDS (adult respiratory distress syndrome): Status: Acute (11) Acute encephalopathy: Status: Acute Attestations Medical Necessity Statement*: Patient requires hospitalization for acute respiratory failure , proceeding with comfort care Coding Level of Care Code Acute Commercial Credit Head for [facility] Mellisa Diagnoses Acute respiratory failure with hypoxia J96.01 Pneumonia due to COVID-19 virus U07.1; J12.82 Acute kidney injury superimposed on CKD N17.9; N18.9 Atrial fibrillation I48.91 CHF exacerbation I50.9 Hypertension I15.0 Hypertension type: renovascular hypertension Dyslipidemia E78.5 Carotid stenosis, bilateral I65.23 CLL (chronic lymphocytic leukemia) C91.10 ARDS (adult respiratory distress syndrome) J80 Acute encephalopathy G93.40
[2021-03-03] MEDS: morphine 4 mg/mL SDV 1 mL IVP (11:52)
[2021-03-03] MEDS: LORazepam 2 mg/mL INJ 1 mL IVP (11:53)
--- NOTE | 2021-03-03 12:03 | PM.PN ---
Subjective Medications: Reviewed: Yes Vitals/I&O/Wt Last Vital Signs Temp 100.3 F H 03/03/21 09:00 Pulse 93 03/03/21 10:00 Resp 20 H 03/03/21 10:26 BP 127/36 03/03/21 10:00 Pulse Ox 88 L 03/03/21 10:26 03/02/21 03/03/21 03/03/21 22:59 06:59 14:59 Intake Total 200 / 713.741 100.1 / 100.1 Output Total 5 / 5 0 / 5 Balance 195 / 708.741 0 / 708.741 100.1 / 100.1 Weight last 48 hrs Weight 78.925 kg Weight 79.8 kg Physical Exam Urinary Catheter Management^: Ontiveros: Cath Placed During This Visit: yes Reason for Continuing Indwelling Catheter: Accurate Measurement of Urinary Output in Critically Ill Patients Urinary Catheter Date of Insertion: 02/14/21 Urinary Catheter Time of Insertion: 19:48 Data : 03/03/21 04:00 03/03/21 04:00 Micro: Microbiology 03/02/21 10:18 Blood Culture - Preliminary Blood NEGATIVE TO DATE 03/02/21 10:22 Blood Culture - Preliminary Blood NEGATIVE TO DATE 03/02/21 16:22 Urine Culture - Preliminary Urine Catheterized Attestations Medical Necessity Statement*: Coding Level of Care Code Acute Residential Manager for Karthikeyan Peters
--- NOTE | 2021-03-03 12:19 | PC.CHAP ---
Pastoral Care Encounter/Spiritual Assessment Type of Contact [] Declined railroad dining car stewardess visit [] Patient/Family/Request visit [] Outpatient visit [] Follow-up visit [] Physician referral [] Code/Alert [] Routine visit [] Staff referral [] Actively dying [] Patient sleeping [x] Family support [x] [] Out of room [] Palliative care [] [] Receiving care in room [] Pre-surgical visit [] Trauma [] Long length of stay [x] ICU visit [] Other: Relational/Emotional Strength [x] Patient feels connected with others/family/visitors/staff [] Distress [] Loneliness/isolation [] Abandonment Spirituality of Patient [x] Person of Priscilla [] Attends Jewish of their Priscilla [x] Believes in Prayer [] Reads Bible or Yazidi materials [] There are Spiritual issues to be addressed Ornamental Plasterer Helper Interventions [x] Prayer [x] Active listening [x] Non-anxious presence [x] Spiritual/emotional support [] Crisis/trauma care [] Spiritual counseling [x] Bereavement support [] Provided bereavement packet [] Provided Bible/devotional materials [] Provided toy/stuffed animal, coloring book to patient or family member [] Provided Communion [] Anointing/Marty [] Salvation [] Completed spiritual assessment [] Other: Impact on Illness or Injury [] Angry [] Fearful [] Anxious [] Often cries [] Exhaustion [] Unable to work [] Unable to attend caodaism [] Unable to walk/stand [] Unable to read [] Unable to drive [] Unable to eat/drink [] Unable to sleep [] Unable to be with family [] Patient intubated [] Other: Summary Ornamental Plasterer Helper paged to ICU. Patient coming off of comfort care, family present. railroad dining car stewardess prayed with family and remained with family. family need short break before comfort care was removed. railroad dining car stewardess stayed with patient. Comfort care was removed, family came back into patients room and remained by her bedside until the time of her passing. railroad dining car stewardess read 23 Psalm and again prayed for family. Family doing well. Time spent with patient 40 min
--- NOTE | 2021-03-03 12:52 | PC.SOCIAL ---
IMM not updated due to patient being intubated and not expected to DC in the next 24-48 hours.
--- NOTE | 2021-03-03 15:32 | PM.DDS ---
Discharge Providers DDS Date of Admission: 02/14/21 20:04 Date Summary Completed: 03/03/21 Attending Provider at Admission: Oh Brennan MD Time of : 12:06 Attending Provider at Discharge: Oh Brennan MD Primary Care Provider: Teena Connelly MD DS Diagnoses Hospital Diagnoses (1) Acute respiratory failure with hypoxia: (2) Pneumonia due to COVID-19 virus: (3) Acute kidney injury superimposed on CKD: (4) Atrial fibrillation: (5) CHF exacerbation: Problem details: Resolved (6) Hypertension: Qualifiers: Hypertension type: renovascular hypertension Qualified Code(s): I15.0 - Renovascular hypertension (7) Dyslipidemia: (8) Carotid stenosis, bilateral: (9) CLL (chronic lymphocytic leukemia): (10) ARDS (adult respiratory distress syndrome): (11) Acute encephalopathy: Reason for Visit Reason for Visit: COVID +; RESP DISTRESS Summary Date and Time of Date of : 03/03/21 Time of : 12:06 Summary Summary: Yanira Gao is a 76 year old female with a past medical history of chronic lymphocytic leukemia, hypertension, noninsulin-dependent type 2 diabetes mellitus, discoid lupus, left subclavian artery stenosis, history of COVID-19 vaccination back in May 2019, aortic stenosis, CKD, diastolic CHF with history of bilateral pleural effusions, hypertension, who was diagnosed with COVID-19 positive on last week, who presents to [facility] due to complaints of fatigue, malaise, shortness of breath, fevers, chills, poor appetite. Patient was admitted to [facility] for acute hypoxic respiratory failure secondary to COVID-19 pneumonia with evidence of acute respiratory distress syndrome, requiring intubation, mechanical ventilation, broad-spectrum antibiotic therapy, remdesivir, Decadron, Actemra. She also developed acute renal failure requiring dialysis. Patient developed significant acute encephalopathy, assessment by neurology, concern for significant toxic encephalopathy multifactorial, with paralysis below the level of the neck, highly concerning for brainstem involvement. Patient's condition continued to worsen, developing worsening sepsis, septic shock, acute respiratory failure, increased oxygen requirements. After discussion with patient's family, patient was made comfort care. Patient 03/03/2021 at 12:06 PM. Additional Data Confirmation of as documented by pronouncing clinician: no pulse Family: at bedside Additional persons at bedside: nursing staff Attending/PCP notified?: I am attending Was code activated?: No Autopsy requested?: No Advance directives?: No Hospice patient?: No Discharge Plan Discharge Patient Disposition: Home Condition: Stable Prescriptions: No Action atorvastatin 10 mg tablet 5 mg PO BEDTIME RF: 0 diltiazem HCl [Cardizem CD] 240 mg capsule,extended release 24hr 240 mg PO BEDTIME RF: 0 acetaminophen [Tylenol Arthritis Pain] 650 mg tablet extended release 1,300 mg PO Q12H PRN (Reason: Pain) RF: 0 Ocuvite Adult 50 Plus 250-5-1 mg capsule 1 cap PO QAM RF: 0 bumetanide 2 mg tablet 1 mg PO BID RF: 0 losartan 50 mg tablet 75 mg PO DAILY Qty: 135 RF: 3 glipizide 5 mg tablet extended release 24hr 5 mg PO BEDTIME RF: 0 Aspir-81 81 mg Tablet,Delayed Release (Dr/Ec) 81 mg PO BEDTIME RF: 0 amlodipine 10 mg tablet 10 mg PO BEDTIME RF: 0 labetalol 200 mg tablet 200 mg PO BID RF: 0 hydralazine 50 mg tablet 50 mg PO BID RF: 0 Discharge Orders: Discharge Order (Routine); Ordered 03/03/21 Ordered By: Oh Brennan Referrals: Teena Connelly MD [Primary Care Provider] - Patient Instructions: Opioid Safety DS Attestations Time Spent in /Discharge Care*: less than 30 min Quality - AMI: AMI present?: No Quality - Stroke: CVA present?: No Quality - VTE: VTE present?: No Coding Level of Care Code Acute Visual Journalist for Chg Fwd Diagnoses Acute respiratory failure with hypoxia J96.01 Pneumonia due to COVID-19 virus U07.1; J12.82 Acute kidney injury superimposed on CKD N17.9; N18.9 Atrial fibrillation I48.91 CHF exacerbation I50.9 Hypertension I15.0 Hypertension type: renovascular hypertension Dyslipidemia E78.5 Carotid stenosis, bilateral I65.23 CLL (chronic lymphocytic leukemia) C91.10 ARDS (adult respiratory distress syndrome) J80 Acute encephalopathy G93.40
== END 2021-03-03 13:30 | disposition expired | DRG 207 ==
LOC: ER 20:06 → ICU 20:24
PROVIDERS: Internal Medicine; Internal Medicine Nephrology; Internal Medicine Pulmonary Disease; Admitting Provider Family Medicine; Emergency Provider Emergency Medicine; PCP Family Medicine; Visit Provider Family Medicine
DX: U07.1 COVID-19 (principal); J12.82 Pneumonia due to coronavirus disease 2019; I50.33 Acute on chronic diastolic (congestive) heart failure; J80 Acute respiratory distress syndrome; G92.8 Other toxic encephalopathy; A41.9 Sepsis, unspecified organism; R65.21 Severe sepsis with septic shock; I63.9 Cerebral infarction, unspecified; I13.0 Hypertensive heart and chronic kidney disease with heart failure and stage 1 through stage 4 chronic kidney disease, or unspecified chronic kidney disease; N18.4 Chronic kidney disease, stage 4 (severe); C91.10 Chronic lymphocytic leukemia of B-cell type not having achieved remission; N17.9 Acute kidney failure, unspecified; E87.0 Hyperosmolality and hypernatremia; A04.72 Enterocolitis due to Clostridium difficile, not specified as recurrent; Z87.01 Personal history of pneumonia (recurrent); I08.0 Rheumatic disorders of both mitral and aortic valves; I65.23 Occlusion and stenosis of bilateral carotid arteries; E11.22 Type 2 diabetes mellitus with diabetic chronic kidney disease; I15.0 Renovascular hypertension; M54.16 Radiculopathy, lumbar region; L93.0 Discoid lupus erythematosus; E78.5 Hyperlipidemia, unspecified; E87.5 Hyperkalemia; Z51.5 Encounter for palliative care; F17.210 Nicotine dependence, cigarettes, uncomplicated; J44.9 Chronic obstructive pulmonary disease, unspecified; I95.9 Hypotension, unspecified; D69.6 Thrombocytopenia, unspecified; I48.91 Unspecified atrial fibrillation
CPT/HCPCS: 36415; 36416; 36569; 36592; 36600; 51702; 70450; 70496; 70498; 71045; 71250; 76770; 80051; 80053; 80202; 81001; 82009; 82274; 82330; 82550; 82570; 82728; 82803; 82805; 82962; 83605; 83630; 83735; 83880; 84100; 84145; 84300; 84443; 84484; 85007; 85025; 85378; 85610; 85730; 86140; 86403; 86705; 86706; 87040; 87070; 87086; 87106; 87205; 87340; 87426; 87493; 87506; 87635; 87641; 90935; 93005; 93306; 93970; 94002; 94003; 94640; 94664; 94799; 96372; 96374; 96375; 99285; A4570; C1751; C9113; J0282; J0360; J0456; J0610; J0637; J0692; J0696; J0743; J1100; J1450; J1630; J1644; J1650; J1815 ×2; J1940; J1956; J2060; J2250; J2270; J2405; J2704; J3010; J3262; J3370; J3490; J3535; J7050; J7060; J7611; J7626; Q3014; Q9967